=== PATIENT | female | born 1965 | race Caucasian/White ===

== ENCOUNTER 2022-08-09 12:53 | Inpatient (IN) | payer OTHER, SELFPAY ==
[2022-08-09] VITALS (22 sets, daily range): BP systolic 108–156; BP diastolic 58–98; PULSE 101–128; RESP 19–34; TEMP 36.7–37.2; O2SAT 89–97; BMI 26.4
--- NOTE | 2022-08-09 12:58 | DI.RAD.S_ITS ---
PROCEDURE: XR CHEST 1V INDICATIONS: SOB TECHNIQUE: One view of the chest was acquired. COMPARISON: None. FINDINGS: Surgical changes and devices: None. Lungs and pleura: There is hyperinflation and chronic interstitial changes without focal infiltrate, pleural effusion or pneumothorax. Mediastinum: Mediastinal contours appear normal. Heart size is normal. Bones and chest wall: No suspicious bony lesions. Overlying soft tissues appear unremarkable. IMPRESSION: Hyperinflation without acute cardiopulmonary findings Approved by: Get Santana M.D. on 08/09/2022 at 13:24
[2022-08-09] MEDS: ALBUTEROL/IPRATROPIUM 3 ML AMPUL 9 ML INH (13:02)
[2022-08-09] MEDS: SODIUM CHLORIDE 0.9% 1,000 ML 1000 ML IV (13:06)
[2022-08-09] MEDS: methylPREDNISolone 125 MG/2 ML VIAL IV (13:06)
--- NOTE | 2022-08-09 13:07 | ED_ITS ---
HPI - SOB/Dyspnea General Chief Complaint: Shortness of Breath/Dyspnea Stated Complaint: COPD, SOB, Chest pain Time Seen by Provider: 08/09/22 12:53 Source: patient and EMS Mode of arrival: EMS Limitations: no limitations History of Present Illness HPI Narrative: 57-year-old female former smoker with history of COPD presents by EMS for evaluation of a few days of increasing shortness of breath with yellow to gree manjinder sputum production, body aches and fatigue. She has multiple family members with viral upper respiratory infections. She has been using her inhalers without much relief. On arrival EMS found her tripoding with oxygen levels in the mid 90s. Her most recent hospitalization was in [place] about 1 month ago under similar circumstances. She denies any headache, blurred vision or throat pain. She has no nausea, vomiting or diarrhea. She did have some mild chest pain that was associated with cough earlier today but this is no longer present. She denies any recent travel, known cancer or history of blood clot. She has no lower extremity pain, swelling or redness Related Data Allergies Allergy/AdvReac Type Severity Reaction Status Date / Time morphine Allergy Verified 08/09/22 13:02 walnut Allergy Verified 08/09/22 13:02 Review of Systems Review of Systems Narrative: GENERAL: See HPI HEENT: Denies sinus pain, ear pain, sore throat, difficulty swallowing, dizziness. RESPIRATORY: see HPI CARDIOVASCULAR: see HPI GASTROINTESTINAL: Denies nausea, vomiting, abdominal pain, diarrhea, constipation, melena. : Denies dysuria, frequency, incontinence, hematuria, urinary retention. MUSCULOSKELETAL: denies weakness, joint pain, or bony pain SKIN: Denies rash, skin lesions, or other NEUROLOGIC: Denies weakness, headache, numbness, change in speech, confusion, seizures, incoordination. PSYCHIATRIC: No concerning psychosocial issues. 12 point review of systems is negative except for those stated above Exam Narrative Exam Narrative: GENERAL: [57] year old patient appears stated age. Well-developed patient, in mild distress. HEAD: Atraumatic. Normocephalic. EYES: Pupils equal round and reactive. Extraocular motions intact. No scleral icterus. No injection or drainage. ENT: Nose without bleeding, purulent drainage. Throat without erythema, tonsillar hypertrophy or exudate. Airway patent. NECK: Trachea midline. Non tender CARDIOVASCULAR: Regular rate and rhythm without murmurs, gallops, or rubs. RESPIRATORY: Decreased breath sounds throughout with prolonged expiratory phase and very faint end expiratory wheeze. Increased work of breathing with use of accessory muscles. Room air pulse ox mid 90s GASTROINTESTINAL: Abdomen soft, non-tender, nondistended. EXTREMITIES: No edema or joint tenderness. BACK: Nontender without deformity or crepitance. No flank tenderness. NEURO: AOx3. SKIN: No rash or erythema of visible areas Initial Vital Signs Initial Vital Signs: Vital Signs Pulse Rate 125 H 08/09/22 12:56 Pulse Oximetry 97 08/09/22 12:56 Course Orders Ordered: ED Orders 08/09/22 12:58 XR chest 1V Stat 08/09/22 13:01 Blood Culture Stat Complete Blood Count AUTO DIFF Stat Comprehensive Metabolic Panel Stat Covid-19 + FLU A/B + RSV - PCR Stat D Dimer Stat Lipase Stat NT-proBNP (BNP-Adult 18+) Stat Procalcitonin Stat Troponin & CK Cardiac Panel Stat 08/09/22 13:10 EKG-12 Lead Stat 08/09/22 14:42 CT angio chest PE protocol Stat Discontinued Medications Acetaminophen (Acetaminophen 325 Mg Tablet) 650 mg PO NOW ONE Stop: 08/09/22 17:22 Last Admin: 08/09/22 17:27 Dose: 650 mg Documented By: MARK Albuterol/Ipratropium (Albuterol/Ipratropium 3 Ml Ampul) 9 ml INH NOW ONE Stop: 08/09/22 13:01 Last Admin: 08/09/22 13:02 Dose: 9 ml Documented By: SHER Sodium Chloride (Normal Saline 0.9%) 1,000 mls @ 1,000 mls/hr IV BOLUS ONE Stop: 08/09/22 13:56 Last Infusion: 08/09/22 14:13 Dose: 0 mls/hr Documented By: Admin: 08/09/22 13:06 Dose: 1,000 mls/hr Documented By: KIMMIE Magnesium Sulfate (Magnesium Sulfate) 2 gm in 50 mls @ 150 mls/hr IV NOW ONE Stop: 08/09/22 15:01 Last Infusion: 08/09/22 16:18 Dose: 0 mls/hr Documented By: YADIRA Co-signed By: MARK Admin: 08/09/22 15:10 Dose: 150 mls/hr Documented By: YADIRA Co-signed By: MARK Ceftriaxone Sodium 1,000 mg/ (Sodium Chloride) 100 mls @ 200 mls/hr IV NOW ONE Stop: 08/09/22 16:54 Last Admin: 08/09/22 17:28 Dose: 200 mls/hr Documented By: MARK Azithromycin 500 mg/ Dextrose 250 mls @ 250 mls/hr IV NOW ONE Stop: 08/09/22 16:54 Methylprednisolone (Methylprednisolone 125 Mg/2 Ml Vial) 125 mg IV NOW ONE Stop: 08/09/22 13:00 Last Admin: 08/09/22 13:06 Dose: 125 mg Documented By: KIMMIE Vital Signs Vital signs: Vital Signs - 8 hr 08/09/22 12:59 08/09/22 13:03 08/09/22 12:56 Temperature 99.0 F Pulse Rate 124 H 117 H 125 H Respiratory Rate 28 H 22 Blood Pressure 154/98 H Pulse Oximetry 92 93 97 Oxygen Delivery Method Room Air Nasal Cannula Oxygen Flow Rate 2 08/09/22 12:58 08/09/22 12:58 08/09/22 13:00 Temperature Pulse Rate 128 H Respiratory Rate Blood Pressure 156/79 H 132/78 Pulse Oximetry 94 Oxygen Delivery Method Oxygen Flow Rate 08/09/22 13:00 08/09/22 13:30 08/09/22 13:31 Temperature Pulse Rate 126 H 123 H Respiratory Rate Blood Pressure 121/76 Pulse Oximetry 93 94 Oxygen Delivery Method Oxygen Flow Rate 08/09/22 13:31 08/09/22 14:00 08/09/22 14:00 Temperature Pulse Rate 120 H 119 H Respiratory Rate Blood Pressure 123/58 L Pulse Oximetry 93 94 Oxygen Delivery Method Oxygen Flow Rate 08/09/22 14:30 08/09/22 14:30 08/09/22 15:06 Temperature Pulse Rate 124 H 124 H Respiratory Rate Blood Pressure 125/62 Pulse Oximetry 89 L 89 L Oxygen Delivery Method Oxygen Flow Rate 08/09/22 15:30 08/09/22 15:37 08/09/22 15:37 Temperature Pulse Rate 117 H 115 H Respiratory Rate 30 H 34 H Blood Pressure 142/67 H Pulse Oximetry 96 96 Oxygen Delivery Method Oxygen Flow Rate 08/09/22 16:00 08/09/22 16:00 08/09/22 16:30 Temperature Pulse Rate 108 H Respiratory Rate Blood Pressure 119/61 129/63 Pulse Oximetry 93 Oxygen Delivery Method Oxygen Flow Rate 08/09/22 16:30 08/09/22 17:00 08/09/22 17:00 Temperature Pulse Rate 103 H 103 H Respiratory Rate 25 H 23 Blood Pressure 121/74 Pulse Oximetry 94 94 Oxygen Delivery Method Oxygen Flow Rate MDM - SOB/Dyspnea Lab Data Result diagrams: 08/09/22 13:01 08/09/22 13:01 Labs: Lab Results 08/09/22 08/09/22 08/09/22 Range/Units 13:01 13:01 13:01 WBC 10.4 (4.5-11.0) X10^3/uL RBC 4.98 (4.0-5.2) X10^6/uL Hgb 14.1 (12.0-16.0) g/dL Hct 41.9 (36-46) % MCV 84.3 (80-100) fL MCH 28.3 (26-34) PG MCHC 33.6 (30-36) % RDW 13.0 (11.6-14.8) % Plt Count 267 (150-400) X10^3/uL Neut % (Auto) 74.7 (50-75) % Lymph % (Auto) 12.1 L (25-40) % [place] % (Auto) 12.4 (3-14) % Eos % (Auto) 0.4 L (2-4) % Baso % (Auto) 0.4 (0-2) % Neut # (Auto) 7700 H (0174-9346) /uL Lymph # (Auto) 1200 (0023-2094) /uL [place] # (Auto) 1300 H (0-900) /uL Eos # (Auto) 0 (0-450) /uL Baso # (Auto) 0 (0-100) /uL D-Dimer 731 H (<500) ng/ml Sodium (137-145) mmol/L Potassium (3.4-5.1) mmol/L Chloride (98-107) mmol/L Carbon Dioxide (22-32) mmol/L BUN (7-17) mg/dL Creatinine (0.52-1.04) mg/dL Estimated GFR (>60) mL/min BUN/Creatinine Ratio (6-22) Glucose (70-100) mg/dL Calcium (8.4-10.2) mg/dL Total Bilirubin (0.2-1.3) mg/dL AST (14-36) IU/L ALT (<35) IU/L Alkaline Phosphatase (38-126) U/L Total Creatine Kinase (30-135) U/L CK-MB (CK-2) (<2.37) ng/mL CK-MB (CK-2) Rel Index (1.5-5.0) % Troponin I (0.01-0.034) ng/mL NT-Pro-B Natriuret Pep (<125) pg/mL Total Protein (6.3-8.2) g/dL Albumin (3.5-5.0) g/dL Globulin (1.7-4.1) g/dL Albumin/Globulin Ratio (1.0-2.8) Lipase (23-300) U/L Procalcitonin 0.08 (<0.5) ng/mL SARS-CoV-2 (PCR) (Negative) Influenza A (RT-PCR) (NEGATIVE) Influenza B (RT-PCR) (NEGATIVE) RSV (PCR) (Negative) 08/09/22 08/09/22 Range/Units 13:01 13:01 WBC (4.5-11.0) X10^3/uL RBC (4.0-5.2) X10^6/uL Hgb (12.0-16.0) g/dL Hct (36-46) % MCV (80-100) fL MCH (26-34) PG MCHC (30-36) % RDW (11.6-14.8) % Plt Count (150-400) X10^3/uL Neut % (Auto) (50-75) % Lymph % (Auto) (25-40) % [place] % (Auto) (3-14) % Eos % (Auto) (2-4) % Baso % (Auto) (0-2) % Neut # (Auto) (1909-9483) /uL Lymph # (Auto) (8204-7157) /uL [place] # (Auto) (0-900) /uL Eos # (Auto) (0-450) /uL Baso # (Auto) (0-100) /uL D-Dimer (<500) ng/ml Sodium 132 L (137-145) mmol/L Potassium 3.6 (3.4-5.1) mmol/L Chloride 96 L (98-107) mmol/L Carbon Dioxide 27 (22-32) mmol/L BUN 10 (7-17) mg/dL Creatinine 0.39 L (0.52-1.04) mg/dL Estimated GFR > 60 (>60) mL/min BUN/Creatinine Ratio 25.6 H (6-22) Glucose 133 H (70-100) mg/dL Calcium 8.7 (8.4-10.2) mg/dL Total Bilirubin 0.8 (0.2-1.3) mg/dL AST 23 (14-36) IU/L ALT 14 (<35) IU/L Alkaline Phosphatase 103 (38-126) U/L Total Creatine Kinase 116 (30-135) U/L CK-MB (CK-2) 1.58 (<2.37) ng/mL CK-MB (CK-2) Rel Index 1.4 L (1.5-5.0) % Troponin I < 0.012 (0.01-0.034) ng/mL NT-Pro-B Natriuret Pep 72 (<125) pg/mL Total Protein 7.1 (6.3-8.2) g/dL Albumin 3.8 (3.5-5.0) g/dL Globulin 3.3 (1.7-4.1) g/dL Albumin/Globulin Ratio 1.2 (1.0-2.8) Lipase 44 (23-300) U/L Procalcitonin (<0.5) ng/mL SARS-CoV-2 (PCR) Negative (Negative) Influenza A (RT-PCR) Flu a negative (NEGATIVE) Influenza B (RT-PCR) Flu b negative (NEGATIVE) RSV (PCR) Negative (Negative) Imaging Data CT scan - chest: Radiologist's Impression: Nieves Fernandez??57??F??1965 ? Allergy/Adv: morphine, walnut Close Chest CTA (Signed) Santana,Get - 08/09/22 Chest X-Ray (Signed) Santana,[facility] - 08/09/22 Launch?[address] [address] [address] Scan Report Signed Patient: Nieves Fernandez MR#: [id number] : 1965 Acct:[id number] Age/Sex: 57 / F Date of Service: 08/09/22 Loc: ED Accession Number: [id number] ?? Procedure: CT angio chest PE protocol Ordering Provider: Bruno Mcfadden D.O. PROCEDURE:? CT ANGIO CHEST PE PROTOCOL ? INDICATIONS:? SOB, hypoxemia, tachycardia ? TECHNIQUE:? After the administration of intravenous contrast, 2 mm thick sections acquired from the pulmonary apices to the posterior costophrenic angles.? 3-dimensional maximum intensity projection (MIP) coronal and sagittal reformats were then acquired through the thorax.? For radiation dose reduction, the following was used:? automated exposure control, adjustment of mA and/or kV according to patient size.? ? COMPARISON:? None. ? FINDINGS: ? Cardiovascular and Mediastinum:? Heart size is normal.? No evidence of thoracic aortic aneurysm.? Pulmonary vasculature is unremarkable.? No hiatal hernia.? Thyroid gland unremarkable. ? Lungs and Pleural Spaces:? Diffuse bronchial wall thickening associated with bilateral peripheral tree-in-bud densities.? Small peripheral pulmonary nodules noted as well.? There is an 8 mm nodule image periphery of the right lower lobe.? Bilobed nodule in the right upper lobe measures 1.8 by 0.8 cm.? Multiple additional smaller nodules have a reticulonodular component.? Biapical pulmonary emphysema present as well. ? Lymph Nodes:? Mediastinal adenopathy.? Largest is a pretracheal node measuring 1.9 x 1.1 cm.? No axillary adenopathy. ? Musculoskeletal:? No evidence of rib fracture. Thoracic spine unremarkable. Chest wall and sternum intact. No lytic or blastic lesions. ? Upper abdomen:? Visualized portions of the liver, spleen and kidneys are unremarkable. ? IMPRESSION: ? 1. No evidence of pulmonary embolism, aortic dissection or aneurysm. ? 2. Bilateral peripheral tree-in-bud pattern associated with multiple reticular nodules.? Largest is a bilobed nodule in the right upper lobe measuring up to 1.8 cm. While this all reflect infectious or inflammatory disease, follow-up to resolution required to exclude underlying neoplastic process ? Approved by: Get Santana M.D. on 08/09/2022 at 15:42? Discharge Plan Departure Patient Disposition: Admitted as Observation Clinical Impression: Acute hypoxemic respiratory failure, Acute exacerbation of chronic obstructive pulmonary disease Admit Date/Time: 08/09/22 17:03 Admit Provider: Melanie Wadsworth
[2022-08-09 13:51] LABS: Add Manual Diff / Slide Review NO; Basophils Absolute Auto 0 /uL (0-100); Basophils Percent Auto 0.4 % (0-2); Eosinophils Absolute Auto 0 /uL (0-450); Eosinophils Percent Auto 0.4 % (2-4); Hematocrit 41.9 % (36-46); Hemoglobin 14.1 g/dL (12.0-16.0); Lymphocytes Absolute Auto 1200 /uL (1100-4500); Lymphocytes Percent Auto 12.1 % (25-40); Mean Corpuscular HGB Conc 33.6 % (30-36); Mean Corpuscular Hemoglobin 28.3 PG (26-34); Mean Corpuscular Volume 84.3 fL (80-100); Monocytes Absolute Auto 1300 /uL (0-900); Monocytes Percent Auto 12.4 % (3-14); Neutrophils Absolute Auto 7700 /uL (1500-7000); Neutrophils Percent Auto 74.7 % (50-75); Platelet Count 267 X10^3/uL (150-400); Red Blood Cell Count 4.98 X10^6/uL (4.0-5.2); White Blood Cell Count 10.4 X10^3/uL (4.5-11.0)
[2022-08-09 14:03] LABS: D Dimer 731 ng/ml (<500)
[2022-08-09 14:10] LABS: Alanine Aminotransferase 14 IU/L (<35); Albumin 3.8 g/dL (3.5-5.0); Albumin Globulin Ratio 1.2 (1.0-2.8); Alkaline Phosphatase 103 U/L (38-126); Aspartate Aminotransferase 23 IU/L (14-36); BUN Creatinine Ratio 25.6 (6-22); Bilirubin Total 0.8 mg/dL (0.2-1.3); Blood Urea Nitrogen 10 mg/dL (7-17); Calcium 8.7 mg/dL (8.4-10.2); Carbon Dioxide 27 mmol/L (22-32); Chloride 96 mmol/L (98-107); Creatine Kinase 116 U/L (30-135); Estimated Glomerular Filt Rate > 60 mL/min (>60); Globulin 3.3 g/dL (1.7-4.1); Glucose 133 mg/dL (70-100); HEMOLYSIS < 15 (0-50); Lipase 44 U/L (23-300); Potassium 3.6 mmol/L (3.4-5.1); Sodium 132 mmol/L (137-145); Total Protein 7.1 g/dL (6.3-8.2)
[2022-08-09 14:22] LABS: NT-proBNP (BNP-Adult 18+) 72 pg/mL (<125); Troponin I < 0.012 ng/mL (0.01-0.034)
[2022-08-09 14:25] LABS: CKMB % Relative Index 1.4 % (1.5-5.0); Creatine Kinase MB 1.58 ng/mL (<2.37)
[2022-08-09 14:32] LABS: Influenza A - CEPHEID Flu A NEGATIVE (NEGATIVE); Influenza B - CEPHEID Flu B NEGATIVE (NEGATIVE); Respiratory Syncytial Virus Negative (Negative)
[2022-08-09 14:35] LABS: COVID-19 CEPHEID 4-PLEX PCR Negative (Negative)
[2022-08-09 14:39] LABS: Procalcitonin 0.08 ng/mL (<0.5)
--- NOTE | 2022-08-09 14:42 | DI.CT.S_ITS ---
PROCEDURE: CT ANGIO CHEST PE PROTOCOL INDICATIONS: SOB, hypoxemia, tachycardia TECHNIQUE: After the administration of intravenous contrast, 2 mm thick sections acquired from the pulmonary apices to the posterior costophrenic angles. 3-dimensional maximum intensity projection (MIP) coronal and sagittal reformats were then acquired through the thorax. For radiation dose reduction, the following was used: automated exposure control, adjustment of mA and/or kV according to patient size. COMPARISON: None. FINDINGS: Cardiovascular and Mediastinum: Heart size is normal. No evidence of thoracic aortic aneurysm. Pulmonary vasculature is unremarkable. No hiatal hernia. Thyroid gland unremarkable. Lungs and Pleural Spaces: Diffuse bronchial wall thickening associated with bilateral peripheral tree-in-bud densities. Small peripheral pulmonary nodules noted as well. There is an 8 mm nodule image periphery of the right lower lobe. Bilobed nodule in the right upper lobe measures 1.8 by 0.8 cm. Multiple additional smaller nodules have a reticulonodular component. Biapical pulmonary emphysema present as well. Lymph Nodes: Mediastinal adenopathy. Largest is a pretracheal node measuring 1.9 x 1.1 cm. No axillary adenopathy. Musculoskeletal: No evidence of rib fracture. Thoracic spine unremarkable. Chest wall and sternum intact. No lytic or blastic lesions. Upper abdomen: Visualized portions of the liver, spleen and kidneys are unremarkable. IMPRESSION: 1. No evidence of pulmonary embolism, aortic dissection or aneurysm. 2. Bilateral peripheral tree-in-bud pattern associated with multiple reticular nodules. Largest is a bilobed nodule in the right upper lobe measuring up to 1.8 cm. While this all reflect infectious or inflammatory disease, follow-up to resolution required to exclude underlying neoplastic process Approved by: Get Santana M.D. on 08/09/2022 at 15:42
[2022-08-09] MEDS: MAGNESIUM SULFATE 2 GM/50 ML PIGGYBACK IV (15:10)
[2022-08-09] MEDS: ACETAMINOPHEN 325 MG TABLET 650 MG PO (17:27)
[2022-08-09] MEDS: cefTRIAXone 1,000 MG in SODIUM CHLORIDE 0.9% 100 ML 200 MG IV (17:28)
[2022-08-09] MEDS: AZITHROMYCIN 500 MG in DEXTROSE 5% IN WATER 250 ML 250 MG IV (17:57)
--- NOTE | 2022-08-09 23:49 | P.HP_ITS ---
History of Present Illness History of Present Illness Date Patient Seen: 08/10/22 Time Patient Seen: 23:55 Chief complaint: COPD, SOB, Chest pain Narrative: Ms. Fernandez is a 57W with PMH COPD who presents to the hospital with worsening shortness of breath. She has a similar admission 1 month ago to another hospital. She notes for the last 4 days she has had worsening cough with green sputum production, shortness of breath, myalgias. She has grandchildren who have colds. She has used her inhaler with minimal improvement. When EMS arrived she was tripoding and in respiratory distress. She had chest pain that was exacerbated with a cough. She does have O2 at home, but rarely needs to to use it. In the ED workup was done, vitals notabe for tachycardia, tachypnea. Sats in the 80 on room air, she was placed on 2L oxygen. Labs notable for WBC 10.4, hgb 14.1, plts 267. Creatinine 0.39. D-dimer 731. Procal 0.08.Covid negative, flu negative, RSV negative. Chest xray showed no acute process. CTA showed no PE, but did show bilateral tree in bud pattern. She was ordered for nebs, steroids, antibiotics and admitted for further treatment. On the floor she remains in notable respiratory distress, increased work of breathing and tachypneic. Family history: Mother with emphysema Social history: former smoker Patient History Family & Social History Social History: household members children Prior Living Arrangements House Safety & Behavioral: Feels Safe in Current Yes Environment Been Physically Hurt or No Threatened By a Person Tobacco & Substance use: Smoking Status Former smoker alcohol intake never Substance Use Type does not use Meds Home Medications and Allergies Home Medications Medication Instructions Recorded Confirmed Type albuterol sulfate 5 mg/mL(0.5 %) 2.5 mg inhalation Q6H PRN Wheezing 08/09/22 08/09/22 History solution for nebulization benzonatate 200 mg capsule 200 mg PO TID PRN Cough 08/09/22 08/09/22 History fluticasone propionate 115 2 puff inhalation BID 08/09/22 08/09/22 History mcg-salmeterol 21 mcg/actuation HFA inhaler (Advair HFA) tiotropium bromide 2.5 2 puff inhalation DAILY 08/09/22 08/09/22 History mcg/actuation mist for inhalation (Spiriva Respimat) Allergies Allergy/AdvReac Type Severity Reaction Status Date / Time morphine Allergy Verified 08/09/22 13:02 walnut Allergy Verified 08/09/22 13:02 Review of Systems Review of Systems Narrative: 14 systems reviewed and negative aside from what is noted in HPI Exam Vital Signs (past 8 hours): - 08/09/22 16:30 08/09/22 16:30 08/09/22 17:00 Temperature Pulse Rate 103 H Respiratory Rate 25 H Blood Pressure 129/63 121/74 Pulse Oximetry 94 Oxygen Delivery Method Oxygen Flow Rate 08/09/22 17:00 08/09/22 17:30 08/09/22 17:30 Temperature Pulse Rate 103 H 113 H Respiratory Rate 23 29 H Blood Pressure 133/73 Pulse Oximetry 94 92 Oxygen Delivery Method Oxygen Flow Rate 08/09/22 18:00 08/09/22 18:00 08/09/22 18:30 Temperature Pulse Rate 109 H Respiratory Rate 22 Blood Pressure 115/62 108/64 Pulse Oximetry 94 Oxygen Delivery Method Oxygen Flow Rate 08/09/22 18:30 08/09/22 19:00 08/09/22 19:00 Temperature Pulse Rate 115 H 107 H Respiratory Rate 21 23 Blood Pressure 114/60 Pulse Oximetry 95 94 Oxygen Delivery Method Oxygen Flow Rate 08/09/22 19:30 08/09/22 19:30 08/09/22 20:00 Temperature Pulse Rate 103 H Respiratory Rate 19 Blood Pressure 111/61 125/68 Pulse Oximetry 95 Oxygen Delivery Method Oxygen Flow Rate 08/09/22 20:00 08/09/22 20:46 08/09/22 17:13 Temperature 98.0 F Pulse Rate 101 H 101 H Respiratory Rate 25 H 26 H Blood Pressure 117/77 Pulse Oximetry 94 93 Oxygen Delivery Method Nasal Cannula Oxygen Flow Rate 2 08/09/22 19:00 Temperature Pulse Rate Respiratory Rate Blood Pressure Pulse Oximetry Oxygen Delivery Method Nasal Cannula Oxygen Flow Rate Oxygen Delivery Method Nasal Cannula Oxygen Flow Rate 2 Narrative Exam Narrative: GEN: respiratory distress HEENT: moist mucous membranes, PERRL NECK: trachea midline, no JVD PULM: wheezes bilaterally, increased work of breathing, tachypneic CV: tachycardic no murmurs ABD: soft, nontender, nondistended, no organomegaly EXT: warm and well perfused with no edema NEURO: awake, alert, oriented with no focal deficts Objective Labs Result Diagrams: 08/09/22 13:01 08/09/22 13:01 Labs: Laboratory Results - last 24 hr 08/09/22 08/09/22 08/09/22 13:01 13:01 13:01 WBC 10.4 RBC 4.98 Hgb 14.1 Hct 41.9 MCV 84.3 MCH 28.3 MCHC 33.6 RDW 13.0 Plt Count 267 Neut % (Auto) 74.7 Lymph % (Auto) 12.1 L [place] % (Auto) 12.4 Eos % (Auto) 0.4 L Baso % (Auto) 0.4 Neut # (Auto) 7700 H Lymph # (Auto) 1200 [place] # (Auto) 1300 H Eos # (Auto) 0 Baso # (Auto) 0 D-Dimer 731 H Sodium Potassium Chloride Carbon Dioxide BUN Creatinine Estimated GFR BUN/Creatinine Ratio Glucose Calcium Total Bilirubin AST ALT Alkaline Phosphatase Total Creatine Kinase CK-MB (CK-2) CK-MB (CK-2) Rel Index Troponin I NT-Pro-B Natriuret Pep Total Protein Albumin Globulin Albumin/Globulin Ratio Lipase Procalcitonin 0.08 SARS-CoV-2 (PCR) Influenza A (RT-PCR) Influenza B (RT-PCR) RSV (PCR) 08/09/22 08/09/22 13:01 13:01 WBC RBC Hgb Hct MCV MCH MCHC RDW Plt Count Neut % (Auto) Lymph % (Auto) [place] % (Auto) Eos % (Auto) Baso % (Auto) Neut # (Auto) Lymph # (Auto) [place] # (Auto) Eos # (Auto) Baso # (Auto) D-Dimer Sodium 132 L Potassium 3.6 Chloride 96 L Carbon Dioxide 27 BUN 10 Creatinine 0.39 L Estimated GFR > 60 BUN/Creatinine Ratio 25.6 H Glucose 133 H Calcium 8.7 Total Bilirubin 0.8 AST 23 ALT 14 Alkaline Phosphatase 103 Total Creatine Kinase 116 CK-MB (CK-2) 1.58 CK-MB (CK-2) Rel Index 1.4 L Troponin I < 0.012 NT-Pro-B Natriuret Pep 72 Total Protein 7.1 Albumin 3.8 Globulin 3.3 Albumin/Globulin Ratio 1.2 Lipase 44 Procalcitonin SARS-CoV-2 (PCR) Negative Influenza A (RT-PCR) Flu a negative Influenza B (RT-PCR) Flu b negative RSV (PCR) Negative Assessment & Plan Assessment & Plan narrative: 1. Acute hypoxemic respiratory failure with acute COPD exacerbation -she has noted shortness of breath, wheezing, productive cough -on arrival sats in the 80s -she has been started on steroids, nebulizers, and azithromycin -will order for budesonide as well -CT scan showed tree in bud opacities, will treat for bacterial pneumonia as we ll as possible exacerbator, ordered for ceftriaxone/azithromycin Dispo: She continues to look quite in respiratory distress and uncomfortable with increased work of breathing and oxygen requirement. Suspect she will need at least two midnights of treatment in the hospital. CODE: Full Proxy:Candida Brandon, daughter I have utilized all available resources to reconcile the patient's home medications Time Spent With Patient Critical Care time: I spent a total of [] minutes of critical care time on this patient's care toda y; this time is exclusive of procedural time. Quality VTE Deep Vein Thrombosis/Pulmonary Embolism Present on Admission: No
[2022-08-10] VITALS (11 sets, daily range): BP systolic 109–121; BP diastolic 65–73; PULSE 75–103; RESP 14–20; TEMP 36.3–37.2; O2SAT 89–98
[2022-08-10] MEDS: ACETAMINOPHEN 325 MG TABLET 650 MG PO ×2 (00:12→08:27)
--- NOTE | 2022-08-10 04:37 | PC.NURSE ---
Pt is AxOx4, needs STA and cooperative. VSS, except pt's has tachypnea and use tripod position to breath.Lungs are so diminished in all area. Pt is on 2 O2 and sats 95%. Pt easily get SOB with activity and takes a long time to catch her breath. Otherwise, no problem. Pt c/o headache and recieved PRN Tylenol with good effect. Pt slept well.
[2022-08-10 07:05] LABS: Add Manual Diff / Slide Review NO; Basophils Absolute Auto 0 /uL (0-100); Basophils Percent Auto 0.3 % (0-2); Eosinophils Absolute Auto 0 /uL (0-450); Hematocrit 39.3 % (36-46); Hemoglobin 13.2 g/dL (12.0-16.0); Lymphocytes Absolute Auto 1100 /uL (1100-4500); Lymphocytes Percent Auto 11.8 % (25-40); Mean Corpuscular HGB Conc 33.5 % (30-36); Mean Corpuscular Hemoglobin 28.5 PG (26-34); Monocytes Absolute Auto 500 /uL (0-900); Monocytes Percent Auto 6.1 % (3-14); Neutrophils Absolute Auto 7300 /uL (1500-7000); Neutrophils Percent Auto 81.8 % (50-75); Platelet Count 281 X10^3/uL (150-400); Red Blood Cell Count 4.62 X10^6/uL (4.0-5.2); White Blood Cell Count 8.9 X10^3/uL (4.5-11.0)
[2022-08-10 07:18] LABS: BUN Creatinine Ratio 34.4 (6-22); Blood Urea Nitrogen 11 mg/dL (7-17); Calcium 8.6 mg/dL (8.4-10.2); Carbon Dioxide 32 mmol/L (22-32); Chloride 99 mmol/L (98-107); Estimated Glomerular Filt Rate > 60 mL/min (>60); Glucose 134 mg/dL (70-100); HEMOLYSIS < 15 (0-50); Potassium 4.4 mmol/L (3.4-5.1); Sodium 139 mmol/L (137-145)
[2022-08-10] MEDS: BUDESONIDE 0.5 MG/2 ML NEB INH ×2 (07:28→18:05)
[2022-08-10] MEDS: ALBUTEROL/IPRATROPIUM 3 ML AMPUL INH ×4 (07:28→18:05)
[2022-08-10] MEDS: ENOXAPARIN 40 MG/0.4 ML SYRINGE SUBCUT (08:24)
[2022-08-10] MEDS: predniSONE 20 MG TABLET 40 MG PO (08:25)
--- NOTE | 2022-08-10 12:24 | P.PN_ITS ---
Subjective Subjective Date Patient Seen: 08/10/22 Interval history: Tilden a bit better this morning, but will have occasional coughing fits where she will desaturate and get short of breath. Had some chest pain with coughing that now resolved. Exam Vital Signs (past 8 hours): - 08/10/22 05:03 08/10/22 07:46 08/10/22 08:21 Temperature 97.4 F L 98.2 F Pulse Rate 75 95 H 95 H Respiratory Rate 18 20 18 Blood Pressure 118/73 114/69 Pulse Oximetry 94 89 L 93 Oxygen Delivery Method Nasal Cannula Oxygen Flow Rate 0 3 2 Fraction of Inspired Oxygen 32 08/10/22 07:00 08/10/22 11:15 Temperature Pulse Rate 79 Respiratory Rate 16 Blood Pressure Pulse Oximetry 93 94 Oxygen Delivery Method Nasal Cannula High Flow Nasal Cannula Oxygen Flow Rate 2 3 Fraction of Inspired Oxygen Fraction of Inspired Oxygen 32 SaO2/FiO2 Ratio 278 Oxygen Delivery Method High Flow Nasal Cannula Oxygen Flow Rate 3 Narrative Exam Narrative: GEN: initially NAD, then bending forwarding after coughing with tachypnea. HEENT: moist mucous membranes, PERRL NECK: trachea midline, no JVD PULM: wheezes bilaterally, increased work of breathing after coughing spell CV: RRR, no murmurs ABD: soft, nontender, nondistended, no organomegaly EXT: warm and well perfused with no edema NEURO: awake, alert, oriented with no focal deficts Objective Labs Result Diagrams: 08/10/22 06:12 08/10/22 06:12 Labs: Laboratory Results - last 24 hr 08/09/22 08/09/22 08/09/22 13:01 13:01 13:01 WBC 10.4 RBC 4.98 Hgb 14.1 Hct 41.9 MCV 84.3 MCH 28.3 MCHC 33.6 RDW 13.0 Plt Count 267 Neut % (Auto) 74.7 Lymph % (Auto) 12.1 L [place] % (Auto) 12.4 Eos % (Auto) 0.4 L Baso % (Auto) 0.4 Neut # (Auto) 7700 H Lymph # (Auto) 1200 [place] # (Auto) 1300 H Eos # (Auto) 0 Baso # (Auto) 0 D-Dimer 731 H Sodium Potassium Chloride Carbon Dioxide BUN Creatinine Estimated GFR BUN/Creatinine Ratio Glucose Calcium Total Bilirubin AST ALT Alkaline Phosphatase Total Creatine Kinase CK-MB (CK-2) CK-MB (CK-2) Rel Index Troponin I NT-Pro-B Natriuret Pep Total Protein Albumin Globulin Albumin/Globulin Ratio Lipase Procalcitonin 0.08 SARS-CoV-2 (PCR) Influenza A (RT-PCR) Influenza B (RT-PCR) RSV (PCR) 08/09/22 08/09/22 08/10/22 13:01 13:01 06:12 WBC 8.9 RBC 4.62 Hgb 13.2 Hct 39.3 MCV 85.0 MCH 28.5 MCHC 33.5 RDW 13.0 Plt Count 281 Neut % (Auto) 81.8 H Lymph % (Auto) 11.8 L [place] % (Auto) 6.1 Eos % (Auto) 0.0 L Baso % (Auto) 0.3 Neut # (Auto) 7300 H Lymph # (Auto) 1100 [place] # (Auto) 500 Eos # (Auto) 0 Baso # (Auto) 0 D-Dimer Sodium 132 L Potassium 3.6 Chloride 96 L Carbon Dioxide 27 BUN 10 Creatinine 0.39 L Estimated GFR > 60 BUN/Creatinine Ratio 25.6 H Glucose 133 H Calcium 8.7 Total Bilirubin 0.8 AST 23 ALT 14 Alkaline Phosphatase 103 Total Creatine Kinase 116 CK-MB (CK-2) 1.58 CK-MB (CK-2) Rel Index 1.4 L Troponin I < 0.012 NT-Pro-B Natriuret Pep 72 Total Protein 7.1 Albumin 3.8 Globulin 3.3 Albumin/Globulin Ratio 1.2 Lipase 44 Procalcitonin SARS-CoV-2 (PCR) Negative Influenza A (RT-PCR) Flu a negative Influenza B (RT-PCR) Flu b negative RSV (PCR) Negative 08/10/22 06:12 WBC RBC Hgb Hct MCV MCH MCHC RDW Plt Count Neut % (Auto) Lymph % (Auto) [place] % (Auto) Eos % (Auto) Baso % (Auto) Neut # (Auto) Lymph # (Auto) [place] # (Auto) Eos # (Auto) Baso # (Auto) D-Dimer Sodium 139 Potassium 4.4 Chloride 99 Carbon Dioxide 32 BUN 11 Creatinine 0.32 L Estimated GFR > 60 BUN/Creatinine Ratio 34.4 H Glucose 134 H Calcium 8.6 Total Bilirubin AST ALT Alkaline Phosphatase Total Creatine Kinase CK-MB (CK-2) CK-MB (CK-2) Rel Index Troponin I NT-Pro-B Natriuret Pep Total Protein Albumin Globulin Albumin/Globulin Ratio Lipase Procalcitonin SARS-CoV-2 (PCR) Influenza A (RT-PCR) Influenza B (RT-PCR) RSV (PCR) [facility] Social History household members: children Smoking Status: Former smoker alcohol intake: never Assessment & Plan Assessment & Plan narrative: 1. Acute hypoxemic respiratory failure with acute COPD exacerbation, and bacterial pneumonia -she has noted shortness of breath, wheezing, productive cough. Normally only needs occasional oxygen, but requiring 3L at rest today. -on arrival sats in the 80s -she has been started on steroids, nebulizers, and azithromycin as well as antibiotics based on CT with opacitites. -Goal O2 89-96% while on supplemental therapy. Dispo: Inpatient, likely discharge home suspect in 2-3 days. CODE: Full Proxy:Candida Brandon, daughter I have utilized all available resources to reconcile the patient's home medications Time Spent With Patient Critical Care time: I spent a total of [] minutes of critical care time on this patient's care today; this time is exclusive of procedural time. Quality VTE Deep Vein Thrombosis/Pulmonary Embolism Present on Admission: No
--- NOTE | 2022-08-10 12:37 | CM.DANOTE ---
Patient is a 57 yo female who was admitted on 08/09/22 for COPD/SOB. Pt has [employer] for insurance and her PCP is Dr. Jeffery at [facility]. EMR was reviewed. Per MD, pt with hx of current smoker and COPD and has home oxygen but does not use much and admitted for Acute Resp Failure/COPD exac and possible pneumonia. Pt not yet medically stable to d/c home yet today and still on oxygen. SW met bedside with pt and explained role and pt confirms she lives at home in [place] with her adult Dtr Candida and jacobo and both pt and Dtr work at baseline. Pt is independent at baseline and drives and denies any hx of HH or SNF or need for any DME. Pt states she has a hx of hospitalization for similar but states last time she felt so much worse and had to remain in the hospital 3-4 days. Pt confirms that Dtr can assist if needed at d/c and provide transport home and pt does not anticipate any d/c needs once she is feeling a little better. Pt confirms her PCP is at the [facility] in [place] and states it's impossible to get an appointment there let alone get a call through. Pt is interested in changing PCP and getting established in [place]. SW provided the PCP list for [place] and encouraged her to call while she is in the hospital to schedule an establish care appointment. Pt appreciative. Plan: SW to follow for likely d/c home via Dtr POV when medically stable and any further identified discharge planning needs. EUGENIA Castellanos Discharge Planning/Care Management CM Discharge Assessment Start: 08/10/22 10:48 Freq: Status: Active Protocol: Document 08/10/22 10:48 BF (Rec: 08/10/22 10:55 [id number]) Discharge Planning Assessment Assigned Brim Presser EUGENIA Xavier DPOA/Assigned Designee Name informally Dtr Candida Contact Information [phone] Advance Directives? No Advance Directives on File No History Provided By Patient,Medical Record Has Patient been admitted in last 30 No days? Prior Living Arrangements House Household Members children Type of transporation used prior to Drives own vehicle admit Independent with ADL's Yes Is patient alert and oriented? Yes Caregiver for Another Yes: grandchildren in the home as well Barriers to Discharge No Discharge Plan Home Transportation Arrangement Dtr can provide transport at d /c Referrals Initiated None needed Whiteboard Updated in Patient Room with Yes name and ext. # of Brim Presser Review Status In Process Please Provide Date Initial DC 08/10/22 Assessment Was Performed Next Review Type Continued Stay Review Document 08/10/22 12:37 BF (Rec: 08/10/22 12:37 BF [id number]) Discharge Planning Assessment Assigned Brim Presser EUGENIA Xavier DPOA/Assigned Designee Name informally Dtr Candida Contact Information [phone] Advance Directives? No Advance Directives on File No History Provided By Patient,Medical Record Has Patient been admitted in last 30 No days? Prior Living Arrangements House Household Members children Type of transporation used prior to Drives own vehicle admit Independent with ADL's Yes Is patient alert and oriented? Yes Caregiver for Another Yes: grandchildren in the home as well Barriers to Discharge No Discharge Plan Home Transportation Arrangement Dtr can provide transport at d /c Referrals Initiated None needed Whiteboard Updated in Patient Room with Yes name and ext. # of Brim Presser Review Status In Process Please Provide Date Initial DC 08/10/22 Assessment Was Performed Next Review Type Continued Stay Review
[2022-08-10] MEDS: cefTRIAXone 1,000 MG in SODIUM CHLORIDE 0.9% 100 ML 200 MG IV (19:51)
[2022-08-10] MEDS: AZITHROMYCIN 500 MG in DEXTROSE 5% IN WATER 250 ML 250 MG IV (20:28)
[2022-08-11] VITALS (9 sets, daily range): BP systolic 113–142; BP diastolic 68–84; PULSE 81–98; RESP 16–20; TEMP 36.8–37.7; O2SAT 91–97
--- NOTE | 2022-08-11 03:32 | PC.NURSE ---
Pt is AxOx4, independent and cooperative. VSS, pt denies pain. Pt's O2 sats decreases at night below 90s and pt feels slighty SOB so pt was put on 1.5L NC. Otherwise, pt is doing well: coughing intermittent and strong. Lungs still diminished in most area. However, anterior bilatarally sounds slight better than yesterday. No other changes. Continue monitor.
[2022-08-11] MEDS: BUDESONIDE 0.5 MG/2 ML NEB INH ×2 (07:43→20:35)
[2022-08-11] MEDS: ALBUTEROL/IPRATROPIUM 3 ML AMPUL INH ×4 (07:43→20:35)
[2022-08-11] MEDS: predniSONE 20 MG TABLET 40 MG PO (08:11)
[2022-08-11] MEDS: ENOXAPARIN 40 MG/0.4 ML SYRINGE SUBCUT (08:11)
[2022-08-11] MEDS: BENZONATATE 100 MG CAPSULE PO (08:15)
[2022-08-11] MEDS: ACETAMINOPHEN 325 MG TABLET 650 MG PO ×2 (08:15→18:08)
[2022-08-11] MEDS: ALBUTEROL 2.5 MG/3 ML NEB (ADULT) INH (08:19)
--- NOTE | 2022-08-11 08:54 | DI.RAD.S_ITS ---
PROCEDURE: XR CHEST 2V INDICATIONS: continued hypoxia, poor air movement TECHNIQUE: 2 views of the chest were acquired. COMPARISON: [facility], CT, CT ANGIO CHEST PE PROTOCOL, 08/09/2022, 15:00. [facility], CR, XR CHEST 2 VIEWS, 01/19/2019, 10:29. [facility], CR, XR CHEST 1V, 08/09/2022, 13:10. FINDINGS: Surgical changes and devices: None. Lungs and pleura: No consolidation visualized. Micronodular opacities present on recent CT are not well visualized radiographically. No pleural effusions or pneumothorax. Mediastinum: Mediastinal contours are normal. Heart size is normal. Bones and chest wall: No suspicious bony abnormalities. Soft tissues appear unremarkable. IMPRESSION: No consolidation visualized. Micronodular opacities present on recent CT are not well visualized radiographically. Dictated by: Francesco Gu M.D. on 08/11/2022 at 12:58 Approved by: Francesco Gu M.D. on 08/11/2022 at 13:01
--- NOTE | 2022-08-11 12:26 | P.PN_ITS ---
Subjective Subjective Date Patient Seen: 08/11/22 Interval history: Feels a bit better this morning, but will still have occasional coughing fits still where she will desaturate and get short of breath. Exam Vital Signs (past 8 hours): - 08/11/22 07:12 08/11/22 07:47 08/11/22 08:15 Temperature 99.9 F H Pulse Rate 98 H Respiratory Rate 19 Blood Pressure 142/84 H Pulse Oximetry 91 92 92 Oxygen Delivery Method Nasal Cannula Nasal Cannula Oxygen Flow Rate 2 3 3 08/11/22 11:40 08/11/22 12:00 Temperature 98.2 F Pulse Rate 94 H Respiratory Rate 16 Blood Pressure 113/70 Pulse Oximetry 97 Oxygen Delivery Method Oxygen Flow Rate 3 0 Fraction of Inspired Oxygen 32 SaO2/FiO2 Ratio 278 Oxygen Delivery Method Nasal Cannula Oxygen Flow Rate 0 Narrative Exam Narrative: GEN: initially NAD, then bending forwarding after coughing with tachypnea. HEENT: moist mucous membranes, PERRL NECK: trachea midline, no JVD PULM: wheezes bilaterally, increased work of breathing after coughing spell CV: RRR, no murmurs ABD: soft, nontender, nondistended, no organomegaly EXT: warm and well perfused with no edema NEURO: awake, alert, oriented with no focal deficts Objective Labs Result Diagrams: 08/10/22 06:12 08/10/22 06:12 [facility] Social History household members: children Smoking Status: Former smoker alcohol intake: never Assessment & Plan Assessment & Plan narrative: 1. Acute hypoxemic respiratory failure with acute COPD exacerbation, and bacterial pneumonia -she has noted shortness of breath, wheezing, productive cough. Normally only needs occasional oxygen, but requiring 3L at rest today. -on arrival sats in the 80s -she has been started on steroids, nebulizers, and azithromycin as well as an tibiotics based on CT with opacitites. -Goal O2 89-96% while on supplemental therapy. Dispo: Inpatient, likely discharge home suspect in 2-3 days. May need home O2 depending on progress over the next few days. CODE: Full Proxy:Candida Brandon, daughter I have utilized all available resources to reconcile the patient's home medications Time Spent With Patient Critical Care time: I spent a total of [] minutes of critical care time on this patient's care today; this time is exclusive of procedural time. Quality VTE Deep Vein Thrombosis/Pulmonary Embolism Present on Admission: No
[2022-08-11] MEDS: cefTRIAXone 1,000 MG in SODIUM CHLORIDE 0.9% 100 ML 200 MG IV (19:44)
[2022-08-11] MEDS: AZITHROMYCIN 500 MG in DEXTROSE 5% IN WATER 250 ML 250 MG IV (20:40)
[2022-08-12] VITALS (10 sets, daily range): BP systolic 108–133; BP diastolic 63–80; PULSE 70–88; RESP 16–24; TEMP 36.6–37.2; O2SAT 92–98
[2022-08-12] MEDS: ALBUTEROL 2.5 MG/3 ML NEB (ADULT) INH ×2 (01:26→14:25)
[2022-08-12] MEDS: ALBUTEROL/IPRATROPIUM 3 ML AMPUL INH ×4 (07:22→18:11)
[2022-08-12] MEDS: BUDESONIDE 0.5 MG/2 ML NEB INH ×2 (07:22→18:11)
--- NOTE | 2022-08-12 07:44 | PM.PN.1 ---
Subjective Subjective Date Patient Seen: 08/12/22 Time Patient Seen: 11:00 Interval history: Patient feeling better but not quite back to baseline. Still having productive cough. Exam Vital Signs (past 8 hours): - 08/12/22 01:25 08/12/22 02:02 08/12/22 07:40 Temperature 97.8 F Pulse Rate 77 Respiratory Rate 17 Blood Pressure 116/63 Pulse Oximetry 96 97 Oxygen Delivery Method Room Air Nasal Cannula Oxygen Flow Rate 2 3 3 Fraction of Inspired Oxygen 32 SaO2/FiO2 Ratio 278 Oxygen Delivery Method Nasal Cannula Oxygen Flow Rate 3 Narrative Exam Narrative: GEN: initially NAD, then bending forwarding after coughing with tachypnea. HEENT: moist mucous membranes, PERRL NECK: trachea midline, no JVD PULM: faint wheezes bilaterally, increased work of breathing after coughing spell CV: RRR, no murmurs ABD: soft, nontender, nondistended, no organomegaly EXT: warm and well perfused with no edema NEURO: awake, alert, oriented with no focal deficts Objective Labs Result Diagrams: 08/10/22 06:12 08/10/22 06:12 [facility] Social History household members: children Smoking Status: Former smoker alcohol intake: never Assessment & Plan Assessment & Plan narrative: 1. Acute hypoxemic respiratory failure with acute COPD exacerbation, and bacterial pneumonia, improving -she has noted shortness of breath, wheezing, productive cough. Normally only needs occasional oxygen, but requiring 3L at rest today. -on arrival sats in the 80s -she has been started on steroids, nebulizers, and azithromycin as well as antibiotics based on CT with opacitites. -Goal O2 89-96% while on supplemental therapy. Dispo: Inpatient, likely discharge home suspect in 2-3 days. May need home O2 depending on progress over the next few days. CODE: Full Proxy:Candida Brandon, daughter I have utilized all available resources to reconcile the patient's home medications Dispo: Home in 1-2 days, possibly on 1-2L O2. Time Spent With Patient Critical Care time: I spent a total of [] minutes of critical care time on this patient's care today; this time is exclusive of procedural time. Quality VTE Deep Vein Thrombosis/Pulmonary Embolism Present on Admission: No
[2022-08-12] MEDS: predniSONE 20 MG TABLET 40 MG PO (10:20)
[2022-08-12] MEDS: ENOXAPARIN 40 MG/0.4 ML SYRINGE SUBCUT (10:20)
[2022-08-12] MEDS: cefTRIAXone 1,000 MG in SODIUM CHLORIDE 0.9% 100 ML 200 MG IV (20:00)
[2022-08-12] MEDS: AZITHROMYCIN 500 MG in DEXTROSE 5% IN WATER 250 ML 250 MG IV (20:42)
[2022-08-13] MEDS: ALBUTEROL 2.5 MG/3 ML NEB (ADULT) INH (00:14)
[2022-08-13 06:37] VITALS: BP 124/78; PULSE 83; RESP 18; TEMP 36.4; O2SAT 98
--- NOTE | 2022-08-13 07:39 | PM.DS.1 ---
History of Present Illness History of Present Illness Date Patient Seen: 08/13/22 Time Patient Seen: 10:00 Chief complaint: COPD, SOB, Chest pain Narrative: Ms. Fernandez is a 57W with PMH COPD who presents to the hospital with worsening shortness of breath. She has a similar admission 1 month ago to another hospital. She notes for the last 4 days she has had worsening cough with green sputum production, shortness of breath, myalgias. She has grandchildren who have colds. She has used her inhaler with minimal improvement. When EMS arrived she was tripoding and in respiratory distress. She had chest pain that was exacerbated with a cough. She does have O2 at home, but rarely needs to to use it. In the ED workup was done, vitals notabe for tachycardia, tachypnea. Sats in the 80 on room air, she was placed on 2L oxygen. Labs notable for WBC 10.4, hgb 14.1, plts 267. Creatinine 0.39. D-dimer 731. Procal 0.08.Covid negative, flu negative, RSV negative. Chest xray showed no acute process. CTA showed no PE, but did show bilateral tree in bud pattern. She was ordered for nebs, steroids, antibiotics and admitted for further treatment. On the floor she remains in notable respiratory distress, increased work of breathing and tachypneic. Discharge Providers Provider Date of admission: 08/09/22 17:03 Discharge Date: 08/13/22 Primary care physician: Doctor Mike MD Discharge provider: Joshua Quintero DO Summary Hospital Course Discharge Diagnosis: 1. Acute hypoxemic respiratory failure with acute COPD exacerbation, and bacterial pneumonia, improving Hospital Course: Patient admitted for worsening shortness of breath, productive cough and wheezing in the setting of likely viral pneumonia as her entire family came down with similar symptoms. Flu, RSV and COVID negative. Requiring 2-3L NC to start. CT showed opacities so started on CAP antibiotics along with prednisone and duonebs. She improved over 4 days and able to wean to 1L O2. Discharged to use her home O2 until she can wean off to maintain sats >87%. Given 3 additional days of po augmentin and 1 more day of po prednisone. Time Spent with Patient Time spent: Greater than 30 minutes Exam Vital Signs (past 8 hours): - 08/13/22 00:14 08/13/22 06:37 Temperature 97.6 F Pulse Rate 83 Respiratory Rate 18 Blood Pressure 124/78 Pulse Oximetry 98 Oxygen Delivery Method Nasal Cannula Oxygen Flow Rate 3 2 Fraction of Inspired Oxygen 32 SaO2/FiO2 Ratio 278 Oxygen Delivery Method Nasal Cannula Oxygen Flow Rate 2 Narrative Exam Narrative: GEN: NAD appears comfortable HEENT: moist mucous membranes, PERRL NECK: trachea midline, no JVD PULM: previously had wheezes, currently none CV: RRR, no murmurs ABD: soft, nontender, nondistended, no organomegaly EXT: warm and well perfused with no edema NEURO: awake, alert, oriented with no focal deficts Objective Labs Result Diagrams: 08/10/22 06:12 08/10/22 06:12 [facility] Social History household members: children Smoking Status: Former smoker alcohol intake: never Discharge Plan Discharge Plan Patient Disposition: Home Provider Discharge Comment: You were admitted for a COPD exacerbation from a pneumonia. You improved on IV antibiotics and oral steroids, and will need to complete 1 more day of steroids and 3 more days of oral antibiotics at home. Use your home oxygen to keep your sats >87% and you can wean off the oxygen over time if your levels stay good. Discharge orders & Medications Prescriptions: New prednisone 20 mg Tablet 40 mg PO DAILY 1 Days Qty: 2 0RF Rx Instructions: take on 08/14 amoxicillin-pot clavulanate 875-125 mg tablet 1 tab PO BID 3 Days Qty: 6 0RF Rx Instructions: start on 08/14 Continued Advair HFA 115-21 mcg/actuation HFA aerosol inhaler 2 puff INHALATION BID Label Comments: INHALE 2 PUFFS BY MOUTH TWICE DAILY albuterol sulfate 5 mg/mL solution for nebulization 2.5 mg inhalation Q6H PRN (Reason: Wheezing) Label Comments: inhale 0.5 milliliters in nebulizer every 6 hours if needed for wheezing Spiriva Respimat 2.5 mcg/actuation mist 2 puff INHALATION DAILY Label Comments: inhale 2 puffs once daily benzonatate 200 mg capsule 200 mg PO TID PRN (Reason: Cough) Label Comments: take 1 capsule by mouth three times a day if needed for cough swa... (REFER TO PRESCRIPTION NOTES). Follow up/Referrals: Miscellaneous,Doctor, MD [Primary Care Provider] - Visit Report/Discharge Packet Instructions: DI for Heart Failure, DI for Chronic Obstructive Pulmonary Disease Discharge Data Primary Care Provider: Doctor Mike Quality VTE Deep Vein Thrombosis/Pulmonary Embolism Present on Admission: No
[2022-08-13 07:41] VITALS: BP 116/69; PULSE 86; RESP 16; TEMP 36.6; O2SAT 95
[2022-08-13] MEDS: ENOXAPARIN 40 MG/0.4 ML SYRINGE SUBCUT (08:45)
[2022-08-13] MEDS: predniSONE 20 MG TABLET 40 MG PO (08:45)
[2022-08-13 08:54] VITALS: O2SAT 93
[2022-08-13] MEDS: ALBUTEROL/IPRATROPIUM 3 ML AMPUL INH ×2 (09:03→12:33)
[2022-08-13] MEDS: BUDESONIDE 0.5 MG/2 ML NEB INH (09:04)
[2022-08-13 09:05] VITALS: PULSE 109; RESP 26; O2SAT 92
[2022-08-13 12:33] VITALS: PULSE 98; RESP 14; O2SAT 93
== END 2022-08-13 12:51 | disposition home or self-care (01) | DRG 190 ==
LOC: ED 13:47 → AC 17:48
PROVIDERS: Internal Medicine; Admitting Provider Family Medicine; Emergency Provider Emergency Medicine; Referring Provider Emergency Medicine; Visit Provider Family Medicine
DX: J44.1 Chronic obstructive pulmonary disease with (acute) exacerbation (principal); J15.9 Unspecified bacterial pneumonia; J96.01 Acute respiratory failure with hypoxia; Z20.822 Contact with and (suspected) exposure to COVID-19; Z87.891 Personal history of nicotine dependence
CPT/HCPCS: 0241U; 36415; 71045; 71046; 71275; 80048; 80053; 82550; 82553; 83690; 83880; 84145; 84484; 85025; 85379; 87040; 87070; 87205; 93005; 94640; 94760; 94762; 96365; 96375; 99284; J0696; J1650; J2930; J3475; J7613; Q9967

== ENCOUNTER 2023-02-03 14:19 | Emergency (ER) | payer OTHER, SELFPAY ==
[2022-08-09 20:19] VITALS: BMI 26.4
[2023-02-03] VITALS (14 sets, daily range): BP systolic 112–143; BP diastolic 60–85; PULSE 76–84; RESP 19–36; TEMP 37.5; O2SAT 91–96; BMI 24.7
--- NOTE | 2023-02-03 14:28 | DI.RAD.S_ITS ---
PROCEDURE: XR CHEST 1V INDICATIONS: Shortness of breath TECHNIQUE: One view of the chest was acquired. COMPARISON: [facility], CR, XR CHEST 2V, 08/11/2022, 9:13. FINDINGS: Surgical changes and devices: None. Lungs and pleura: There is hyperinflation. No focal infiltrate. No pleural effusions or pneumothorax. Mediastinum: Mediastinal contours appear normal. Heart size is normal. Bones and chest wall: No suspicious bony lesions. Overlying soft tissues appear unremarkable. IMPRESSION: COPD. No acute cardiopulmonary process. Dictated by: Valdo Ballesteros M.D. on 02/03/2023 at 14:16 Approved by: Valdo Ballesteros M.D. on 02/03/2023 at 14:17
[2023-02-03] MEDS: ALBUTEROL/IPRATROPIUM 3 ML AMPUL INH ×2 (14:36→15:20)
[2023-02-03 14:47] LABS: Add Manual Diff / Slide Review NO; Basophils Absolute Auto 100 /uL (0-100); Basophils Percent Auto 0.9 % (0-2); Eosinophils Absolute Auto 100 /uL (0-450); Eosinophils Percent Auto 2.4 % (2-4); Hematocrit 46.6 % (36-46); Hemoglobin 15.8 g/dL (12.0-16.0); Lymphocytes Absolute Auto 2100 /uL (1100-4500); Lymphocytes Percent Auto 35.4 % (25-40); Mean Corpuscular Hemoglobin 29.2 PG (26-34); Mean Corpuscular Volume 85.8 fL (80-100); Monocytes Absolute Auto 400 /uL (0-900); Monocytes Percent Auto 7.4 % (3-14); Neutrophils Absolute Auto 3200 /uL (1500-7000); Neutrophils Percent Auto 53.9 % (50-75); Platelet Count 295 X10^3/uL (150-400); Red Blood Cell Count 5.43 X10^6/uL (4.0-5.2); Red Cell Distribution Width 12.9 % (11.6-14.8); White Blood Cell Count 5.9 X10^3/uL (4.5-11.0)
[2023-02-03 14:49] LABS: INR 1.1 (0.9-1.3); Prothrombin Time 12.1 SECONDS (10.1-12.7)
--- NOTE | 2023-02-03 14:49 | ED_ITS ---
HPI - General Adult General Chief complaint: Shortness of Breath/Dyspnea Stated complaint: Resp distress x3day Time Seen by Provider: 02/03/23 14:41 Source: patient Mode of arrival: Wheelchair History of Present Illness HPI narrative: Patient is a 57-year-old female. Has a history of COPD and asthma. Is on multiple nebulizers at home and also inhalers. She states that for the past 3 days she is had a cough. It is a productive cough but it is not more sputum than normal and it is not changing colors. She is no chest pain. States she is had fairly significant respiratory distress with up moving around. Is also having wheezing. Has been doing all of her nebulizers and other medications as directed. No lower extremity swelling. Related Data Home Medications Medication Instructions Recorded Confirmed albuterol sulfate 5 mg/mL(0.5 %) 2.5 mg inhalation Q6H PRN Wheezing 08/09/22 08/09/22 solution for nebulization benzonatate 200 mg capsule 200 mg PO TID PRN Cough 08/09/22 08/09/22 fluticasone propionate 115 2 puff inhalation BID 08/09/22 08/09/22 mcg-salmeterol 21 mcg/actuation HFA inhaler (Advair HFA) tiotropium bromide 2.5 2 puff inhalation DAILY 08/09/22 08/09/22 mcg/actuation mist for inhalation (Spiriva Respimat) Previous Rx's Medication Instructions Recorded albuterol sulfate 2.5 mg/0.5 mL 5 mg inhalation QID PRN shortness 02/03/23 solution for nebulization of breath or wheezing #30 ea albuterol sulfate 90 mcg/actuation 2 puff inhalation Q4-6H PRN 02/03/23 aerosol inhaler (ProAir HFA) shortness of breath or wheezing #8.5 grams azithromycin 250 mg tablet 250 mg PO DAILY 4 days #4 tabs 02/03/23 prednisone 20 mg tablet 20 mg PO DAILY #7 tabs 02/03/23 Allergies Allergy/AdvReac Type Severity Reaction Status Date / Time morphine Allergy Verified 08/09/22 13:02 walnut Allergy Verified 08/09/22 13:02 Review of Systems Review of Systems ROS Unobtainable: All systems reviewed & are unremarkable except as noted in HPI and below Patient History Medical History COPD (chronic obstructive pulmonary disease) Social History household members: children Smoking Status: Former smoker alcohol intake: never Smoking Status: Former smoker Substance Use Type: does not use Exam Initial Vital Signs Initial Vital Signs: Vital Signs Temperature 99.5 F 02/03/23 14:22 Pulse Rate 81 02/03/23 14:22 Respiratory Rate 28 H 02/03/23 14:22 Blood Pressure 132/85 02/03/23 14:22 Pulse Oximetry 96 02/03/23 14:22 Oxygen Delivery Method Room Air 02/03/23 14:22 Const General: cooperative and No ill appearing HENMT Head: normal to inspection and normocephalic Resp Effort & Inspection: respiratory effort not decreased, labored, retractions and tachypneic Auscultation: clear to auscultation bilaterally Cardio Rate: regular rate GI Inspection: normal to inspection Skin General: no rashes or lesions noted Neuro General: patient alert, patient awake and moves all extremities Extrem General: normal to inspection and No edema Course Orders Ordered: ED Orders 02/03/23 14:28 XR chest 1V Stat Measure peak expiratory flow ONCE RT Consult Eval and Treat NOW 02/03/23 14:30 Complete Blood Count AUTO DIFF Stat Comprehensive Metabolic Panel Stat Lactate (Lactic Acid) Stat NT-proBNP (BNP-Adult 18+) Stat Prothrombin Time INR Stat Respiratory Panel (Film Array) Stat Troponin I Stat 02/03/23 14:51 EKG-12 Lead Stat Discontinued Medications Albuterol/Ipratropium (Albuterol/Ipratropium 3 Ml Ampul) 3 ml INH NOW ONE Stop: 02/03/23 14:34 Last Admin: 02/03/23 14:36 Dose: 3 ml Documented By: LISSET Albuterol/Ipratropium (Albuterol/Ipratropium 3 Ml Ampul) 3 ml INH NOW ONE Stop: 02/03/23 15:18 Last Admin: 02/03/23 15:20 Dose: 3 ml Documented By: LISSET Budesonide (Budesonide 0.5 Mg/2 Ml Neb) 0.5 mg INH NOW ONE Stop: 02/03/23 15:38 Last Admin: 02/03/23 15:40 Dose: 0.5 mg Documented By: LISSET Azithromycin 500 mg/ Dextrose 250 mls @ 250 mls/hr IV NOW ONE Stop: 02/03/23 15:11 Last Admin: 02/03/23 15:30 Dose: 250 mls/hr Documented By: ABHILASH Methylprednisolone (Methylprednisolone 125 Mg/2 Ml Vial) 125 mg IV NOW ONE Stop: 02/03/23 15:11 Last Admin: 02/03/23 15:30 Dose: 125 mg Documented By: ABHILASH Vital Signs Vital signs: Vital Signs - 8 hr 02/03/23 14:22 02/03/23 14:38 02/03/23 14:34 Temperature 99.5 F Pulse Rate 81 82 Respiratory Rate 28 H Blood Pressure 132/85 Pulse Oximetry 96 96 96 Oxygen Delivery Method Room Air Room Air 02/03/23 15:00 02/03/23 15:00 02/03/23 15:20 Temperature Pulse Rate 76 Respiratory Rate 24 Blood Pressure 131/77 Pulse Oximetry 93 95 Oxygen Delivery Method Room Air 02/03/23 15:15 02/03/23 15:30 02/03/23 15:30 Temperature Pulse Rate 78 82 Respiratory Rate 25 H 24 Blood Pressure 143/71 H Pulse Oximetry 94 93 Oxygen Delivery Method 02/03/23 15:33 02/03/23 15:33 02/03/23 15:45 Temperature Pulse Rate 79 Respiratory Rate 26 H Blood Pressure 119/66 138/72 Pulse Oximetry 92 Oxygen Delivery Method 02/03/23 15:45 02/03/23 16:00 02/03/23 16:00 Temperature Pulse Rate 77 82 Respiratory Rate 19 36 H Blood Pressure 135/62 Pulse Oximetry 94 93 Oxygen Delivery Method 02/03/23 16:15 02/03/23 16:15 02/03/23 16:30 Temperature Pulse Rate 81 Respiratory Rate 23 Blood Pressure 125/60 117/61 Pulse Oximetry 93 Oxygen Delivery Method 02/03/23 16:30 02/03/23 16:45 02/03/23 16:45 Temperature Pulse Rate 84 78 Respiratory Rate 29 H 27 H Blood Pressure 112/63 Pulse Oximetry 93 91 Oxygen Delivery Method Medical Decision Making Lab Data Lab results reviewed: Yes I reviewed the patient's lab results. 02/03/23 14:30 02/03/23 14:30 Labs: Lab Results 02/03/23 02/03/23 02/03/23 Range/Units 14:30 14:30 14:30 WBC 5.9 (4.5-11.0) X10^3/uL RBC 5.43 H (4.0-5.2) X10^6/uL Hgb 15.8 (12.0-16.0) g/dL Hct 46.6 H (36-46) % MCV 85.8 (80-100) fL MCH 29.2 (26-34) PG MCHC 34.0 (30-36) % RDW 12.9 (11.6-14.8) % Plt Count 295 (150-400) X10^3/uL Neut % (Auto) 53.9 (50-75) % Lymph % (Auto) 35.4 (25-40) % Emanuel % (Auto) 7.4 (3-14) % Eos % (Auto) 2.4 (2-4) % Baso % (Auto) 0.9 (0-2) % Neut # (Auto) 3200 (4151-7140) /uL Lymph # (Auto) 2100 (8313-9568) /uL Emanuel # (Auto) 400 (0-900) /uL Eos # (Auto) 100 (0-450) /uL Baso # (Auto) 100 (0-100) /uL PT 12.1 (10.1-12.7) SECONDS INR 1.1 (0.9-1.3) Sodium (137-145) mmol/L Potassium (3.4-5.1) mmol/L Chloride (98-107) mmol/L Carbon Dioxide (22-32) mmol/L BUN (7-17) mg/dL Creatinine (0.52-1.04) mg/dL Estimated GFR (>60) mL/min BUN/Creatinine Ratio (6-22) Glucose (70-100) mg/dL Lactate (0.7-2.1) mmol/L Calcium (8.4-10.2) mg/dL Total Bilirubin (0.2-1.3) mg/dL AST (14-36) IU/L ALT (<35) IU/L Alkaline Phosphatase (38-126) U/L Troponin I (0.01-0.034) ng/mL NT-Pro-B Natriuret Pep (<125) pg/mL Total Protein (6.3-8.2) g/dL Albumin (3.5-5.0) g/dL Globulin (1.7-4.1) g/dL Albumin/Globulin Ratio (1.0-2.8) Chlamy pneumoniae PCR Not detected (Not Detect) Adenovirus (PCR) Not detected (Not Detect) B. pertussis DNA (PCR) Not detected (Not Detecte) B.parapertussis DNA PCR Not detected (Not Detecte) Coronavirus OC43 (PCR) Not detected (Not Detect) Coronavirus HKU1 (PCR) Not detected (Not Detect) Coronavirus 229E (PCR) Not detected (Not Detect) SARS-CoV-2 (PCR) Not detected (Not Detecte) Coronavirus NL63 (PCR) Not detected (Not Detect) Human Metapneumovir PCR Not detected (Not Detect) Influenza Type A (PCR) Not detected (Not Detect) Influenza Type B (PCR) Not detected (Not Detect) M. pneumoniae (PCR) Not detected (Not Detect) Parainfluenza 1 (PCR) Not detected (Not Detect) Parainfluenza 2 (PCR) Not detected (Not Detect) Parainfluenza 3 (PCR) Not detected (Not Detect) Parainfluenza 4 (PCR) Not detected (Not Detect) RSV (PCR) Not detected (Not Detect) Entero/Rhino (PCR) Not detected (Not Detect) 02/03/23 02/03/23 Range/Units 14:30 14:30 WBC (4.5-11.0) X10^3/uL RBC (4.0-5.2) X10^6/uL Hgb (12.0-16.0) g/dL Hct (36-46) % MCV (80-100) fL MCH (26-34) PG MCHC (30-36) % RDW (11.6-14.8) % Plt Count (150-400) X10^3/uL Neut % (Auto) (50-75) % Lymph % (Auto) (25-40) % Emanuel % (Auto) (3-14) % Eos % (Auto) (2-4) % Baso % (Auto) (0-2) % Neut # (Auto) (5632-0377) /uL Lymph # (Auto) (6332-7638) /uL Emanuel # (Auto) (0-900) /uL Eos # (Auto) (0-450) /uL Baso # (Auto) (0-100) /uL PT (10.1-12.7) SECONDS INR (0.9-1.3) Sodium 137 (137-145) mmol/L Potassium 4.6 (3.4-5.1) mmol/L Chloride 98 (98-107) mmol/L Carbon Dioxide 32 (22-32) mmol/L BUN 11 (7-17) mg/dL Creatinine 0.54 (0.52-1.04) mg/dL Estimated GFR > 60 (>60) mL/min BUN/Creatinine Ratio 20.4 (6-22) Glucose 96 (70-100) mg/dL Lactate 1.1 (0.7-2.1) mmol/L Calcium 9.5 (8.4-10.2) mg/dL Total Bilirubin 1.0 (0.2-1.3) mg/dL AST 26 (14-36) IU/L ALT 19 (<35) IU/L Alkaline Phosphatase 98 (38-126) U/L Troponin I < 0.012 (0.01-0.034) ng/mL NT-Pro-B Natriuret Pep 61 (<125) pg/mL Total Protein 7.2 (6.3-8.2) g/dL Albumin 4.3 (3.5-5.0) g/dL Globulin 2.9 (1.7-4.1) g/dL Albumin/Globulin Ratio 1.5 (1.0-2.8) Chlamy pneumoniae PCR (Not Detect) Adenovirus (PCR) (Not Detect) B. pertussis DNA (PCR) (Not Detecte) B.parapertussis DNA PCR (Not Detecte) Coronavirus OC43 (PCR) (Not Detect) Coronavirus HKU1 (PCR) (Not Detect) Coronavirus 229E (PCR) (Not Detect) SARS-CoV-2 (PCR) (Not Detecte) Coronavirus NL63 (PCR) (Not Detect) Human Metapneumovir PCR (Not Detect) Influenza Type A (PCR) (Not Detect) Influenza Type B (PCR) (Not Detect) M. pneumoniae (PCR) (Not Detect) Parainfluenza 1 (PCR) (Not Detect) Parainfluenza 2 (PCR) (Not Detect) Parainfluenza 3 (PCR) (Not Detect) Parainfluenza 4 (PCR) (Not Detect) RSV (PCR) (Not Detect) Entero/Rhino (PCR) (Not Detect) Imaging Data Chest x-ray: Radiologist's Impression: PROCEDURE:? XR CHEST 1V ? INDICATIONS:? Shortness of breath ? TECHNIQUE:? One view of the chest was acquired.? ? COMPARISON:? [facility], CR, XR CHEST 2V, 08/11/2022, 9:13. ? FINDINGS:? ? Surgical changes and devices:? None.? ? Lungs and pleura:? There is hyperinflation.? No focal infiltrate.? No pleural effusions or pneumothorax.? ? Mediastinum:? Mediastinal contours appear normal.? Heart size is normal.? ? Bones and chest wall:? No suspicious bony lesions.? Overlying soft tissues appear unremarkable.? ? IMPRESSION:? COPD.? No acute cardiopulmonary process. ECG Data Attestation: I personally reviewed and interpreted this ECG as follows: Interpretation: Sinus rhythm Ventricular rate is 76 Normal axis Normal QRS Normal QTC No ST T wave changes MDM Narrative Medical decision making narrative: After treatment here in the emergency department patient states she did feel back to baseline. She is still somewhat tachypneic but she states this is baseline for her. She stated that she felt well enough to go home. We will treat with antibiotics. She was given 1st dose here in the ER. Will send home with a prescription for antibiotics. I did refill her albuterol as well. I have low suspicion for ACS. Respiratory panel was negative. Patient was given return precautions and follow-up instructions. She expressed understanding and agreement. Discharge Plan Departure Patient Disposition: Home Clinical Impression: Acute exacerbation of chronic obstructive airways disease Instructions: Chronic Obstructive Pulmonary Disease Activity Restrictions/Additional Instructions: I recommend that you continue to take all of your medications as directed. C ontact your primary provider for a follow-up. Return to the emergency department for new or worsening symptoms. Prescriptions: New albuterol sulfate [ProAir HFA] 90 mcg/actuation HFA aerosol inhaler 2 puff inhalation Q4-6H PRN (Reason: shortness of breath or wheezing) Qty: 8.5 0RF albuterol sulfate 2.5 mg/0.5 mL solution for nebulization 5 mg inhalation QID PRN (Reason: shortness of breath or wheezing) Qty: 30 0RF azithromycin 250 mg tablet 250 mg PO DAILY 4 Days Qty: 4 0RF Rx Instructions: start on day 2 of therapy prednisone 20 mg tablet 20 mg PO DAILY Qty: 7 0RF No Action Advair HFA 115-21 mcg/actuation HFA aerosol inhaler 2 puff INHALATION BID Patient Comments: INHALE 2 PUFFS BY MOUTH TWICE DAILY albuterol sulfate 5 mg/mL solution for nebulization 2.5 mg inhalation Q6H PRN (Reason: Wheezing) Patient Comments: inhale 0.5 milliliters in nebulizer every 6 hours if needed for wheezing Spiriva Respimat 2.5 mcg/actuation mist 2 puff INHALATION DAILY Patient Comments: inhale 2 puffs once daily benzonatate 200 mg capsule 200 mg PO TID PRN (Reason: Cough) Patient Comments: take 1 capsule by mouth three times a day if needed for cough swa... (REFER TO PRESCRIPTION NOTES). Referrals: Miscellaneous,Doctor, MD [Primary Care Provider] - Stand Alone Forms: Patient Portal/API
[2023-02-03 14:58] LABS: Alanine Aminotransferase 19 IU/L (<35); Albumin 4.3 g/dL (3.5-5.0); Albumin Globulin Ratio 1.5 (1.0-2.8); Alkaline Phosphatase 98 U/L (38-126); Aspartate Aminotransferase 26 IU/L (14-36); BUN Creatinine Ratio 20.4 (6-22); Blood Urea Nitrogen 11 mg/dL (7-17); Calcium 9.5 mg/dL (8.4-10.2); Carbon Dioxide 32 mmol/L (22-32); Chloride 98 mmol/L (98-107); Estimated Glomerular Filt Rate > 60 mL/min (>60); Globulin 2.9 g/dL (1.7-4.1); Glucose 96 mg/dL (70-100); HEMOLYSIS < 15 (0-50); Potassium 4.6 mmol/L (3.4-5.1); Sodium 137 mmol/L (137-145); Total Protein 7.2 g/dL (6.3-8.2)
[2023-02-03 15:00] LABS: Lactate (Lactic Acid) 1.1 mmol/L (0.7-2.1)
[2023-02-03 15:10] LABS: NT-proBNP (BNP-Adult 18+) 61 pg/mL (<125); Troponin I < 0.012 ng/mL (0.01-0.034)
[2023-02-03] MEDS: AZITHROMYCIN 500 MG in DEXTROSE 5% IN WATER 250 ML 250 MG IV (15:30)
[2023-02-03] MEDS: methylPREDNISolone 125 MG/2 ML VIAL IV (15:30)
[2023-02-03] MEDS: BUDESONIDE 0.5 MG/2 ML NEB INH (15:40)
[2023-02-03 15:57] LABS: Adenovirus Not Detected (Not Detect); B. parapertussis Not Detected (Not Detecte); Bordetella pertussis Not Detected (Not Detecte); Chlamydophila pneumoniae Not Detected (Not Detect); Coronavirus 229E Not Detected (Not Detect); Coronavirus HKU1 Not Detected (Not Detect); Coronavirus NL 63 Not Detected (Not Detect); Coronavirus OC43 Not Detected (Not Detect); Human Metapneumovirus Not Detected (Not Detect); Human Rhinovirus/Enterovirus Not Detected (Not Detect); Influenza A Not Detected (Not Detect); Influenza B Not Detected (Not Detect); Mycoplasma pneumoniae Not Detected (Not Detect); Parainfluenza Virus 1 Not Detected (Not Detect); Parainfluenza Virus 2 Not Detected (Not Detect); Parainfluenza Virus 3 Not Detected (Not Detect); Parainfluenza Virus 4 Not Detected (Not Detect); Respiratory Syncytial Virus Not Detected (Not Detect); SARS- CoV-2 Not Detected (Not Detecte)
== END 2023-02-03 17:18 | disposition home or self-care (01) ==
PROVIDERS: Emergency Provider Emergency Medicine
DX: J44.1 Chronic obstructive pulmonary disease with (acute) exacerbation (principal); R06.02 Shortness of breath; Z20.822 Contact with and (suspected) exposure to COVID-19
CPT/HCPCS: 36415; 71045; 80053; 83605; 83880; 84484; 85025; 85610; 87633; 93005; 94150; 94640; 96365; 96375; 99284; J2930

== ENCOUNTER 2025-02-03 17:34 | Inpatient (IN) | payer BC, SELFPAY ==
[2022-08-09 20:19] VITALS: BMI 26.4
[2025-02-03] VITALS (14 sets, daily range): BP systolic 128–175; BP diastolic 62–90; PULSE 97–150; RESP 17–31; TEMP 36.6–37.7; O2SAT 89–96; BMI 24.7; BMI 28.0
--- NOTE | 2025-02-03 17:46 | EKG_ITS ---
[address] [address] Test Date: 2025-02-03 Pat Name: Nieves Fernandez Department: Room: Gender: Female Face Burler: : 1965 Requested By: Order Number: [id number] Reading MD: Mason Shah MD Measurements Intervals [place] Rate: 138 P: 81 MA: 146 QRS: 87 QRSD: 88 T: 65 QT: 268 QTc: 406 Interpretive Statements Sinus tachycardia Electronically Signed On 02-04-2025 8:12:59 PDT by Mason Shah MD
--- NOTE | 2025-02-03 17:46 | DI.RAD.S_ITS ---
PROCEDURE: XR CHEST 1V INDICATIONS: suspected sepsis TECHNIQUE: One view of the chest was acquired. COMPARISON: [facility], CR, XR CHEST 1V, 02/03/2023, 14:52. [facility], CR, XR CHEST 1 VIEW, 08/26/2024, 17:11. [facility], CR, XR CHEST 1 VIEW, 09/14/2024, 16:33. FINDINGS: Surgical changes and devices: None. Lungs and pleura: Right suprahilar consolidation can be seen. The lungs otherwise appear clear. No pneumothorax or pleural effusions are seen. Mediastinum: Mediastinal contours appear normal. Heart size is normal. Bones and chest wall: No suspicious bony lesions. Age-appropriate bony degenerative changes are seen. Overlying soft tissues appear unremarkable. IMPRESSION: Right suprahilar consolidation seen. Followup chest radiographs are recommended to complete resolution. If this abnormality does not completely resolve on plain film, then a chest CT with contrast would be recommended to evaluate for a potential underlying mass. Dictated by: Kedar Mclean M.D. on 02/03/2025 at 17:44 Approved by: Kedar Mclean M.D. on 02/03/2025 at 17:44
[2025-02-03] MEDS: ALBUTEROL/IPRATROPIUM 3 ML AMPUL INH (17:59)
[2025-02-03] MEDS: ALBUTEROL/IPRATROPIUM 3 ML AMPUL 6 ML INH (17:59)
[2025-02-03 18:03] LABS: INR 1.2 (0.9-1.3); Prothrombin Time 13.1 SECONDS (9.4-12.5)
[2025-02-03 18:06] LABS: PTT Partial Thromboplastin Tim 40 SECONDS (25.1-36.5)
[2025-02-03 18:07] LABS: Alanine Aminotransferase 21 IU/L (<35); Albumin 4.2 g/dL (3.5-5.0); Albumin Globulin Ratio 1.4 (1.0-2.8); Alkaline Phosphatase 88 U/L (38-126); Aspartate Aminotransferase 25 IU/L (14-36); BUN Creatinine Ratio 18.6 (6-22); Bilirubin Total 1.1 mg/dL (0.2-1.3); Blood Urea Nitrogen 11 mg/dL (7-17); Calcium 9.1 mg/dL (8.4-10.2); Carbon Dioxide 28 mmol/L (22-32); Chloride 95 mmol/L (98-107); Estimated Glomerular Filt Rate > 60 mL/min (>60); Globulin 2.9 g/dL (1.7-4.1); Glucose 199 mg/dL (70-99); HEMOLYSIS < 15 (0-50); Lactate (Lactic Acid) 1.9 mmol/L (0.7-2.1); Lipase 87 U/L (23-300); Potassium 4.2 mmol/L (3.4-5.1); Sodium 132 mmol/L (137-145); Total Protein 7.1 g/dL (6.3-8.2)
--- NOTE | 2025-02-03 18:14 | ED.SOB ---
HPI - SOB/Dyspnea General Chief Complaint: Shortness of Breath/Dyspnea Stated Complaint: Worsening SoB Time Seen by Provider: 02/03/25 17:48 Source: patient Mode of arrival: Ambulatory History of Present Illness HPI Narrative: 59-year-old female history of COPD on Breo Spiriva and albuterol inhaler or nebulizer only on home O2 1 L nasal cannula at bedtime presents with cough with clear sputum production nonbloody, shortness of breath and dyspnea on exertion, fever 101, and sore throat that started Wednesday and has not improved since. 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 Patient denies any active chest pain, leg pain or swelling, PE or DVT history. Other than what is stated 14 point review of system is negative. Related Data Home Medications Medication Instructions Recorded Confirmed benzonatate 200 mg capsule 200 mg PO TID PRN Cough 08/09/22 03/30/23 fluticasone propionate 115 2 puff inhalation BID 08/09/22 03/30/23 mcg-salmeterol 21 mcg/actuation HFA inhaler (Advair HFA) tiotropium bromide 2.5 2 puff inhalation DAILY 08/09/22 03/30/23 mcg/actuation mist for inhalation (Spiriva Respimat) Previous Rx's Medication Instructions Recorded albuterol sulfate 2.5 mg/0.5 mL 5 mg inhalation QID PRN shortness 02/03/23 solution for nebulization of breath or wheezing #30 ea prednisone 20 mg tablet 20 mg PO DAILY #7 tabs 02/03/23 azithromycin 250 mg tablet See Rx Instructions PO .COMPLEX #6 02/20/23 tabs methylprednisolone 4 mg tablets in See Rx Instructions PO PER PKG DIR 02/20/23 a dose pack (Medrol (Neil)) #21 ea albuterol sulfate 5 mg/mL(0.5 %) 2.5 mg (0.5 mL) inhalation Q6H PRN 03/30/23 solution for nebulization Wheezing #600 mL albuterol sulfate 90 mcg/actuation 2 puff inhalation Q4-6H PRN 03/30/23 aerosol inhaler (ProAir HFA) shortness of breath or wheezing #8.5 grams Allergies Allergy/AdvReac Type Severity Reaction Status Date / Time morphine AdvReac sick Verified 02/03/25 17:43 walnut AdvReac raw mouth Verified 02/03/25 17:43 Review of Systems Review of Systems ROS Unobtainable: All systems reviewed & are unremarkable except as noted in HPI and below Patient History Medical History COPD (chronic obstructive pulmonary disease) Social History household members: children Smoking Status: Former smoker alcohol intake: never Smoking Status: Former smoker Exam Narrative Exam Narrative: GENERAL: [59] year old patient appears stated age. Well-developed patient, in moderate distress in tripod position. HEAD: Atraumatic. Normocephalic. EYES: Pupils equal round and reactive. Extraocular motions intact. No scleral icterus. No injection or drainage. ENT: Nose without bleeding, purulent drainage. Throat without erythema, tonsillar hypertrophy or exudate. Airway patent. NECK: Trachea midline. Non tender CARDIOVASCULAR: Tachycardic Regular rate and rhythm without murmurs, gallops, or rubs. RESPIRATORY: Dminished Breath sounds bilaterally GASTROINTESTINAL: Abdomen soft, non-tender, nondistended. EXTREMITIES: No edema or joint tenderness. BACK: Nontender without deformity or crepitance. No flank tenderness. NEURO: AOx3. GCS 15 nonfocal neuro exam SKIN: No rash or erythema of visible areas Initial Vital Signs Initial Vital Signs: Vital Signs Pulse Rate 149 H 02/03/25 17:39 Blood Pressure 175/84 H 02/03/25 17:39 Pulse Oximetry 91 02/03/25 17:39 Course Orders Ordered: ED Orders 02/03/25 17:46 XR chest 1V Stat EKG-12 Lead Stat RT Consult Eval and Treat NOW 02/03/25 17:48 Complete Blood Count AUTO DIFF Stat Comprehensive Metabolic Panel Stat D Dimer Stat Lactate (Lactic Acid) Stat Lipase Stat NT-proBNP (BNP-Adult 18+) Stat PTT Partial Thromboplastin [place] Stat Procalcitonin Stat Prothrombin Time INR Stat Trop I [Troponin I] Stat 02/03/25 18:04 Covid-19 + FLU A/B + RSV - PCR Stat 02/03/25 18:20 Blood Culture Stat 02/03/25 18:30 Venous Blood Gas STAT 02/03/25 18:42 Venous Blood Gas Routine 02/03/25 19:23 CT angio chest PE protocol Stat Discontinued Medications Albuterol/Ipratropium (Albuterol/Ipratropium 3 Ml Ampul) 3 ml INH NOW ONE Stop: 02/03/25 17:49 Last Admin: 02/03/25 17:59 Dose: 3 ml Documented By: SHER Albuterol/Ipratropium (Albuterol/Ipratropium 3 Ml Ampul) 6 ml INH NOW ONE Stop: 02/03/25 17:57 Last Admin: 02/03/25 17:59 Dose: 6 ml Documented By: SHER Sodium Chloride (Normal Saline 0.9%) 1,000 mls @ 1,000 mls/hr IV BOLUS ONE Stop: 02/03/25 18:45 Last Infusion: 02/03/25 19:18 Dose: Infused Documented By: Admin: 02/03/25 18:23 Dose: 1,000 mls/hr Documented By: ROBLES Methylprednisolone (Methylprednisolone 125 Mg/2 Ml Vial) 125 mg IV NOW ONE Stop: 02/03/25 17:49 Last Admin: 02/03/25 18:23 Dose: 125 mg Documented By: ROBLES Ondansetron HCl (Ondansetron 4 Mg/2 Ml Inj) 4 mg IV NOW PRN PRN Reason: Nausea And Vomiting Ondansetron HCl (Ondansetron 4 Mg Odt) 4 mg PO NOW PRN PRN Reason: Nausea And Vomiting Ondansetron HCl (Ondansetron 4 Mg/2 Ml Inj) 4 mg IV NOW ONE Stop: 02/03/25 18:32 Last Admin: 02/03/25 19:23 Dose: 4 mg Documented By: FREDO Vital Signs Vital signs: Vital Signs - 8 hr 02/03/25 17:39 02/03/25 17:39 02/03/25 17:43 Temperature 98.5 F Pulse Rate 149 H 150 H Respiratory Rate 24 Blood Pressure 175/84 H 175/84 H Pulse Oximetry 91 91 Oxygen Delivery Method Room Air 02/03/25 17:46 02/03/25 17:59 02/03/25 18:00 Temperature 99.8 F H Pulse Rate 126 H 126 H Respiratory Rate 17 25 H Blood Pressure Pulse Oximetry 94 94 Oxygen Delivery Method Room Air 02/03/25 18:00 02/03/25 18:30 02/03/25 19:00 Temperature Pulse Rate 131 H 113 H Respiratory Rate 31 H 21 Blood Pressure 139/76 140/78 Pulse Oximetry 94 94 Oxygen Delivery Method 02/03/25 19:00 02/03/25 19:30 02/03/25 19:30 Temperature 99.3 F Pulse Rate 114 H Respiratory Rate 25 H Blood Pressure 139/76 145/70 H Pulse Oximetry 93 Oxygen Delivery Method MDM - SOB/Dyspnea Lab Data 02/03/25 17:48 02/03/25 17:48 Labs: Lab Results 02/03/25 02/03/25 02/03/25 Range/Units 17:48 18:04 18:42 WBC 11.6 H (4.5-11.0) X10^3/uL RBC 4.83 (4.0-5.2) X10^6/uL Hgb 13.5 (12.0-16.0) g/dL Hct 40.6 (36-46) % MCV 84.1 (80-100) fL MCH 28.0 (26-34) PG MCHC 33.2 (30-36) % RDW 12.6 (11.6-14.8) % Plt Count 393 (150-400) X10^3/uL Neut % (Auto) 73.9 (50-75) % Lymph % (Auto) 17.8 L (25-40) % [place] % (Auto) 6.5 (3-14) % Eos % (Auto) 1.2 L (2-4) % Baso % (Auto) 0.6 (0-2) % Neut # (Auto) 8600 H (8684-6938) /uL Lymph # (Auto) 2100 (0061-2422) /uL [place] # (Auto) 800 (0-900) /uL Eos # (Auto) 100 (0-450) /uL Baso # (Auto) 100 (0-100) /uL PT 13.1 H (9.4-12.5) SECONDS INR 1.2 (0.9-1.3) APTT 40 H (25.1-36.5) SECONDS D-Dimer 532 H (<500) ng/ml VBG pH 7.43 (7.33-7.43) VBG pCO2 41.8 L (45-50) mmHg VBG pO2 58 H (35-45) mmHg VBG HCO3 28 (24-28) mmol/L VBG Total CO2 27 (24-29) mmol/L VBG O2 Saturation 90 H (70-75) % VBG Base Excess 3.1 (0-4) mmol/L FiO2 % 21.0 % % Sodium 132 L (137-145) mmol/L Potassium 4.2 (3.4-5.1) mmol/L Chloride 95 L (98-107) mmol/L Carbon Dioxide 28 (22-32) mmol/L BUN 11 (7-17) mg/dL Creatinine 0.59 (0.52-1.04) mg/dL Estimated GFR > 60 (>60) mL/min BUN/Creatinine Ratio 18.6 (6-22) Glucose 199 H (70-99) mg/dL Lactate 1.9 (0.7-2.1) mmol/L Calcium 9.1 (8.4-10.2) mg/dL Total Bilirubin 1.1 (0.2-1.3) mg/dL AST 25 (14-36) IU/L ALT 21 (<35) IU/L Alkaline Phosphatase 88 (38-126) U/L Troponin I < 0.012 (0.01-0.034) ng/mL NT-Pro-B Natriuret Pep 93 (<125) pg/mL Total Protein 7.1 (6.3-8.2) g/dL Albumin 4.2 (3.5-5.0) g/dL Globulin 2.9 (1.7-4.1) g/dL Albumin/Globulin Ratio 1.4 (1.0-2.8) Lipase 87 (23-300) U/L Procalcitonin 0.057 (<0.5) ng/mL SARS-CoV-2 (PCR) Negative (Negative) Influenza A (RT-PCR) Flu a negative (NEGATIVE) Influenza B (RT-PCR) Flu b negative (NEGATIVE) RSV (PCR) Negative (Negative) Urine Dip Bedside Urine Glucose Negative Bedside Urine Bilirubin - Negative Bedside Urine Ketone - Negative Urine Specific [place] 1.010 Bedside Urine Occult Blood - Negative Bedside Urine pH 6 Bedside Urine Protein - Negative Bedside Urine Urobilinogen - Negative Bedside Urine Nitrite - Negative Bedside Urine Leukocytes - Negative Esterase Imaging Data CT scan - chest: Radiologist's Impression: [facility] [address] [place] [address] CT Scan Report Signed Patient: Nieves Fernandez MR#: [id number] : 1965 Acct:[id number] Age/Sex: 59 / F Date of Service: 02/03/25 Loc: ED Accession Number: [id number] Procedure: CT angio chest PE protocol Ordering Provider: Mason Maldonado D.O. PROCEDURE: CT ANGIO CHEST PE PROTOCOL INDICATIONS: elevated dimer/ sob/copd TECHNIQUE: After the administration of intravenous contrast, 2 mm thick sections acquired from the pulmonary apices to the posterior costophrenic angles. 3-dimensional maximum intensity projection (MIP) coronal and sagittal reformats were then acquired through the thorax. For radiation dose reduction, the following was used: automated exposure control, adjustment of mA and/or kV according to patient size. COMPARISON: [facility], CT, CT ANGIO CHEST PE PROTOCOL, 08/09/2022, 15:00. FINDINGS: Image quality: Diagnostic. Pulmonary arteries: Pulmonary arteries are normal in size, and demonstrate no intraluminal filling defects to suggest central pulmonary embolism. Lower Neck: No enlarged lymph nodes. Thyroid: No thyroid nodules which require sonographic follow up, per consensus guidelines. Axillae: No enlarged lymph nodes. Chest Wall: Unremarkable. Bones: Unremarkable. Lungs and Pleura: No pneumothorax or pleural effusions. There is a moderately sized area of alveolar consolidation in the right upper lobe medially, with associated reticulation and mild ground-glass density. The previously seen nodular density in the right upper lobe posteriorly has decreased in size measuring 1.24 x 0.8 cm, with associated fissure retraction at this time. Ovoid nodule in the right lower lobe posteriorly is stable, therefore benign Heart: Heart size is normal. No pericardial effusion. Thoracic Vessels: No aortic aneurysm. Mediastinum and [place]: Mildly enlarged right paratracheal nodes. Esophagus: No wall thickening. No hiatal hernia. Upper Abdomen: Visualized upper abdomen solid organs and bowel loops appear normal. IMPRESSION: 1. No signs of pulmonary emboli. 2. Significant consolidation the right upper lobe medially, most likely due to pneumonia. No pleural effusion. Mild right mediastinal apathy, likely reactive. 3. Improvement of the previously seen dominant nodule in the right upper lobe posteriorly, with features suggestive of scarring. No suspicious focal lung parenchymal lesion otherwise. Dictated by: Steve Carmen M.D. on 02/03/2025 at 19:50 Approved by: Steve Carmen M.D. on 02/03/2025 at 19:57 ECG Data Interpretation: Sinus Tach HR 138 [place] 146 QRS [address]-t wave change Change from 02/03/23 MDM Narrative Medical decision making narrative: All lab work, vital signs, nurse triage note, medication list, chest x-ray and CT chest and previous ER visits all reviewed. Chest x-ray showed right suprahilar consolidation seen. CT chest showed no PE but significant consolidation right upper lobe medially most likely due to pneumonia no pleural effusion and mild right mediastinum adenopathy reactive and improvement of previously see seen dominant nodule in right upper lobe posteriorly with features suggestive of scarring but no suspicious focal lung parenchymal lesion otherwise. Patient was given Rocephin, Zithromax, 2 DuoNebs, Solu-Medrol, cultures obtained, white count of 11.6 D-dimer of 532 VBG obtained with a pH of 7.43 pCO2 of 41.8 O2 saturation 90% bicarb of 28 PO2 of 58 sodium was 132 glucose was 199 troponin was normal BNP was normal procalcitonin was also normal and lactic acid was 1.9 COVID flu RSV were negative. Differential diagnosis includes COPD exacerbation, pneumonia, pneumothorax, PE, sepsis. Case discussed with hospitalist Dr. Dennis was graciously accepted the patient for inpatient admission Discharge Plan Departure Patient Disposition: Admitted As Inpatient Clinical Impression: Acute exacerbation of chronic obstructive pulmonary disease, Community acquired pneumonia Admit Date/Time: 02/03/25 21:13 Admit Provider: Mil Castillo
[2025-02-03 18:15] LABS: Add Manual Diff / Slide Review NO; Basophils Absolute Auto 100 /uL (0-100); Basophils Percent Auto 0.6 % (0-2); Eosinophils Absolute Auto 100 /uL (0-450); Eosinophils Percent Auto 1.2 % (2-4); Hematocrit 40.6 % (36-46); Hemoglobin 13.5 g/dL (12.0-16.0); Lymphocytes Absolute Auto 2100 /uL (1100-4500); Lymphocytes Percent Auto 17.8 % (25-40); Mean Corpuscular HGB Conc 33.2 % (30-36); Mean Corpuscular Volume 84.1 fL (80-100); Monocytes Absolute Auto 800 /uL (0-900); Monocytes Percent Auto 6.5 % (3-14); Neutrophils Absolute Auto 8600 /uL (1500-7000); Neutrophils Percent Auto 73.9 % (50-75); Platelet Count 393 X10^3/uL (150-400); Red Blood Cell Count 4.83 X10^6/uL (4.0-5.2); Red Cell Distribution Width 12.6 % (11.6-14.8); White Blood Cell Count 11.6 X10^3/uL (4.5-11.0)
[2025-02-03] MEDS: methylPREDNISolone 125 MG/2 ML VIAL IV (18:23)
[2025-02-03] MEDS: SODIUM CHLORIDE 0.9% 1,000 ML 1000 ML IV (18:23)
[2025-02-03 18:24] LABS: Procalcitonin 0.057 ng/mL (<0.5)
[2025-02-03 18:45] LABS: Influenza A - CEPHEID Flu A NEGATIVE (NEGATIVE); Influenza B - CEPHEID Flu B NEGATIVE (NEGATIVE); Respiratory Syncytial Virus Negative (Negative)
[2025-02-03 18:46] LABS: Base Excess VBG 3.1 mmol/L (0-4); HCO3 VBG 28 mmol/L (24-28); Oxygen Saturation VBG 90 % (70-75); PCO2 VBG 41.8 mmHg (45-50); PO2 VBG 58 mmHg (35-45); Total CO2 VBG 27 mmol/L (24-29); pH VBG 7.43 (7.33-7.43)
[2025-02-03 18:51] LABS: COVID-19 CEPHEID 4-PLEX PCR Negative (Negative)
[2025-02-03 18:52] LABS: D Dimer 532 ng/ml (<500)
[2025-02-03 19:06] LABS: NT-proBNP (BNP-Adult 18+) 93 pg/mL (<125); Troponin I < 0.012 ng/mL (0.01-0.034)
[2025-02-03] MEDS: ONDANSETRON 4 MG/2 ML INJ IV (19:23)
--- NOTE | 2025-02-03 19:23 | DI.CT.S_ITS ---
PROCEDURE: CT ANGIO CHEST PE PROTOCOL INDICATIONS: elevated dimer/ sob/copd TECHNIQUE: After the administration of intravenous contrast, 2 mm thick sections acquired from the pulmonary apices to the posterior costophrenic angles. 3-dimensional maximum intensity projection (MIP) coronal and sagittal reformats were then acquired through the thorax. For radiation dose reduction, the following was used: automated exposure control, adjustment of mA and/or kV according to patient size. COMPARISON: [facility], CT, CT ANGIO CHEST PE PROTOCOL, 08/09/2022, 15:00. FINDINGS: Image quality: Diagnostic. Pulmonary arteries: Pulmonary arteries are normal in size, and demonstrate no intraluminal filling defects to suggest central pulmonary embolism. Lower Neck: No enlarged lymph nodes. Thyroid: No thyroid nodules which require sonographic follow up, per consensus guidelines. Axillae: No enlarged lymph nodes. Chest Wall: Unremarkable. Bones: Unremarkable. Lungs and Pleura: No pneumothorax or pleural effusions. There is a moderately sized area of alveolar consolidation in the right upper lobe medially, with associated reticulation and mild ground-glass density. The previously seen nodular density in the right upper lobe posteriorly has decreased in size measuring 1.24 x 0.8 cm, with associated fissure retraction at this time. Ovoid nodule in the right lower lobe posteriorly is stable, therefore benign Heart: Heart size is normal. No pericardial effusion. Thoracic Vessels: No aortic aneurysm. Mediastinum and [place]: Mildly enlarged right paratracheal nodes. Esophagus: No wall thickening. No hiatal hernia. Upper Abdomen: Visualized upper abdomen solid organs and bowel loops appear normal. IMPRESSION: 1. No signs of pulmonary emboli. 2. Significant consolidation the right upper lobe medially, most likely due to pneumonia. No pleural effusion. Mild right mediastinal apathy, likely reactive. 3. Improvement of the previously seen dominant nodule in the right upper lobe posteriorly, with features suggestive of scarring. No suspicious focal lung parenchymal lesion otherwise. Dictated by: Steve Carmen M.D. on 02/03/2025 at 19:50 Approved by: Steve Carmen M.D. on 02/03/2025 at 19:57
[2025-02-03] MEDS: cefTRIAXone 1,000 MG in SODIUM CHLORIDE 0.9% 100 ML 200 MG IV (20:18)
[2025-02-03] MEDS: AZITHROMYCIN 500 MG in DEXTROSE 5% IN WATER 250 ML 250 MG IV (20:50)
--- NOTE | 2025-02-03 21:46 | PM.HP.1 ---
History of Present Illness History of Present Illness Date Patient Seen: 02/03/25 Time Patient Seen: 22:45 Chief complaint: Worsening SoB Narrative: 59 y/o former smoker with PMH of COPD, came to ER with severe shortness of breath and non-productive cough. Workup showing RML infiltrate. Hypoxemic. At home using 1 L of oxygen at night only. Treated with nebulized bronchodilators, IV steroid and antibiotics, oxygen and admitted to medicine with PNA and COPD exacerbation. [facility] Medical History COPD (chronic obstructive pulmonary disease) Social History household members: children Smoking Status: Former smoker alcohol intake: never Meds Home Medications and Allergies Home Medications Medication Instructions Recorded Confirmed Type tiotropium bromide 2.5 1 puff inhalation DAILY 08/09/22 02/03/25 History mcg/actuation mist for inhalation (Spiriva Respimat) albuterol sulfate 2.5 mg/3 mL 2.5 mg Q4HR PRN Shortness Of 02/03/25 02/03/25 History (0.083 %) solution for nebulization Breath Or Wheezing albuterol sulfate 90 mcg/actuation 2 puff inhalation Q6H PRN 02/03/25 02/03/25 History aerosol inhaler Shortness Of Breath Or Wheezing azithromycin 500 mg tablet 500 mg PO QMWF 02/03/25 02/03/25 History baclofen 10 mg tablet 5 mg PO TID PRN Muscle Spasm 02/03/25 02/03/25 History budesonide-formoterol HFA 160 2 puff inhalation BID 02/03/25 02/03/25 History mcg-4.5 mcg/actuation aerosol inhaler hydroxyzine HCl 50 mg tablet 50 mg PO QID PRN Anxiety 02/03/25 02/03/25 History trazodone 50 mg tablet 50 mg PO ONCE PM PRN Insomnia 02/03/25 02/03/25 History Allergies Allergy/AdvReac Type Severity Reaction Status Date / Time morphine AdvReac sick Verified 02/03/25 17:43 walnut AdvReac raw mouth Verified 02/03/25 17:43 Review of Systems Review of Systems Narrative: General - w/o fever, chills, night sweats or weight loss RS - always short of breath but today extremely, wheezing, non-productive cough. Without chest pain or pleursy, w/o hemoptysis. CVS - w/o chest pain or palpitations GI - w/o abdominal pain Neuro - anxious Exam Vital Signs (past 8 hours): - 02/03/25 17:39 02/03/25 17:39 02/03/25 17:43 Temperature 98.5 F Pulse Rate 149 H 150 H Respiratory Rate 24 Blood Pressure 175/84 H 175/84 H Pulse Oximetry 91 91 Oxygen Delivery Method Room Air Oxygen Flow Rate 02/03/25 17:46 02/03/25 17:59 02/03/25 18:00 Temperature 99.8 F H Pulse Rate 126 H 126 H Respiratory Rate 17 25 H Blood Pressure Pulse Oximetry 94 94 Oxygen Delivery Method Room Air Oxygen Flow Rate 02/03/25 18:00 02/03/25 18:30 02/03/25 19:00 Temperature Pulse Rate 131 H 113 H Respiratory Rate 31 H 21 Blood Pressure 139/76 140/78 Pulse Oximetry 94 94 Oxygen Delivery Method Oxygen Flow Rate 02/03/25 19:00 02/03/25 19:30 02/03/25 19:30 Temperature 99.3 F Pulse Rate 114 H Respiratory Rate 25 H Blood Pressure 139/76 145/70 H Pulse Oximetry 93 Oxygen Delivery Method Oxygen Flow Rate 02/03/25 19:58 02/03/25 19:58 02/03/25 20:00 Temperature Pulse Rate 115 H 111 H Respiratory Rate 30 H 28 H Blood Pressure 134/66 Pulse Oximetry 96 94 Oxygen Delivery Method Oxygen Flow Rate 0 0 02/03/25 20:00 02/03/25 20:30 02/03/25 20:30 Temperature Pulse Rate 105 H Respiratory Rate 17 Blood Pressure 134/62 136/78 Pulse Oximetry 91 Oxygen Delivery Method Oxygen Flow Rate 0 02/03/25 21:00 02/03/25 21:00 02/03/25 21:30 Temperature Pulse Rate 97 H 102 H Respiratory Rate 17 22 Blood Pressure 131/72 Pulse Oximetry 90 L 89 L Oxygen Delivery Method Oxygen Flow Rate 02/03/25 21:30 Temperature Pulse Rate Respiratory Rate Blood Pressure 128/69 Pulse Oximetry Oxygen Delivery Method Oxygen Flow Rate Oxygen Delivery Method Room Air Oxygen Flow Rate 0 Narrative Exam Narrative: General - in no respiratory distress on admission, appears slightly tachypneic and anxious, better then in the ED RS - poor airflow b/l, wheezy CVS - RRR GI - w/o abdominal distension Ext - w/o swelling Skin - w/o rashes Neuro - w/o deficits, anxious Objective ECG Impression: Sinus tachycardia [address] scan - chest: Radiologist's impression: 1. No signs of pulmonary emboli. 2. Significant consolidation the right upper lobe medially, most likely due to pneumonia. No pleural effusion. Mild right mediastinal apathy, likely reactive. 3. Improvement of the previously seen dominant nodule in the right upper lobe posteriorly, with features suggestive of scarring. No suspicious focal lung parenchymal lesion otherwise. Chest x-ray: Radiologist's impression: Right suprahilar consolidation seen. Labs 02/03/25 17:48 02/03/25 17:48 Labs: Laboratory Results - last 24 hr 02/03/25 02/03/25 02/03/25 17:48 18:04 18:42 WBC 11.6 H RBC 4.83 Hgb 13.5 Hct 40.6 MCV 84.1 MCH 28.0 MCHC 33.2 RDW 12.6 Plt Count 393 Neut % (Auto) 73.9 Lymph % (Auto) 17.8 L [place] % (Auto) 6.5 Eos % (Auto) 1.2 L Baso % (Auto) 0.6 Neut # (Auto) 8600 H Lymph # (Auto) 2100 [place] # (Auto) 800 Eos # (Auto) 100 Baso # (Auto) 100 PT 13.1 H INR 1.2 APTT 40 H D-Dimer 532 H VBG pH 7.43 VBG pCO2 41.8 L VBG pO2 58 H VBG HCO3 28 VBG Total CO2 27 VBG O2 Saturation 90 H VBG Base Excess 3.1 FiO2 % 21.0 % Sodium 132 L Potassium 4.2 Chloride 95 L Carbon Dioxide 28 BUN 11 Creatinine 0.59 Estimated GFR > 60 BUN/Creatinine Ratio 18.6 Glucose 199 H Lactate 1.9 Calcium 9.1 Total Bilirubin 1.1 AST 25 ALT 21 Alkaline Phosphatase 88 Troponin I < 0.012 NT-Pro-B Natriuret Pep 93 Total Protein 7.1 Albumin 4.2 Globulin 2.9 Albumin/Globulin Ratio 1.4 Lipase 87 Procalcitonin 0.057 SARS-CoV-2 (PCR) Negative Influenza A (RT-PCR) Flu a negative Influenza B (RT-PCR) Flu b negative RSV (PCR) Negative Assessment & Plan Assessment and plan (1) Community acquired pneumonia: Status: Acute (2) Acute exacerbation of chronic obstructive pulmonary disease: Status: Acute (3) Acute and chronic respiratory failure with hypoxia: Status: Acute (4) Insomnia: Status: Acute (5) Anxiety: Status: Acute Assessment & Plan narrative: RUL CAP - not septic - Rocephin and Zithromax - Mucinex Acute on chronic hypoxemic respiratory failure - at home needs 1 L of oxygen only at night - now needs 1-2 L when awake - will be weaned as improves Lung nodule - on surveillance by for RUL nodule - on today's CTA it seems to be getting smaller Acute exacerbation of COPD - had IV Solumedrol - continue with Prenisone - albuterol prn, scheduled DuoNeb Anxiety - hydroxyzine prn Insomnia - Trazodone prn DVT prophylaxis - Lovenox Patient consented to telemedicine, audio-visual visit with RN at bedside assisting. Used electronic stethoscope. Patient located at [facility], provider located in [place]. Time-Based Coding :: [TOTAL MINUTES] spent with patient and on the chart (including review of chart, obtaining history, exam, reviewing outside data, placing orders, documenting exam and treatment plan, and counseling patient) on [DATE].
--- NOTE | 2025-02-03 23:05 | PC.ADMIT ---
[address] Admission Note: Patient arrived via wheelchair to floor accompanied by ER PCT on room air with belongings and personal walker. Patient alert and oriented, able to verbalize understanding of hospital policies and procedures. Agreeable to plan of care. Medication list updated utilizing patient's myChart. Continuous pulse ox started. The patient,Nieves Fernandez,59 y/o, was given written information regarding hospital policies, unit procedures and contact persons. Patient's smoking status: Former smoker. Vital Signs - 8 hr 02/03/25 17:39 02/03/25 17:39 02/03/25 17:43 Temperature 98.5 F Pulse Rate 149 H 150 H Respiratory Rate 24 Blood Pressure 175/84 H 175/84 H Pulse Oximetry 91 91 Oxygen Delivery Method Room Air Oxygen Flow Rate 02/03/25 17:46 02/03/25 17:59 02/03/25 18:00 Temperature 99.8 F H Pulse Rate 126 H 126 H Respiratory Rate 17 25 H Blood Pressure Pulse Oximetry 94 94 Oxygen Delivery Method Room Air Oxygen Flow Rate 02/03/25 18:00 02/03/25 18:30 02/03/25 19:00 Temperature Pulse Rate 131 H 113 H Respiratory Rate 31 H 21 Blood Pressure 139/76 140/78 Pulse Oximetry 94 94 Oxygen Delivery Method Oxygen Flow Rate 02/03/25 19:00 02/03/25 19:30 02/03/25 19:30 Temperature 99.3 F Pulse Rate 114 H Respiratory Rate 25 H Blood Pressure 139/76 145/70 H Pulse Oximetry 93 Oxygen Delivery Method Oxygen Flow Rate 02/03/25 19:58 02/03/25 19:58 02/03/25 20:00 Temperature Pulse Rate 115 H 111 H Respiratory Rate 30 H 28 H Blood Pressure 134/66 Pulse Oximetry 96 94 Oxygen Delivery Method Oxygen Flow Rate 0 0 02/03/25 20:00 02/03/25 20:30 02/03/25 20:30 Temperature Pulse Rate 105 H Respiratory Rate 17 Blood Pressure 134/62 136/78 Pulse Oximetry 91 Oxygen Delivery Method Oxygen Flow Rate 0 02/03/25 21:00 02/03/25 21:00 02/03/25 21:30 Temperature Pulse Rate 97 H 102 H Respiratory Rate 17 22 Blood Pressure 131/72 Pulse Oximetry 90 L 89 L Oxygen Delivery Method Oxygen Flow Rate 02/03/25 21:30 02/03/25 22:24 Temperature 97.8 F Pulse Rate 98 H Respiratory Rate 22 Blood Pressure 128/69 129/90 Pulse Oximetry 93 Oxygen Delivery Method Oxygen Flow Rate 0
[2025-02-04] VITALS (10 sets, daily range): BP systolic 104–130; BP diastolic 55–86; PULSE 79–106; RESP 16–20; TEMP 36.2–36.8; O2SAT 93–99
[2025-02-04] MEDS: TRAZODONE 50 MG TABLET 100 MG PO ×2 (00:01→21:30)
[2025-02-04 06:00] LABS: Add Manual Diff / Slide Review NO; Basophils Absolute Auto 0 /uL (0-100); Basophils Percent Auto 0.7 % (0-2); Eosinophils Absolute Auto 0 /uL (0-450); Hematocrit 35.9 % (36-46); Hemoglobin 12.3 g/dL (12.0-16.0); Lymphocytes Absolute Auto 900 /uL (1100-4500); Lymphocytes Percent Auto 12.6 % (25-40); Mean Corpuscular HGB Conc 34.3 % (30-36); Mean Corpuscular Hemoglobin 28.8 PG (26-34); Mean Corpuscular Volume 84.2 fL (80-100); Monocytes Absolute Auto 100 /uL (0-900); Neutrophils Absolute Auto 6200 /uL (1500-7000); Neutrophils Percent Auto 84.7 % (50-75); Platelet Count 365 X10^3/uL (150-400); Red Blood Cell Count 4.26 X10^6/uL (4.0-5.2); Red Cell Distribution Width 12.6 % (11.6-14.8); White Blood Cell Count 7.3 X10^3/uL (4.5-11.0)
[2025-02-04 06:10] LABS: BUN Creatinine Ratio 30.2 (6-22); Blood Urea Nitrogen 13 mg/dL (7-17); Calcium 8.9 mg/dL (8.4-10.2); Carbon Dioxide 28 mmol/L (22-32); Chloride 100 mmol/L (98-107); Estimated Glomerular Filt Rate > 60 mL/min (>60); Glucose 156 mg/dL (70-99); HEMOLYSIS < 15 (0-50); Potassium 4.6 mmol/L (3.4-5.1); Sodium 133 mmol/L (137-145)
[2025-02-04] MEDS: ALBUTEROL/IPRATROPIUM 3 ML AMPUL INH ×3 (09:11→19:12)
[2025-02-04] MEDS: ENOXAPARIN 40 MG/0.4 ML SYRINGE SUBCUT (09:39)
--- NOTE | 2025-02-04 12:31 | CM.DANOTE ---
Initial DCP Assessment Note Pt is a 59 yo female, resident of [place], admitted INPT for management of PNA, COPD exacerbation. PCP: Dr Albania Anthony Payer: ERICA Romero Reviewed chart, pt discussed in multidisciplinary rounds this morning. According to Dr Cherry, patient with dense PNA, not expected to meet goals for DC for at least 48 hrs. AURELIANO 02/07. Patient lives independently with her family in [place] and plans to return at DC. Patient appears to be at functional and cognitive baseline. No barriers identified at this time to patient's safe discharge home w/family to assist; close outpatient f/u recommended. CM team will plan to follow clinical course closely in case any DC needs or concerns arise. EUGENIA Tubbs Discharge Planning/Care Management CM Discharge Assessment Start: 02/03/25 21:36 Freq: Status: Active Protocol: Document 02/04/25 12:29 DEYANIRA (Rec: 02/04/25 12:31 DEYANIRA [id number]) Discharge Planning Assessment Assigned Transitional Care Liaison EUGENIA Mejia DPOA/Assigned Designee Name RUBY Brandon- daughter Contact Information [phone] Advance Directives? No Advance Directives on File No History Provided By Patient,Medical Record Has Patient been admitted in last 30 No days? Prior Living Arrangements House Household Members children Type of transporation used prior to Drives own vehicle admit Independent with ADL's Yes Is patient alert and oriented? Yes Barriers to Discharge No Discharge Plan Home Transportation Arrangement Dtr can provide transport at d /c Referrals Initiated None needed
--- NOTE | 2025-02-04 16:01 | PM.PN.1 ---
Subjective Subjective Date Patient Seen: 02/04/25 Interval history: Chief complaint: Fever nonproductive cough shortness of breath secondary to right upper lobe pneumonia History of present illness: 59 y/o former smoker with PMH of COPD, came to ER with severe shortness of breath and non-productive cough. Workup showing RML infiltrate. Hypoxemic. At home using 1 L of oxygen at night only. Treated with nebulized bronchodilators, IV steroid and antibiotics, oxygen and admitted to medicine with PNA and COPD exacerbation. Findings in the emergency room: Female with labored respirations dyspnea Dense consolidated right middle lobe pneumonia on CT angiogram no pulmonary emboli Hospital course: 02/04: Patient anxious with nonproductive cough mildly labored respirations no fever or chills overnight Review of systems: No nausea vomiting No chest pains palpitations No paresthesia paresis No urinary symptoms Physical exam: No acute distress chronically ill appearing female HEENT unremarkable Neck no JVD Heart sounds distant no murmurs Lungs with diffuse rales and wheezes shortened respiratory phases Abdomen benign Extremities no edema Assessment and plan: Densely consolidated right upper lobe pneumonia with acute on chronic hypoxic respiratory failure acute COPD exacerbation Three days ceftriaxone azithromycin Corticosteroid and bronchodilator Estimate 3 days of hospitalization DVT prophylaxis with enoxaparin Time-Based Coding :: 35 minutes spent with patient and on the chart (including review of chart, obtaining history, exam, reviewing outside data, placing orders, documenting exam and treatment plan, and counseling patient) Exam Vital Signs (past 8 hours): - 02/04/25 09:11 02/04/25 11:00 02/04/25 14:29 Temperature 97.7 F Pulse Rate 89 85 94 H Respiratory Rate 16 20 16 Blood Pressure 122/84 Pulse Oximetry 98 95 98 Oxygen Delivery Method Room Air Room Air Oxygen Flow Rate 0 02/04/25 15:44 02/04/25 15:45 Temperature 98.3 F Pulse Rate 87 Respiratory Rate 16 Blood Pressure 107/55 L Pulse Oximetry 93 Oxygen Delivery Method Oxygen Flow Rate 0 Oxygen Delivery Method Room Air Oxygen Flow Rate 0 Objective Labs 02/04/25 05:18 02/04/25 05:18 Labs: Laboratory Results - last 24 hr 02/03/25 02/03/25 02/03/25 17:48 18:04 18:42 WBC 11.6 H RBC 4.83 Hgb 13.5 Hct 40.6 MCV 84.1 MCH 28.0 MCHC 33.2 RDW 12.6 Plt Count 393 Neut % (Auto) 73.9 Lymph % (Auto) 17.8 L [place] % (Auto) 6.5 Eos % (Auto) 1.2 L Baso % (Auto) 0.6 Neut # (Auto) 8600 H Lymph # (Auto) 2100 [place] # (Auto) 800 Eos # (Auto) 100 Baso # (Auto) 100 PT 13.1 H INR 1.2 APTT 40 H D-Dimer 532 H VBG pH 7.43 VBG pCO2 41.8 L VBG pO2 58 H VBG HCO3 28 VBG Total CO2 27 VBG O2 Saturation 90 H VBG Base Excess 3.1 FiO2 % 21.0 % Sodium 132 L Potassium 4.2 Chloride 95 L Carbon Dioxide 28 BUN 11 Creatinine 0.59 Estimated GFR > 60 BUN/Creatinine Ratio 18.6 Glucose 199 H Lactate 1.9 Calcium 9.1 Total Bilirubin 1.1 AST 25 ALT 21 Alkaline Phosphatase 88 Troponin I < 0.012 NT-Pro-B Natriuret Pep 93 Total Protein 7.1 Albumin 4.2 Globulin 2.9 Albumin/Globulin Ratio 1.4 Lipase 87 Procalcitonin 0.057 SARS-CoV-2 (PCR) Negative Influenza A (RT-PCR) Flu a negative Influenza B (RT-PCR) Flu b negative RSV (PCR) Negative 02/04/25 05:18 WBC 7.3 RBC 4.26 Hgb 12.3 Hct 35.9 L MCV 84.2 MCH 28.8 MCHC 34.3 RDW 12.6 Plt Count 365 Neut % (Auto) 84.7 H Lymph % (Auto) 12.6 L [place] % (Auto) 2.0 L Eos % (Auto) 0.0 L Baso % (Auto) 0.7 Neut # (Auto) 6200 Lymph # (Auto) 900 L [place] # (Auto) 100 Eos # (Auto) 0 Baso # (Auto) 0 PT INR APTT D-Dimer VBG pH VBG pCO2 VBG pO2 VBG HCO3 VBG Total CO2 VBG O2 Saturation VBG Base Excess FiO2 % Sodium 133 L Potassium 4.6 Chloride 100 Carbon Dioxide 28 BUN 13 Creatinine 0.43 L Estimated GFR > 60 BUN/Creatinine Ratio 30.2 H Glucose 156 H Lactate Calcium 8.9 Total Bilirubin AST ALT Alkaline Phosphatase Troponin I NT-Pro-B Natriuret Pep Total Protein Albumin Globulin Albumin/Globulin Ratio Lipase Procalcitonin SARS-CoV-2 (PCR) Influenza A (RT-PCR) Influenza B (RT-PCR) RSV (PCR) PFSH Medical History COPD (chronic obstructive pulmonary disease) Social History household members: children Smoking Status: Former smoker alcohol intake: never Assessment & Plan Time-Based Coding :: [TOTAL MINUTES] spent with patient and on the chart (including review of chart, obtaining history, exam, reviewing outside data, placing orders, documenting exam and treatment plan, and counseling patient) on [DATE].
[2025-02-04] MEDS: ACETAMINOPHEN 325 MG TABLET 650 MG PO (17:10)
--- NOTE | 2025-02-04 17:26 | PC.NURSE ---
pt has been indep in room with no needs or wants until now complain of mild H/A and asking for tylenol medicated with 650mg po-taking meals and fluids well, refuses mucinex for cough RA 93 to 99%.
[2025-02-04] MEDS: cefTRIAXone 1,000 MG in SODIUM CHLORIDE 0.9% 100 ML 200 MG IV (18:55)
[2025-02-04] MEDS: AZITHROMYCIN 500 MG in DEXTROSE 5% IN WATER 250 ML 250 MG IV (19:47)
[2025-02-05] VITALS (13 sets, daily range): BP systolic 106–126; BP diastolic 67–90; PULSE 81–120; RESP 15–22; TEMP 36.4–37.1; O2SAT 93–97
[2025-02-05] MEDS: ACETAMINOPHEN 325 MG TABLET 650 MG PO ×2 (01:03→12:51)
[2025-02-05] MEDS: ENOXAPARIN 40 MG/0.4 ML SYRINGE SUBCUT (08:27)
[2025-02-05] MEDS: ALBUTEROL/IPRATROPIUM 3 ML AMPUL INH ×5 (08:32→22:55)
--- NOTE | 2025-02-05 08:53 | P.PN_ITS ---
Subjective Subjective Date Patient Seen: 02/05/25 Interval history: Chief complaint: Fever nonproductive cough shortness of breath secondary to right upper lobe pneumonia History of present illness: 59 y/o former smoker with PMH of COPD, came to ER with severe shortness of breath and non-productive cough. Workup showing RML infiltrate. Hypoxemic. At home using 1 L of oxygen at night only. Treated with nebulized bronchodilators, IV steroid and antibiotics, oxygen and admitted to medicine with PNA and COPD exacerbation. Findings in the emergency room: Female with labored respirations dyspnea Dense consolidated right middle lobe pneumonia on CT angiogram no pulmonary emboli Hospital course: 02/04: Patient anxious with nonproductive cough mildly labored respirations no fever or chills overnight 02/05: Less anxious this morning cough is nonproductive no fevers or chills overnight Review of systems: No night sweats or rigors overnight No nausea vomiting No chest pains palpitations No paresthesia paresis No urinary symptoms Physical exam: No acute distress chronically ill appearing female HEENT unremarkable Neck no JVD Heart sounds distant no murmurs Lungs with diffuse rales and wheezes shortened respiratory phases Abdomen benign Extremities no edema Assessment and plan: Densely consolidated right upper lobe pneumonia with acute on chronic hypoxic respiratory failure acute COPD exacerbation * Three days ceftriaxone azithromycin * Corticosteroid and bronchodilator * Estimate 3 days of hospitalization DVT prophylaxis with enoxaparin Time-Based Coding :: 35 minutes spent with patient and on the chart (including review of chart, obtaining history, exam, reviewing outside data, placing orders, documenting exam and treatment plan, and counseling patient) Exam Vital Signs (past 8 hours): - 02/05/25 04:00 02/05/25 08:33 02/05/25 08:40 Temperature 98.8 F Pulse Rate 86 120 H Respiratory Rate 19 18 Blood Pressure 120/76 Pulse Oximetry 95 97 97 Oxygen Delivery Method Room Air Room Air Oxygen Flow Rate 0 1 Oxygen Delivery Method Room Air Oxygen Flow Rate 1 Objective Labs 02/04/25 05:18 02/04/25 05:18 [facility] Medical History COPD (chronic obstructive pulmonary disease) Social History household members: children Smoking Status: Former smoker alcohol intake: never Assessment & Plan Time-Based Coding :: [TOTAL MINUTES] spent with patient and on the chart (including review of chart, obtaining history, exam, reviewing outside data, placing orders, documenting exam and treatment plan, and counseling patient) on [DATE].
[2025-02-05 10:34] LABS: Acinetobacter calcoa-baumannii Not Detected (Not Detect); Bacteroides fragilis Not Detected (Not Detect); Candida albicans Not Detected (Not Detect); Candida auris Not Detected (Not Detect); Candida glabrata Not Detected (Not Detect); Candida krusei Not Detected (Not Detect); Candida parapsilosis Not Detected (Not Detect); Candida tropicalis Not Detected (Not Detect); Cryptococcus neoformans/gatti Not Detected (Not Detect); Enterobacter cloacae complex Not Detected (Not Detect); Enterobacterales Not Detected (Not Detect); Enterococcus faecalis Not Detected (Not Detect); Enterococcus faecium Not Detected (Not Detect); Haemophilus influenzae Not Detected (Not Detect); Klebsiella aerogenes Not Detected (Not Detect); Listeria monocytogenes Not Detected (Not Detect); Neisseria meningitidis Not Detected (Not Detect); Proteus species Not Detected (Not Detect); Pseudomonas aeruginosa Not Detected (Not Detect); Salmonella species Not Detected (Not Detect); Serratia marcescens Not Detected (Not Detect); Staphylococcus epidermidis Detected (Not Detect); Staphylococcus lugdunensis Not Detected (Not Detect); Staphylococcus species Detected (Not Detect); Stenotrophomonas maltophilia Not Detected (Not Detect); Streptococcus agalactiae (Gr B Not Detected (Not Detect); Streptococcus pneumonia Not Detected (Not Detect); Streptococcus pyogenes (Gr A) Not Detected (Not Detect); Streptococcus species Not Detected (Not Detect); mecA/C Resistance Not Detected (Not Detect)
[2025-02-05] MEDS: polyethylene glycoL 3350 17 GM POWD.PACK PO (11:36)
--- NOTE | 2025-02-05 13:06 | DI.RAD.S_ITS ---
PROCEDURE: XR CHEST 1V INDICATIONS: pna TECHNIQUE: One view of the chest was acquired. COMPARISON: [facility], CR, XR CHEST 1V, 02/03/2025, 17:55. [facility], CR, XR CHEST 1V, 02/03/2023, 14:52. FINDINGS: Surgical changes and devices: None. Lungs and pleura: Stable right suprahilar consolidation. No pleural effusions or pneumothorax. Mediastinum: Mediastinal contours appear normal. Heart size is normal. Bones and chest wall: No suspicious bony lesions. Overlying soft tissues appear unremarkable. IMPRESSION: Stable right suprahilar consolidation. Recommend follow-up radiograph to resolution to exclude underlying neoplasm. Dictated by: Rush Figueroa M.D. on 02/05/2025 at 14:15 Approved by: Rush Figueroa M.D. on 02/05/2025 at 14:17
[2025-02-05] MEDS: methylPREDNISolone 125 MG/2 ML VIAL 60 MG IV (14:08)
--- NOTE | 2025-02-05 15:11 | CM.DPC ---
DCP Cont: Per MD, pt with densely consolidated pneumonia in the lung and improving but likely needs another 1-2 days before stable for discharge. Per RN, pt has been independent in room and breathing improved and less anxious. EUGENIA Castellanos
[2025-02-05] MEDS: TRAMADOL 50 MG TABLET PO ×2 (15:22→23:13)
[2025-02-05] MEDS: cefTRIAXone 1,000 MG in SODIUM CHLORIDE 0.9% 100 ML 200 MG IV (18:57)
[2025-02-05] MEDS: SODIUM CHLORIDE 0.9% FLUSH 10 ML IV ×2 (20:29→20:44)
[2025-02-05] MEDS: AZITHROMYCIN 500 MG in DEXTROSE 5% IN WATER 250 ML 250 MG IV (20:29)
[2025-02-05] MEDS: KETOROLAC 30 MG/ML VIAL 15 MG IV (20:42)
[2025-02-05] MEDS: TRAZODONE 50 MG TABLET 100 MG PO (23:13)
[2025-02-06] VITALS (7 sets, daily range): BP systolic 125–135; BP diastolic 75–87; PULSE 75–95; RESP 17–22; TEMP 36.2–36.9; O2SAT 92–95
--- NOTE | 2025-02-06 00:39 | PC.NURSE ---
Patient is alert and oriented. Breath sounds diminished with expiratory wheezing auscultated in left middle lobe. Reports continues SOB w/exertion and generalized fatigue and myalgias. RA sat is 93% but oxygen applied at 1L/min at 2300 as she uses oxygen at night at baseline; is on continuous oximetry. Reports sputum is still yellow in color. HRR. Denied nausea. BT present and is passing flatus. Voiding without dysuria, frequency or urgency. Is able to turn herself in bed. Is independent with mobility in room. Declined use of SCD's so reminded to ankle wave when awake. Medicated with Toradol earlier for 6/10 generalized pain and then later with Tramadol for 6/10 pain after which she stated pain had come down to 4/10. Also given Trazadone for sleep. Fall risk score is moderate; bed alarm is not activated.
[2025-02-06] MEDS: methylPREDNISolone 125 MG/2 ML VIAL 60 MG IV ×2 (01:15→13:19)
[2025-02-06] MEDS: SODIUM CHLORIDE 0.9% FLUSH 10 ML IV ×3 (01:15→18:26)
[2025-02-06] MEDS: PANTOPRAZOLE DR 20 MG TABLET PO (05:36)
[2025-02-06] MEDS: ALBUTEROL/IPRATROPIUM 3 ML AMPUL INH ×3 (07:26→15:59)
--- NOTE | 2025-02-06 07:32 | PM.PN.1 ---
Subjective Subjective Date Patient Seen: 02/06/25 Interval history: Chief complaint: Fever nonproductive cough shortness of breath secondary to right upper lobe pneumonia History of present illness: 59 y/o former smoker with PMH of COPD, came to ER with severe shortness of breath and non-productive cough. Workup showing RML infiltrate. Hypoxemic. At home using 1 L of oxygen at night only. Treated with nebulized bronchodilators, IV steroid and antibiotics, oxygen and admitted to medicine with PNA and COPD exacerbation. Findings in the emergency room: Female with labored respirations dyspnea Dense consolidated right middle lobe pneumonia on CT angiogram no pulmonary emboli Hospital course: 02/04: Patient anxious with nonproductive cough mildly labored respirations no fever or chills overnight 02/05: Less anxious this morning cough is nonproductive no fevers or chills overnight 02/06: Less anxious got some good sleep last night having less dyspnea productive of copious amounts of yellow sputum now feels like her lungs are loosening up Review of systems: No night sweats or rigors overnight No nausea vomiting No chest pains palpitations No paresthesia paresis No urinary symptoms Physical exam: No acute distress chronically ill appearing female HEENT unremarkable Neck no JVD Heart sounds distant no murmurs Lungs with diffuse rales and wheezes shortened respiratory phases Abdomen benign Extremities no edema Assessment and plan: Densely consolidated right upper lobe pneumonia with acute on chronic hypoxic respiratory failure acute COPD exacerbation Three days ceftriaxone azithromycin Corticosteroid and bronchodilator Estimate 1-2 more days of hospitalization Continue with corticosteroid seems to be helping with mobilization of secretions DVT prophylaxis with enoxaparin Time-Based Coding :: 35 minutes spent with patient and on the chart (including review of chart, obtaining history, exam, reviewing outside data, placing orders, documenting exam and treatment plan, and counseling patient) Exam Vital Signs (past 8 hours): - 02/06/25 03:00 02/06/25 07:29 Temperature 97.4 F L Pulse Rate 83 Respiratory Rate 18 Blood Pressure 125/78 Pulse Oximetry 93 92 Oxygen Delivery Method Room Air Oxygen Flow Rate 1 0 Fraction of Inspired Oxygen 21 Fraction of Inspired Oxygen 21 SaO2/FiO2 Ratio 438 Oxygen Delivery Method Room Air Oxygen Flow Rate 0 Objective Labs 02/04/25 05:18 02/04/25 05:18 Labs: Laboratory Results - last 24 hr 02/03/25 17:58 A.calcoaceticus-baumannii cmplx PCR Not detected Bacteroides fragilis Not detected Kristen albicans (PCR) Not detected Kristne auris (PCR) Not detected C. glabrata (PCR) Not detected C. krusei (PCR) Not detected C. parapsilosis (PCR) Not detected C. tropicalis (PCR) Not detected C. neoform/gattii (PCR) Not detected Enterobacterales (PCR) Not detected E. cloacae complex PCR Not detected Enterococc faecalis PCR Not detected Enterococc faecium PCR Not detected E. coli (PCR) Not detected H. influenzae (PCR) Not detected Klebsiella aerogenes (PCR) Not detected Klebsiella oxytoca PCR Not detected Klebsiella pneumoniae Not detected List. monocytogenes PCR Not detected N. meningitidis (PCR) Not detected Proteus species (PCR) Not detected Salmonella spp. (PCR) Not detected Serratia marcescens PCR Not detected Staphylococcus sp PCR Detected Staph aureus (PCR) Not detected mecA/C & MREJ Resist Gene Not applicable mecA/C-Methicil Resis Gene Not detected mcr-1 Colistin Res Gene PCR Not applicable Staph epidermidis (PCR) Detected Staph lugdunensis PCR Not detected S. maltophilia (PCR) Not detected Streptococcus sp PCR Not detected Group A Strep (PCR) Not detected Strep agalactiae (PCR) Not detected Strep pneumoniae (PCR) Not detected P. aeruginosa (PCR) Not detected Ange/B-Vanco Res Genes Not applicable blaIMP Car res Gene PCR Not applicable KPC-Carbap Res Gene PCR Not applicable blaNDM Car Res Gene PCR Not applicable OXA-48 Carbapenem Resis Gene (PCR) Not applicable blaVIM Car Res Gene PCR Not applicable CTX-M Gene Resistance (PCR) Not applicable [facility] Medical History COPD (chronic obstructive pulmonary disease) Social History household members: children Smoking Status: Former smoker alcohol intake: never Assessment & Plan Time-Based Coding :: [TOTAL MINUTES] spent with patient and on the chart (including review of chart, obtaining history, exam, reviewing outside data, placing orders, documenting exam and treatment plan, and counseling patient) on [DATE].
[2025-02-06] MEDS: ENOXAPARIN 40 MG/0.4 ML SYRINGE SUBCUT (08:36)
[2025-02-06] MEDS: polyethylene glycoL 3350 17 GM POWD.PACK PO (08:37)
[2025-02-06] MEDS: BUDESONIDE 0.5 MG/2 ML NEB INH ×2 (09:31→21:02)
--- NOTE | 2025-02-06 12:30 | CM.DPNOTE ---
DCP Continued: Reviewed EMR and team rounds for pt?s medical status. Per Provider, PNA interventions to continue. No social work needs identified at this time. Plan:Anticipating dc home with family on 02/07 or when medically cleared. CM Team will continue to follow for coordination of discharge plans. MICA Jung
[2025-02-06] MEDS: cefTRIAXone 1,000 MG in SODIUM CHLORIDE 0.9% 100 ML 200 MG IV (18:24)
[2025-02-06] MEDS: AZITHROMYCIN 500 MG in DEXTROSE 5% IN WATER 250 ML 250 MG IV (20:25)
[2025-02-06] MEDS: ALBUTEROL 2.5 MG/3 ML NEB (ADULT) INH (21:02)
[2025-02-06] MEDS: TRAZODONE 50 MG TABLET 100 MG PO (22:11)
[2025-02-06] MEDS: TRAMADOL 50 MG TABLET PO (22:11)
[2025-02-07] VITALS (9 sets, daily range): BP systolic 121–131; BP diastolic 79–90; PULSE 92–107; RESP 16–20; TEMP 36.3–36.7; O2SAT 92–99
[2025-02-07] MEDS: methylPREDNISolone 125 MG/2 ML VIAL 60 MG IV ×2 (01:18→12:56)
[2025-02-07] MEDS: ALBUTEROL/IPRATROPIUM 3 ML AMPUL INH ×4 (07:08→18:46)
[2025-02-07] MEDS: BUDESONIDE 0.5 MG/2 ML NEB INH ×2 (07:08→18:46)
[2025-02-07] MEDS: ENOXAPARIN 40 MG/0.4 ML SYRINGE SUBCUT (08:19)
[2025-02-07] MEDS: SODIUM CHLORIDE 0.9% FLUSH 10 ML IV ×2 (08:20→20:53)
[2025-02-07] MEDS: DOCUSATE 100 MG CAPSULE PO ×2 (08:20→17:31)
--- NOTE | 2025-02-07 12:07 | P.PN_ITS ---
Subjective Subjective Interval history: Chief complaint: Fever nonproductive cough shortness of breath secondary to right upper lobe pneumonia History of present illness: 59 y/o former smoker with PMH of COPD, came to ER with severe shortness of breath and non-productive cough. Workup showing RML infiltrate. Hypoxemic. At home using 1 L of oxygen at night only. Treated with nebulized bronchodilators, IV steroid and antibiotics, oxygen and admitted to medicine with PNA and COPD exacerbation. Findings in the emergency room: Female with labored respirations dyspnea Dense consolidated right middle lobe pneumonia on CT angiogram no pulmonary emboli Hospital course: 02/04: Patient anxious with nonproductive cough mildly labored respirations no fever or chills overnight 02/05: Less anxious this morning cough is nonproductive no fevers or chills overnight 02/06: Less anxious got some good sleep last night having less dyspnea productive of copious amounts of yellow sputum now feels like her lungs are loosening up. 02/07: Subjective: She was quite short of breath with moving and having a lot of coughing and wheezing episodes. She was not feel well enough to return home. Her episodes of dyspnea are somewhat episodic. Exam Vital Signs (past 8 hours): - 02/07/25 07:10 02/07/25 08:00 02/07/25 11:27 Temperature 97.3 F L Pulse Rate 107 H Respiratory Rate 20 Blood Pressure 122/83 Pulse Oximetry 92 93 96 Oxygen Delivery Method Room Air Room Air Oxygen Flow Rate 0 0 Fraction of Inspired Oxygen 21 21 Fraction of Inspired Oxygen 21 SaO2/FiO2 Ratio 457 Oxygen Delivery Method Room Air Oxygen Flow Rate 0 Narrative Exam Narrative: Mild anxiety., chronically ill appearing female HEENT unremarkable, EOMI. Neck no JVD Heart sounds distant no murmurs Lungs with diffuse rales and wheezes shortened respiratory phases, multiple wheezing across the room, increased rate and effort of breathing at the time of my visit. Abdomen benign Extremities no edema Objective Labs 02/04/25 05:18 02/04/25 05:18 PFSH Medical History COPD (chronic obstructive pulmonary disease) Social History household members: children Smoking Status: Former smoker alcohol intake: never Assessment & Plan Assessment & Plan narrative: Densely consolidated right upper lobe pneumonia with acute on chronic hypoxic respiratory failure acute COPD exacerbation, present on admission and active. * Three days ceftriaxone azithromycin * Corticosteroid and bronchodilator * Estimate 1-2 more days of hospitalization * Continue with corticosteroid seems to be helping with mobilization of secretions Plan: She was still dyspneic and requires another day of IV antibiotics and bronchodilators. We will continue antibiotics. AURELIANO: 02/08. Time-Based Coding :: [TOTAL MINUTES] spent with patient and on the chart (including review of chart, obtaining history, exam, reviewing outside data, placing orders, documenting exam and treatment plan, and counseling patient) on [DATE].
[2025-02-07] MEDS: ACETAMINOPHEN 325 MG TABLET 650 MG PO (17:21)
[2025-02-07] MEDS: cefTRIAXone 1,000 MG in SODIUM CHLORIDE 0.9% 100 ML 200 MG IV (18:18)
[2025-02-07] MEDS: AZITHROMYCIN 500 MG in DEXTROSE 5% IN WATER 250 ML 250 MG IV (20:53)
[2025-02-07] MEDS: TRAMADOL 50 MG TABLET PO (23:20)
[2025-02-07] MEDS: TRAZODONE 50 MG TABLET 100 MG PO (23:21)
[2025-02-08] MEDS: methylPREDNISolone 125 MG/2 ML VIAL 60 MG IV (02:14)
[2025-02-08 07:00] VITALS: BP 119/78; PULSE 118; RESP 20; TEMP 36.3; O2SAT 93
[2025-02-08] MEDS: BUDESONIDE 0.5 MG/2 ML NEB INH (07:52)
[2025-02-08] MEDS: ALBUTEROL/IPRATROPIUM 3 ML AMPUL INH (07:52)
[2025-02-08 07:53] VITALS: PULSE 74; RESP 18; O2SAT 96
[2025-02-08 08:09] LABS: Add Manual Diff / Slide Review NO; Basophils Absolute Auto 0 /uL (0-100); Basophils Percent Auto 0.4 % (0-2); Eosinophils Absolute Auto 0 /uL (0-450); Eosinophils Percent Auto 0.5 % (2-4); Hematocrit 39.3 % (36-46); Hemoglobin 13.1 g/dL (12.0-16.0); Lymphocytes Absolute Auto 1100 /uL (1100-4500); Lymphocytes Percent Auto 12.6 % (25-40); Mean Corpuscular HGB Conc 33.3 % (30-36); Mean Corpuscular Hemoglobin 28.1 PG (26-34); Mean Corpuscular Volume 84.3 fL (80-100); Monocytes Absolute Auto 200 /uL (0-900); Monocytes Percent Auto 1.9 % (3-14); Neutrophils Absolute Auto 7600 /uL (1500-7000); Neutrophils Percent Auto 84.6 % (50-75); Platelet Count 510 X10^3/uL (150-400); Red Blood Cell Count 4.66 X10^6/uL (4.0-5.2); Red Cell Distribution Width 12.4 % (11.6-14.8)
[2025-02-08 08:21] LABS: BUN Creatinine Ratio 35.2 (6-22); Blood Urea Nitrogen 19 mg/dL (7-17); Carbon Dioxide 29 mmol/L (22-32); Chloride 97 mmol/L (98-107); Estimated Glomerular Filt Rate > 60 mL/min (>60); Glucose 109 mg/dL (70-99); HEMOLYSIS < 15 (0-50); Potassium 4.7 mmol/L (3.4-5.1); Sodium 132 mmol/L (137-145)
[2025-02-08] MEDS: ENOXAPARIN 40 MG/0.4 ML SYRINGE SUBCUT (09:28)
[2025-02-08] MEDS: SODIUM CHLORIDE 0.9% FLUSH 10 ML IV (09:29)
[2025-02-08] MEDS: predniSONE 20 MG TABLET 40 MG PO (09:29)
--- NOTE | 2025-02-08 10:21 | P.DS_ITS ---
History of Present Illness History of Present Illness Date Patient Seen: 02/08/25 Time Patient Seen: 10:22 Chief complaint: Worsening SoB Narrative: Per admitting provider, 59 y/o former smoker with PMH of COPD, came to ER with severe shortness of breath and non-productive cough. Workup showing RML infiltrate. Hypoxemic. At home using 1 L of oxygen at night only. Treated with nebulized bronchodilators, IV steroid and antibiotics, oxygen and admitted to medicine with PNA and COPD exacerbation. Discharge Providers Provider Date of admission: 02/03/25 21:13 Discharge Date: 02/08/25 Primary care physician: Doctor Mckeon, Discharge provider: Ulysses Pickett DO Summary Hospital Course Discharge Diagnosis: Densely consolidated right sided pneumonia, bacterial, POA acute on chronic hypoxic respiratory failure, POA acute COPD exacerbation, present on admission and active. Hospital Course: 59 y/o former smoker with PMH of COPD, came to ER with severe shortness of breath and non-productive cough. Initial evaluation showed a right-sided infiltrate on imaging. She was started on steroids and antibiotics for bacterial infection and presumed COPD exacerbation. Over the course of a couple days she had slow improvement in her symptoms and felt well enough to discharge home on February 09. She was discharged on another 4 days of prednisone and 3 days of amoxicillin clavulanate for completion therapy for her possible pneumonia. No other changes to her home medications were recommended at the time of discharge. Patient can follow up with primary care provider as previously scheduled. Time Spent with Patient Time spent: Greater than 30 minutes Exam Vital Signs (past 8 hours): - 02/08/25 07:00 02/08/25 07:53 Temperature 97.3 F L Pulse Rate 118 H 74 Respiratory Rate 20 18 Blood Pressure 119/78 Pulse Oximetry 93 96 Oxygen Delivery Method Nasal Cannula Oxygen Flow Rate 0 1 Fraction of Inspired Oxygen 24 Fraction of Inspired Oxygen 24 SaO2/FiO2 Ratio 400 Oxygen Delivery Method Nasal Cannula Oxygen Flow Rate 1 Narrative Exam Narrative: Mild anxiety., chronically ill appearing female HEENT unremarkable, EOMI. Neck no JVD Heart sounds distant no murmurs Lungs with diffuse rales and wheezes shortened respiratory phases, multiple wheezing across the room, increased rate and effort of breathing at the time of my visit. Abdomen benign Extremities no edema Objective Labs 02/08/25 08:00 02/08/25 08:00 Labs: Laboratory Results - last 24 hr 02/08/25 08:00 WBC 9.0 RBC 4.66 Hgb 13.1 Hct 39.3 MCV 84.3 MCH 28.1 MCHC 33.3 RDW 12.4 Plt Count 510 H Neut % (Auto) 84.6 H Lymph % (Auto) 12.6 L [place] % (Auto) 1.9 L Eos % (Auto) 0.5 L Baso % (Auto) 0.4 Neut # (Auto) 7600 H Lymph # (Auto) 1100 [place] # (Auto) 200 Eos # (Auto) 0 Baso # (Auto) 0 Sodium 132 L Potassium 4.7 Chloride 97 L Carbon Dioxide 29 BUN 19 H Creatinine 0.54 Estimated GFR > 60 BUN/Creatinine Ratio 35.2 H Glucose 109 H Calcium 9.0 PFSH Medical History COPD (chronic obstructive pulmonary disease) Social History household members: children Smoking Status: Former smoker alcohol intake: never Discharge Plan Discharge Plan Patient Disposition: Home Provider Discharge Comment: You were admitted to the hospital with an exacerbation of your COPD. Continue steroids and a few more days of antibiotics at home. Follow with up Dr. Pinto as previously scheduled. Discharge orders & Medications Prescriptions: New prednisone 20 mg tablet 40 mg PO DAILY 2 Days Qty: 4 0RF amoxicillin-pot clavulanate 875-125 mg tablet 1 tab PO BID 3 Days Qty: 6 0RF Continued Spiriva Respimat 2.5 mcg/actuation mist 1 puff INHALATION DAILY Patient Comments: inhale 2 puffs once daily albuterol sulfate 2.5 mg /3 mL (0.083 %) solution for nebulization 2.5 mg Q4HR PRN (Reason: Shortness Of Breath Or Wheezing) Patient Comments: [NO ORIGINAL SIG] trazodone 50 mg tablet 50 mg PO ONCE PM PRN (Reason: Insomnia) hydroxyzine HCl 50 mg tablet 50 mg PO QID PRN (Reason: Anxiety) baclofen 10 mg tablet 5 mg PO TID PRN (Reason: Muscle Spasm) albuterol sulfate 90 mcg/actuation HFA aerosol inhaler 2 puff inhalation Q6H PRN (Reason: Shortness Of Breath Or Wheezing) azithromycin 500 mg tablet 500 mg PO QMWF budesonide-formoterol 160-4.5 mcg/actuation Hfa Aerosol Inhaler 2 puff INHALATION BID Follow up/Referrals: Mike,DoctorMD [Primary Care Provider] - Diet/Activity/Treatments Diet: Diet as Tolerated and Regular Activity: As tolerated, no restrictions Oxygen: continue as needed at night, goal O2 89-96% Visit Report/Discharge Packet Instructions: DI for Chronic Obstructive Pulmonary Disease, DI for Pneumonia -- Adult Stand Alone Forms: Patient Portal/API, Stroke Signs & Symptoms Discharge Data Primary Care Provider: Doctor Mike
--- NOTE | 2025-02-08 11:03 | CM.DPC ---
DCP Discharge Home Per MD, pt with improvements in her breathing and reduced wheezing and tolerating room air and medically stable to d/c home on her home O2 at baseline for night and outpt f/u, no identified barriers to discharge. Per RN, pt has been independent in room and continues to tolerate room air and no concerns noted. Plan: Patient to discharge home today via Dtr POV and outpt f/u and no further SW needs at this time. EUGENIA Castellanos
--- NOTE | 2025-02-08 12:22 | PC.NURSE ---
Pt PIV removed by GLENN Prakash, pt tolerated well. All belongings with pt. Pt educated on diet, medications, infection management, and follow ups by student RN under observation by this RN. Pt stated all questions answered. Pt escorted to POV via wheelchair by GLENN Light.
== END 2025-02-08 12:22 | disposition home or self-care (01) | DRG 193 ==
LOC: ED 19:23 → AC 21:14
PROVIDERS: Emergency Medicine; Internal Medicine; Admitting Provider Internal Medicine; Emergency Provider Family Medicine; Referring Provider Family Medicine; Visit Provider Internal Medicine
DX: J15.9 Unspecified bacterial pneumonia (principal); J96.21 Acute and chronic respiratory failure with hypoxia; J44.1 Chronic obstructive pulmonary disease with (acute) exacerbation; J44.0 Chronic obstructive pulmonary disease with (acute) lower respiratory infection; R91.1 Solitary pulmonary nodule; F41.9 Anxiety disorder, unspecified; G47.00 Insomnia, unspecified; Z87.891 Personal history of nicotine dependence
CPT/HCPCS: 0241U; 36415; 71045; 71275; 80048; 80053; 81003; 82805; 83605; 83690; 83880; 84145; 84484; 85025; 85379; 85610; 85730; 87040; 87077; 87154; 93005; 93010; 94640; 94762; 96361; 96365; 96367; 96375; 99284; 99285; J0696; J1650; J1885; J2405; J2919; J7613; Q9967

== ENCOUNTER 2025-02-17 15:59 | Inpatient (IN) | payer BC, SELFPAY ==
[2025-02-03 22:17] VITALS: BMI 28.0
[2025-02-17] VITALS (11 sets, daily range): BP systolic 103–141; BP diastolic 56–96; PULSE 100–128; RESP 18–27; TEMP 36.4–37.2; O2SAT 93–98; BMI 25.7; BMI 27.9
--- NOTE | 2025-02-17 16:08 | EKG_ITS ---
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
--- NOTE | 2025-02-17 16:16 | DI.RAD.S_ITS ---
PROCEDURE: XR CHEST 1V INDICATIONS: Shortness of breath TECHNIQUE: One view of the chest was acquired. COMPARISON: [facility], CT, CT ANGIO CHEST PE PROTOCOL, 02/03/2025, 19:32. [facility], CR, XR CHEST 1V, 02/05/2025, 13:10. FINDINGS: Surgical changes and devices: None. Lungs and pleura: There is poorly defined opacity seen within the right upper lobe medially, which is more prominent on the current study than on the prior. The lungs otherwise appear clear. No pneumothorax or pleural effusions are seen. Mediastinum: Mediastinal contours appear normal. Heart size is normal. Bones and chest wall: No suspicious bony lesions. Overlying soft tissues appear unremarkable. IMPRESSION: Worsening consolidation seen involving the right upper lobe medially. Infiltrate is most likely. Please consider and underlying mass. Followup chest radiographs are recommended to complete resolution. If this abnormality does not completely resolve on plain film, then a chest CT with contrast would be recommended to evaluate for a potential underlying mass. Dictated by: Kedar Mclean M.D. on 02/17/2025 at 15:42 Approved by: Kedar Mclean M.D. on 02/17/2025 at 15:43
[2025-02-17 16:41] LABS: Hematocrit 37.1 % (36-46); Hemoglobin 12.5 g/dL (12.0-16.0); Mean Corpuscular HGB Conc 33.7 % (30-36); Mean Corpuscular Hemoglobin 28.6 PG (26-34); Mean Corpuscular Volume 84.7 fL (80-100); Platelet Count 353 X10^3/uL (150-400); Red Blood Cell Count 4.38 X10^6/uL (4.0-5.2); Red Cell Distribution Width 12.6 % (11.6-14.8)
[2025-02-17 16:44] LABS: Add Manual Diff / Slide Review YES
[2025-02-17 16:46] LABS: INR 1.3 (0.9-1.3); Prothrombin Time 14.7 SECONDS (9.4-12.5)
[2025-02-17 16:49] LABS: Lactate (Lactic Acid) 0.9 mmol/L (0.7-2.1)
[2025-02-17 16:50] LABS: Alanine Aminotransferase 15 IU/L (<35); Albumin 3.7 g/dL (3.5-5.0); Albumin Globulin Ratio 1.2 (1.0-2.8); Alkaline Phosphatase 79 U/L (38-126); Aspartate Aminotransferase 18 IU/L (14-36); BUN Creatinine Ratio 21.2 (6-22); Bilirubin Total 0.9 mg/dL (0.2-1.3); Blood Urea Nitrogen 11 mg/dL (7-17); Calcium 8.6 mg/dL (8.4-10.2); Carbon Dioxide 30 mmol/L (22-32); Chloride 96 mmol/L (98-107); Estimated Glomerular Filt Rate > 60 mL/min (>60); Globulin 3.1 g/dL (1.7-4.1); Glucose 130 mg/dL (70-99); HEMOLYSIS < 15 (0-50); Potassium 3.8 mmol/L (3.4-5.1); Sodium 132 mmol/L (137-145); Total Protein 6.8 g/dL (6.3-8.2)
[2025-02-17 17:02] LABS: NT-proBNP (BNP-Adult 18+) 90 pg/mL (<125); Troponin I < 0.012 ng/mL (0.01-0.034)
[2025-02-17] MEDS: ONDANSETRON 4 MG/2 ML INJ IV (17:04)
[2025-02-17 17:06] LABS: Neutrophils Absolute Manual 12580 /uL (3000-5900); RBC Morphology Normal Morphology; Total Cells Counted 100
--- NOTE | 2025-02-17 18:30 | EKG_ITS ---
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
[2025-02-17] MEDS: ALBUTEROL/IPRATROPIUM 3 ML AMPUL 9 ML INH (18:51)
--- NOTE | 2025-02-17 18:51 | DI.CT.S_ITS ---
PROCEDURE: CT ANGIO CHEST PE PROTOCOL INDICATIONS: hypoxia tachycardia recent hospitalization TECHNIQUE: After the administration of intravenous contrast, 2 mm thick sections acquired from the pulmonary apices to the posterior costophrenic angles. 3-dimensional maximum intensity projection (MIP) coronal and sagittal reformats were then acquired through the thorax. For radiation dose reduction, the following was used: automated exposure control, adjustment of mA and/or kV according to patient size. COMPARISON: [facility], CT, CT ANGIO CHEST PE PROTOCOL, 02/03/2025, 19:32. FINDINGS: Image quality: Diagnostic. Pulmonary arteries: Pulmonary arteries are normal in size, and demonstrate no intraluminal filling defects to suggest central pulmonary embolism. Lower Neck: No enlarged lymph nodes. Thyroid: No thyroid nodules which require sonographic follow up, per consensus guidelines. Axillae: No enlarged lymph nodes. Chest Wall: Unremarkable. Bones: Unremarkable. Lungs and Pleura: No pneumothorax or pleural effusions. Increasing size of right upper lobe medial masslike consolidation now measuring approximately 5.2 x 3.6 cm (4/35), previously 2.7 x 2.6 cm (remeasured on series 5, image 46). Mild area of ground-glass opacity previously site of prior consolidation on 08/09/2022. Stable solid pulmonary nodules with the largest in the left lower lobe measuring 4 mm, since July 2022 (, MIP image 52). No new or enlarging pulmonary nodules. Heart: Heart size is normal. No pericardial effusion. Thoracic Vessels: No aortic aneurysm. Mediastinum and [place]: No enlarged lymph nodes. Esophagus: No wall thickening. No hiatal hernia. Upper Abdomen: Visualized upper abdomen solid organs and bowel loops appear normal. IMPRESSION: No pulmonary embolus. Compared to prior CT on 02/03/2025, interval increased size of medial right upper lobe masslike consolidation. Differential diagnostic considerations include pneumonia, however malignancy cannot be excluded. No adenopathy. Recommend short interval CT follow-up in 1-2 months. Approved by: Ayesha Arvizu M.D.,Ph.D. on 02/17/2025 at 20:04
--- NOTE | 2025-02-17 18:53 | ED.SOB ---
HPI - SOB/Dyspnea <Guerline Barnhart MD - Last Filed: 02/18/25 10:58> General Chief Complaint: Shortness of Breath/Dyspnea Stated Complaint: SOB, chest pain Time Seen by Provider: 02/17/25 16:18 Source: patient Mode of arrival: Ambulatory History of Present Illness HPI Narrative: 59-year-old female history of COPD, dependent on in 1-2 L at night, recent hospitalization for pneumonia and discharged about 1 week ago, anxiety, here with persistent cough and worsening dyspnea and chest pain since yesterday. No known fever. She did recently complete an antibiotic for pneumonia and feels that her symptoms are worsening since then. No known history of DVT or PE, coronary artery disease. No recent unilateral leg pain or swelling Related Data Home Medications Medication Instructions Recorded Confirmed tiotropium bromide 2.5 1 puff inhalation DAILY 08/09/22 02/17/25 mcg/actuation mist for inhalation (Spiriva Respimat) albuterol sulfate 2.5 mg/3 mL 2.5 mg Q4HR PRN Shortness Of 02/03/25 02/17/25 (0.083 %) solution for nebulization Breath Or Wheezing albuterol sulfate 90 mcg/actuation 2 puff inhalation Q6H PRN 02/03/25 02/17/25 aerosol inhaler Shortness Of Breath Or Wheezing baclofen 10 mg tablet 5 mg PO TID PRN Muscle Spasm 02/03/25 02/17/25 budesonide-formoterol HFA 160 2 puff inhalation BID 02/03/25 02/17/25 mcg-4.5 mcg/actuation aerosol inhaler hydroxyzine HCl 50 mg tablet 50 mg PO QID PRN Anxiety 02/03/25 02/17/25 trazodone 50 mg tablet 50 mg PO ONCE PM PRN Insomnia 02/03/25 02/17/25 Allergies Allergy/AdvReac Type Severity Reaction Status Date / Time morphine AdvReac sick Verified 02/17/25 16:03 walnut AdvReac raw mouth Verified 02/17/25 16:03 Review of Systems <Guerline Barnhart MD - Last Filed: 02/18/25 10:58> Review of Systems Narrative: Negative except as stated in HPI Patient History <Guerline Barnhart MD - Last Filed: 02/18/25 10:58> Medical History COPD (chronic obstructive pulmonary disease) Social History household members: children alcohol intake: never Exam <Guerline Barnhart MD - Last Filed: 02/18/25 10:58> Initial Vital Signs Initial Vital Signs: Vital Signs Temperature 98.7 F 02/17/25 16:05 Pulse Rate 128 H 02/17/25 16:05 Respiratory Rate 22 02/17/25 16:05 Blood Pressure 141/73 H 02/17/25 16:05 Pulse Oximetry 94 02/17/25 16:05 Oxygen Delivery Method Room Air 02/17/25 16:05 Constitutional: Chronically ill-appearing 59-year-old female resting in the bed, nasal cannula in place Head: NCAT Cardiovascular: Tachycardic, regular, no murmur or rub Pulmonary: Diminished bilaterally, occasional wheeze, increased work of breathing that is mild Abdominal: soft, non-tender Extremities: No LE edema Skin: warm and dry, no diaphoresis Neurological: Alert and oriented x3 <Kathryn Castellanos MD - Last Filed: 02/17/25 21:15> Initial Vital Signs Initial Vital Signs: Vital Signs Temperature 98.7 F 02/17/25 16:05 Pulse Rate 128 H 02/17/25 16:05 Respiratory Rate 22 02/17/25 16:05 Blood Pressure 141/73 H 02/17/25 16:05 Pulse Oximetry 94 02/17/25 16:05 Oxygen Delivery Method Room Air 02/17/25 16:05 Course <Guerline Barnhart MD - Last Filed: 02/18/25 10:58> Orders Ordered: Acetaminophen (Acetaminophen 325 Mg Tablet) 650 mg PO Q6H PRN PRN Reason: Fever/Mild Pain (1-3) Last Admin: 02/18/25 08:29 Dose: 650 mg Documented By: Admin: 02/18/25 00:27 Dose: 650 mg Documented By: DENIA Albuterol (Albuterol 2.5 Mg/3 Ml Neb (Adult)) 2.5 mg INH [id number] PRN PRN Reason: Shortness Of Breath Last Admin: 02/18/25 07:42 Dose: 2.5 mg Documented By: JAYA Albuterol (Albuterol 2.5 Mg/3 Ml Neb (Adult)) 2.5 mg INH RTQ4HR PRN PRN Reason: Shortness Of Breath Or Wheezing Baclofen (Baclofen 10 Mg Tablet) 5 mg PO TID PRN PRN Reason: Muscle Spasm Enoxaparin Sodium (Enoxaparin 40 Mg/0.4 Ml Syringe) 40 mg SUBCUT DAILY [facility] Last Admin: 02/18/25 08:28 Dose: 40 mg Documented By: MANJU Guaifenesin (Guaifenesin Solution 100 Mg/5 Ml Udc) 100 mg PO Q4HR PRN PRN Reason: Cough Hydroxyzine HCl (Hydroxyzine Hcl 25 Mg Tablet) 50 mg PO QID PRN PRN Reason: Anxiety Cefepime HCl 1 gm/ Sodium (Chloride) 100 mls @ 200 mls/hr IV Q12H [facility] Last Admin: 02/18/25 10:39 Dose: 200 mls/hr Documented By: MANJU Vancomycin HCl (Vancomycin) 1,250 mg in 250 mls @ 166.667 mls/hr IV Q8H [facility] Azithromycin 500 mg/ Dextrose 250 mls @ 250 mls/hr IV Q24H [facility] Stop: 02/19/25 20:59 Naloxone HCl (Naloxone 0.4 Mg/Ml Vial) 0.2 mg IV Q2MIN PRN PRN Reason: Opiate Reversal Ondansetron HCl (Ondansetron 4 Mg Odt) 4 mg PO Q4HR PRN PRN Reason: nausea Sennosides (Sennosides 8.6 Mg Tablet) 17.2 mg PO DAILY PRN PRN Reason: constipation Trazodone HCl (Trazodone 50 Mg Tablet) 50 mg PO BEDTIME PRN PRN Reason: insomnia Vancomycin HCl (Vancomycin Per Pharmacy) 1 request MISC NOW PRN PRN Reason: pneumonia Discontinued Medications Albuterol (Albuterol 2.5 Mg/3 Ml Neb (Adult)) 2.5 mg INH RTQ6HR [facility] Last Admin: 02/18/25 03:16 Dose: 2.5 mg Documented By: JAKE Albuterol/Ipratropium (Albuterol/Ipratropium 3 Ml Ampul) 9 ml INH NOW ONE Stop: 02/17/25 18:45 Last Admin: 02/17/25 18:51 Dose: 9 ml Documented By: SHER Albuterol/Ipratropium (Albuterol/Ipratropium 3 Ml Ampul) 3 ml INH NOW ONE Stop: 02/17/25 21:13 Last Admin: 02/17/25 21:10 Dose: 3 ml Documented By: JAKE Budesonide (Budesonide 0.5 Mg/2 Ml Neb) 0.5 mg INH RTBID [facility]ITA Hydromorphone HCl (Hydromorphone 0.5 Mg Inj) 0.5 mg IV NOW ONE Stop: 02/17/25 20:07 Last Admin: 02/17/25 20:12 Dose: 0.5 mg Documented By: MONA Cefepime HCl 1 gm/ Sodium (Chloride) 100 mls @ 200 mls/hr IV NOW ONE Stop: 02/17/25 18:54 Last Infusion: 02/17/25 20:45 Dose: Infused Documented By: Admin: 02/17/25 20:06 Dose: 200 mls/hr Documented By: MONA Azithromycin 500 mg/ Dextrose 250 mls @ 250 mls/hr IV NOW ONE Stop: 02/17/25 18:54 Last Infusion: 02/17/25 22:04 Dose: Infused Documented By: Admin: 02/17/25 20:49 Dose: 250 mls/hr Documented By: MONA Vancomycin HCl/Dextrose (Vancomycin) 1,500 mg in 300 mls @ 150 mls/hr IV NOW KAVITA Vancomycin HCl 1,000 mg/ (Sodium Chloride) 250 mls @ 250 mls/hr IV Q12H [facility] Vancomycin HCl/Dextrose (Vancomycin) 1,500 mg in 300 mls @ 200 mls/hr IV NOW ONE Stop: 02/18/25 08:44 Last Admin: 02/18/25 08:28 Dose: 200 mls/hr Documented By: MANJU Ketorolac Tromethamine (Ketorolac 30 Mg/Ml Vial) 15 mg IV NOW ONE Stop: 02/17/25 20:07 Last Admin: 02/17/25 20:12 Dose: 15 mg Documented By: MONA Non-Formulary Medication (Budesonide-Formoterol) 2 puff INHALATION BID K[facility]ITA Ondansetron HCl (Ondansetron 4 Mg/2 Ml Inj) 4 mg IV NOW PRN PRN Reason: Nausea And Vomiting Last Admin: 02/17/25 17:04 Dose: 4 mg Documented By: JUDI Ondansetron HCl (Ondansetron 4 Mg Odt) 4 mg PO NOW PRN PRN Reason: Nausea And Vomiting Vancomycin HCl (Vancomycin Per Pharmacy) 1 request MISC NOW ONE Stop: 02/17/25 21:15 Last Admin: 02/18/25 10:00 Dose: Not Given Documented By: MANJU Vital Signs Vital signs: Vital Signs - 8 hr 02/17/25 16:05 02/17/25 17:02 02/17/25 18:51 Temperature 98.7 F Pulse Rate 128 H 109 H 111 H Respiratory Rate 22 22 20 Blood Pressure 141/73 H 138/96 H Pulse Oximetry 94 94 95 Oxygen Delivery Method Room Air Nasal Cannula Oxygen Flow Rate 2 <Kathryn Castellanos MD - Last Filed: 02/17/25 21:15> Orders Ordered: Acetaminophen (Acetaminophen 325 Mg Tablet) 650 mg PO Q6H PRN PRN Reason: Fever/Mild Pain (1-3) Last Admin: 02/18/25 08:29 Dose: 650 mg Documented By: Admin: 02/18/25 00:27 Dose: 650 mg Documented By: DENIA Albuterol (Albuterol 2.5 Mg/3 Ml Neb (Adult)) 2.5 mg INH [id number] PRN PRN Reason: Shortness Of Breath Last Admin: 02/18/25 07:42 Dose: 2.5 mg Documented By: JAYA Albuterol (Albuterol 2.5 Mg/3 Ml Neb (Adult)) 2.5 mg INH RTQ4HR PRN PRN Reason: Shortness Of Breath Or Wheezing Baclofen (Baclofen 10 Mg Tablet) 5 mg PO TID PRN PRN Reason: Muscle Spasm Enoxaparin Sodium (Enoxaparin 40 Mg/0.4 Ml Syringe) 40 mg SUBCUT DAILY [facility] Last Admin: 02/18/25 08:28 Dose: 40 mg Documented By: MANJU Guaifenesin (Guaifenesin Solution 100 Mg/5 Ml Udc) 100 mg PO Q4HR PRN PRN Reason: Cough Hydroxyzine HCl (Hydroxyzine Hcl 25 Mg Tablet) 50 mg PO QID PRN PRN Reason: Anxiety Cefepime HCl 1 gm/ Sodium (Chloride) 100 mls @ 200 mls/hr IV Q12H [facility] Last Admin: 02/18/25 10:39 Dose: 200 mls/hr Documented By: CLL Vancomycin HCl (Vancomycin) 1,250 mg in 250 mls @ 166.667 mls/hr IV Q8H [facility] Azithromycin 500 mg/ Dextrose 250 mls @ 250 mls/hr IV Q24H [facility] Stop: 02/19/25 20:59 Naloxone HCl (Naloxone 0.4 Mg/Ml Vial) 0.2 mg IV Q2MIN PRN PRN Reason: Opiate Reversal Ondansetron HCl (Ondansetron 4 Mg Odt) 4 mg PO Q4HR PRN PRN Reason: nausea Sennosides (Sennosides 8.6 Mg Tablet) 17.2 mg PO DAILY PRN PRN Reason: constipation Trazodone HCl (Trazodone 50 Mg Tablet) 50 mg PO BEDTIME PRN PRN Reason: insomnia Vancomycin HCl (Vancomycin Per Pharmacy) 1 request MISC NOW PRN PRN Reason: pneumonia Discontinued Medications Albuterol (Albuterol 2.5 Mg/3 Ml Neb (Adult)) 2.5 mg INH RTQ6HR [facility] Last Admin: 02/18/25 03:16 Dose: 2.5 mg Documented By: JAKE Albuterol/Ipratropium (Albuterol/Ipratropium 3 Ml Ampul) 9 ml INH NOW ONE Stop: 02/17/25 18:45 Last Admin: 02/17/25 18:51 Dose: 9 ml Documented By: SHER Albuterol/Ipratropium (Albuterol/Ipratropium 3 Ml Ampul) 3 ml INH NOW ONE Stop: 02/17/25 21:13 Last Admin: 02/17/25 21:10 Dose: 3 ml Documented By: JAKE Budesonide (Budesonide 0.5 Mg/2 Ml Neb) 0.5 mg INH RTBID KAVITA Hydromorphone HCl (Hydromorphone 0.5 Mg Inj) 0.5 mg IV NOW ONE Stop: 02/17/25 20:07 Last Admin: 02/17/25 20:12 Dose: 0.5 mg Documented By: MONA Cefepime HCl 1 gm/ Sodium (Chloride) 100 mls @ 200 mls/hr IV NOW ONE Stop: 02/17/25 18:54 Last Infusion: 02/17/25 20:45 Dose: Infused Documented By: Admin: 02/17/25 20:06 Dose: 200 mls/hr Documented By: MONA Azithromycin 500 mg/ Dextrose 250 mls @ 250 mls/hr IV NOW ONE Stop: 02/17/25 18:54 Last Infusion: 02/17/25 22:04 Dose: Infused Documented By: Admin: 02/17/25 20:49 Dose: 250 mls/hr Documented By: MONA Vancomycin HCl/Dextrose (Vancomycin) 1,500 mg in 300 mls @ 150 mls/hr IV NOW KAVITA Vancomycin HCl 1,000 mg/ (Sodium Chloride) 250 mls @ 250 mls/hr IV Q12H [facility] Vancomycin HCl/Dextrose (Vancomycin) 1,500 mg in 300 mls @ 200 mls/hr IV NOW ONE Stop: 02/18/25 08:44 Last Admin: 02/18/25 08:28 Dose: 200 mls/hr Documented By: MANJU Ketorolac Tromethamine (Ketorolac 30 Mg/Ml Vial) 15 mg IV NOW ONE Stop: 02/17/25 20:07 Last Admin: 02/17/25 20:12 Dose: 15 mg Documented By: MONA Non-Formulary Medication (Budesonide-Formoterol) 2 puff INHALATION BID [facility] Ondansetron HCl (Ondansetron 4 Mg/2 Ml Inj) 4 mg IV NOW PRN PRN Reason: Nausea And Vomiting Last Admin: 02/17/25 17:04 Dose: 4 mg Documented By: JUDI Ondansetron HCl (Ondansetron 4 Mg Odt) 4 mg PO NOW PRN PRN Reason: Nausea And Vomiting Vancomycin HCl (Vancomycin Per Pharmacy) 1 request MISC NOW ONE Stop: 02/17/25 21:15 Last Admin: 02/18/25 10:00 Dose: Not Given Documented By: MANJU Vital Signs Vital signs: Vital Signs - 8 hr 02/17/25 16:05 02/17/25 17:02 02/17/25 18:51 Temperature 98.7 F Pulse Rate 128 H 109 H 111 H Respiratory Rate 22 22 20 Blood Pressure 141/73 H 138/96 H Pulse Oximetry 94 94 95 Oxygen Delivery Method Room Air Nasal Cannula Oxygen Flow Rate 2 MDM - SOB/Dyspnea <Guerline Barnhart MD - Last Filed: 02/18/25 10:58> Lab Data 02/18/25 05:20 02/18/25 05:20 Labs: Lab Results 02/17/25 02/17/25 Range/Units 16:27 18:23 WBC 17.0 H (4.5-11.0) X10^3/uL RBC 4.38 (4.0-5.2) X10^6/uL Hgb 12.5 (12.0-16.0) g/dL Hct 37.1 (36-46) % MCV 84.7 (80-100) fL MCH 28.6 (26-34) PG MCHC 33.7 (30-36) % RDW 12.6 (11.6-14.8) % Plt Count 353 (150-400) X10^3/uL Neut % (Auto) Not Reportable Lymph % (Auto) Not Reportable [place] % (Auto) Not Reportable Eos % (Auto) Not Reportable Baso % (Auto) Not Reportable Lymph # (Auto) Not Reportable [place] # (Auto) Not Reportable Baso # (Auto) Not Reportable Total Counted 100 Seg Neutrophils % 73.0 H (38-70) % Band Neutrophils % 1.0 L (3-7) % Lymphocytes % (Manual) 16.0 L (25-45) % Monocytes % (Manual) 7.0 (2-11) % Eosinophils % (Manual) 2.0 (2-4) % Basophils % (Manual) 1.0 (0-1) % Neutrophils # (Manual) 60101 H (1231-9583) /uL RBC Morphology Normal morphology PT 14.7 H (9.4-12.5) SECONDS INR 1.3 (0.9-1.3) Sodium 132 L (137-145) mmol/L Potassium 3.8 (3.4-5.1) mmol/L Chloride 96 L (98-107) mmol/L Carbon Dioxide 30 (22-32) mmol/L BUN 11 (7-17) mg/dL Creatinine 0.52 (0.52-1.04) mg/dL Estimated GFR > 60 (>60) mL/min BUN/Creatinine Ratio 21.2 (6-22) Glucose 130 H (70-99) mg/dL Lactate 0.9 (0.7-2.1) mmol/L Calcium 8.6 (8.4-10.2) mg/dL Total Bilirubin 0.9 (0.2-1.3) mg/dL AST 18 (14-36) IU/L ALT 15 (<35) IU/L Alkaline Phosphatase 79 (38-126) U/L Troponin I < 0.012 < 0.012 (0.01-0.034) ng/mL NT-Pro-B Natriuret Pep 90 (<125) pg/mL Total Protein 6.8 (6.3-8.2) g/dL Albumin 3.7 (3.5-5.0) g/dL Globulin 3.1 (1.7-4.1) g/dL Albumin/Globulin Ratio 1.2 (1.0-2.8) MDM Narrative Medical decision making narrative: Differential diagnoses considered in this patient includes sepsis, pneumonia, viral syndrome, COPD exacerbation, ACS, PE. We will obtain workup accordingly. We will give DuoNeb as patient is quite diminished and wheezing Chest x-ray shows worsening right lower lobe infiltrate. Radiologist relays concern for a mass. Given recent hospitalization with tachycardia and hypoxia, currently requiring 2 L via nasal cannula, rule send for CT to rule out pulmonary embolism. In the meantime we will cover empirically for hospital-acquired pneumonia with cefepime and azithromycin Laboratories concerning for leukocytosis of 17,000 and neutrophilia, suggestive of sepsis. CMP is generally benign. BNP nonelevated. Serial troponins are negative. EKG 18 30: Sinus tachycardia rate of 105. Normal intervals [place] 126, QRS 92, and QTC 415. Normal axis. No ST segment elevation or depression . EKG nonischemic. Patient will be signed out to oncoming provider pending results of CT scan. Anticipate admission for sepsis 2/2 pneumonia. Blood cultures are sent and pending. 8pm Dr Castellanos care is assumed, patient is independently evaluated chart is reviewed. When admitted on the 03 of February she was started on ceftriaxone and azithromycin. Discharged home with Augmentin and azithromycin. Completed all antibiotics and feels she is getting worse CT angiogram suggest that her right upper lobe pneumonia is more consolidated than it was with previous CT scan. Possibility of neoplasm is entertained however clinical picture is still very consistent with pneumonia that has not been completely treated. Patient is not significantly wheezing at this point. She has some minor rhonchi in the right side. She is currently on 2 L of oxygen with saturations at 94% in his comfortable with this. Her baseline is 1 L of oxygen when she is sleeping care is reviewed with hospitalist who will admit the the patient for pneumonia that has not resolved after initial inpatient stay and outpatient antibiotics without evidence of acute sepsis or impending respiratory failure. Antibiotics will be expanded to cefepime and vancomycin. We are attempting to get an induced sputum sample. Without significant wheeze at this point I do not think that she needs continued steroids a bit may benefit from her scheduled inhalers / nebulizers. Findings reviewed with the patient who was amenable to treatment overall. There is currently no evidence of acute coronary syndrome, congestive heart failure pulmonary embolism. patient is admitted <Kathryn Castellanos MD - Last Filed: 02/17/25 21:15> Lab Data Labs: Lab Results 02/17/25 02/17/25 Range/Units 16:27 18:23 WBC 17.0 H (4.5-11.0) X10^3/uL RBC 4.38 (4.0-5.2) X10^6/uL Hgb 12.5 (12.0-16.0) g/dL Hct 37.1 (36-46) % MCV 84.7 (80-100) fL MCH 28.6 (26-34) PG MCHC 33.7 (30-36) % RDW 12.6 (11.6-14.8) % Plt Count 353 (150-400) X10^3/uL Neut % (Auto) Not Reportable Lymph % (Auto) Not Reportable [place] % (Auto) Not Reportable Eos % (Auto) Not Reportable Baso % (Auto) Not Reportable Lymph # (Auto) Not Reportable [place] # (Auto) Not Reportable Baso # (Auto) Not Reportable Total Counted 100 Seg Neutrophils % 73.0 H (38-70) % Band Neutrophils % 1.0 L (3-7) % Lymphocytes % (Manual) 16.0 L (25-45) % Monocytes % (Manual) 7.0 (2-11) % Eosinophils % (Manual) 2.0 (2-4) % Basophils % (Manual) 1.0 (0-1) % Neutrophils # (Manual) 88351 H (3536-3744) /uL RBC Morphology Normal morphology PT 14.7 H (9.4-12.5) SECONDS INR 1.3 (0.9-1.3) Sodium 132 L (137-145) mmol/L Potassium 3.8 (3.4-5.1) mmol/L Chloride 96 L (98-107) mmol/L Carbon Dioxide 30 (22-32) mmol/L BUN 11 (7-17) mg/dL Creatinine 0.52 (0.52-1.04) mg/dL Estimated GFR > 60 (>60) mL/min BUN/Creatinine Ratio 21.2 (6-22) Glucose 130 H (70-99) mg/dL Lactate 0.9 (0.7-2.1) mmol/L Calcium 8.6 (8.4-10.2) mg/dL Total Bilirubin 0.9 (0.2-1.3) mg/dL AST 18 (14-36) IU/L ALT 15 (<35) IU/L Alkaline Phosphatase 79 (38-126) U/L Troponin I < 0.012 < 0.012 (0.01-0.034) ng/mL NT-Pro-B Natriuret Pep 90 (<125) pg/mL Total Protein 6.8 (6.3-8.2) g/dL Albumin 3.7 (3.5-5.0) g/dL Globulin 3.1 (1.7-4.1) g/dL Albumin/Globulin Ratio 1.2 (1.0-2.8) Imaging Data CT scan - chest: Radiologist's Impression: PROCEDURE: CT ANGIO CHEST PE PROTOCOL INDICATIONS: hypoxia tachycardia recent hospitalization TECHNIQUE: After the administration of intravenous contrast, 2 mm thick sections acquired from the pulmonary apices to the posterior costophrenic angles. 3-dimensional maximum intensity projection (MIP) coronal and sagittal reformats were then acquired through the thorax. For radiation dose reduction, the following was used: automated exposure control, adjustment of mA and/or kV according to patient size. COMPARISON: [facility], CT, CT ANGIO CHEST PE PROTOCOL, 02/03/2025, 19:32. FINDINGS: Image quality: Diagnostic. Pulmonary arteries: Pulmonary arteries are normal in size, and demonstrate no intraluminal filling defects to suggest central pulmonary embolism. Lower Neck: No enlarged lymph nodes. Thyroid: No thyroid nodules which require sonographic follow up, per consensus guidelines. Axillae: No enlarged lymph nodes. Chest Wall: Unremarkable. Bones: Unremarkable. Lungs and Pleura: No pneumothorax or pleural effusions. Increasing size of right upper lobe medial masslike consolidation now measuring approximately 5.2 x 3.6 cm (/), previously 2.7 x 2.6 cm (remeasured on series 5, image 46). Mild area of ground-glass opacity previously site of prior consolidation on 08/09/2022. Stable solid pulmonary nodules with the largest in the left lower lobe measuring 4 mm, since July 2022 (, MIP image 52). No new or enlarging pulmonary nodules. Heart: Heart size is normal. No pericardial effusion. Thoracic Vessels: No aortic aneurysm. Mediastinum and [place]: No enlarged lymph nodes. Esophagus: No wall thickening. No hiatal hernia. Upper Abdomen: Visualized upper abdomen solid organs and bowel loops appear normal. IMPRESSION: No pulmonary embolus. Compared to prior CT on 02/03/2025, interval increased size of medial right upper lobe masslike consolidation. Differential diagnostic considerations include pneumonia, however malignancy cannot be excluded. No adenopathy. Recommend short interval CT follow-up in 1-2 months. Approved by: Ayesha Arvizu M.D.,Ph.D. on 02/17/2025 at 20:04 MDM Narrative Medical decision making narrative: Differential diagnoses considered in this patient includes sepsis, pneumonia, viral syndrome, COPD exacerbation, ACS, PE. We will obtain workup accordingly. We will give DuoNeb as patient is quite diminished and wheezing Chest x-ray shows worsening right upper lobe infiltrate. Radiologist relays concern for a mass. Given recent hospitalization with tachycardia and hypoxia, currently requiring 2 L via nasal cannula, rule send for CT to rule out pulmonary embolism. In the meantime we will cover empirically for hospital-acquired pneumonia with cefepime and azithromycin Laboratories concerning for leukocytosis of 17,000 and neutrophilia, suggestive of sepsis. CMP is generally benign. BNP nonelevated. Serial troponins are negative. EKG 18 30: Sinus tachycardia rate of 105. Normal intervals KS 126, QRS 92, and QTC 415. Normal axis. No ST segment elevation or depression . EKG nonischemic. Patient will be signed out to oncoming provider pending results of CT scan. Anticipate admission for sepsis 2/2 pneumonia. Blood cultures are sent and pending. 8pm Dr Castellanos care is assumed, patient is independently evaluated chart is reviewed. When admitted on the 03 of February she was started on ceftriaxone and azithromycin. Discharged home with Augmentin and azithromycin. Completed all antibiotics and feels she is getting worse CT angiogram suggest that her right upper lobe pneumonia is more consolidated than it was with previous CT scan. Possibility of neoplasm is entertained however clinical picture is still very consistent with pneumonia that has not been completely treated. Patient is not significantly wheezing at this point. She has some minor rhonchi in the right side. She is currently on 2 L of oxygen with saturations at 94% in his comfortable with this. Her baseline is 1 L of oxygen when she is sleeping care is reviewed with hospitalist who will admit the the patient for pneumonia that has not resolved after initial inpatient stay and outpatient antibiotics without evidence of acute sepsis or impending respiratory failure. Antibiotics will be expanded to cefepime and vancomycin. We are attempting to get an induced sputum sample. Without significant wheeze at this point I do not think that she needs continued steroids a bit may benefit from her scheduled inhalers / nebulizers. Findings reviewed with the patient who was amenable to treatment overall. There is currently no evidence of acute coronary syndrome, congestive heart failure pulmonary embolism. patient is admitted Discharge Plan Departure Patient Disposition: Admitted As Inpatient Clinical Impression: Right upper lobe pneumonia Qualifiers: Pneumonia type: due to unspecified organism Qualified Code(s): J18.9 - Pneumonia, unspecified organism Chronic obstructive pulmonary disease Qualifiers: COPD type: unspecified COPD Qualified Code(s): J44.9 - Chronic obstructive pulmonary disease, unspecified Admit Date/Time: 02/17/25 20:52 Admit Provider: Mil Castillo
[2025-02-17 18:56] LABS: Troponin I < 0.012 ng/mL (0.01-0.034)
--- NOTE | 2025-02-17 19:19 | PC.NURSE ---
Pt to imaging via ED stretcher with technician anatomic pathology
[2025-02-17] MEDS: CEFEPIME 1 GM in SODIUM CHLORIDE 0.9% 100 ML IV (20:06)
[2025-02-17] MEDS: KETOROLAC 30 MG/ML VIAL 15 MG IV (20:12)
[2025-02-17] MEDS: HYDROMORPHONE 0.5 MG INJ IV (20:12)
[2025-02-17] MEDS: AZITHROMYCIN 500 MG in DEXTROSE 5% IN WATER 250 ML 250 MG IV (20:49)
[2025-02-17] MEDS: ALBUTEROL/IPRATROPIUM 3 ML AMPUL INH (21:10)
--- NOTE | 2025-02-17 21:24 | RT ---
SVN given @ 2109. Patient given cup for sputum
--- NOTE | 2025-02-17 22:01 | PM.HP.1 ---
History of Present Illness History of Present Illness Date Patient Seen: 02/17/25 Chief complaint: SOB, chest pain Narrative: 59 y/o with PMH of COPD, on 1 L of oxygen at night, recent hospitalization (517-02/08/2025) for RML PNA treated with Rocephin - Augmentin and Zithromax, presented with right-sided chest pain, shortness of breath and cough. ED wotkup shows persistent RML infiltrate. Chest pain is experienced on deep breathing and with coughing. Denies hemoptysis or weight loss. ED workup showing leukocytosis, hyponatremia and mild hypoxia requiring 1-2 L of oxygen. Admitted with diagnosis of pneumonia on broad antibiotic coverage. [facility] Medical History COPD (chronic obstructive pulmonary disease) Social History household members: children alcohol intake: never Meds Home Medications and Allergies Home Medications Medication Instructions Recorded Confirmed Type tiotropium bromide 2.5 1 puff inhalation DAILY 08/09/22 02/17/25 History mcg/actuation mist for inhalation (Spiriva Respimat) albuterol sulfate 2.5 mg/3 mL 2.5 mg Q4HR PRN Shortness Of 02/03/25 02/17/25 History (0.083 %) solution for nebulization Breath Or Wheezing albuterol sulfate 90 mcg/actuation 2 puff inhalation Q6H PRN 02/03/25 02/17/25 History aerosol inhaler Shortness Of Breath Or Wheezing baclofen 10 mg tablet 5 mg PO TID PRN Muscle Spasm 02/03/25 02/17/25 History budesonide-formoterol HFA 160 2 puff inhalation BID 02/03/25 02/17/25 History mcg-4.5 mcg/actuation aerosol inhaler hydroxyzine HCl 50 mg tablet 50 mg PO QID PRN Anxiety 02/03/25 02/17/25 History trazodone 50 mg tablet 50 mg PO ONCE PM PRN Insomnia 02/03/25 02/17/25 History Allergies Allergy/AdvReac Type Severity Reaction Status Date / Time morphine AdvReac sick Verified 02/17/25 16:03 walnut AdvReac raw mouth Verified 02/17/25 16:03 Review of Systems Review of Systems Narrative: General - generalized weakness RS - short of breath, wheezy, coughing CVS - w/o chest pain GI - w/o abdominal pain Exam Vital Signs (past 8 hours): - 02/17/25 16:05 02/17/25 17:02 02/17/25 18:51 Temperature 98.7 F Pulse Rate 128 H 109 H 111 H Respiratory Rate 22 22 20 Blood Pressure 141/73 H 138/96 H Pulse Oximetry 94 94 95 Oxygen Delivery Method Room Air Nasal Cannula Oxygen Flow Rate 2 Fraction of Inspired Oxygen 02/17/25 19:00 02/17/25 19:00 02/17/25 19:30 Temperature Pulse Rate 112 H Respiratory Rate 23 Blood Pressure 126/73 130/68 Pulse Oximetry 96 Oxygen Delivery Method Nasal Cannula Oxygen Flow Rate 2 Fraction of Inspired Oxygen 02/17/25 19:30 02/17/25 20:00 02/17/25 20:00 Temperature Pulse Rate 116 H 121 H Respiratory Rate 19 21 Blood Pressure 126/62 Pulse Oximetry 96 93 Oxygen Delivery Method Nasal Cannula Nasal Cannula Oxygen Flow Rate 2 2 Fraction of Inspired Oxygen 02/17/25 20:30 02/17/25 20:30 02/17/25 21:00 Temperature Pulse Rate 119 H Respiratory Rate 27 H Blood Pressure 115/57 L 114/56 L Pulse Oximetry 93 Oxygen Delivery Method Nasal Cannula Oxygen Flow Rate 2 Fraction of Inspired Oxygen 02/17/25 21:00 02/17/25 21:17 02/17/25 21:38 Temperature 98.9 F 97.5 F L Pulse Rate 108 H 106 H 100 H Respiratory Rate 24 18 21 Blood Pressure 103/71 Pulse Oximetry 96 98 96 Oxygen Delivery Method Nasal Cannula Nasal Cannula Oxygen Flow Rate 2 2 2 Fraction of Inspired Oxygen 28 Fraction of Inspired Oxygen 28 SaO2/FiO2 Ratio 346 Oxygen Delivery Method Nasal Cannula Oxygen Flow Rate 2 Narrative Exam Narrative: General - in no distress RS- poor airflow b/l, decreased to right side, few wheezes CVS - RRR GI - abdomen not tender Neuro - lucid Objective ECG Impression: Sinus tachycardia 105, incomplete RBBB Imaging CT scan - chest: Radiologist's impression: Compared to prior CT on 02/03/2025, interval increased size of medial right upper lobe masslike consolidation. Differential diagnostic considerations include pneumonia, however malignancy cannot be excluded. No adenopathy. Recommend short interval CT follow-up in 1-2 months. Chest x-ray: Radiologist's impression: Worsening consolidation seen involving the right upper lobe medially. Infiltrate is most likely. Please consider and underlying mass. Followup chest radiographs are recommended to complete resolution. If this abnormality does not completely resolve on plain film, then a chest CT with contrast would be recommended to evaluate for a potential underlying mass. Labs 02/17/25 16:27 02/17/25 16:27 Labs: Laboratory Results - last 24 hr 02/17/25 02/17/25 16:27 18:23 WBC 17.0 H RBC 4.38 Hgb 12.5 Hct 37.1 MCV 84.7 MCH 28.6 MCHC 33.7 RDW 12.6 Plt Count 353 Neut % (Auto) Not Reportable Lymph % (Auto) Not Reportable [place] % (Auto) Not Reportable Eos % (Auto) Not Reportable Baso % (Auto) Not Reportable Lymph # (Auto) Not Reportable [place] # (Auto) Not Reportable Baso # (Auto) Not Reportable Total Counted 100 Seg Neutrophils % 73.0 H Band Neutrophils % 1.0 L Lymphocytes % (Manual) 16.0 L Monocytes % (Manual) 7.0 Eosinophils % (Manual) 2.0 Basophils % (Manual) 1.0 Neutrophils # (Manual) 73564 H RBC Morphology Normal morphology PT 14.7 H INR 1.3 Sodium 132 L Potassium 3.8 Chloride 96 L Carbon Dioxide 30 BUN 11 Creatinine 0.52 Estimated GFR > 60 BUN/Creatinine Ratio 21.2 Glucose 130 H Lactate 0.9 Calcium 8.6 Total Bilirubin 0.9 AST 18 ALT 15 Alkaline Phosphatase 79 Troponin I < 0.012 < 0.012 NT-Pro-B Natriuret Pep 90 Total Protein 6.8 Albumin 3.7 Globulin 3.1 Albumin/Globulin Ratio 1.2 Assessment & Plan Assessment and plan (1) Right middle lobe pulmonary infiltrate: Status: Acute (2) Acute and chronic respiratory failure with hypoxia: Status: Acute (3) Chronic obstructive pulmonary disease: Qualifiers: COPD type: unspecified COPD Qualified Code(s): J44.9 - Chronic obstructive pulmonary disease, unspecified Status: Acute (4) Anxiety: Status: Acute (5) Insomnia: Status: Acute Assessment & Plan narrative: Pneumonia - RML / RUL - persistent infiltrate, suspected mass - empiric vancomycin and Cefepime - RT for sputum culture - follow up with CT chest / pulmonology COPD - albuterol, Symbicort Acute on chronic hypoxic respiratory failure - at home on nocturnal oxygen at 1 L / min - now on 1-2 L when awake - Anxiety / Insomnia - hydroxyzine prn, Trazodone prn DVT prophylaxis - Lovenox Patient consented to telemedicine, audio-video encounter with RN assisting with exam and electronic stethoscope. Patient located at [place], [place]. Provider located in [place]. Time-Based Coding :: [TOTAL MINUTES] spent with patient and on the chart (including review of chart, obtaining history, exam, reviewing outside data, placing orders, documenting exam and treatment plan, and counseling patient) on [DATE]. Quality VTE Deep Vein Thrombosis/Pulmonary Embolism Present on Admission: No
[2025-02-18] MEDS: ACETAMINOPHEN 325 MG TABLET 650 MG PO ×2 (00:27→08:29)
[2025-02-18] MEDS: ALBUTEROL 2.5 MG/3 ML NEB (ADULT) INH ×5 (03:16→21:00)
[2025-02-18 03:17] VITALS: PULSE 102; RESP 18; O2SAT 96
[2025-02-18 06:29] LABS: Add Manual Diff / Slide Review NO; Basophils Absolute Auto 100 /uL (0-100); Basophils Percent Auto 0.6 % (0-2); Eosinophils Absolute Auto 200 /uL (0-450); Eosinophils Percent Auto 1.4 % (2-4); Hemoglobin 11.5 g/dL (12.0-16.0); Lymphocytes Absolute Auto 2200 /uL (1100-4500); Mean Corpuscular HGB Conc 33.8 % (30-36); Mean Corpuscular Hemoglobin 28.6 PG (26-34); Mean Corpuscular Volume 84.9 fL (80-100); Monocytes Absolute Auto 1300 /uL (0-900); Monocytes Percent Auto 10.5 % (3-14); Neutrophils Absolute Auto 8500 /uL (1500-7000); Neutrophils Percent Auto 69.5 % (50-75); Platelet Count 304 X10^3/uL (150-400); Red Cell Distribution Width 12.9 % (11.6-14.8); White Blood Cell Count 12.2 X10^3/uL (4.5-11.0)
[2025-02-18 06:42] LABS: BUN Creatinine Ratio 22.2 (6-22); Blood Urea Nitrogen 12 mg/dL (7-17); Calcium 8.5 mg/dL (8.4-10.2); Carbon Dioxide 30 mmol/L (22-32); Chloride 97 mmol/L (98-107); Estimated Glomerular Filt Rate > 60 mL/min (>60); Glucose 91 mg/dL (70-99); HEMOLYSIS < 15 (0-50); Potassium 3.6 mmol/L (3.4-5.1); Sodium 132 mmol/L (137-145)
[2025-02-18 07:42] VITALS: PULSE 98; RESP 20; O2SAT 90
[2025-02-18 08:00] VITALS: BP 104/51; PULSE 104; RESP 20; TEMP 36.5; O2SAT 96
[2025-02-18] MEDS: ENOXAPARIN 40 MG/0.4 ML SYRINGE SUBCUT (08:28)
[2025-02-18] MEDS: VANCOMYCIN 1,500 MG/300 ML PIGGYBACK 200 MG IV (08:28)
--- NOTE | 2025-02-18 10:13 | PC.NURSE ---
Addendum entered by Milena Chaudhary R.N. 02/18/25 19:00: Patient reminded to try and wear her oxygen to the bathroom as she has been taking it off and she gets sob after and it takes her a while to recover. Will pass on to cnc machinist 2nd shift. Heart rate is up but coming down after patient is breathing better. Addendum entered by Milena Chaudhary R.N. 02/18/25 16:13: Patient given vistaril for nausea, she was able to nap. Resting comfortably. Original Note: Assess- Patient is alert and oriented x4, bs with inspiratory wheezes and dimininshed in the middle lobes. Patient hx of smoking, quit in 2021. Hx of COPD per patient. She complained of chest discomfort from coughing and a headache. Given tylenol for comfort. Patient refused cough syrup for cough. She is resting supine and drinking coffee.
[2025-02-18] MEDS: CEFEPIME 1 GM in SODIUM CHLORIDE 0.9% 100 ML IV ×2 (10:39→21:24)
[2025-02-18] MEDS: hydrOXYzine HCL 25 MG TABLET 50 MG PO ×2 (11:39→19:44)
[2025-02-18 11:46] LABS: MRSA (Nasal) PCR NOT DETECTED (Not Detect)
--- NOTE | 2025-02-18 15:05 | CM.DANOTE ---
Pt is a 59 yo female, resident of [place], Re-admitted INPT Status on 02/17/25 for management of PNA and Hypoxic Respiratory Failure. PCP: Dr Albania Anthony? Payer: ERICA Romero Reviewed chart, pt discussed in multidisciplinary rounds this morning. Per MD, pt failed outpt tx and readmitted for significant PNA and to receive further IV-Abx with likely Consult to Pulmonology. Pt recently admitted for dense PNA from 02/03-02/08/25 and was able to discharge home with no needs. Patient lives independently with her family in [place] and plans to return at [place]. Patient appears to be at functional and cognitive baseline. No barriers identified at this time to patient's safe discharge home w/family to assist; close outpatient f/u recommended. CM team will plan to follow clinical course closely in case any DC needs or concerns arise. EUGENIA Castellanos Discharge Planning/Care Management CM Discharge Assessment Start: 02/17/25 21:00 Freq: Status: Active Protocol: Document 02/18/25 15:03 BF (Rec: 02/18/25 15:05 BF [id number]) Discharge Planning Assessment Assigned Quality Director EUGENIA Xavier DPOA/Assigned Designee Name none Advance Directives? No Advance Directives on File No History Provided By Patient,Medical Record Has Patient been admitted in last 30 Yes days? Comment Recently admitted for similar from 02/03-02/08/25 Prior Living Arrangements House Household Members children Type of transporation used prior to Drives own vehicle admit Independent with ADL's Yes Is patient alert and oriented? Yes Caregiver for Another No Barriers to Discharge No Discharge Plan Home Transportation Arrangement Dtr can provide transport at d /c Referrals Initiated None needed Additional Comment Pending progress Whiteboard Updated in Patient Room with Yes name and ext. # of Quality Director Review Status In Process Please Provide Date Initial DC 02/18/25 Assessment Was Performed Next Review Type Continued Stay Review
--- NOTE | 2025-02-18 15:22 | P.PN_ITS ---
Subjective Subjective Interval history: 59 y/o former smoker with PMH of COPD, came to ER with severe shortness of breath and non-productive cough after recent admission for PNA. Imaging showed increase in size of RML PNA started on antibiotics Subjective: She feels a bit better today, still with cough, weakness and shortness of breath. Currently on 1L of O2 via [place]. Exam Vital Signs (past 8 hours): - 02/18/25 07:42 02/18/25 08:00 Temperature 97.7 F Pulse Rate 98 H 104 H Respiratory Rate 20 20 Blood Pressure 104/51 L Pulse Oximetry 90 L 96 Oxygen Delivery Method Room Air Oxygen Flow Rate 0 Fraction of Inspired Oxygen 21 Fraction of Inspired Oxygen 21 SaO2/FiO2 Ratio 428 Oxygen Delivery Method Room Air Oxygen Flow Rate 0 Narrative Exam Narrative: Mild anxiety., chronically ill appearing female HEENT unremarkable, EOMI. Neck no JVD Heart sounds distant no murmurs Lungs with diffuse rales and wheezes shortened respiratory phases, multiple wheezing across the room, increased rate and effort of breathing at the time of my visit. Abdomen benign Extremities no edema Objective Labs 02/18/25 05:20 02/18/25 05:20 Labs: Laboratory Results - last 24 hr 02/17/25 02/17/25 02/18/25 16:27 18:23 05:20 WBC 17.0 H 12.2 H RBC 4.38 4.00 Hgb 12.5 11.5 L Hct 37.1 34.0 L MCV 84.7 84.9 MCH 28.6 28.6 MCHC 33.7 33.8 RDW 12.6 12.9 Plt Count 353 304 Neut % (Auto) Not Reportable 69.5 Lymph % (Auto) Not Reportable 18.0 L [place] % (Auto) Not Reportable 10.5 Eos % (Auto) Not Reportable 1.4 L Baso % (Auto) Not Reportable 0.6 Neut # (Auto) 8500 H Lymph # (Auto) Not Reportable 2200 [place] # (Auto) Not Reportable 1300 H Eos # (Auto) 200 Baso # (Auto) Not Reportable 100 Total Counted 100 Seg Neutrophils % 73.0 H Band Neutrophils % 1.0 L Lymphocytes % (Manual) 16.0 L Monocytes % (Manual) 7.0 Eosinophils % (Manual) 2.0 Basophils % (Manual) 1.0 Neutrophils # (Manual) 41113 H RBC Morphology Normal morphology PT 14.7 H INR 1.3 Sodium 132 L 132 L Potassium 3.8 3.6 Chloride 96 L 97 L Carbon Dioxide 30 30 BUN 11 12 Creatinine 0.52 0.54 Estimated GFR > 60 > 60 BUN/Creatinine Ratio 21.2 22.2 H Glucose 130 H 91 Lactate 0.9 Calcium 8.6 8.5 Total Bilirubin 0.9 AST 18 ALT 15 Alkaline Phosphatase 79 Troponin I < 0.012 < 0.012 NT-Pro-B Natriuret Pep 90 Total Protein 6.8 Albumin 3.7 Globulin 3.1 Albumin/Globulin Ratio 1.2 Nasal Screen MRSA (PCR) 02/18/25 08:14 WBC RBC Hgb Hct MCV MCH MCHC RDW Plt Count Neut % (Auto) Lymph % (Auto) [place] % (Auto) Eos % (Auto) Baso % (Auto) Neut # (Auto) Lymph # (Auto) [place] # (Auto) Eos # (Auto) Baso # (Auto) Total Counted Seg Neutrophils % Band Neutrophils % Lymphocytes % (Manual) Monocytes % (Manual) Eosinophils % (Manual) Basophils % (Manual) Neutrophils # (Manual) RBC Morphology PT INR Sodium Potassium Chloride Carbon Dioxide BUN Creatinine Estimated GFR BUN/Creatinine Ratio Glucose Lactate Calcium Total Bilirubin AST ALT Alkaline Phosphatase Troponin I NT-Pro-B Natriuret Pep Total Protein Albumin Globulin Albumin/Globulin Ratio Nasal Screen MRSA (PCR) Not detected [facility] Medical History COPD (chronic obstructive pulmonary disease) Social History household members: children alcohol intake: never Assessment & Plan Assessment & Plan narrative: RML bacterial pneumonia - worsening infiltrate noted on admission imaging. - persistent infiltrate, possible mass recommend repeat CT 1-2 months - empiric vancomycin and Cefepime - sputum culture pending, mixed resp. nova noted. - leukocytosis improving COPD - albuterol, Symbicort - no wheezing but if no improvement consider steroids. Acute on chronic hypoxic respiratory failure - at home on nocturnal oxygen at 1 L / min - now on 1L - Goal O2 89-96% on supplemental therapy, wean as tolerated. Anxiety / Insomnia - hydroxyzine prn, Trazodone prn Hyponatremia - mild, continue to monitor, Na 132 today. DVT prophylaxis - Lovenox Code: Optical Coating Technician-Based Coding :: [TOTAL MINUTES] spent with patient and on the chart (including review of chart, obtaining history, exam, reviewing outside data, placing orders, documenting exam and treatment plan, and counseling patient) on [DATE]. Quality VTE Deep Vein Thrombosis/Pulmonary Embolism Present on Admission: No
[2025-02-18 15:36] VITALS: PULSE 98; RESP 22; O2SAT 94
[2025-02-18] MEDS: AZITHROMYCIN 500 MG in DEXTROSE 5% IN WATER 250 ML 250 MG IV (19:41)
[2025-02-18] MEDS: BACLOFEN 10 MG TABLET 5 MG PO (20:01)
[2025-02-18 20:02] VITALS: BP 136/83; PULSE 127; RESP 26; TEMP 36.4; O2SAT 93
[2025-02-18 21:05] VITALS: PULSE 133; RESP 28; O2SAT 91
[2025-02-18] MEDS: HYDROMORPHONE 1 MG INJ 0.5 MG IV (21:22)
[2025-02-18] MEDS: methylPREDNISolone 125 MG/2 ML VIAL 60 MG IV (21:22)
[2025-02-19] VITALS (8 sets, daily range): BP systolic 100–138; BP diastolic 58–76; PULSE 73–103; RESP 16–24; TEMP 35.5–36.2; O2SAT 95–99
[2025-02-19 05:15] LABS: Add Manual Diff / Slide Review NO; Basophils Absolute Auto 100 /uL (0-100); Basophils Percent Auto 0.8 % (0-2); Eosinophils Absolute Auto 0 /uL (0-450); Hematocrit 36.2 % (36-46); Hemoglobin 12.1 g/dL (12.0-16.0); Lymphocytes Absolute Auto 600 /uL (1100-4500); Lymphocytes Percent Auto 5.4 % (25-40); Mean Corpuscular HGB Conc 33.5 % (30-36); Mean Corpuscular Hemoglobin 28.2 PG (26-34); Mean Corpuscular Volume 84.3 fL (80-100); Monocytes Absolute Auto 100 /uL (0-900); Monocytes Percent Auto 0.7 % (3-14); Neutrophils Absolute Auto 10700 /uL (1500-7000); Neutrophils Percent Auto 93.1 % (50-75); Platelet Count 333 X10^3/uL (150-400); Red Blood Cell Count 4.29 X10^6/uL (4.0-5.2); Red Cell Distribution Width 12.6 % (11.6-14.8); White Blood Cell Count 11.5 X10^3/uL (4.5-11.0)
[2025-02-19 05:28] LABS: BUN Creatinine Ratio 28.3 (6-22); Blood Urea Nitrogen 13 mg/dL (7-17); Carbon Dioxide 30 mmol/L (22-32); Chloride 99 mmol/L (98-107); Estimated Glomerular Filt Rate > 60 mL/min (>60); Glucose 159 mg/dL (70-99); HEMOLYSIS < 15 (0-50); Potassium 4.5 mmol/L (3.4-5.1); Sodium 134 mmol/L (137-145)
--- NOTE | 2025-02-19 08:08 | PC.NURSE ---
Assess- Patient is alert and oriented x4, she denies pain. BS clear upon auscultation. She does have SOB with exertion, it takes patient time to recover and get oxygen back up. She sleeps with oxygen at night. Patient started on iv steroids last night and this seems to have helped her breathing and her pulse is now wnl, was 130s last night. Eating breakfast and expressed interested in a shower later.
[2025-02-19] MEDS: ALBUTEROL/IPRATROPIUM 3 ML AMPUL INH ×3 (08:20→19:21)
[2025-02-19] MEDS: BUDESONIDE 0.5 MG/2 ML NEB INH ×2 (08:20→19:21)
[2025-02-19] MEDS: CEFEPIME 1 GM in SODIUM CHLORIDE 0.9% 100 ML IV ×2 (08:40→21:45)
[2025-02-19] MEDS: methylPREDNISolone 125 MG/2 ML VIAL 60 MG IV ×2 (08:42→21:40)
[2025-02-19] MEDS: ACETAMINOPHEN 325 MG TABLET 650 MG PO ×2 (08:42→22:31)
[2025-02-19] MEDS: ENOXAPARIN 40 MG/0.4 ML SYRINGE SUBCUT (08:42)
--- NOTE | 2025-02-19 13:08 | CM.DPC ---
DCP Cont: Per MD, pt remains SOB and wheezing even without exersion and getting IV steroids and on oxygen and does not appear to be improving. Will Consult Retail Sales Merchandiser for any further recommendation. Not yet stable for discharge. EUGENIA Castellanos
--- NOTE | 2025-02-19 17:52 | P.PN_ITS ---
Subjective Subjective Date Patient Seen: 02/19/25 Interval history: Chief complaint: Increased cough and shortness of breath secondary to recurring pneumonia with COPD exacerbation History of present illness: 59 y/o with PMH of COPD, on 1 L of oxygen at night, recent hospitalization (517- 02/08/2025) for RML PNA treated with Rocephin - Augmentin and Zithromax, presented with right-sided chest pain, shortness of breath and cough. ED wotkup shows persistent RML infiltrate. Chest pain is experienced on deep breathing and with coughing. Denies hemoptysis or weight loss. ED workup showing leukocytosis, hyponatremia and mild hypoxia requiring 1-2 L of oxygen. Admitted with diagnosis of pneumonia on broad antibiotic coverage. CT chest: Increasing size of right upper lobe medial masslike consolidation now measuring approximately 5.2 x 3.6 cm (), previously 2.7 x 2.6 cm (remeasured on series 5, image 46). Mild area of ground-glass opacity previously site of prior consolidation on 08/09/2022. Stable solid pulmonary nodules with the largest in the left lower lobe measuring 4 mm, since July 2022 (, MIP image 52). No new or enlarging pulmonary nodules. Hospital course: 02/18: Improved cough no fever or chills overnight 02/19: Subjectively improved but still labored respirations mildly at least leaning forward on her elbows using accessory muscles Review of systems: 0 fever chills overnight No chest pains or palpitations No nausea vomiting diarrhea Urinary symptoms No paresthesia Physical exam: Chronically ill-appearing female alert pleasant HEENT unremarkable Respirations moderately labored with diminished breath sounds reduced respiratory phases with rhonchi Abdomen nondistended Extremities no Assessment and plan: Pneumonia - RML / RUL - persistent infiltrate, suspected mass - empiric vancomycin and Cefepime - RT for sputum culture - follow up with CT chest / pulmonology follows with Dr. Aayush Pinto COPD - albuterol, Symbicort Acute on chronic hypoxic respiratory failure - at home on nocturnal oxygen at 1 L / min - now on 1-2 L when awake - Anxiety / Insomnia - hydroxyzine prn, Trazodone prn DVT prophylaxis - Lovenox Time-Based Coding :: 35 minutes spent with patient and on the chart (including review of chart, obtaining history, exam, reviewing outside data, placing orders, documenting exam and treatment plan, and counseling patient) on. Exam Vital Signs (past 8 hours): - 02/19/25 10:00 02/19/25 12:00 02/19/25 14:04 Temperature 96.6 F L 96.5 F L Pulse Rate 89 73 98 H Respiratory Rate 18 21 18 Blood Pressure 107/76 104/62 Pulse Oximetry 99 97 97 Oxygen Delivery Method Nasal Cannula Oxygen Flow Rate 2 02/19/25 16:00 Temperature 96.9 F L Pulse Rate 74 Respiratory Rate 20 Blood Pressure 127/69 Pulse Oximetry 95 Oxygen Delivery Method Oxygen Flow Rate Fraction of Inspired Oxygen 24 SaO2/FiO2 Ratio 400 Oxygen Delivery Method Nasal Cannula Oxygen Flow Rate 2 Objective Labs 02/19/25 04:45 02/19/25 04:45 Labs: Laboratory Results - last 24 hr 02/19/25 04:45 WBC 11.5 H RBC 4.29 Hgb 12.1 Hct 36.2 MCV 84.3 MCH 28.2 MCHC 33.5 RDW 12.6 Plt Count 333 Neut % (Auto) 93.1 H D Lymph % (Auto) 5.[address] [place] % (Auto) 0.7 L Eos % (Auto) 0.0 L Baso % (Auto) 0.8 Neut # (Auto) 79635 H Lymph # (Auto) [address] [place] # (Auto) 100 Eos # (Auto) 0 Baso # (Auto) 100 Sodium 134 L Potassium 4.5 Chloride 99 Carbon Dioxide 30 BUN 13 Creatinine 0.46 L Estimated GFR > 60 BUN/Creatinine Ratio 28.3 H Glucose 159 H Calcium 9.0 PFSH Medical History COPD (chronic obstructive pulmonary disease) Social History household members: children alcohol intake: never Assessment & Plan Time-Based Coding :: [TOTAL MINUTES] spent with patient and on the chart (including review of chart, obtaining history, exam, reviewing outside data, placing orders, documenting exam and treatment plan, and counseling patient) on [DATE]. Quality VTE Deep Vein Thrombosis/Pulmonary Embolism Present on Admission: No
[2025-02-19] MEDS: AZITHROMYCIN 500 MG in DEXTROSE 5% IN WATER 250 ML 250 MG IV (20:08)
[2025-02-19] MEDS: TRAZODONE 50 MG TABLET PO (22:32)
[2025-02-19] MEDS: OXYCODONE IR 5 MG TABLET PO (23:00)
[2025-02-20] VITALS (8 sets, daily range): BP systolic 116–145; BP diastolic 69–91; PULSE 72–104; RESP 18–22; TEMP 36.1–36.3; O2SAT 93–100
[2025-02-20] MEDS: ALBUTEROL/IPRATROPIUM 3 ML AMPUL INH ×4 (01:37→20:05)
[2025-02-20] MEDS: BACLOFEN 10 MG TABLET 5 MG PO ×2 (01:44→23:58)
[2025-02-20 06:31] LABS: Add Manual Diff / Slide Review NO; BUN Creatinine Ratio 32.6 (6-22); Basophils Absolute Auto 0 /uL (0-100); Basophils Percent Auto 0.2 % (0-2); Blood Urea Nitrogen 14 mg/dL (7-17); Calcium 8.9 mg/dL (8.4-10.2); Carbon Dioxide 29 mmol/L (22-32); Chloride 98 mmol/L (98-107); Eosinophils Absolute Auto 0 /uL (0-450); Estimated Glomerular Filt Rate > 60 mL/min (>60); Glucose 171 mg/dL (70-99); HEMOLYSIS < 15 (0-50); Hematocrit 32.5 % (36-46); Hemoglobin 10.8 g/dL (12.0-16.0); Lymphocytes Absolute Auto 900 /uL (1100-4500); Lymphocytes Percent Auto 7.1 % (25-40); Mean Corpuscular HGB Conc 33.3 % (30-36); Mean Corpuscular Volume 84.2 fL (80-100); Monocytes Absolute Auto 200 /uL (0-900); Neutrophils Absolute Auto 11000 /uL (1500-7000); Neutrophils Percent Auto 90.7 % (50-75); Platelet Count 357 X10^3/uL (150-400); Potassium 4.2 mmol/L (3.4-5.1); Red Blood Cell Count 3.86 X10^6/uL (4.0-5.2); Red Cell Distribution Width 12.8 % (11.6-14.8); Sodium 133 mmol/L (137-145); White Blood Cell Count 12.2 X10^3/uL (4.5-11.0)
[2025-02-20] MEDS: BUDESONIDE 0.5 MG/2 ML NEB INH ×2 (08:53→20:05)
[2025-02-20] MEDS: ENOXAPARIN 40 MG/0.4 ML SYRINGE SUBCUT (09:07)
[2025-02-20] MEDS: CEFEPIME 1 GM in SODIUM CHLORIDE 0.9% 100 ML IV ×2 (09:07→23:21)
[2025-02-20] MEDS: methylPREDNISolone 125 MG/2 ML VIAL 60 MG IV ×2 (09:08→23:22)
--- NOTE | 2025-02-20 12:31 | CM.DPC ---
DCP Cont. Reviewed EMR and team rounds for pt's status updates. Per Hospitalist, he will be changing pt's IV antibiotic today, planning on consulting with her Fast Food Attendant re: recommendations for tx, given the complexity of a fast-growing lung mass within the pneumonia infiltrates that will need to be biopsied. Monitoring for final d/c plan and needs.
--- NOTE | 2025-02-20 16:48 | P.PN_ITS ---
Subjective Subjective Date Patient Seen: 02/20/25 Interval history: Chief complaint: Increased cough and shortness of breath secondary to recurring pneumonia with COPD exacerbation History of present illness: 59 y/o with PMH of COPD, on 1 L of oxygen at night, recent hospitalization (517- 02/08/2025) for RML PNA treated with Rocephin - Augmentin and Zithromax, presented with right-sided chest pain, shortness of breath and cough. ED wotkup shows persistent RML infiltrate. Chest pain is experienced on deep breathing and with coughing. Denies hemoptysis or weight loss. ED workup showing leukocytosis, hyponatremia and mild hypoxia requiring 1-2 L of oxygen. Admitted with diagnosis of pneumonia on broad antibiotic coverage. CT chest: Increasing size of right upper lobe medial masslike consolidation now measuring approximately 5.2 x 3.6 cm (), previously 2.7 x 2.6 cm (remeasured on series 5, image 46). Mild area of ground-glass opacity previously site of prior consolidation on 08/09/2022. Stable solid pulmonary nodules with the largest in the left lower lobe measuring 4 mm, since July 2022 (, MIP image 52). No new or enlarging pulmonary nodules. Hospital course: 02/18: Improved cough no fever or chills overnight 02/19: Subjectively improved but still labored respirations mildly at least leaning forward on her elbows using accessory muscles 02/20: Subjectively improved minimally labored respirations at this point good air movement Review of systems: 0 fever chills overnight No chest pains or palpitations No nausea vomiting diarrhea Urinary symptoms No paresthesia Physical exam: Chronically ill-appearing female alert pleasant HEENT unremarkable Respirations minimally labored with diminished breath sounds reduced improved air movement without rhonchi Abdomen nondistended Extremities no Assessment and plan: Pneumonia - RML / RUL - persistent infiltrate, suspected mass - empiric vancomycin and Cefepime - RT for sputum culture - follow up with CT chest / pulmonology follows with Dr. Aayush Pinto COPD - albuterol, Symbicort Acute on chronic hypoxic respiratory failure - at home on nocturnal oxygen at 1 L / min - now on 1-2 L when awake Anxiety / Insomnia - hydroxyzine prn, Trazodone prn DVT prophylaxis - Lovenox Time-Based Coding :: 35 minutes spent with patient and on the chart (including review of chart, obtaining history, exam, reviewing outside data, placing orders, documenting exam and treatment plan, and counseling patient) on. Exam Vital Signs (past 8 hours): - 02/20/25 08:56 02/20/25 13:56 02/20/25 14:39 Temperature 97.4 F L Pulse Rate 96 H 100 H Respiratory Rate 20 21 Blood Pressure 131/69 Pulse Oximetry 94 95 93 Oxygen Delivery Method Nasal Cannula Room Air Oxygen Flow Rate 1 0 Fraction of Inspired Oxygen 24 21 Fraction of Inspired Oxygen 21 SaO2/FiO2 Ratio 452 Oxygen Delivery Method Room Air Oxygen Flow Rate 0 Objective Labs 02/20/25 04:31 02/20/25 04:31 Labs: Laboratory Results - last 24 hr 02/20/25 04:31 WBC 12.2 H RBC 3.86 L Hgb 10.8 L Hct 32.5 L MCV 84.2 MCH 28.0 MCHC 33.3 RDW 12.8 Plt Count 357 Neut % (Auto) 90.7 H Lymph % (Auto) 7.1 L [place] % (Auto) 2.0 L Eos % (Auto) 0.0 L Baso % (Auto) 0.2 Neut # (Auto) 16728 H Lymph # (Auto) 900 L [place] # (Auto) 200 Eos # (Auto) 0 Baso # (Auto) 0 Sodium 133 L Potassium 4.2 Chloride 98 Carbon Dioxide 29 BUN 14 Creatinine 0.43 L Estimated GFR > 60 BUN/Creatinine Ratio 32.6 H Glucose 171 H Calcium 8.9 PFSH Medical History COPD (chronic obstructive pulmonary disease) Social History household members: children alcohol intake: never Assessment & Plan Time-Based Coding :: [TOTAL MINUTES] spent with patient and on the chart (including review of chart, obtaining history, exam, reviewing outside data, placing orders, documenting exam and treatment plan, and counseling patient) on [DATE]. Quality VTE Deep Vein Thrombosis/Pulmonary Embolism Present on Admission: No
[2025-02-20] MEDS: HYDROMORPHONE 0.5 MG INJ IV (23:09)
[2025-02-20] MEDS: TRAZODONE 50 MG TABLET PO (23:54)
[2025-02-21] VITALS (9 sets, daily range): BP systolic 108–141; BP diastolic 51–87; PULSE 72–93; RESP 16–21; TEMP 36–36.6; O2SAT 95–99
[2025-02-21 05:20] LABS: Add Manual Diff / Slide Review NO; Basophils Absolute Auto 0 /uL (0-100); Basophils Percent Auto 0.3 % (0-2); Eosinophils Absolute Auto 0 /uL (0-450); Hematocrit 34.8 % (36-46); Hemoglobin 11.6 g/dL (12.0-16.0); Lymphocytes Absolute Auto 900 /uL (1100-4500); Lymphocytes Percent Auto 7.2 % (25-40); Mean Corpuscular HGB Conc 33.2 % (30-36); Mean Corpuscular Hemoglobin 28.1 PG (26-34); Mean Corpuscular Volume 84.6 fL (80-100); Monocytes Absolute Auto 100 /uL (0-900); Monocytes Percent Auto 1.2 % (3-14); Neutrophils Absolute Auto 11100 /uL (1500-7000); Neutrophils Percent Auto 91.3 % (50-75); Platelet Count 420 X10^3/uL (150-400); Red Blood Cell Count 4.12 X10^6/uL (4.0-5.2); Red Cell Distribution Width 12.9 % (11.6-14.8); White Blood Cell Count 12.2 X10^3/uL (4.5-11.0)
[2025-02-21 05:34] LABS: Blood Urea Nitrogen 20 mg/dL (7-17); Calcium 9.1 mg/dL (8.4-10.2); Carbon Dioxide 30 mmol/L (22-32); Chloride 99 mmol/L (98-107); Estimated Glomerular Filt Rate > 60 mL/min (>60); Glucose 128 mg/dL (70-99); HEMOLYSIS < 15 (0-50); Potassium 4.5 mmol/L (3.4-5.1); Sodium 134 mmol/L (137-145)
--- NOTE | 2025-02-21 08:05 | DI.CT.S_ITS ---
PROCEDURE: CT CHEST WO CON INDICATIONS: mass pna TECHNIQUE: Noncontrast 5 mm thick sections acquired from the pulmonary apices to the posterior costophrenic angles. 1 mm lung window, 5 mm thick coronal and sagittal and 7 mm axial MIP reformats were then acquired. For radiation dose reduction, the following was used: automated exposure control, adjustment of mA and/or kV according to patient size. COMPARISON: [facility], CT, CT ANGIO CHEST PE PROTOCOL, 08/09/2022, 15:00. [facility], CT, CT ANGIO CHEST PE PROTOCOL, 02/03/2025, 19:32. [facility], CT, CT ANGIO CHEST PE PROTOCOL, 02/17/2025, 19:00. FINDINGS: Image quality: Diagnostic. Lower Neck: No enlarged lymph nodes. Thyroid: No thyroid nodules which require sonographic follow up, per consensus guidelines. Axillae: No enlarged lymph nodes. Chest Wall: Unremarkable. Bones: Unremarkable. Lungs and Pleura: Spiculated masslike opacity in the medial right upper lobe measures approximately 4.0 x 3.5 cm, mildly decreased in size when compared to the prior CT given differences in the degree of inspiration and measuring technique. Surrounding peripheral ground-glass attenuation and septal line thickening has improved. Posterior right upper lobe nodule measures 13 x 9 mm (3/96). Posterior right lower lobe nodule measures 8 x 4 mm (3/180). These do not appear significantly changed. Moderate centrilobular emphysema. No pneumothorax or pleural effusions. Heart: Heart size is normal. No pericardial effusion. Thoracic Vessels: The aorta and pulmonary arteries demonstrate normal size. Mediastinum and [place]: No enlarged lymph nodes. Esophagus: No wall thickening. No hiatal hernia. Upper Abdomen: Visualized upper abdomen solid organs and bowel loops appear normal. IMPRESSION: Medial right upper lobe masslike consolidation has mildly decreased in size when compared to CT from 02/17/2025, but appears larger when compared to CT from 02/03/2025. Decreased surrounding ground-glass attenuation. Differential considerations again include pneumonia versus malignancy. Recommend continued imaging follow-up. Approved by: Francesco Pagan M.D. on 02/21/2025 at 11:42
[2025-02-21] MEDS: ALBUTEROL/IPRATROPIUM 3 ML AMPUL INH ×3 (08:23→19:50)
[2025-02-21] MEDS: BUDESONIDE 0.5 MG/2 ML NEB INH ×2 (08:23→19:50)
[2025-02-21] MEDS: ENOXAPARIN 40 MG/0.4 ML SYRINGE SUBCUT (08:55)
[2025-02-21] MEDS: methylPREDNISolone 125 MG/2 ML VIAL 60 MG IV ×2 (08:55→21:43)
[2025-02-21] MEDS: CEFEPIME 1 GM in SODIUM CHLORIDE 0.9% 100 ML IV (09:26)
[2025-02-21] MEDS: ONDANSETRON 4 MG ODT PO (12:39)
[2025-02-21] MEDS: ACETAMINOPHEN 325 MG TABLET 650 MG PO ×2 (13:34→18:54)
--- NOTE | 2025-02-21 14:35 | CM.DPC ---
DCP Cont. Reviewed EMR and team rounds for pt's status updates. Per Hospitalist, plan is for d/c home tomorrow 02/22 with oral steroids, spouse will transport. She has a Pulmonology eval coming up on 02/27, during which she will likely discuss Oncology tx/plan for biopsy. No further CM d/c needs are identified at this time.
--- NOTE | 2025-02-21 15:30 | PM.PN.1 ---
Subjective Subjective Date Patient Seen: 02/21/25 Interval history: Chief complaint: Increased cough and shortness of breath secondary to recurring pneumonia with COPD exacerbation History of present illness: 59 y/o with PMH of COPD, on 1 L of oxygen at night, recent hospitalization (517-02/08/2025) for RML PNA treated with Rocephin - Augmentin and Zithromax, presented with right-sided chest pain, shortness of breath and cough. ED wotkup shows persistent RML infiltrate. Chest pain is experienced on deep breathing and with coughing. Denies hemoptysis or weight loss. ED workup showing leukocytosis, hyponatremia and mild hypoxia requiring 1-2 L of oxygen. Admitted with diagnosis of pneumonia on broad antibiotic coverage. CT chest 02/17: Increasing size of right upper lobe medial masslike consolidation now measuring approximately 5.2 x 3.6 cm (), previously 2.7 x 2.6 cm (remeasured on series 5, image 46). Mild area of ground-glass opacity previously site of prior consolidation on 08/09/2022. Stable solid pulmonary nodules with the largest in the left lower lobe measuring 4 mm, since July 2022 (, MIP image 52). No new or enlarging pulmonary nodules. Noncontrast CT of the chest 02/21: Lungs and Pleura: Spiculated masslike opacity in the medial right upper lobe measures approximately 4.0 x 3.5 cm, mildly decreased in size when compared to the prior CT given differences in the degree of inspiration and measuring technique. Surrounding peripheral ground-glass attenuation and septal line thickening has improved. Posterior right upper lobe nodule measures 13 x 9 mm (/96). Posterior right lower lobe nodule measures 8 x 4 mm (3/180). These do not appear significantly changed. Moderate centrilobular emphysema. No pneumothorax or pleural effusions. Hospital course: 02/18: Improved cough no fever or chills overnight 2: Subjectively improved but still labored respirations mildly at least leaning forward on her elbows using accessory muscles 02/20: Subjectively improved minimally labored respirations at this point good air movement 02/21: Subjectively worsened with increased congestion which is coming down with a cold now has productive sputum, however CT of the chest shows improvement radiographically Plan is to continue with IV antibiotics and IV steroids continue to monitor progress patient has an appointment with Dr. Aayush Pinto at [facility] pulmonology February 27 Review of systems: N0 fever chills overnight No chest pains or palpitations No nausea vomiting diarrhea Urinary symptoms No paresthesia Physical exam: Chronically ill-appearing female alert pleasant HEENT unremarkable Respirations minimally labored with diminished breath sounds reduced improved air movement without rhonchi Abdomen nondistended Extremities no edema Assessment and plan: Pneumonia - RML / RUL - persistent infiltrate, suspected mass - empiric Cefepime -mixed respiratory nova on sputum culture - follow up with CT chest / pulmonology follows with Dr. Aayush Pinto [phone] COPD - albuterol, Symbicort Acute on chronic hypoxic respiratory failure - at home on nocturnal oxygen at 1 L / min - now on 1-2 L when awake Anxiety / Insomnia - hydroxyzine prn, Trazodone prn DVT prophylaxis - Lovenox Code status: -full code Time-Based Coding :: 35 minutes spent with patient and on the chart (including review of chart, obtaining history, exam, reviewing outside data, placing orders, documenting exam and treatment plan, and counseling patient) on. Exam Vital Signs (past 8 hours): - 02/21/25 08:00 02/21/25 08:00 02/21/25 08:23 Temperature 97.4 F L Pulse Rate 76 84 Respiratory Rate 20 18 Blood Pressure 141/84 H Pulse Oximetry 96 98 Oxygen Delivery Method Nasal Cannula Nasal Cannula Oxygen Flow Rate 1 1 02/21/25 14:48 Temperature Pulse Rate 84 Respiratory Rate 16 Blood Pressure Pulse Oximetry 99 Oxygen Delivery Method Nasal Cannula Oxygen Flow Rate 1 Fraction of Inspired Oxygen 21 SaO2/FiO2 Ratio 447 Oxygen Delivery Method Nasal Cannula Oxygen Flow Rate 1 Objective Labs 02/21/25 05:01 02/21/25 05:01 Labs: Laboratory Results - last 24 hr 02/21/25 05:01 WBC 12.2 H RBC 4.12 Hgb 11.6 L Hct 34.8 L MCV 84.6 MCH 28.1 MCHC 33.2 RDW 12.9 Plt Count 420 H Neut % (Auto) 91.3 H Lymph % (Auto) 7.2 L [place] % (Auto) 1.2 L Eos % (Auto) 0.0 L Baso % (Auto) 0.3 Neut # (Auto) 37426 H Lymph # (Auto) 900 L [place] # (Auto) 100 Eos # (Auto) 0 Baso # (Auto) 0 Sodium 134 L Potassium 4.5 Chloride 99 Carbon Dioxide 30 BUN 20 H Creatinine 0.50 L Estimated GFR > 60 BUN/Creatinine Ratio 40.0 H Glucose 128 H Calcium 9.1 PFSH Medical History COPD (chronic obstructive pulmonary disease) Social History household members: children alcohol intake: never Assessment & Plan Time-Based Coding :: [TOTAL MINUTES] spent with patient and on the chart (including review of chart, obtaining history, exam, reviewing outside data, placing orders, documenting exam and treatment plan, and counseling patient) on [DATE]. Quality VTE Deep Vein Thrombosis/Pulmonary Embolism Present on Admission: No
[2025-02-21] MEDS: SODIUM CHLORIDE 7% (RT/INH) 4 ML NEB INH (17:34)
[2025-02-21] MEDS: guaiFENesin Solution 100 MG/5 ML UDC 600 MG PO (17:35)
[2025-02-21] MEDS: CEFEPIME 2 GM in SODIUM CHLORIDE 0.9% 100 ML IV (18:01)
[2025-02-21] MEDS: levoFLOXacin 750 MG/150 ML PIGGYBACK 100 MG IV (18:54)
[2025-02-21] MEDS: TRAZODONE 50 MG TABLET PO (21:46)
[2025-02-21] MEDS: BACLOFEN 10 MG TABLET 5 MG PO (21:46)
[2025-02-21] MEDS: hydrOXYzine HCL 25 MG TABLET 50 MG PO (21:47)
[2025-02-22] MEDS: CEFEPIME 2 GM in SODIUM CHLORIDE 0.9% 100 ML IV ×3 (01:54→17:28)
[2025-02-22 07:00] VITALS: BP 135/99; PULSE 84; RESP 20; TEMP 36.6; O2SAT 95
[2025-02-22 07:15] VITALS: PULSE 78; RESP 20; O2SAT 97
[2025-02-22] MEDS: ALBUTEROL/IPRATROPIUM 3 ML AMPUL INH ×3 (07:15→20:16)
[2025-02-22] MEDS: BUDESONIDE 0.5 MG/2 ML NEB INH ×2 (07:15→20:16)
--- NOTE | 2025-02-22 07:34 | PM.PN.1 ---
Subjective Subjective Interval history: Chief complaint: Increased cough and shortness of breath secondary to recurring pneumonia with COPD exacerbation History of present illness: 59 y/o with PMH of COPD, on 1 L of oxygen at night, recent hospitalization (517-02/08/2025) for RML PNA treated with Rocephin - Augmentin and Zithromax, presented with right-sided chest pain, shortness of breath and cough. ED wotkup shows persistent RML infiltrate. Chest pain is experienced on deep breathing and with coughing. Denies hemoptysis or weight loss. ED workup showing leukocytosis, hyponatremia and mild hypoxia requiring 1-2 L of oxygen. Admitted with diagnosis of pneumonia on broad antibiotic coverage. CT chest 02/17: Increasing size of right upper lobe medial masslike consolidation now measuring approximately 5.2 x 3.6 cm (), previously 2.7 x 2.6 cm (remeasured on series 5, image 46). Mild area of ground-glass opacity previously site of prior consolidation on 08/09/2022. Stable solid pulmonary nodules with the largest in the left lower lobe measuring 4 mm, since July 2022 (, MIP image 52). No new or enlarging pulmonary nodules. Noncontrast CT of the chest 02/21: Lungs and Pleura: Spiculated masslike opacity in the medial right upper lobe measures approximately 4.0 x 3.5 cm, mildly decreased in size when compared to the prior CT given differences in the degree of inspiration and measuring technique. Surrounding peripheral ground-glass attenuation and septal line thickening has improved. Posterior right upper lobe nodule measures 13 x 9 mm (3/96). Posterior right lower lobe nodule measures 8 x 4 mm (3/180). These do not appear significantly changed. Moderate centrilobular emphysema. No pneumothorax or pleural effusions. Hospital course: 02/18: Improved cough no fever or chills overnight 2: Subjectively improved but still labored respirations mildly at least leaning forward on her elbows using accessory muscles 02/20: Subjectively improved minimally labored respirations at this point good air movement 02/21: Subjectively worsened with increased congestion which is coming down with a cold now has productive sputum, however CT of the chest shows improvement radiographically Plan is to continue with IV antibiotics and IV steroids continue to monitor progress patient has an appointment with Dr. Aayush Pinto at [facility] pulmonology February 27. S: She is feeling little bit better today. Her cough became less productive. She denies any nausea or pain. No chills. Exam Vital Signs (past 8 hours): - 02/21/25 23:42 02/22/25 07:15 Temperature 97.0 F L Pulse Rate 93 H 78 Respiratory Rate 16 20 Blood Pressure 115/67 Pulse Oximetry 96 97 Oxygen Delivery Method Nasal Cannula Oxygen Flow Rate 1 1 Fraction of Inspired Oxygen 24 Fraction of Inspired Oxygen 24 SaO2/FiO2 Ratio 404 Oxygen Delivery Method Nasal Cannula Oxygen Flow Rate 1 Narrative Exam Narrative: NAD, alert and oriented. Fluent speech. Lungs are clear, normal rate and effort. Globally diminished breath sounds. No respiratory distress. Heart is regular, no murmur gallop or rub. Abdomen is soft, non distended. Extremities are free of edema. Objective Labs 02/21/25 05:01 02/21/25 05:01 [facility] Medical History COPD (chronic obstructive pulmonary disease) Social History household members: children alcohol intake: never Assessment & Plan Assessment & Plan narrative: 1. Pneumonia, improving. - RML / RUL - persistent infiltrate, suspected mass - continue Cefepime. 2. COPD, improving. - albuterol, Symbicort, steroids. 3. Acute on chronic hypoxic respiratory failure, improving. - at home on nocturnal oxygen at 1 L / min - now on 1-2 L when awake 4. Anxiety / Insomnia, stable. - hydroxyzine prn, Trazodone prn She needs 1 more day of IV antibiotics and bronchodilators as well as steroids. AURELIANO: 02/23. DVT prophylaxis - Lovenox Code status: -Full code Time-Based Coding :: [TOTAL MINUTES] spent with patient and on the chart (including review of chart, obtaining history, exam, reviewing outside data, placing orders, documenting exam and treatment plan, and counseling patient) on [DATE]. Quality VTE Deep Vein Thrombosis/Pulmonary Embolism Present on Admission: No
[2025-02-22] MEDS: ENOXAPARIN 40 MG/0.4 ML SYRINGE SUBCUT (09:17)
[2025-02-22] MEDS: ACETAMINOPHEN 325 MG TABLET 650 MG PO (09:18)
[2025-02-22] MEDS: methylPREDNISolone 125 MG/2 ML VIAL 60 MG IV ×2 (09:18→20:25)
--- NOTE | 2025-02-22 10:05 | DIET.CONS ---
Dietary Consultation Note Admission Date: 02/17/2025 20:52 Assessment: 59 y F admitted for pneumonia. Dietitian screened for LOS. EMR reviewed. Pt with recent PO intakes 75-100% recorded, DFM reviewed for meal adequacy. No recent significant weight loss per EMR. No nutritional interventions needed at this time. Ht: 160.02 cm Wt: 71.5 kg BMI: 27.9 UBW: 72 kg on 02/03/25, 63.503 kg on 03/30/2023 Last BM: 02/20/25 (02/20/25 10:00) MNA: Sohail Score: 21 Diet: 02/18/25 Breakfast General (Regular) Diet Diet Modifications: Nutrition Percent Meal Consumed 75% 02/21/25 18:00 Labs: RBC 4.12 X10^6/uL (4.0-5.2) 02/21/25 05:01 Hgb 11.6 g/dL (12.0-16.0) L 02/21/25 05:01 Hct 34.8 % (36-46) L 02/21/25 05:01 Creatinine 0.50 mg/dL (0.52-1.04) L 02/21/25 05:01 Lactate 0.9 mmol/L (0.7-2.1) 02/17/25 16:27 NT-Pro-B Natriuret Pep 90 pg/mL (<125) 02/17/25 16:27 Electronically Signed by: Sumaya Blackburn 02/22/25 10:05 Clinical Dietitian [address] [id number]
--- NOTE | 2025-02-22 10:24 | PC.NURSE ---
Patient is not coughing this morning, her lungs sounds are clear at this time. She is on 1-2L of oxygen and sometimes takes it off during the day. She does use oxygen at home when sleeping, and has been using it here. Ambulating in room, independent to the bathroom, patient does still have sob with exertion.
--- NOTE | 2025-02-22 12:30 | CM.DPC ---
DCP Cont: Per MD, pt making slow progress and anticipate likely another 1-2 days before discharge. No identified barriers to discharge at this time. Per RN, pt's lungs sound more clear and no coughing yet today and remains on 1-2LO2 but sometimes takes it off during rest but still some SOB with exertion in room. Pt has been independent with ambulation in room and to the bathroom. EUGENIA Castellanos
[2025-02-22 13:20] VITALS: PULSE 108; RESP 18; O2SAT 95
[2025-02-22 15:00] VITALS: BP 128/75; PULSE 100; RESP 24; TEMP 36.3; O2SAT 95
[2025-02-22] MEDS: levoFLOXacin 750 MG/150 ML PIGGYBACK 100 MG IV (18:16)
[2025-02-22 19:54] VITALS: BP 120/84; PULSE 124; RESP 23; TEMP 36.4; O2SAT 95
[2025-02-22 20:16] VITALS: O2SAT 95
[2025-02-22] MEDS: BACLOFEN 10 MG TABLET 5 MG PO (22:15)
[2025-02-22] MEDS: TRAZODONE 50 MG TABLET PO (22:15)
[2025-02-23] VITALS (8 sets, daily range): BP systolic 114–125; BP diastolic 62–79; PULSE 80–107; RESP 15–22; TEMP 35.9–36.3; O2SAT 95–98
[2025-02-23] MEDS: CEFEPIME 2 GM in SODIUM CHLORIDE 0.9% 100 ML IV ×3 (02:45→16:53)
[2025-02-23] MEDS: hydrOXYzine HCL 25 MG TABLET 50 MG PO ×2 (05:22→21:17)
[2025-02-23] MEDS: ALBUTEROL/IPRATROPIUM 3 ML AMPUL INH ×3 (07:56→20:24)
[2025-02-23] MEDS: BUDESONIDE 0.5 MG/2 ML NEB INH ×2 (08:07→20:24)
[2025-02-23] MEDS: methylPREDNISolone 125 MG/2 ML VIAL 60 MG IV ×2 (09:07→21:16)
[2025-02-23] MEDS: ENOXAPARIN 40 MG/0.4 ML SYRINGE SUBCUT (09:07)
--- NOTE | 2025-02-23 10:27 | CM.DPNOTE ---
DCP Continued: Reviewed EMR and team rounds for pt?s medical status. Per hospitalist, pt cleared for discharge today, 02/23. Per RN, patient still on 1L O2 while admitted but has O2 established at home. Plan: Anticipating dc home with family to transport on 02/23 or when medically cleared. CM Team will continue to follow for coordination of discharge plans. KAYLA JungSW
[2025-02-23] MEDS: ACETAMINOPHEN 325 MG TABLET 650 MG PO ×2 (12:08→21:17)
--- NOTE | 2025-02-23 13:41 | P.PN_ITS ---
Subjective Subjective Interval history: S: Still short of breath, slight improvement. Still very weak. Exam Vital Signs (past 8 hours): - 02/23/25 07:57 02/23/25 08:08 02/23/25 08:55 Temperature Pulse Rate 84 80 Respiratory Rate 22 20 Blood Pressure Pulse Oximetry 97 98 Oxygen Delivery Method Nasal Cannula Nasal Cannula Nasal Cannula Oxygen Flow Rate 1 1 02/23/25 09:03 02/23/25 12:20 Temperature 96.6 F L 97.0 F L Pulse Rate 107 H 88 Respiratory Rate 19 17 Blood Pressure 116/62 118/71 Pulse Oximetry 95 95 Oxygen Delivery Method Oxygen Flow Rate 0 Fraction of Inspired Oxygen 24 SaO2/FiO2 Ratio 395 Oxygen Delivery Method Nasal Cannula Oxygen Flow Rate 0 Narrative Exam Narrative: NAD, alert and oriented. Fluent speech. Lungs are notable for globally diminished breath sounds with prolonged expiratory phase, minimal wheezing. Heart is regular, no murmur gallop or rub. Abdomen is soft, non distended. Extremities are free of edema. Objective Labs 02/21/25 05:01 02/21/25 05:01 [facility] Medical History COPD (chronic obstructive pulmonary disease) Social History household members: children alcohol intake: never Assessment & Plan Assessment & Plan narrative: 1. Pneumonia, improving. - RML / RUL - persistent infiltrate, suspected mass - continue Cefepime. 2. COPD, improving. - albuterol, Symbicort, steroids. 3. Acute on chronic hypoxic respiratory failure, improving. - at home on nocturnal oxygen at 1 L / min - now on 1-2 L when awake 4. Anxiety / Insomnia, stable. - hydroxyzine prn, Trazodone prn 5. Sepsis. Source is pneumonia. Improved. SIRS criteria on admission: 3 HR: 108 on 02/17 RR: 27 on 02/17 WBC: 17 on 02/17 Requires another night of care. Slow improvement of breathing in context of chronic lung disease. Anticipate discharge on February 24. Time-Based Coding :: [TOTAL MINUTES] spent with patient and on the chart (including review of chart, obtaining history, exam, reviewing outside data, placing orders, documenting exam and treatment plan, and counseling patient) on [DATE]. Quality VTE Deep Vein Thrombosis/Pulmonary Embolism Present on Admission: No
[2025-02-23] MEDS: levoFLOXacin 750 MG/150 ML PIGGYBACK 100 MG IV (17:50)
[2025-02-23] MEDS: BACLOFEN 10 MG TABLET 5 MG PO (21:16)
[2025-02-24] VITALS (7 sets, daily range): BP systolic 110–128; BP diastolic 60–83; PULSE 74–98; RESP 16–24; TEMP 35.9–37.1; O2SAT 95–97
[2025-02-24] MEDS: CEFEPIME 2 GM in SODIUM CHLORIDE 0.9% 100 ML IV ×3 (02:44→16:54)
[2025-02-24] MEDS: ALBUTEROL/IPRATROPIUM 3 ML AMPUL INH ×3 (07:59→20:52)
[2025-02-24] MEDS: BUDESONIDE 0.5 MG/2 ML NEB INH ×2 (07:59→20:52)
[2025-02-24] MEDS: SODIUM CHLORIDE 0.9% FLUSH 10 ML IV ×2 (08:37→20:36)
[2025-02-24] MEDS: ENOXAPARIN 40 MG/0.4 ML SYRINGE SUBCUT (08:37)
[2025-02-24] MEDS: methylPREDNISolone 125 MG/2 ML VIAL 60 MG IV ×2 (08:38→20:36)
--- NOTE | 2025-02-24 11:26 | P.PN_ITS ---
Subjective Subjective Interval history: S: Lot of productive coughing this morning. Her breathing is still short but slightly better. Exam Vital Signs (past 8 hours): - 02/24/25 04:00 02/24/25 07:33 02/24/25 08:00 Temperature 98.6 F Pulse Rate 84 98 H Respiratory Rate 19 24 Blood Pressure 112/60 Pulse Oximetry 97 95 Oxygen Delivery Method Nasal Cannula Nasal Cannula Oxygen Flow Rate 1 1 02/24/25 08:48 Temperature 97.1 F L Pulse Rate 76 Respiratory Rate 16 Blood Pressure 128/83 Pulse Oximetry 95 Oxygen Delivery Method Oxygen Flow Rate 1 Fraction of Inspired Oxygen 24 SaO2/FiO2 Ratio 395 Oxygen Delivery Method Nasal Cannula Oxygen Flow Rate 1 Narrative Exam Narrative: NAD, alert and oriented. Fluent speech. Lungs are globally diminished with scattered rhonchi. Heart is regular, no murmur gallop or rub. Abdomen is soft, non distended. Extremities are free of edema. Objective Labs 02/21/25 05:01 02/21/25 05:01 [facility] Medical History COPD (chronic obstructive pulmonary disease) Social History household members: children alcohol intake: never Assessment & Plan Assessment & Plan narrative: 1. Pneumonia, improving. 2. COPD, improving. - albuterol, Symbicort, steroids. 3. Acute on chronic hypoxic respiratory failure, improving. - at home on nocturnal oxygen at 1 L / min - now on 1-2 L when awake 4. Anxiety / Insomnia, stable. - hydroxyzine prn, Trazodone prn 5. Sepsis. Source is pneumonia. Improved. SIRS criteria on admission: 3 HR: 108 on 02/17 RR: 27 on 02/17 WBC: 17 on 02/17 PLAN: -1 additional night of IV antibiotics given her severe pulmonary disease and impressive productive coughing this morning. Anticipate discharge on February 25. Time-Based Coding :: [TOTAL MINUTES] spent with patient and on the chart (including review of chart, obtaining history, exam, reviewing outside data, placing orders, documenting exam and treatment plan, and counseling patient) on [DATE]. Quality VTE Deep Vein Thrombosis/Pulmonary Embolism Present on Admission: No
[2025-02-24] MEDS: levoFLOXacin 250 MG TABLET 750 MG PO (17:38)
[2025-02-24] MEDS: ACETAMINOPHEN 325 MG TABLET 650 MG PO (20:35)
[2025-02-24] MEDS: BACLOFEN 10 MG TABLET 5 MG PO (20:35)
[2025-02-24] MEDS: TRAZODONE 50 MG TABLET PO (20:36)
[2025-02-24] MEDS: OXYCODONE IR 10 MG TABLET PO (23:16)
[2025-02-25] VITALS: BP 116/84; PULSE 80; RESP 19; TEMP 36.4; O2SAT 96
[2025-02-25] MEDS: CEFEPIME 2 GM in SODIUM CHLORIDE 0.9% 100 ML IV ×2 (00:56→08:57)
[2025-02-25 04:00] VITALS: BP 120/78; PULSE 88; RESP 19; TEMP 36.4; O2SAT 97
[2025-02-25 06:14] LABS: Hematocrit 37.7 % (36-46); Hemoglobin 12.4 g/dL (12.0-16.0); Mean Corpuscular Hemoglobin 28.1 PG (26-34); Mean Corpuscular Volume 85.1 fL (80-100); Platelet Count 491 X10^3/uL (150-400); Red Blood Cell Count 4.43 X10^6/uL (4.0-5.2); Red Cell Distribution Width 12.9 % (11.6-14.8); White Blood Cell Count 9.2 X10^3/uL (4.5-11.0)
[2025-02-25 06:28] LABS: BUN Creatinine Ratio 36.5 (6-22); Blood Urea Nitrogen 19 mg/dL (7-17); Calcium 8.8 mg/dL (8.4-10.2); Carbon Dioxide 31 mmol/L (22-32); Chloride 96 mmol/L (98-107); Estimated Glomerular Filt Rate > 60 mL/min (>60); Glucose 119 mg/dL (70-99); HEMOLYSIS < 15 (0-50); Potassium 4.6 mmol/L (3.4-5.1); Sodium 132 mmol/L (137-145)
[2025-02-25] MEDS: BUDESONIDE 0.5 MG/2 ML NEB INH ×2 (07:57→08:06)
[2025-02-25] MEDS: ALBUTEROL/IPRATROPIUM 3 ML AMPUL INH ×2 (07:57→08:06)
[2025-02-25 07:58] VITALS: PULSE 71; RESP 20; O2SAT 96
[2025-02-25 08:00] VITALS: BP 146/82; PULSE 72; RESP 19; TEMP 36.5; O2SAT 96
[2025-02-25] MEDS: methylPREDNISolone 125 MG/2 ML VIAL 60 MG IV (08:54)
[2025-02-25] MEDS: ENOXAPARIN 40 MG/0.4 ML SYRINGE SUBCUT (08:56)
[2025-02-25] MEDS: SODIUM CHLORIDE 0.9% FLUSH 10 ML IV (08:56)
--- NOTE | 2025-02-25 10:28 | P.DS_ITS ---
History of Present Illness History of Present Illness Chief complaint: SOB, chest pain Narrative: From H&P: 59 y/o with PMH of COPD, on 1 L of oxygen at night, recent hospitalization (517-02/08/2025) for RML PNA treated with Rocephin - Augmentin and Zithromax, presented with right-sided chest pain, shortness of breath and cough. ED wotkup shows persistent RML infiltrate. Chest pain is experienced on deep breathing and with coughing. Denies hemoptysis or weight loss. ED workup showing leukocytosis, hyponatremia and mild hypoxia requiring 1-2 L of oxygen. Admitted with diagnosis of pneumonia on broad antibiotic coverage. Discharge Providers Provider Date of admission: 02/17/25 20:52 Discharge Date: 02/25/25 Primary care physician: Doctor Mike MD Consults: None. Discharge provider: Matthew Beckman MD Summary Hospital Course Discharge Diagnosis: 1. Pneumonia, improving. 2. COPD exacerbation, improving. 3. Acute on chronic hypoxic respiratory failure, improved. - at home on nocturnal oxygen at 1 L / min. 4. Anxiety / Insomnia, stable. 5. Sepsis. Source is pneumonia. Improved. SIRS criteria on admission: 3 HR: 108 on 02/17 RR: 27 on 02/17 WBC: 17 on 02/17 6. Possible lung mass, active. Hospital Course: She was admitted with possible pneumonia and acute COPD exacerbation as well as acute on chronic hypoxic respiratory failure. She was treated with antibiotics, steroids, and bronchodilators. She had very tight lungs and very slow improvement. She had very profound persistent cough. She ultimately improved over the last 24 hours of her hospitalization and felt stable enough to return home. DC MIPS: [N], the patient has documentation of a left ventricle ejection fracture less than or equal to 40%, or moderately or severely reduced left ventricle systolic function. [N], the patient has a history of heart transplant or left ventricular assist device (LVAD). [N], the patient was prescribed an CHRIS inhibitor at discharge or is already being taken. [N], the patient was prescribed Metoprolol succinate, bisoprolol, or carvedilol at discharge. Status at Discharge Cognitive/behavioral status at discharge: oriented Functional status at discharge: independent ambulation Overall status at discharge: patient is back to baseline Time Spent with Patient Time spent: Greater than 30 minutes Exam Vital Signs (past 8 hours): - 02/25/25 04:00 02/25/25 07:58 02/25/25 08:00 Temperature 97.6 F 97.7 F Pulse Rate 88 71 72 Respiratory Rate 19 20 19 Blood Pressure 120/78 146/82 H Pulse Oximetry 97 96 96 Oxygen Delivery Method Room Air Oxygen Flow Rate 0 1 Fraction of Inspired Oxygen 24 SaO2/FiO2 Ratio 395 Oxygen Delivery Method Room Air Oxygen Flow Rate 1 Narrative Exam Narrative: NAD, alert and oriented. Fluent speech. Lungs: Normal rate and effort. No edema Abdomen is soft, non distended. Extremities are free of edema. Objective ECG Impression: Intervals [place] Rate: 105 P: 66 NH: 126 QRS: 77 QRSD: 92 T: 54 QT: 314 QTc: 415 Interpretive Statements Sinus tachycardia Incomplete right bundle branch block Imaging Multiple studies:: Radiologist's impression: Chest CT: Medial right upper lobe masslike consolidation has mildly decreased in size when compared to CT from 02/17/2025, but appears larger when compared to CT from 02/03/2025. Decreased surrounding ground-glass attenuation. Differential considerations again include pneumonia versus malignancy. Recommend continued imaging follow-up. Labs 02/25/25 06:00 02/25/25 06:00 Labs: Laboratory Results - last 24 hr 02/25/25 06:00 WBC 9.2 RBC 4.43 Hgb 12.4 Hct 37.7 MCV 85.1 MCH 28.1 MCHC 33.0 RDW 12.9 Plt Count 491 H Sodium 132 L Potassium 4.6 Chloride 96 L Carbon Dioxide 31 BUN 19 H Creatinine 0.52 Estimated GFR > 60 BUN/Creatinine Ratio 36.5 H Glucose 119 H Calcium 8.8 PFSH Medical History COPD (chronic obstructive pulmonary disease) Social History household members: children alcohol intake: never Discharge Assessment & Plan Assessment and Plan Assessment: 1. Pneumonia, improving. 2. COPD exacerbation, improving. 3. Acute on chronic hypoxic respiratory failure, improved. - at home on nocturnal oxygen at 1 L / min. 4. Anxiety / Insomnia, stable. 5. Sepsis. Source is pneumonia. Improved. SIRS criteria on admission: 3 HR: 108 on 02/17 RR: 27 on 02/17 WBC: 17 on 02/17 6. Possible lung mass, active. Plan of Treatment: Discharge home on antibiotics. Close follow up with primary care, consider repeat lung CT in approximately 2-3 months to re-evaluate the possibility of a mass versus resolving infiltrate. CT reveals a right upper lobe hilar infiltrate versus mass. There was no associated obvious lymphadenopathy, or pleural effusion. Discharge Plan Discharge Plan Patient Disposition: Home Provider Discharge Comment: Stable for discharge home on oral antibiotics. Discharge orders & Medications Prescriptions: New levofloxacin 250 mg Tablet 750 mg PO DAILY@1800 Qty: 5 0RF Continued Spiriva Respimat 2.5 mcg/actuation mist 1 puff INHALATION DAILY Patient Comments: inhale 2 puffs once daily albuterol sulfate 2.5 mg /3 mL (0.083 %) solution for nebulization 2.5 mg Q4HR PRN (Reason: Shortness Of Breath Or Wheezing) Patient Comments: [NO ORIGINAL SIG] trazodone 50 mg tablet 50 mg PO ONCE PM PRN (Reason: Insomnia) hydroxyzine HCl 50 mg tablet 50 mg PO QID PRN (Reason: Anxiety) baclofen 10 mg tablet 5 mg PO TID PRN (Reason: Muscle Spasm) albuterol sulfate 90 mcg/actuation HFA aerosol inhaler 2 puff inhalation Q6H PRN (Reason: Shortness Of Breath Or Wheezing) budesonide-formoterol 160-4.5 mcg/actuation Hfa Aerosol Inhaler 2 puff INHALATION BID Follow up/Referrals: Mike,MD Mikael [Primary Care Provider, Medical] Discharge Health Status Multidrug resistant organism: No MDRO Diet/Activity/Treatments Diet: Regular Skin/Wound/Dressing Care Report to your healthcare provider any signs of infection, such as:: chills, fever Visit Report/Discharge Packet Instructions: DI for Chronic Obstructive Pulmonary Disease Stand Alone Forms: Patient Portal/API Discharge Data Primary Care Provider: Doctor Mike Quality VTE Deep Vein Thrombosis/Pulmonary Embolism Present on Admission: No
--- NOTE | 2025-02-25 11:39 | PC.NURSE ---
Discharge: Patient discharge home per MD order. Patient up OOB to BR. Intermittent cough noted. Ambulating independently in room, voiding without issues. Adequate oral intake. Patient states breathing effort much improved compared to previous day and cough is less frequent. Speaking in full sentences. Patient to follow up with [facility] on 02/27/25. Discharge instuctions given to patient, discussed importance of F/U with PMD, antibiotic adherence, and signs of worsening symptoms. Home via private vehicle accompanied by family. Rx to be picked on way home.
--- NOTE | 2025-02-25 11:57 | CM.DPNOTE ---
DCP note UROLOGY SURGEON reviewed EMR per provider in morning rounds, cleared to dc home with family support and OP f/u. Per previous CM notes, no CM/DCP needs identified. pt left prior to being seen by this UROLOGY SURGEON p: home today with family and OP f/u. no CM needs identified at this time, will continue to follow as needed EUGENIA Cai
== END 2025-02-25 11:48 | disposition home or self-care (01) | DRG 871 ==
LOC: ED 20:07 → AC 20:53
PROVIDERS: Hospitalist; Internal Medicine; Student in an Organized Health Care Education/Training Program; Admitting Provider Internal Medicine; Emergency Provider Emergency Medicine; Referring Provider Emergency Medicine; Visit Provider Internal Medicine
DX: A41.9 Sepsis, unspecified organism (principal); J18.9 Pneumonia, unspecified organism; J96.21 Acute and chronic respiratory failure with hypoxia; J44.0 Chronic obstructive pulmonary disease with (acute) lower respiratory infection; E87.1 Hypo-osmolality and hyponatremia; J44.1 Chronic obstructive pulmonary disease with (acute) exacerbation; F41.9 Anxiety disorder, unspecified; G47.00 Insomnia, unspecified; R91.8 Other nonspecific abnormal finding of lung field; Z87.01 Personal history of pneumonia (recurrent); Z99.81 Dependence on supplemental oxygen
CPT/HCPCS: 36415; 71045; 71250; 71275; 80048; 80053; 83605; 83880; 84484; 85007; 85025; 85027; 85610; 87040; 87070; 87205; 87797; 93005; 94640; 94762; 96365; 96375; 99285; A9270; J0692; J1171; J1650; J1885; J1956; J2405; J2919; J7613; Q9967

== ENCOUNTER 2025-07-31 17:16 | Observation (INO) | payer BC, SELFPAY ==
[2025-02-17 21:42] VITALS: BMI 27.9
[2025-07-31] VITALS (18 sets, daily range): BP systolic 126–170; BP diastolic 71–92; PULSE 89–127; RESP 15–43; TEMP 37.1; O2SAT 88–96; BMI 26.5
--- NOTE | 2025-07-31 17:28 | DI.RAD.S_ITS ---
PROCEDURE: XR CHEST 1V INDICATIONS: shortness of breath, dyspnea TECHNIQUE: One view of the chest was acquired. COMPARISON: [facility], CT, CT CHEST WO CON, 02/21/2025, 9:00. [facility], CR, XR CHEST 1V, 02/17/2025, 16:25. [facility], CR, XR CHEST 1V, 02/05/2025, 13:10. FINDINGS: Surgical changes and devices: None. Lungs and pleura: Lungs are clear. Resolved right upper lobe opacity. No pleural effusions or pneumothorax. Mediastinum: Mediastinal contours appear normal. Heart size is normal. Bones and chest wall: No suspicious bony lesions. Overlying soft tissues appear unremarkable. IMPRESSION: No acute cardiopulmonary abnormality is seen. Dictated by: Jaime Lemons M.D. on 07/31/2025 at 18:20 Approved by: Jaime Lemons M.D. on 07/31/2025 at 18:21
--- NOTE | 2025-07-31 17:30 | ED.SOB ---
HPI - SOB/Dyspnea General Chief Complaint: Shortness of Breath/Dyspnea Stated Complaint: SOB Time Seen by Provider: 07/31/25 17:25 Source: patient Mode of arrival: Ambulatory History of Present Illness HPI Narrative: Patient here for worsening shortness of breath a past 3 weeks. 88% room air and very dyspneic. Respiratory therapist at bedside to start DuoNeb and albuterol nebulizers. However she is able to pause and speak nearly full sentences. Patient no longer smokes. Patient has history of COPD. Patient saw her discharge door operator 3 weeks ago and was given a week's worth of steroids but she felt like she did longer treatment. She has been trying to treat self at home without success. Denies any chest pain. No history of CHF. Patient has never had intubation in the past but has had admissions for COPD and pneumonia in the past. No known sick contacts no foreign travel. No blood clots in legs or lungs. Related Data Home Medications ?Medication ?Instructions ?Recorded ?Confirmed tiotropium bromide 2.5 1 puff inhalation DAILY 08/09/22 07/31/25 mcg/actuation mist for inhalation (Spiriva Respimat) albuterol sulfate 2.5 mg/3 mL 2.5 mg continuous nebulization 02/03/25 08/01/25 (0.083 %) solution for nebulization Q4HR PRN Shortness Of Breath Or Wheezing albuterol sulfate 90 mcg/actuation 2 puff inhalation Q6H PRN 02/03/25 07/31/25 aerosol inhaler Shortness Of Breath Or Wheezing budesonide-formoterol HFA 160 2 puff inhalation BID 02/03/25 07/31/25 mcg-4.5 mcg/actuation aerosol inhaler hydroxyzine HCl 50 mg tablet 50 mg PO QID PRN Anxiety 02/03/25 07/31/25 trazodone 50 mg tablet 50 mg PO ONCE PM PRN Insomnia 02/03/25 07/31/25 azithromycin 500 mg tablet 500 mg PO 3XW 07/31/25 07/31/25 Previous Rx's ?Medication ?Instructions ?Recorded prednisone 20 mg tablet 40 mg (2 x 20 mg) PO DAILY #20 tabs 08/01/25 Allergies Allergy/AdvReac Type Severity Reaction Status Date / Time morphine AdvReac sick Verified 07/31/25 17:28 walnut AdvReac raw mouth Verified 07/31/25 17:28 Review of Systems Review of Systems Narrative: GENERAL: Negative chills, fatigue, malaise, fever, sweats. HEENT: Negative sinus pain, ear pain, sore throat RESPIRATORY: Positive dyspnea, cough CARDIOVASCULAR: Negative chest pain, palpitations GASTROINTESTINAL: Negative vomiting, nausea, abdominal pain : Negative dysuria, frequency, hematuria MUSCULOSKELETAL: Negative muscle or bony pain SKIN: Negative rash, skin lesions NEUROLOGIC: Negative weakness, numbness ROS Unobtainable: All systems reviewed & are unremarkable except as noted in HPI and below Patient History Medical History COPD (chronic obstructive pulmonary disease) Social History household members: children Smoking Status: Former smoker alcohol intake: never Smoking Status: Former smoker Exam Narrative Exam Narrative: GENERAL: in no distress, not toxic not dyspneic HEAD: Normocephalic. EYES: Pupils equal round ENT: Mucous membranes moist. NECK: Trachea midline. CARDIOVASCULAR: Regular rate and rhythm RESPIRATORY: Clear to auscultation. However very diminished lung sounds both lungs. Patient is dyspneic with rapid speech. GASTROINTESTINAL: Abdomen soft, non-tender BACK: No flank tenderness. EXTREMITIES: No gross deformities. NEURO: AOx4. Clear speech SKIN: Warm and dry PSYCH: Not anxious, is cooperative Initial Vital Signs Initial Vital Signs: Vital Signs Temperature 98.8 F 07/31/25 17:25 Pulse Rate 127 H 07/31/25 17:25 Respiratory Rate 34 H 07/31/25 17:25 Blood Pressure 170/89 H 07/31/25 17:25 Pulse Oximetry 88 L 07/31/25 17:25 Oxygen Delivery Method Room Air 07/31/25 17:25 Course Orders Ordered: Discontinued Medications Acetaminophen (Acetaminophen 325 Mg Tablet) 650 mg PO Q6H PRN PRN Reason: Fever/Mild Pain (1-3) Albuterol (Albuterol 2.5 Mg/3 Ml Neb (Adult)) 2.5 mg INH [id number] PRN PRN Reason: Shortness Of Breath Last Admin: 07/31/25 18:11 Dose: 2.5 mg Documented By: Admin: 07/31/25 17:45 Dose: 2.5 mg Documented By: SAT Albuterol (Albuterol 2.5 Mg/3 Ml Neb (Adult)) 2.5 mg INH Q4HRWA [facility] Albuterol (Albuterol 2.5 Mg/3 Ml Neb (Adult)) 2.5 mg INH Q2H PRN PRN Reason: Shortness Of Breath Albuterol/Ipratropium (Albuterol/Ipratropium 3 Ml Ampul) 3 ml INH NOW ONE Stop: 07/31/25 17:38 Last Admin: 07/31/25 17:42 Dose: 3 ml Documented By: SELVIN Albuterol/Ipratropium (Albuterol/Ipratropium 3 Ml Ampul) 3 ml INH RTQ4HR PRN PRN Reason: Shortness Of Breath Albuterol/Ipratropium (Albuterol/Ipratropium 3 Ml Ampul) 3 ml INH [id number] [facility] Last Admin: 08/01/25 07:39 Dose: 3 ml Documented By: SELVIN Budesonide (Budesonide 0.5 Mg/2 Ml Neb) 0.5 mg INH RTBID [facility] Last Admin: 08/01/25 07:39 Dose: 0.5 mg Documented By: SELVIN Budesonide (Budesonide 0.5 Mg/2 Ml Neb) 0.5 mg INH RTBID [facility] Last Admin: 08/01/25 07:40 Dose: Not Given Documented By: SELVIN Heparin Sodium (Porcine) (Heparin 5,000 Unit/Ml Vial) 5,000 unit SUBCUT Q8HR [facility] Hydroxyzine HCl (Hydroxyzine Hcl 25 Mg Tablet) 50 mg PO Q6H PRN PRN Reason: Anxiety Last Admin: 08/01/25 01:35 Dose: 50 mg Documented By: ALAN Hydroxyzine HCl (Hydroxyzine Hcl 25 Mg Tablet) 50 mg PO QID PRN PRN Reason: Anxiety Dextrose (D10w) 100 mls @ 999 mls/hr IV PRN PRN PRN Reason: Hypoglycemia Insulin Glargine (Insulin Glargine 100 Unit/Ml 3ml Pen) 20 unit SUBCUT BEDTIME [facility] Last Admin: 08/01/25 06:19 Dose: Not Given Documented By: ALAN Insulin Human Lispro (Insulin Lispro 100 Unit/Ml 3ml Vial) 0 unit SUBCUT [facility]; Protocol Last Admin: 08/01/25 08:18 Dose: Not Given Documented By: NR Methylprednisolone (Methylprednisolone Succ 125 Mg/2 Ml Vial) 125 mg IV NOW ONE Stop: 07/31/25 17:28 Last Admin: 07/31/25 17:31 Dose: 125 mg Documented By: VALDEMAR Methylprednisolone (Methylprednisolone Succ 125 Mg/2 Ml Vial) 60 mg IV Q6H [facility] Last Admin: 08/01/25 06:25 Dose: 60 mg Documented By: ALAN Naloxone HCl (Naloxone 0.4 Mg/Ml Vial) 0.2 mg IV Q2MIN PRN PRN Reason: Opiate Reversal Non-Formulary Medication (Hydroxizine) 50 mg PO QID PRN PRN Reason: For anxiety Non-Formulary Medication (Bryena) 160 mcg INH BID [facility] Last Admin: 08/01/25 01:21 Dose: Not Given Documented By: CRYSTAL Ondansetron HCl (Ondansetron 4 Mg/2 Ml Inj) 4 mg IV Q8HR PRN PRN Reason: Nausea And Vomiting Oxycodone HCl (Oxycodone Ir 5 Mg Tablet) 5 mg PO NOW ONE Stop: 08/01/25 02:35 Last Admin: 08/01/25 02:52 Dose: 5 mg Documented By: ALAN Sodium Chloride (Sodium Chloride 0.9% Flush) 10 ml IV PRN PRN PRN Reason: Flush Sodium Chloride (Sodium Chloride 0.9% Flush) 10 ml IV BID [facility] Trazodone HCl (Trazodone 50 Mg Tablet) 50 mg PO BEDTIME [facility] Last Admin: 08/01/25 05:24 Dose: Not Given Documented By: ALAN Vital Signs Vital signs: Vital Signs - 8 hr 07/31/25 17:25 07/31/25 17:32 07/31/25 17:45 Temperature 98.8 F Pulse Rate 127 H 126 H 114 H Respiratory Rate 34 H 15 Blood Pressure 170/89 H Pulse Oximetry 88 L 94 95 Oxygen Delivery Method Room Air 07/31/25 17:45 07/31/25 17:46 07/31/25 18:00 Temperature Pulse Rate 115 H 110 H Respiratory Rate 20 Blood Pressure 143/84 H Pulse Oximetry 93 93 Oxygen Delivery Method Room Air 07/31/25 18:00 07/31/25 18:15 07/31/25 18:15 Temperature Pulse Rate 101 H Respiratory Rate 21 Blood Pressure 147/92 H 136/79 Pulse Oximetry 96 Oxygen Delivery Method 07/31/25 18:30 07/31/25 18:30 07/31/25 18:45 Temperature Pulse Rate 102 H 100 H Respiratory Rate 40 H 36 H Blood Pressure 135/79 Pulse Oximetry 94 95 Oxygen Delivery Method 07/31/25 18:45 07/31/25 19:00 07/31/25 19:00 Temperature Pulse Rate 102 H Respiratory Rate 32 H Blood Pressure 134/76 138/78 Pulse Oximetry 94 Oxygen Delivery Method 07/31/25 19:15 07/31/25 19:15 07/31/25 19:30 Temperature Pulse Rate 103 H 96 H Respiratory Rate 30 H 27 H Blood Pressure 128/76 Pulse Oximetry 94 93 Oxygen Delivery Method 07/31/25 19:30 07/31/25 19:45 07/31/25 19:45 Temperature Pulse Rate 100 H Respiratory Rate 34 H Blood Pressure 138/78 126/73 Pulse Oximetry 93 Oxygen Delivery Method Room Air MDM - SOB/Dyspnea Lab Data 08/01/25 05:30 08/01/25 05:30 Labs: Lab Results 07/31/25 07/31/25 07/31/25 Range/Units 17:00 18:00 18:04 WBC 7.2 (4.5-11.0) X10^3/uL RBC 5.19 (4.0-5.2) X10^6/uL Hgb 14.4 (12.0-16.0) g/dL Hct 42.6 (36-46) % MCV 82.0 (80-100) fL MCH 27.7 (26-34) PG MCHC 33.8 (30-36) % RDW 13.0 (11.6-14.8) % Plt Count 388 (150-400) X10^3/uL Neut % (Auto) 57.7 (50-75) % Lymph % (Auto) 28.0 (25-40) % [place] % (Auto) 7.6 (3-14) % Eos % (Auto) 5.7 H (2-4) % Baso % (Auto) 1.0 (0-2) % Neut # (Auto) 4100 (7699-3429) /uL Lymph # (Auto) 2000 (3351-6675) /uL [place] # (Auto) 500 (0-900) /uL Eos # (Auto) 400 (0-450) /uL Baso # (Auto) 100 (0-100) /uL PT 11.8 (9.4-12.5) SECONDS INR 1.0 (0.9-1.3) APTT 36 (25.1-36.5) SECONDS VBG pH 7.43 (7.33-7.43) VBG pCO2 44.7 L (45-50) mmHg VBG pO2 52 H (35-45) mmHg VBG HCO3 30 H (24-28) mmol/L VBG Total CO2 28 (24-29) mmol/L VBG O2 Saturation 87 H (70-75) % VBG Base Excess 4.6 H (0-4) mmol/L FiO2 % 21.0 % % Sodium 135 L (137-145) mmol/L Potassium 4.3 (3.4-5.1) mmol/L Chloride 97 L (98-107) mmol/L Carbon Dioxide 26 (22-32) mmol/L BUN 9 (7-17) mg/dL Creatinine 0.60 (0.52-1.04) mg/dL Estimated GFR > 60 (>60) mL/min BUN/Creatinine Ratio 15.0 (6-22) Glucose 209 H (70-99) mg/dL Calcium 9.1 (8.4-10.2) mg/dL Magnesium 1.8 (1.6-2.3) mg/dL Total Bilirubin 0.6 (0.2-1.3) mg/dL AST 24 (14-36) IU/L ALT 20 (<35) IU/L Alkaline Phosphatase 104 (38-126) U/L Troponin I < 0.012 (0.01-0.034) ng/mL Total Protein 7.0 (6.3-8.2) g/dL Albumin 4.3 (3.5-5.0) g/dL Globulin 2.7 (1.7-4.1) g/dL Albumin/Globulin Ratio 1.6 (1.0-2.8) Chlamy pneumoniae PCR Not detected (Not Detect) Adenovirus (PCR) Not detected (Not Detect) B. pertussis DNA (PCR) Not detected (Not Detect) B.parapertussis DNA PCR Not detected (Not Detecte) Coronavirus OC43 (PCR) Not detected (Not Detect) Coronavirus HKU1 (PCR) Not detected (Not Detect) Coronavirus 229E (PCR) Not detected (Not Detect) SARS-CoV-2 (PCR) Not detected (Not Detecte) Coronavirus NL63 (PCR) Not detected (Not Detect) Human Metapneumovir PCR Not detected (Not Detect) Influenza Type A (PCR) Not detected (Not Detect) Influenza Type B (PCR) Not detected (Not Detect) M. pneumoniae (PCR) Not detected (Not Detect) Parainfluenza 1 (PCR) Not detected (Not Detect) Parainfluenza 2 (PCR) Not detected (Not Detect) Parainfluenza 3 (PCR) Not detected (Not Detect) Parainfluenza 4 (PCR) Not detected (Not Detect) RSV (PCR) Not detected (Not Detect) Entero/Rhino (PCR) Detected H (Not Detect) Imaging Data Chest x-ray: Radiologist's Impression: [address] [address] XRay Report Signed Patient: Nieves Fernandez MR#: [id number] : 1965 Acct:[id number] Age/Sex: 60 / F Date of Service: 07/31/25 Loc: ED Accession Number: [id number] Procedure: XR chest 1V Ordering Provider: Eber Garcia MD PROCEDURE: XR CHEST 1V INDICATIONS: shortness of breath, dyspnea TECHNIQUE: One view of the chest was acquired. COMPARISON: [facility], CT, CT CHEST WO CON, 02/21/2025, 9:00. [facility], CR, XR CHEST 1V, 02/17/2025, 16:25. [facility], CR, XR CHEST 1V, 02/05/2025, 13:10. FINDINGS: Surgical changes and devices: None. Lungs and pleura: Lungs are clear. Resolved right upper lobe opacity. No pleural effusions or pneumothorax. Mediastinum: Mediastinal contours appear normal. Heart size is normal. Bones and chest wall: No suspicious bony lesions. Overlying soft tissues appear unremarkable. IMPRESSION: No acute cardiopulmonary abnormality is seen. Dictated by: Jaime Lemons M.D. on 07/31/2025 at 18:20 Approved by: Jaime Lemons M.D. on 07/31/2025 at 18:21 MDM Narrative Medical decision making narrative: Patient here for worsening shortness of breath a past 3 weeks. 88% room air and very dyspneic. Respiratory therapist at bedside to start DuoNeb and albuterol nebulizers. However she is able to pause and speak nearly full sentences. Patient no longer smokes. Patient has history of COPD. Patient saw her discharge door operator 3 weeks ago and was given a week's worth of steroids but she felt like she did longer treatment. She has been trying to treat self at home without success. Denies any chest pain. No history of CHF. Patient has never had intubation in the past but has had admissions for COPD and pneumonia in the past. No known sick contacts no foreign travel. No blood clots in legs or lungs. MDM After history and exam, DuoNeb albuterol Solu-Medrol EKG CBC CMP troponin chest x-ray, admit respiratory panel Differential considered: Includes but not limited to pneumonia bronchitis COPD exacerbation Medical records reviewed: No recent visit for this complaint Lab Test results independently reviewed as above. Pertinent findings: WBC 7.2 hemoglobin 14.4 sodium 135 potassium 4.3 VBG 7.43, 44.7, 52, positive rhino virus Independently reviewed EKG sinus tachycardia rate 104 otherwise normal EKG Imaging studies independently reviewed: Chest x-ray no acute finding Consultations: 8:07 p.m.. Spoke with hospitalist, Dr. Gu, he will admit patient Re-evaluations: 7:58 p.m.. Ambulated patient in hallway room air 88% room air. Patient is more dyspneic than her baseline. She does agree for admission. Discussion: Appropriate for admission for viral infection causing COPD exacerbation hypoxia. Patient will benefit breathing treatments and steroids. Diagnosis: COPD exacerbation, rhino virus infection Discharge Plan Departure Patient Disposition: Admitted as Observation Clinical Impression: Acute exacerbation of chronic obstructive airways disease, Rhinovirus infection Admit Date/Time: 07/31/25 20:06 Admit Provider: Bennie Gu
[2025-07-31] MEDS: methylPREDNISolone succ 125 MG/2 ML VIAL IV (17:31)
[2025-07-31 17:32] LABS: Add Manual Diff / Slide Review NO; Hematocrit 42.6 % (36-46); Hemoglobin 14.4 g/dL (12.0-16.0); Lymphocytes Absolute Auto 2000 /uL (1100-4500); Mean Corpuscular HGB Conc 33.8 % (30-36); Mean Corpuscular Hemoglobin 27.7 PG (26-34); Mean Corpuscular Volume 82.0 fL (80-100); Platelet Count 388 X10^3/uL (150-400)
[2025-07-31 17:40] LABS: INR 1.0 (0.9-1.3); Prothrombin Time 11.8 SECONDS (9.4-12.5)
[2025-07-31 17:42] LABS: PTT Partial Thromboplastin Tim 36 SECONDS (25.1-36.5)
[2025-07-31] MEDS: ALBUTEROL/IPRATROPIUM 3 ML AMPUL INH (17:42)
[2025-07-31] MEDS: ALBUTEROL 2.5 MG/3 ML NEB (ADULT) INH ×2 (17:45→18:11)
[2025-07-31 17:46] LABS: Alanine Aminotransferase 20 IU/L (<35); Albumin 4.3 g/dL (3.5-5.0); Albumin Globulin Ratio 1.6 (1.0-2.8); Alkaline Phosphatase 104 U/L (38-126); Blood Urea Nitrogen 9 mg/dL (7-17); Calcium 9.1 mg/dL (8.4-10.2); Carbon Dioxide 26 mmol/L (22-32); Chloride 97 mmol/L (98-107); Estimated Glomerular Filt Rate > 60 mL/min (>60); Globulin 2.7 g/dL (1.7-4.1); Glucose 209 mg/dL (70-99); HEMOLYSIS < 15 (0-50); Magnesium 1.8 mg/dL (1.6-2.3); Potassium 4.3 mmol/L (3.4-5.1); Sodium 135 mmol/L (137-145); Total Protein 7.0 g/dL (6.3-8.2)
[2025-07-31 17:58] LABS: Troponin I < 0.012 ng/mL (0.01-0.034)
[2025-07-31 18:08] LABS: Base Excess VBG 4.6 mmol/L (0-4); HCO3 VBG 30 mmol/L (24-28); Oxygen Saturation VBG 87 % (70-75); PCO2 VBG 44.7 mmHg (45-50); PO2 VBG 52 mmHg (35-45); Total CO2 VBG 28 mmol/L (24-29); pH VBG 7.43 (7.33-7.43)
--- NOTE | 2025-07-31 18:08 | EKG_ITS ---
[facility] [address] [address] Test Date: 2025-07-31 Pat Name: Nieves Fernandez Department: [facility] Room: Gender: Female Senior Staff Psychologist: MAICOL : 1965 Requested By: Order Number: [id number] Reading MD: Mason Shah MD Measurements Intervals [place] Rate: 104 P: 70 GA: 142 QRS: 80 QRSD: 90 T: 62 QT: 350 QTc: 460 Interpretive Statements Sinus tachycardia Electronically Signed On 08-01-2025 6:34:54 PST by Mason Shah MD
--- NOTE | 2025-07-31 18:12 | PC.NURSE ---
Pt presents to ER with ~3wks of SOB. Tripod breathing on arrival to ER after exerting and walking into her room. Pt reports hx of asthma and COPD and that she has not been able to handle current exacerbation with at home treatments. Denies chest pain/nausea/vomiting. Reports she spoke with her DR just before the exacerbation and that he suspected she would have an exacerbation soon and started her on at home breathing treatments in an attempt to prevent it. However, breathing treatments were not successful and pt continued to have severe SOB. Pt states she has needed steroids in the past to help with exacerbations this severe.
[2025-07-31 18:53] LABS: Coronavirus NL 63 Not Detected (Not Detect); SARS- CoV-2 Not Detected (Not Detecte)
--- NOTE | 2025-07-31 19:05 | PC.NURSE ---
Handoff report received from FEDERICA Haq
--- NOTE | 2025-07-31 19:54 | PC.NURSE ---
Ambulated with FWW around nursing station. Half way around pt O2 started to drop from 92% to 88% RA. Pt reports that this is normal for her due to her COPD/CHF.
--- NOTE | 2025-07-31 21:02 | PC.NURSE ---
attempted to call report @2034. RN in room w/pt. RN called back to ER for report @2054 (FEDERICA Galindo)
[2025-08-01 05:48] LABS: Add Manual Diff / Slide Review NO; Hematocrit 40.5 % (36-46); Hemoglobin 13.4 g/dL (12.0-16.0); Lymphocytes Absolute Auto 700 /uL (1100-4500); Mean Corpuscular HGB Conc 33.2 % (30-36); Mean Corpuscular Hemoglobin 27.3 PG (26-34); Mean Corpuscular Volume 82.2 fL (80-100); Platelet Count 357 X10^3/uL (150-400)
[2025-08-01 06:02] LABS: Blood Urea Nitrogen 13 mg/dL (7-17); Calcium 8.9 mg/dL (8.4-10.2); Carbon Dioxide 29 mmol/L (22-32); Chloride 98 mmol/L (98-107); Estimated Glomerular Filt Rate > 60 mL/min (>60); Glucose 135 mg/dL (70-99); HEMOLYSIS < 15 (0-50); Potassium 4.6 mmol/L (3.4-5.1); Sodium 132 mmol/L (137-145)
--- NOTE | 2025-08-01 06:06 | PM.HP.1 ---
History of Present Illness History of Present Illness Date Patient Seen: 07/31/25 Time Patient Seen: 23:15 Chief complaint: SOB Narrative: 60-year-old female past medical history of COPD not oxygen dependent, possible CHLOE on oxygen at night only, anxiety and insomnia presents with complaint of shortness of breath. Per the patient's report, over the last few weeks, the patient has been having increasing shortness of breath despite using her inhalers at home. The patient did see her shellfish manager 3 weeks ago and was started on oral steroids but despite taking the steroids and her inhalers her symptoms of shortness of breath worsened today. The patient however denies any chest pain, fever, chills, nausea, vomiting, diarrhea or changes in her cough. In the emergency room, the patient was hemodynamically stable but was requiring 2 L of oxygen per nasal cannula. Labs were relatively benign with normal WBC. Glucose however was 209 ABG shows no CO2 retention. Troponin was negative. Patient was positive for rhinovirus. Chest x-ray shows no sign of focal pneumonia. The patient was given Solu-Medrol and DuoNebs. [facility] Medical History COPD (chronic obstructive pulmonary disease) Social History household members: children Smoking Status: Former smoker alcohol intake: never Meds Home Medications and Allergies Home Medications ?Medication ?Instructions ?Recorded ?Confirmed ?Type tiotropium bromide 2.5 1 puff inhalation DAILY 08/09/22 07/31/25 History mcg/actuation mist for inhalation (Spiriva Respimat) albuterol sulfate 2.5 mg/3 mL 2.5 mg Q4HR PRN Shortness Of 02/03/25 02/17/25 History (0.083 %) solution for nebulization Breath Or Wheezing albuterol sulfate 90 mcg/actuation 2 puff inhalation Q6H PRN 02/03/25 07/31/25 History aerosol inhaler Shortness Of Breath Or Wheezing budesonide-formoterol HFA 160 2 puff inhalation BID 02/03/25 07/31/25 History mcg-4.5 mcg/actuation aerosol inhaler hydroxyzine HCl 50 mg tablet 50 mg PO QID PRN Anxiety 02/03/25 07/31/25 History trazodone 50 mg tablet 50 mg PO ONCE PM PRN Insomnia 02/03/25 07/31/25 History azithromycin 500 mg tablet 500 mg PO 3XW 07/31/25 07/31/25 History Allergies Allergy/AdvReac Type Severity Reaction Status Date / Time morphine AdvReac sick Verified 07/31/25 17:28 walnut AdvReac raw mouth Verified 07/31/25 17:28 Review of Systems Review of Systems ROS: Yes All systems reviewed with the patient and are negative except as otherwise documented Exam Vital Signs (past 8 hours): Oxygen Delivery Method Room Air Oxygen Flow Rate 1 Narrative Exam Narrative: Physical Exam: GENERAL: The patient is not in any acute distressed. Awake and alert. HEENT: Nonicteric sclerae, PERRLA, EOMI. Oropharynx clear. Moist mucous membranes. Conjunctivae appear well perfused. HEART: Regular rate and rhythm without murmurs. No lower extremities edema. LUNGS: Clear to auscultation bilaterally. No wheezing, crackles or rhonchi ABDOMEN: Soft, positive bowel sounds, nontender. SKIN: No rash, no excessive bruising, petechiae, or purpura. NEUROLOGIC: AxO x 3. Cranial nerves II-XII intact without motor/sensory deficit. Objective Labs 08/01/25 05:30 08/01/25 05:30 Labs: Laboratory Results - last 24 hr 07/31/25 07/31/25 07/31/25 17:00 18:00 18:04 WBC 7.2 RBC 5.19 Hgb 14.4 Hct 42.6 MCV 82.0 MCH 27.7 MCHC 33.8 RDW 13.0 Plt Count 388 Neut % (Auto) 57.7 Lymph % (Auto) 28.0 [place] % (Auto) 7.6 Eos % (Auto) 5.7 H Baso % (Auto) 1.0 Neut # (Auto) 4100 Lymph # (Auto) 2000 [place] # (Auto) 500 Eos # (Auto) 400 Baso # (Auto) 100 PT 11.8 INR 1.0 APTT 36 VBG pH 7.43 VBG pCO2 44.7 L VBG pO2 52 H VBG HCO3 30 H VBG Total CO2 28 VBG O2 Saturation 87 H VBG Base Excess 4.6 H FiO2 % 21.0 % Sodium 135 L Potassium 4.3 Chloride 97 L Carbon Dioxide 26 BUN 9 Creatinine 0.60 Estimated GFR > 60 BUN/Creatinine Ratio 15.0 Glucose 209 H Calcium 9.1 Magnesium 1.8 Total Bilirubin 0.6 AST 24 ALT 20 Alkaline Phosphatase 104 Troponin I < 0.012 Total Protein 7.0 Albumin 4.3 Globulin 2.7 Albumin/Globulin Ratio 1.6 Chlamy pneumoniae PCR Not detected Adenovirus (PCR) Not detected B. pertussis DNA (PCR) Not detected B.parapertussis DNA PCR Not detected Coronavirus OC43 (PCR) Not detected Coronavirus HKU1 (PCR) Not detected Coronavirus 229E (PCR) Not detected SARS-CoV-2 (PCR) Not detected Coronavirus NL63 (PCR) Not detected Human Metapneumovir PCR Not detected Influenza Type A (PCR) Not detected Influenza Type B (PCR) Not detected M. pneumoniae (PCR) Not detected Parainfluenza 1 (PCR) Not detected Parainfluenza 2 (PCR) Not detected Parainfluenza 3 (PCR) Not detected Parainfluenza 4 (PCR) Not detected RSV (PCR) Not detected Entero/Rhino (PCR) Detected H 08/01/25 05:30 WBC 5.2 RBC 4.92 Hgb 13.4 Hct 40.5 MCV 82.2 MCH 27.3 MCHC 33.2 RDW 13.0 Plt Count 357 Neut % (Auto) 82.4 H D Lymph % (Auto) 14.[address] [place] % (Auto) 2.6 L Eos % (Auto) 0.0 L Baso % (Auto) 0.8 Neut # (Auto) 4300 Lymph # (Auto) [address] [place] [place] # (Auto) 100 Eos # (Auto) 0 Baso # (Auto) 0 PT INR APTT VBG pH VBG pCO2 VBG pO2 VBG HCO3 VBG Total CO2 VBG O2 Saturation VBG Base Excess FiO2 % Sodium 132 L Potassium 4.6 Chloride 98 Carbon Dioxide 29 BUN 13 Creatinine 0.55 Estimated GFR > 60 BUN/Creatinine Ratio 23.6 H Glucose 135 H Calcium 8.9 Magnesium Total Bilirubin AST ALT Alkaline Phosphatase Troponin I Total Protein Albumin Globulin Albumin/Globulin Ratio Chlamy pneumoniae PCR Adenovirus (PCR) B. pertussis DNA (PCR) B.parapertussis DNA PCR Coronavirus OC43 (PCR) Coronavirus HKU1 (PCR) Coronavirus 229E (PCR) SARS-CoV-2 (PCR) Coronavirus NL63 (PCR) Human Metapneumovir PCR Influenza Type A (PCR) Influenza Type B (PCR) M. pneumoniae (PCR) Parainfluenza 1 (PCR) Parainfluenza 2 (PCR) Parainfluenza 3 (PCR) Parainfluenza 4 (PCR) RSV (PCR) Entero/Rhino (PCR) Assessment & Plan Assessment & Plan narrative: COPD exacerbation. Admit the patient to medical inpatient. There is no sign of pneumonia though the patient was positive for rhinovirus. Continue Solu-Medrol DuoNebs and oxygen. Acute on chronic respiratory failure with hypoxemia but of note patient is not on oxygen during the daytime but only on 1 L of oxygen at night. Patient currently on 2 L of oxygen per nasal cannula. Likely due to above. Treat as above and wean down oxygen as able. Anxiety. Resume home medication. Hyperglycemia. Glucose 209. No reported history of DM. Will monitor glucose with SQ insulin for now Insomnia. Resume home trazodone. DVT prophylaxis heparin subcu. CODE STATUS full code. Disposition likely home in 2 days - As the provider of this telehealth evaluation, requested by the patient's evaluating physician, I attest that I introduced myself to the patient, provided my credentials and determined that telemedicine via a real-time, 2 way interactive audio and video platform is an appropriate and effective means of providing this service. - I reviewed the patient's chart and had a discussion with the member of the patient's treatment team. - The patient and I mutually agreed with continuation of this evaluation via telemedicine. The patient consented for the telemedicine evaluation. - This virtual encounter was taken place from [place] by Dr. Bennie Gu. The patient was evaluated at [facility]. The encounter was approximately 35 minutes. The nurse was present during the entire time of the encounter and was able to assists with exam/stethoscope. Time-Based Coding :: [TOTAL MINUTES] spent with patient and on the chart (including review of chart, obtaining history, exam, reviewing outside data, placing orders, documenting exam and treatment plan, and counseling patient) on [DATE].
[2025-08-01] MEDS: methylPREDNISolone succ 125 MG/2 ML VIAL 60 MG IV (06:25)
--- NOTE | 2025-08-01 07:20 | PM.PN.1 ---
Subjective Subjective Interval history: Summary (night doctor): 60-year-old female past medical history of COPD not oxygen dependent, possible CHLOE on oxygen at night only, anxiety and insomnia presents with complaint of shortness of breath. Per the patient's report, over the last few weeks, the patient has been having increasing shortness of breath despite using her inhalers at home. The patient did see her supervisor meter shop 3 weeks ago and was started on oral steroids but despite taking the steroids and her inhalers her symptoms of shortness of breath worsened today. The patient however denies any chest pain, fever, chills, nausea, vomiting, diarrhea or changes in her cough. In the emergency room, the patient was hemodynamically stable but was requiring 2 L of oxygen per nasal cannula. Labs were relatively benign with normal WBC. Glucose however was 209 ABG shows no CO2 retention. Troponin was negative. Patient was positive for rhinovirus. Chest x-ray shows no sign of focal pneumonia. The patient was given Solu-Medrol and DuoNebs. S: O: VSS NAD, alert and oriented. Fluent speech. Lungs are clear, normal rate and effort. Heart is regular, no murmur gallop or rub. Abdomen is soft, non distended. Extremities are free of edema. IMAGING: Chest x-ray shows no sign of focal pneumonia. A/P: COPD exacerbation. Admit the patient to medical inpatient. There is no sign of pneumonia though the patient was positive for rhinovirus. Continue Solu-Medrol DuoNebs and oxygen. Acute on chronic respiratory failure with hypoxemia but of note patient is not on oxygen during the daytime but only on 1 L of oxygen at night. Patient currently on 2 L of oxygen per nasal cannula. Likely due to above. Treat as above and wean down oxygen as able. Anxiety. Resume home medication. Hyperglycemia. Glucose 209. No reported history of DM. Will monitor glucose with SQ insulin for now Insomnia. Resume home trazodone. DVT prophylaxis heparin subcu. CODE STATUS full code. Disposition likely home in 2 days Exam Vital Signs (past 8 hours): Oxygen Delivery Method Room Air Oxygen Flow Rate 1 Objective Labs 08/01/25 05:30 08/01/25 05:30 Labs: Laboratory Results - last 24 hr 07/31/25 07/31/25 07/31/25 17:00 18:00 18:04 WBC 7.2 RBC 5.19 Hgb 14.4 Hct 42.6 MCV 82.0 MCH 27.7 MCHC 33.8 RDW 13.0 Plt Count 388 Neut % (Auto) 57.7 Lymph % (Auto) 28.0 [place] % (Auto) 7.6 Eos % (Auto) 5.7 H Baso % (Auto) 1.0 Neut # (Auto) 4100 Lymph # (Auto) 2000 [place] # (Auto) 500 Eos # (Auto) 400 Baso # (Auto) 100 PT 11.8 INR 1.0 APTT 36 VBG pH 7.43 VBG pCO2 44.7 L VBG pO2 52 H VBG HCO3 30 H VBG Total CO2 28 VBG O2 Saturation 87 H VBG Base Excess 4.6 H FiO2 % 21.0 % Sodium 135 L Potassium 4.3 Chloride 97 L Carbon Dioxide 26 BUN 9 Creatinine 0.60 Estimated GFR > 60 BUN/Creatinine Ratio 15.0 Glucose 209 H Calcium 9.1 Magnesium 1.8 Total Bilirubin 0.6 AST 24 ALT 20 Alkaline Phosphatase 104 Troponin I < 0.012 Total Protein 7.0 Albumin 4.3 Globulin 2.7 Albumin/Globulin Ratio 1.6 Chlamy pneumoniae PCR Not detected Adenovirus (PCR) Not detected B. pertussis DNA (PCR) Not detected B.parapertussis DNA PCR Not detected Coronavirus OC43 (PCR) Not detected Coronavirus HKU1 (PCR) Not detected Coronavirus 229E (PCR) Not detected SARS-CoV-2 (PCR) Not detected Coronavirus NL63 (PCR) Not detected Human Metapneumovir PCR Not detected Influenza Type A (PCR) Not detected Influenza Type B (PCR) Not detected M. pneumoniae (PCR) Not detected Parainfluenza 1 (PCR) Not detected Parainfluenza 2 (PCR) Not detected Parainfluenza 3 (PCR) Not detected Parainfluenza 4 (PCR) Not detected RSV (PCR) Not detected Entero/Rhino (PCR) Detected H 08/01/25 05:30 WBC 5.2 RBC 4.92 Hgb 13.4 Hct 40.5 MCV 82.2 MCH 27.3 MCHC 33.2 RDW 13.0 Plt Count 357 Neut % (Auto) 82.4 H D Lymph % (Auto) 14.2 L [place] % (Auto) 2.6 L Eos % (Auto) 0.0 L Baso % (Auto) 0.8 Neut # (Auto) 4300 Lymph # (Auto) 700 L [place] # (Auto) 100 Eos # (Auto) 0 Baso # (Auto) 0 PT INR APTT VBG pH VBG pCO2 VBG pO2 VBG HCO3 VBG Total CO2 VBG O2 Saturation VBG Base Excess FiO2 % Sodium 132 L Potassium 4.6 Chloride 98 Carbon Dioxide 29 BUN 13 Creatinine 0.55 Estimated GFR > 60 BUN/Creatinine Ratio 23.6 H Glucose 135 H Calcium 8.9 Magnesium Total Bilirubin AST ALT Alkaline Phosphatase Troponin I Total Protein Albumin Globulin Albumin/Globulin Ratio Chlamy pneumoniae PCR Adenovirus (PCR) B. pertussis DNA (PCR) B.parapertussis DNA PCR Coronavirus OC43 (PCR) Coronavirus HKU1 (PCR) Coronavirus 229E (PCR) SARS-CoV-2 (PCR) Coronavirus NL63 (PCR) Human Metapneumovir PCR Influenza Type A (PCR) Influenza Type B (PCR) M. pneumoniae (PCR) Parainfluenza 1 (PCR) Parainfluenza 2 (PCR) Parainfluenza 3 (PCR) Parainfluenza 4 (PCR) RSV (PCR) Entero/Rhino (PCR) [facility] Medical History COPD (chronic obstructive pulmonary disease) Social History household members: children Smoking Status: Former smoker alcohol intake: never Assessment & Plan Time-Based Coding :: [TOTAL MINUTES] spent with patient and on the chart (including review of chart, obtaining history, exam, reviewing outside data, placing orders, documenting exam and treatment plan, and counseling patient) on [DATE].
[2025-08-01] MEDS: BUDESONIDE 0.5 MG/2 ML NEB INH (07:39)
[2025-08-01] MEDS: ALBUTEROL/IPRATROPIUM 3 ML AMPUL INH (07:39)
[2025-08-01 07:54] VITALS: PULSE 86; RESP 20; O2SAT 93
[2025-08-01 08:10] VITALS: BP 127/84; PULSE 93; RESP 17; TEMP 36.4; O2SAT 91
--- NOTE | 2025-08-01 09:39 | CM.DANOTE ---
Initial DCP Assessment Note. Review EMR and PT Interview. Met with patient at bedside to discuss discharge needs.PT is alert x 4 sitting up in chair. No acute distress. Patient lives independently Payor:??[place] PCP: , Remanufacturing Technician in [place] Summary & Plan:?60 yo female arrived to ED via POC c/o SOB. Admitted OBS. Dx. COPD Exacerbation. Plan: Neds prn and steroids. Discharge Planning/Care Management CM Discharge Assessment Start: 07/31/25 20:16 Freq: Status: Active Protocol: Document 08/01/25 09:37 (Rec: 08/01/25 09:39 [id number]) Discharge Planning Assessment Assigned Discharge Irene Martinez RN CM Global Logistics Analyst Provider Dr. Ojeda, Remanufacturing Technician Insurance Other (enter in Comment) Insurance Comment [place] Advance Directives? No Advance Directives No on File History Provided By Patient,Medical Record Has Patient been No admitted in last 30 days? Prior Living House Arrangements Household Members children Type of Drives own vehicle transporation used prior to admit Independent with ADL Yes 's Is patient alert and Yes oriented? Caregiver for No Another Barriers to No Discharge Comment Self. Her car is in Hospital parking lot. Discharge Plan Home Transportation self Arrangement Referrals Initiated None needed Additional Comment Pending progress Review Status In Process Please Provide Date 08/01/25 Initial DC Assessment Was Performed Next Review Type Continued Stay Review
--- NOTE | 2025-08-01 10:24 | PM.DS.1 ---
History of Present Illness History of Present Illness Chief complaint: SOB Narrative: From H&P: Summary (night doctor): 60-year-old female past medical history of COPD not oxygen dependent, possible CHLOE on oxygen at night only, anxiety and insomnia presents with complaint of shortness of breath. Per the patient's report, over the last few weeks, the patient has been having increasing shortness of breath despite using her inhalers at home. The patient did see her senior marketing data analyst 3 weeks ago and was started on oral steroids but despite taking the steroids and her inhalers her symptoms of shortness of breath worsened today. The patient however denies any chest pain, fever, chills, nausea, vomiting, diarrhea or changes in her cough. In the emergency room, the patient was hemodynamically stable but was requiring 2 L of oxygen per nasal cannula. Labs were relatively benign with normal WBC. Glucose however was 209 ABG shows no CO2 retention. Troponin was negative. Patient was positive for rhinovirus. Chest x-ray shows no sign of focal pneumonia. The patient was given Solu-Medrol and DuoNebs. Discharge Providers Provider Date of admission: 07/31/25 20:06 Discharge Date: 08/01/25 Primary care physician: Doctor Mike MD Consults: None. Discharge provider: Matthew Beckman MD Summary Hospital Course Discharge Diagnosis: 1. COPD exacerbation. Improved. 2. Acute on chronic respiratory failure with hypoxemia, improved. 3. Anxiety. Stable. 4. Hyperglycemia. Improved. 5. Insomnia. Stable. Hospital Course: She was admitted and treated with corticosteroids and bronchodilators. She had an unexpectedly rapid improvement allowing for discharge after 1 midnight. She felt at baseline requested discharge with ongoing prednisone we will follow up by phone with her senior marketing data analyst in [place]. Status at Discharge Cognitive/behavioral status at discharge: oriented Functional status at discharge: independent ambulation Overall status at discharge: patient is back to baseline Time Spent with Patient Time spent: Greater than 30 minutes Exam Vital Signs (past 8 hours): - 08/01/25 07:54 Pulse Rate 86 Respiratory Rate 20 Pulse Oximetry 93 Oxygen Delivery Method Nasal Cannula Oxygen Flow Rate 1 Oxygen Delivery Method Nasal Cannula Oxygen Flow Rate 1 Narrative Exam Narrative: NAD, alert and oriented. Fluent speech. Lungs are clear, normal rate and effort. Globally diminished breath sounds and mild prolongation of expiratory phase. Heart is regular, no murmur gallop or rub. Abdomen is soft, non distended. Extremities are free of edema. Objective Imaging Chest x-ray: Radiologist's impression: Chest x-ray shows no sign of focal pneumonia. Labs 08/01/25 05:30 08/01/25 05:30 Labs: Laboratory Results - last 24 hr 07/31/25 07/31/25 07/31/25 17:00 18:00 18:04 WBC 7.2 RBC 5.19 Hgb 14.4 Hct 42.6 MCV 82.0 MCH 27.7 MCHC 33.8 RDW 13.0 Plt Count 388 Neut % (Auto) 57.7 Lymph % (Auto) 28.0 [place] % (Auto) 7.6 Eos % (Auto) 5.7 H Baso % (Auto) 1.0 Neut # (Auto) 4100 Lymph # (Auto) 2000 [place] # (Auto) 500 Eos # (Auto) 400 Baso # (Auto) 100 PT 11.8 INR 1.0 APTT 36 VBG pH 7.43 VBG pCO2 44.7 L VBG pO2 52 H VBG HCO3 30 H VBG Total CO2 28 VBG O2 Saturation 87 H VBG Base Excess 4.6 H FiO2 % 21.0 % Sodium 135 L Potassium 4.3 Chloride 97 L Carbon Dioxide 26 BUN 9 Creatinine 0.60 Estimated GFR > 60 BUN/Creatinine Ratio 15.0 Glucose 209 H POC Whole Bld Glucose Calcium 9.1 Magnesium 1.8 Total Bilirubin 0.6 AST 24 ALT 20 Alkaline Phosphatase 104 Troponin I < 0.012 Total Protein 7.0 Albumin 4.3 Globulin 2.7 Albumin/Globulin Ratio 1.6 Chlamy pneumoniae PCR Not detected Adenovirus (PCR) Not detected B. pertussis DNA (PCR) Not detected B.parapertussis DNA PCR Not detected Coronavirus OC43 (PCR) Not detected Coronavirus HKU1 (PCR) Not detected Coronavirus 229E (PCR) Not detected SARS-CoV-2 (PCR) Not detected Coronavirus NL63 (PCR) Not detected Human Metapneumovir PCR Not detected Influenza Type A (PCR) Not detected Influenza Type B (PCR) Not detected M. pneumoniae (PCR) Not detected Parainfluenza 1 (PCR) Not detected Parainfluenza 2 (PCR) Not detected Parainfluenza 3 (PCR) Not detected Parainfluenza 4 (PCR) Not detected RSV (PCR) Not detected Entero/Rhino (PCR) Detected H 08/01/25 08/01/25 05:30 08:12 WBC 5.2 RBC 4.92 Hgb 13.4 Hct 40.5 MCV 82.2 MCH 27.3 MCHC 33.2 RDW 13.0 Plt Count 357 Neut % (Auto) 82.4 H D Lymph % (Auto) 14.2 L [place] % (Auto) 2.6 L Eos % (Auto) 0.0 L Baso % (Auto) 0.8 Neut # (Auto) 4300 Lymph # (Auto) 700 L [place] # (Auto) 100 Eos # (Auto) 0 Baso # (Auto) 0 PT INR APTT VBG pH VBG pCO2 VBG pO2 VBG HCO3 VBG Total CO2 VBG O2 Saturation VBG Base Excess FiO2 % Sodium 132 L Potassium 4.6 Chloride 98 Carbon Dioxide 29 BUN 13 Creatinine 0.55 Estimated GFR > 60 BUN/Creatinine Ratio 23.6 H Glucose 135 H POC Whole Bld Glucose 122 H Calcium 8.9 Magnesium Total Bilirubin AST ALT Alkaline Phosphatase Troponin I Total Protein Albumin Globulin Albumin/Globulin Ratio Chlamy pneumoniae PCR Adenovirus (PCR) B. pertussis DNA (PCR) B.parapertussis DNA PCR Coronavirus OC43 (PCR) Coronavirus HKU1 (PCR) Coronavirus 229E (PCR) SARS-CoV-2 (PCR) Coronavirus NL63 (PCR) Human Metapneumovir PCR Influenza Type A (PCR) Influenza Type B (PCR) M. pneumoniae (PCR) Parainfluenza 1 (PCR) Parainfluenza 2 (PCR) Parainfluenza 3 (PCR) Parainfluenza 4 (PCR) RSV (PCR) Entero/Rhino (PCR) [facility] Medical History COPD (chronic obstructive pulmonary disease) Social History household members: children Smoking Status: Former smoker alcohol intake: never Discharge Assessment & Plan Assessment and Plan Assessment: COPD exacerbation, improved. Plan of Treatment: Discharge home with prednisone 40 daily, she will take this for 5 days and then taper to 20 daily for an additional 5 days. She routinely notes that 5 days of steroids as not enough to get her over exacerbation. Discharge Plan Discharge Plan Patient Disposition: Home Provider Discharge Comment: She feels much improved and requests discharge. She was stable for discharge home. Discharge orders & Medications Prescriptions: New prednisone 20 mg tablet 40 mg PO DAILY Qty: 20 0RF Continued Spiriva Respimat 2.5 mcg/actuation mist 1 puff INHALATION DAILY Patient Comments: inhale 2 puffs once daily albuterol sulfate 2.5 mg /3 mL (0.083 %) solution for nebulization 2.5 mg continuous nebulization Q4HR PRN (Reason: Shortness Of Breath Or Wheezing) Patient Comments: [NO ORIGINAL SIG] trazodone 50 mg tablet 50 mg PO ONCE PM PRN (Reason: Insomnia) hydroxyzine HCl 50 mg tablet 50 mg PO QID PRN (Reason: Anxiety) albuterol sulfate 90 mcg/actuation HFA aerosol inhaler 2 puff inhalation Q6H PRN (Reason: Shortness Of Breath Or Wheezing) budesonide-formoterol 160-4.5 mcg/actuation Hfa Aerosol Inhaler 2 puff INHALATION BID azithromycin 500 mg tablet 500 mg PO 3XW Follow up/Referrals: Doctor Mckeon MD [Primary Care Provider, Medical] Discharge Health Status Multidrug resistant organism: No MDRO Diet/Activity/Treatments Diet: Regular Visit Report/Discharge Packet Instructions: DI for Chronic Obstructive Pulmonary Disease Stand Alone Forms: Patient Portal/API Discharge Data Primary Care Provider: Doctor Mike Attending Provider: Bennie Gu Admit Date/Time: 07/31/25 20:06
--- NOTE | 2025-08-01 11:10 | PC.NURSE ---
1058: discharge instructions given and understood by patient. PIV removed. Patient discharged by private vehicle. Escorted to entrance by wheelchair.
== END 2025-08-01 11:13 | disposition home or self-care (01) ==
LOC: ED 20:01 → AC 20:07
PROVIDERS: Admitting Provider Internal Medicine; Emergency Provider Emergency Medicine; Referring Provider Emergency Medicine; Visit Provider Internal Medicine
DX: J96.21 Acute and chronic respiratory failure with hypoxia (principal); B97.89 Other viral agents as the cause of diseases classified elsewhere; J44.1 Chronic obstructive pulmonary disease with (acute) exacerbation; F41.9 Anxiety disorder, unspecified; R73.9 Hyperglycemia, unspecified; G47.00 Insomnia, unspecified; Z87.891 Personal history of nicotine dependence
CPT/HCPCS: 36415; 71045; 80048; 80053; 82805; 82962; 83735; 84484; 85025; 85610; 85730; 87633; 93005; 94640; 96374; 96376; 99284; G0378; A9270; J2919; J7613

== ENCOUNTER 2025-08-20 18:30 | Inpatient (IN) | payer BC, SELFPAY ==
[2025-07-31 20:16] VITALS: BMI 26.5
[2025-08-20] VITALS (13 sets, daily range): BP systolic 128–137; BP diastolic 66–76; PULSE 98–117; RESP 19–38; TEMP 36.8; O2SAT 87–96; BMI 24.7
--- NOTE | 2025-08-20 19:05 | DI.RAD.S_ITS ---
PROCEDURE: XR CHEST 1V INDICATIONS: short of breath TECHNIQUE: One view of the chest was acquired. COMPARISON: , CR, XR CHEST 1V, 07/31/2025, 17:36. FINDINGS: Surgical changes and devices: None. Lungs and pleura: Lungs are clear. No pleural effusions or pneumothorax. Mediastinum: Mediastinal contours appear normal. Heart size is normal. Bones and chest wall: No suspicious bony lesions. Overlying soft tissues appear unremarkable. IMPRESSION: No acute pulmonary process. Dictated by: Sury Wan M.D. on 08/20/2025 at 19:34 Approved by: Sury Wan M.D. on 08/20/2025 at 19:34
[2025-08-20] MEDS: ALBUTEROL/IPRATROPIUM 3 ML AMPUL INH (19:17)
--- NOTE | 2025-08-20 19:37 | EKG_ITS ---
[facility] [address] [address] Test Date: 2025-08-20 Pat Name: Nieves Fernandez Department: [facility] Room: Gender: Female Coordinator Volunteer Services: ROLLY : 1965 Requested By: Order Number: [id number] Reading MD: Matthew Beckman Measurements Intervals [place] Rate: 97 P: 81 NM: 150 QRS: 80 QRSD: 88 T: 70 QT: 332 QTc: 421 Interpretive Statements Normal sinus rhythm Electronically Signed On 08-25-2025 12:28:19 PST by Matthew Beckman
[2025-08-20 19:38] LABS: Add Manual Diff / Slide Review NO; Hematocrit 41.6 % (36-46); Hemoglobin 14.0 g/dL (12.0-16.0); Lymphocytes Absolute Auto 1800 /uL (1100-4500); Mean Corpuscular HGB Conc 33.7 % (30-36); Mean Corpuscular Hemoglobin 27.7 PG (26-34); Mean Corpuscular Volume 82.0 fL (80-100); Platelet Count 327 X10^3/uL (150-400)
[2025-08-20 19:52] LABS: Alanine Aminotransferase 13 IU/L (<35); Albumin 4.2 g/dL (3.5-5.0); Albumin Globulin Ratio 1.4 (1.0-2.8); Blood Urea Nitrogen 8 mg/dL (7-17); Calcium 9.1 mg/dL (8.4-10.2); Carbon Dioxide 27 mmol/L (22-32); Chloride 102 mmol/L (98-107); Estimated Glomerular Filt Rate > 60 mL/min (>60); Globulin 3.0 g/dL (1.7-4.1); Glucose 108 mg/dL (70-99); HEMOLYSIS < 15 (0-50); Lipase 83 U/L (23-300); Potassium 4.1 mmol/L (3.4-5.1); Sodium 136 mmol/L (137-145); Total Protein 7.2 g/dL (6.3-8.2)
[2025-08-20 19:53] LABS: Alkaline Phosphatase 100 U/L (38-126); Magnesium 2.0 mg/dL (1.6-2.3)
[2025-08-20] MEDS: methylPREDNISolone succ 125 MG/2 ML VIAL IV (20:00)
[2025-08-20 20:01] LABS: NT-proBNP (BNP-Adult 18+) 69 pg/mL (<125)
[2025-08-20 20:05] LABS: Troponin I < 0.012 ng/mL (0.01-0.034)
[2025-08-20 20:22] LABS: Influenza A - CEPHEID Flu A NEGATIVE (NEGATIVE); Influenza B - CEPHEID Flu B NEGATIVE (NEGATIVE)
[2025-08-20 20:23] LABS: COVID-19 CEPHEID 4-PLEX PCR Negative (Negative)
--- NOTE | 2025-08-20 21:10 | ED.SOB ---
HPI - SOB/Dyspnea General Chief Complaint: Shortness of Breath/Dyspnea Stated Complaint: SOB, worsening over 2 days Time Seen by Provider: 08/20/25 19:14 Source: patient, RN notes reviewed and old records reviewed Mode of arrival: Wheelchair Limitations: no limitations History of Present Illness HPI Narrative: 60-year-old female known history of COPD, uses O2 at night on multiple inhalers patient presents with complaint of persistent and worsening shortness of breath. She states she has had symptoms for over a month. She was hospitalized in mid July. Patient states she was placed on steroids has a 10 day course stopped that was hospitalized again had another 10 day taper and states since she has stopped has been worsening again. She denies any fevers. States she was told she had an norovirus at her last hospital stay. She has not had any new nasal congestion. She denies any chest pain, she just feel short of breath with increasing difficulty with dyspnea even trying to walk across the room. Patient states no nausea or vomiting. No syncope. No other GI symptoms. Some mild swelling bilateral lower extremity. Patient states former smoker, no daily alcohol, denies recreational drugs. Follows with pulmonology. Related Data Home Medications ?Medication ?Instructions ?Recorded ?Confirmed tiotropium bromide 2.5 1 puff inhalation DAILY 08/09/22 07/31/25 mcg/actuation mist for inhalation (Spiriva Respimat) albuterol sulfate 2.5 mg/3 mL 2.5 mg continuous nebulization 02/03/25 08/01/25 (0.083 %) solution for nebulization Q4HR PRN Shortness Of Breath Or Wheezing albuterol sulfate 90 mcg/actuation 2 puff inhalation Q6H PRN 02/03/25 07/31/25 aerosol inhaler Shortness Of Breath Or Wheezing budesonide-formoterol HFA 160 2 puff inhalation BID 02/03/25 07/31/25 mcg-4.5 mcg/actuation aerosol inhaler hydroxyzine HCl 50 mg tablet 50 mg PO QID PRN Anxiety 02/03/25 07/31/25 trazodone 50 mg tablet 50 mg PO ONCE PM PRN Insomnia 02/03/25 07/31/25 azithromycin 500 mg tablet 500 mg PO 3XW 07/31/25 07/31/25 Previous Rx's ?Medication ?Instructions ?Recorded prednisone 20 mg tablet 40 mg (2 x 20 mg) PO DAILY #20 tabs 08/01/25 Allergies Allergy/AdvReac Type Severity Reaction Status Date / Time morphine AdvReac sick Verified 07/31/25 17:28 walnut AdvReac raw mouth Verified 07/31/25 17:28 Review of Systems Review of Systems ROS Unobtainable: All systems reviewed & are unremarkable except as noted in HPI and below Patient History Medical History COPD (chronic obstructive pulmonary disease) Social History household members: children alcohol intake: never Exam Narrative Exam Narrative: GEN: well nourished, well appearing female, alert and oriented x 3, patient appears to be in moderate distress. HEENT: Atraumatic, pupils are equal round reactive to light, extraocular movements are intact, nares are clear, there is no conjunctival pallor. Throat is clear without any exudates, erythema, tonsillar enlargement or uvular deviation HEART: Tachycardic but regular rate and rhythm without murmur, clicks, rubs. No carotid bruits, pulses are equal in upper and lower extremities. Trace pedal edema LUNGS:Lungs decreased bilaterally, no wheezes but patient received DuoNebs prior to evaluation, rales, crackles, chest moves symmetrically, mild tachypnea. ABD:bowel sounds normal, soft, non-tender, no guarding, rebound, rigidity, no masses noted, no hepatosplenomegaly :No CVA tenderness MSCL: Non-tender, no muscle atrophy, muscles strength 5/5 upper and lower extremities, full range of motion. NEURO:CN 2-12 intact, sensation normal Initial Vital Signs Initial Vital Signs: Vital Signs Temperature 98.3 F 08/20/25 19:02 Pulse Rate 108 H 08/20/25 19:02 Respiratory Rate 20 08/20/25 19:02 Blood Pressure 137/76 08/20/25 19:02 Pulse Oximetry 94 08/20/25 19:02 Oxygen Delivery Method Room Air 08/20/25 19:02 Course Orders Ordered: ED Orders 08/20/25 19:05 Chest [XR chest 1V] Stat RT Consult Eval and Treat NOW 08/20/25 19:14 EKG-12 Lead Stat 08/20/25 19:28 Complete Blood Count AUTO DIFF Stat Comprehensive Metabolic Panel Stat Covid-19 + FLU A/B + RSV - PCR Stat Lipase Stat Magnesium Stat NT-proBNP (BNP-Adult 18+) Stat Troponin I Stat 08/20/25 22:08 CT angio chest PE protocol Stat Discontinued Medications Albuterol/Ipratropium (Albuterol/Ipratropium 3 Ml Ampul) 3 ml INH NOW ONE Stop: 08/20/25 19:06 Last Admin: 08/20/25 19:17 Dose: 3 ml Documented By: ROLLY Albuterol/Ipratropium (Albuterol/Ipratropium 3 Ml Ampul) 6 ml INH NOW ONE Stop: 08/20/25 21:13 Last Admin: 08/20/25 21:17 Dose: 6 ml Documented By: ROLLY Magnesium Sulfate (Magnesium Sulfate) 2 gm in 50 mls @ 150 mls/hr IV NOW ONE Stop: 08/20/25 21:29 Last Infusion: 08/20/25 21:59 Dose: Infused Documented By: ABIDA Co-signed By: NOE Admin: 08/20/25 21:36 Dose: 150 mls/hr Documented By: FREDO Co-signed By: ABIDA Methylprednisolone (Methylprednisolone Succ 125 Mg/2 Ml Vial) 125 mg IV NOW ONE Stop: 08/20/25 19:42 Last Admin: 08/20/25 20:00 Dose: 125 mg Documented By: ABIDA Vital Signs Vital signs: Vital Signs - 8 hr 08/20/25 19:02 08/20/25 19:17 08/20/25 20:06 Temperature 98.3 F Pulse Rate 108 H 113 H 106 H Respiratory Rate 20 22 24 Blood Pressure 137/76 Pulse Oximetry 94 93 92 Oxygen Delivery Method Room Air Room Air Room Air Oxygen Flow Rate 0 Fraction of Inspired Oxygen 21 08/20/25 20:31 08/20/25 21:00 08/20/25 21:17 Temperature Pulse Rate 103 H 98 H 108 H Respiratory Rate 28 H 24 24 Blood Pressure Pulse Oximetry 91 91 91 Oxygen Delivery Method Room Air Oxygen Flow Rate 0 Fraction of Inspired Oxygen 21 08/20/25 21:30 08/20/25 22:00 08/20/25 22:33 Temperature Pulse Rate 104 H 109 H 113 H Respiratory Rate 38 H 31 H Blood Pressure Pulse Oximetry 91 89 L 87 L Oxygen Delivery Method Oxygen Flow Rate Fraction of Inspired Oxygen 08/20/25 22:35 08/20/25 22:35 08/20/25 23:00 Temperature Pulse Rate 117 H 107 H Respiratory Rate 25 H 21 Blood Pressure 128/66 Pulse Oximetry 95 93 Oxygen Delivery Method Nasal Cannula Nasal Cannula Oxygen Flow Rate 1 1 Fraction of Inspired Oxygen MDM - SOB/Dyspnea Lab Data 08/20/25 19:28 08/20/25 19:28 Labs: Lab Results 08/20/25 Range/Units 19:28 WBC 7.3 (4.5-11.0) X10^3/uL RBC 5.08 (4.0-5.2) X10^6/uL Hgb 14.0 (12.0-16.0) g/dL Hct 41.6 (36-46) % MCV 82.0 (80-100) fL MCH 27.7 (26-34) PG MCHC 33.7 (30-36) % RDW 13.3 (11.6-14.8) % Plt Count 327 (150-400) X10^3/uL Neut % (Auto) 58.4 (50-75) % Lymph % (Auto) 24.4 L (25-40) % [place] % (Auto) 10.9 (3-14) % Eos % (Auto) 5.0 H (2-4) % Baso % (Auto) 1.3 (0-2) % Neut # (Auto) 4300 (9800-7176) /uL Lymph # (Auto) 1800 (0890-8295) /uL [place] # (Auto) 800 (0-900) /uL Eos # (Auto) 400 (0-450) /uL Baso # (Auto) 100 (0-100) /uL Sodium 136 L (137-145) mmol/L Potassium 4.1 (3.4-5.1) mmol/L Chloride 102 (98-107) mmol/L Carbon Dioxide 27 (22-32) mmol/L BUN 8 (7-17) mg/dL Creatinine 0.73 (0.52-1.04) mg/dL Estimated GFR > 60 (>60) mL/min BUN/Creatinine Ratio 11.0 (6-22) Glucose 108 H (70-99) mg/dL Calcium 9.1 (8.4-10.2) mg/dL Magnesium 2.0 (1.6-2.3) mg/dL Total Bilirubin 0.7 (0.2-1.3) mg/dL AST 20 (14-36) IU/L ALT 13 (<35) IU/L Alkaline Phosphatase 100 (38-126) U/L Troponin I < 0.012 (0.01-0.034) ng/mL NT-Pro-B Natriuret Pep 69 (<125) pg/mL Total Protein 7.2 (6.3-8.2) g/dL Albumin 4.2 (3.5-5.0) g/dL Globulin 3.0 (1.7-4.1) g/dL Albumin/Globulin Ratio 1.4 (1.0-2.8) Lipase 83 (23-300) U/L SARS-CoV-2 (PCR) Negative (Negative) Influenza A (RT-PCR) Flu a negative (NEGATIVE) Influenza B (RT-PCR) Flu b negative (NEGATIVE) RSV (PCR) Negative (Negative) MDM Narrative Medical decision making narrative: Labs show white count of 7.3 hemoglobin of 14 platelets of 327. Chemistries shows sodium 136 otherwise normal electrolytes BUN and creatinine, glucose is 108 LFTs are negative troponins less than 0.012 with a BUN of 69. Flu/COVID/RSV is negative. EKG shows sinus rhythm rate of 97 [place] 150 QRS 88 QTC of [address]-elevation depression noted. Chest x-ray shows no acute change. CT chest with contrast was obtained as patient has a known masslike opacity from February of 2025. Patient states she has had imaging every 3 months but I do not have any and available in the interim. CTA chest PE protocol shows no pulmonary emboli, no evidence for acute right-sided heart strain. Interval resolution described anteromedial right upper lobe consolidation/mass. Stable 0.8 x 0.6 cm posterior right lower lobe pulmonary nodule recommends follow up CT in 6 months document continued stability. Redemonstration moderate upper lobe predominant pulmonary emphysematous changes. Coronary atherosclerosis. Patient received DuoNebs x3, methylprednisolone, magnesium sulfate patient states some mild improvement but still quite tachypneic. O2 sat dips at rest into upper 80s at times. On rechecked patient is breathing still little bit decreased, she is still tachycardic, still tachypneic. Plan to discussed with the hospitalist to keep for observation for COPD exacerbation. We did review she has a pulmonary nodule to continue to follow but sounds like she is getting CTs every 3 months. She did have resolution of the prior right upper lobe consolidations last mass. Dr. Cotton hospitalist at [phone], accepts for observation for COPD exacerbation. Discharge Plan Departure Patient Disposition: Admitted as Observation Clinical Impression: Acute exacerbation of chronic obstructive pulmonary disease
[2025-08-20] MEDS: ALBUTEROL/IPRATROPIUM 3 ML AMPUL 6 ML INH (21:17)
[2025-08-20] MEDS: MAGNESIUM SULFATE 2 GM/50 ML PIGGYBACK IV (21:36)
--- NOTE | 2025-08-20 22:08 | DI.CT.S_ITS ---
PROCEDURE: CT ANGIO CHEST PE PROTOCOL INDICATIONS: shortness of breath, worsening, had prior mass like consolid TECHNIQUE: After the administration of intravenous contrast, 2 mm thick sections acquired from the pulmonary apices to the posterior costophrenic angles. 3-dimensional maximum intensity projection (MIP) coronal and sagittal reformats were then acquired through the thorax. For radiation dose reduction, the following was used: automated exposure control, adjustment of mA and/or kV according to patient size. COMPARISON: [facility], CT, CT CHEST WO CON, 02/21/2025, 9:00. [facility], CT, CT ANGIO CHEST PE PROTOCOL, 02/17/2025, 19:00. [facility], CT, CT ANGIO CHEST PE PROTOCOL, 02/03/2025, 19:32. FINDINGS: Image quality: Diagnostic. Pulmonary arteries: Pulmonary arteries are normal in size, and demonstrate no intraluminal filling defects to suggest central pulmonary embolism. Lower Neck: No enlarged lymph nodes. Thyroid: No thyroid nodules which require sonographic follow up, per consensus guidelines. Axillae: No enlarged lymph nodes. Chest Wall: Unremarkable. Bones: Visualized osseous structures appear intact without acute fracture or focal destructive lesion. No acute compression fractures of the imaged spine. Lungs and Pleura: Redemonstration of moderate upper lobe predominant pulmonary emphysematous changes. Redemonstration of a posterior right lower lobe pulmonary nodule measuring approximately 0.8 x 0.6 cm (188/series 5). Accounting for differences in imaging technique and measurement location, this pulmonary nodule is not significantly changed. Previously described anteromedial right upper lobe mass has resolved. Otherwise, no new suspicious or enlarging pulmonary nodules elsewhere. No pneumothorax or pleural effusion. No septal nodularity or thickening. Heart: Heart size is normal. Coronary atherosclerotic vascular calcifications are noted. No pericardial effusion. Thoracic Vessels: No aortic aneurysm. Mediastinum and [place]: No enlarged lymph nodes. Esophagus: No wall thickening. No hiatal hernia. Upper Abdomen: Visualized upper abdomen solid organs and bowel loops appear normal. IMPRESSION: No acute pulmonary emboli. No evidence for acute right-sided heart strain. Interval resolution of previously described anteromedial right upper lobe consolidation/mass. Stable 0.8 x 0.6 cm posterior right lower lobe pulmonary nodule. Recommend follow-up CT in 6 months to document continued stability. Redemonstration of moderate upper lobe predominant pulmonary emphysematous changes. Coronary atherosclerosis. Dictated by: Giuseppe Gutierrez M.D. on 08/20/2025 at 22:49 Approved by: Giuseppe Gutierrez M.D. on 08/20/2025 at 22:59
--- NOTE | 2025-08-20 23:58 | P.HP_ITS ---
History of Present Illness History of Present Illness Chief complaint: SOB, worsening over 2 days Narrative: 60F with PMH of COPD presents with increased work of breathing and dyspnea for 1 month. She has no chest pain, nausea, vomiting, syncope. She does have mild leg edema. Labs were unremarkable and she is negative for RSV, COVID, and flu. In the ED, she received duoneb, Solumedrol, and Mg sulfate but remains tachypneic requiring supplemental oxygen. Tried her multiple inhalers and nebulizer at home without improvement. Also takes azithromycin 3x/week. Now expectorating a lot more than she did at home. [facility] Medical History COPD (chronic obstructive pulmonary disease) Social History household members: children alcohol intake: never Meds Home Medications and Allergies Home Medications ?Medication ?Instructions ?Recorded ?Confirmed ?Type tiotropium bromide 2.5 1 puff inhalation DAILY 07/2207/31/25 History mcg/actuation mist for inhalation (Spiriva Respimat) albuterol sulfate 2.5 mg/3 mL 2.5 mg continuous nebuli zation 02/03/25 08/01/25 History (0.083 %) solution for nebulization Q4HR PRN Shortness Of Breath Or Wheezing albuterol sulfate 90 mcg/actuation 2 puff inhalation Q 6H PRN 02/03/25 07/31/25 History aerosol inhaler Shortness Of Breath Or Wheez ing budesonide-formoterol HFA 160 2 puff inhalation BID 07/31/25 History mcg-4.5 mcg/actuation aerosol inhaler hydroxyzine HCl 50 mg tablet 50 mg PO QID PRN Anxiety 02/03/25 07/31/25 History trazodone 50 mg tablet 50 mg PO ONCE PM PRN Insomni a 02/03/25 07/31/25 History azithromycin 500 mg tablet 500 mg PO 3XW 07/31/2507/21 History prednisone 20 mg tablet 40 mg (2 x 20 mg) PO DAILY # 20 tabs 08/01/25 Rx Allergies Allergy/AdvReac Type Severity Reaction Status Date / Time morphine AdvReac sick Verified 07/31/25 17:28 walnut AdvReac raw mouth Verified 07/31/25 17:28 Review of Systems Review of Systems Narrative: As per HPI. Rest of 10-system review is negative. Exam Vital Signs (past 8 hours): - 08/20/25 19:02 08/20/25 19:17 08/20/25 20:06 Temperature 98.3 F Pulse Rate 108 H 113 H 106 H Respiratory Rate 20 22 24 Blood Pressure 137/76 Pulse Oximetry 94 93 92 Oxygen Delivery Method Room Air Room Air Room Air Oxygen Flow Rate 0 Fraction of Inspired Oxygen 21 08/20/25 20:31 08/20/25 21:00 08/20/25 21:17 Temperature Pulse Rate 103 H 98 H 108 H Respiratory Rate 28 H 24 24 Blood Pressure Pulse Oximetry 91 91 91 Oxygen Delivery Method Room Air Oxygen Flow Rate 0 Fraction of Inspired Oxygen 21 08/20/25 21:30 08/20/25 22:00 08/20/25 22:33 Temperature Pulse Rate 104 H 109 H 113 H Respiratory Rate 38 H 31 H Blood Pressure Pulse Oximetry 91 89 L 87 L Oxygen Delivery Method Oxygen Flow Rate Fraction of Inspired Oxygen 08/20/25 22:35 08/20/25 22:35 08/20/25 23:00 Temperature Pulse Rate 117 H 107 H Respiratory Rate 25 H 21 Blood Pressure 128/66 Pulse Oximetry 95 93 Oxygen Delivery Method Nasal Cannula Nasal Cannula Oxygen Flow Rate 1 1 Fraction of Inspired Oxygen Fraction of Inspired Oxygen 21 SaO2/FiO2 Ratio 428 Oxygen Delivery Method Nasal Cannula Oxygen Flow Rate 1 Narrative Exam Narrative: Patient was evaluated entirely through 2-way audio/video telemedicine with RN assistance in exam. Physician was not present at beside in person at any time for this evaluation. Consent for telemedicine obtained from patient. Const Other: AA, NAD but weak appearing HENMT Other: NC/AT, anicteric sclerae, dry MM Neck Other: FROM Resp Other: congested, not able to take deep breaths, occasional inspiratory and expiratory wheeze Cardio Other: RRR GI Other: S/NT Neuro Other: normal speech Extrem Other: no edema Objective Imaging CT scan - chest: Radiologist's impression: No acute pulmonary emboli. No evidence for acute right-sided heart strain. Interval resolution of previously described anteromedial right upper lobe consolidation/mass. Stable 0.8 x 0.6 cm posterior right lower lobe pulmonary nodule. Recommend follow-up CT in 6 months to document continued stability. Redemonstration of moderate upper lobe predominant pulmonary emphysematous changes. Coronary atherosclerosis. Labs 08/20/25 19:28 08/20/25 19:28 Labs: Laboratory Results - last 24 hr 08/20/25 19:28 WBC 7.3 RBC 5.08 Hgb 14.0 Hct 41.6 MCV 82.0 MCH 27.7 MCHC 33.7 RDW 13.3 Plt Count 327 Neut % (Auto) 58.4 Lymph % (Auto) 24.4 L [place] % (Auto) 10.9 Eos % (Auto) 5.0 H Baso % (Auto) 1.3 Neut # (Auto) 4300 Lymph # (Auto) 1800 [place] # (Auto) 800 Eos # (Auto) 400 Baso # (Auto) 100 Sodium 136 L Potassium 4.1 Chloride 102 Carbon Dioxide 27 BUN 8 Creatinine 0.73 Estimated GFR > 60 BUN/Creatinine Ratio 11.0 Glucose 108 H Calcium 9.1 Magnesium 2.0 Total Bilirubin 0.7 AST 20 ALT 13 Alkaline Phosphatase 100 Troponin I < 0.012 NT-Pro-B Natriuret Pep 69 Total Protein 7.2 Albumin 4.2 Globulin 3.0 Albumin/Globulin Ratio 1.4 Lipase 83 SARS-CoV-2 (PCR) Negative Influenza A (RT-PCR) Flu a negative Influenza B (RT-PCR) Flu b negative RSV (PCR) Negative Assessment & Plan Assessment and plan (1) Acute exacerbation of chronic obstructive pulmonary disease: Status: Acute Assessment & Plan narrative: 60F with COPD 1. Acute COPD exacerbation with acute hypoxic respiratory failure, POA Plan: 1. Admit inpatient, telemetry 2. Duonebs, incentive spirometry and flutter valve - to start in daytime. 3. Received high-dose steroids in ER, may need repeat dose today. 4. Empiric antibiotics - azithromycin, ceftriaxone 5. PPI DVT prophylaxis: SCDs Code: Full Dispo: likely home. Time-Based Coding :: [TOTAL MINUTES] spent with patient and on the chart (including review of chart, obtaining history, exam, reviewing outside data, placing orders, documenting exam and treatment plan, and counseling patient) on [DATE].
[2025-08-21] VITALS (38 sets, daily range): BP systolic 112–146; BP diastolic 58–78; PULSE 72–116; RESP 16–36; TEMP 36.7; O2SAT 91–99; BMI 24.7
--- NOTE | 2025-08-21 07:43 | PC.NURSE ---
report given to FEDERICA Tesfaye
[2025-08-21] MEDS: ALBUTEROL 2.5 MG/3 ML NEB (ADULT) INH (10:29)
[2025-08-21] MEDS: BUDESONIDE 0.5 MG/2 ML NEB INH ×2 (11:24→18:59)
--- NOTE | 2025-08-21 14:10 | PC.NURSE ---
Patient back in bed after using the bathroom. Increased SOB during exertion. Patient back in bed recovering with pursed lip breathing.
[2025-08-21] MEDS: ALBUTEROL/IPRATROPIUM 3 ML AMPUL INH ×2 (14:43→18:59)
[2025-08-21 16:26] LABS: Add Manual Diff / Slide Review NO; Hematocrit 39.7 % (36-46); Hemoglobin 13.3 g/dL (12.0-16.0); Lymphocytes Absolute Auto 1600 /uL (1100-4500); Mean Corpuscular HGB Conc 33.5 % (30-36); Mean Corpuscular Hemoglobin 27.6 PG (26-34); Mean Corpuscular Volume 82.2 fL (80-100); Platelet Count 338 X10^3/uL (150-400)
[2025-08-21] MEDS: AZITHROMYCIN 500 MG in DEXTROSE 5% IN WATER 250 ML 250 MG IV (16:29)
[2025-08-21 17:08] LABS: Blood Urea Nitrogen 20 mg/dL (7-17); Calcium 9.3 mg/dL (8.4-10.2); Carbon Dioxide 29 mmol/L (22-32); Chloride 100 mmol/L (98-107); Estimated Glomerular Filt Rate > 60 mL/min (>60); Glucose 100 mg/dL (70-99); HEMOLYSIS < 15 (0-50); Potassium 4.4 mmol/L (3.4-5.1); Sodium 135 mmol/L (137-145)
--- NOTE | 2025-08-21 17:46 | P.PN_ITS ---
Subjective Subjective Date Patient Seen: 08/21/25 Interval history: Chief complaint: Shortness for breath with recurrent COPD exacerbations multiple ER and hospital visits this month History of present illness: 08/20:60F with PMH of COPD presents with increased work of breathing and dyspnea for 1 month. She has no chest pain, nausea, vomiting, syncope. She does have mild leg edema. Labs were unremarkable and she is negative for RSV, COVID, and flu. In the ED, she received duoneb, Solumedrol, and Mg sulfate but remains tachypneic requiring supplemental oxygen. Tried her multiple inhalers and nebulizer at home without improvement. Also takes azithromycin 3x/week. Now expectorating a lot more than she did at home. Hospital course: 08/21: Feeling better than yesterday however still having moderate labored respirations. Discussed the time course of the month of having multiple exacerbations and never quite clearing up maybe a candidate for empiric treatment for bronchiectasis Review of systems: No fever or chills rigors No chest pain palpitations No nausea vomiting diarrhea No neuro symptoms Physical exam: Moderately labored respirations using accessory muscles HEENT unremarkable Lungs with coarse rhonchi throughout shortened respiratory phases and markedly diminished vesicular breath sounds Abdomen is benign Extremities no edema Assessment and plan: Acute exacerbation of COPD which has been ongoing back and forth and has been steroid dependent * Continue steroids bronchodilators * Continue ceftriaxone and Rocephin * Addition of Gram-negative coverage with Bactrim DS DVT prophylaxis: * Not indicated patient is ambulatory Disposition: * Inpatient * Estimate 3-5 days of hospitalization Time based billing: * 35 minutes were involved in evaluation of the patient including [id number] evaluation physical examination review of previous records review of objective laboratory and imaging findings including direct view is visualization of imaging and discussion with treatment team Exam Vital Signs (past 8 hours): - 08/21/25 10:00 08/21/25 10:30 08/21/25 10:33 Temperature Pulse Rate 89 93 H 103 H Respiratory Rate 16 36 H 22 Blood Pressure Pulse Oximetry 92 97 98 Oxygen Delivery Method Nasal Cannula Oxygen Flow Rate 2 08/21/25 10:50 08/21/25 10:50 08/21/25 11:00 Temperature Pulse Rate 99 H 104 H Respiratory Rate 27 H 30 H Blood Pressure 131/76 Pulse Oximetry 96 94 Oxygen Delivery Method Oxygen Flow Rate 08/21/25 11:27 08/21/25 11:30 08/21/25 12:00 Temperature Pulse Rate 102 H 95 H 101 H Respiratory Rate 18 30 H 25 H Blood Pressure Pulse Oximetry 98 99 96 Oxygen Delivery Method Nasal Cannula Oxygen Flow Rate 1 08/21/25 12:30 08/21/25 13:00 08/21/25 13:30 Temperature Pulse Rate 103 H 99 H 100 H Respiratory Rate 30 H 31 H 22 Blood Pressure Pulse Oximetry 96 93 94 Oxygen Delivery Method Oxygen Flow Rate 08/21/25 14:08 08/21/25 14:10 08/21/25 14:10 Temperature Pulse Rate 103 H 110 H Respiratory Rate 22 Blood Pressure 127/76 Pulse Oximetry 95 96 Oxygen Delivery Method Oxygen Flow Rate 08/21/25 14:45 08/21/25 15:00 08/21/25 15:00 Temperature 98.1 F Pulse Rate 102 H 94 H Respiratory Rate 20 20 Blood Pressure 146/78 H Pulse Oximetry 98 95 Oxygen Delivery Method Nasal Cannula Nasal Cannula Oxygen Flow Rate 1 1 Fraction of Inspired Oxygen 24 SaO2/FiO2 Ratio 400 Oxygen Delivery Method Nasal Cannula Oxygen Flow Rate 1 Objective Labs 08/21/25 16:05 08/21/25 16:05 Labs: Laboratory Results - last 24 hr 08/20/25 08/21/25 19:28 16:05 WBC 7.3 9.3 RBC 5.08 4.83 Hgb 14.0 13.3 Hct 41.6 39.7 MCV 82.0 82.2 MCH 27.7 27.6 MCHC 33.7 33.5 RDW 13.3 13.1 Plt Count 327 338 Neut % (Auto) 58.4 70.1 Lymph % (Auto) 24.4 L 17.7 L [place] % (Auto) 10.9 11.4 Eos % (Auto) 5.0 H 0.2 L Baso % (Auto) 1.3 0.6 Neut # (Auto) 4300 6500 Lymph # (Auto) 1800 1600 [place] # (Auto) 800 1100 H Eos # (Auto) 400 0 Baso # (Auto) 100 100 Sodium 136 L 135 L Potassium 4.1 4.4 Chloride 102 100 Carbon Dioxide 27 29 BUN 8 20 H Creatinine 0.73 0.73 Estimated GFR > 60 > 60 BUN/Creatinine Ratio 11.0 27.4 H Glucose 108 H 100 H Calcium 9.1 9.3 Magnesium 2.0 Total Bilirubin 0.7 AST 20 ALT 13 Alkaline Phosphatase 100 Troponin I < 0.012 NT-Pro-B Natriuret Pep 69 Total Protein 7.2 Albumin 4.2 Globulin 3.0 Albumin/Globulin Ratio 1.4 Lipase 83 SARS-CoV-2 (PCR) Negative Influenza A (RT-PCR) Flu a negative Influenza B (RT-PCR) Flu b negative RSV (PCR) Negative PFSH Medical History COPD (chronic obstructive pulmonary disease) Social History household members: children alcohol intake: never Assessment & Plan Time-Based Coding :: [TOTAL MINUTES] spent with patient and on the chart (including review of chart, obtaining history, exam, reviewing outside data, placing orders, documenting exam and treatment plan, and counseling patient) on [DATE].
[2025-08-21] MEDS: methylPREDNISolone succ 125 MG/2 ML VIAL 60 MG IV (18:12)
[2025-08-21 18:18] LABS: Magnesium 2.1 mg/dL (1.6-2.3)
[2025-08-21] MEDS: ACETAMINOPHEN 325 MG TABLET 650 MG PO (19:39)
[2025-08-21] MEDS: TRIMETH/SULFA 160/800 (DS) TABLET 1 TAB PO (21:12)
[2025-08-22] VITALS (11 sets, daily range): BP systolic 101–134; BP diastolic 63–75; PULSE 73–113; RESP 16–22; TEMP 36.2–36.8; O2SAT 93–97
[2025-08-22] MEDS: methylPREDNISolone succ 125 MG/2 ML VIAL 60 MG IV ×3 (03:00→20:12)
[2025-08-22] MEDS: BUDESONIDE 0.5 MG/2 ML NEB INH ×2 (07:32→17:59)
[2025-08-22] MEDS: ALBUTEROL/IPRATROPIUM 3 ML AMPUL INH ×3 (07:33→17:59)
[2025-08-22] MEDS: PANTOPRAZOLE DR 20 MG TABLET 40 MG PO (10:03)
[2025-08-22] MEDS: TRIMETH/SULFA 160/800 (DS) TABLET 1 TAB PO (10:09)
--- NOTE | 2025-08-22 12:41 | CM.DANOTE ---
DCP Assessment note pt is a 60yo F admitted with COPD exacerbation. 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 per provider likely to be here for a few days. DISPERSION MIXER met with pt in room. pt resting in chair. ambulating indep in room. on 1ltr O2 at this time, normally only uses 1ltr O2 to sleep. lives indep at home in [place], has a PCP there that she doesn't like and is trying to change. sees Dr. Pinto for pulmonology has a appt with him 08/30. He does her paperwork for leave of absence at work (Works at [employer]). dtrs live nearby. drove self here will drive self home. denies any DCP needs at this time. P: dc in a few days when medically stable. OP f/u barbara rec. no needs at this time. will continue to follow as needed for DCP coordination EUGENIA Cai Discharge Planning/Care Management CM Discharge Assessment Start: 08/21/25 00:38 Freq: Status: Active Protocol: Document 08/22/25 12:40 (Rec: 08/22/25 12:41 [id number]) Discharge Planning Assessment Assigned Discharge EUGENIA Manzano Promotions Coordinator Provider Telly Zuñiga PCP Insurance Comment BC out of state [place] DPOA/Assigned jennifer Tirado Designee Name Contact Information [phone] Advance Directives? No Advance Directives No on File History Provided By Patient,Medical Record Prior Living House Arrangements Comment patient states she has to climb up 3 stairs, her daughter lives next door Household Members none Type of Drives own vehicle transporation used prior to admit Independent with ADL Yes 's Is patient alert and Yes oriented? Comment Self. Her car is in Hospital parking lot. Discharge Plan Home Transportation self Arrangement Referrals Initiated None needed Additional Comment Pending progress Review Status In Process Please Provide Date 08/22/25 Initial DC Assessment Was Performed Next Review Type Continued Stay Review
[2025-08-22] MEDS: AZITHROMYCIN 500 MG in DEXTROSE 5% IN WATER 250 ML 250 MG IV (15:37)
--- NOTE | 2025-08-22 16:23 | PC.NURSE ---
Pt independent in room. Sitting in chair most day IV ABO given as per orders Continues w/ loose cough SL intact/patent Call light w/in reach, pt calls appropriately for needs. Continue w/plan of care. .
--- NOTE | 2025-08-22 18:52 | P.PN_ITS ---
Subjective Subjective Date Patient Seen: 08/22/25 Interval history: Chief complaint: Shortness for breath with recurrent COPD exacerbations multiple ER and hospital visits this month History of present illness: 08/20:60F with PMH of COPD presents with increased work of breathing and dyspnea for 1 month. She has no chest pain, nausea, vomiting, syncope. She does have mild leg edema. Labs were unremarkable and she is negative for RSV, COVID, and flu. In the ED, she received duoneb, Solumedrol, and Mg sulfate but remains tachypneic requiring supplemental oxygen. Tried her multiple inhalers and nebulizer at home without improvement. Also takes azithromycin 3x/week. Now expectorating a lot more than she did at home. Hospital course: 08/21: Feeling better than yesterday however still having moderate labored respirations. Discussed the time course of the month of having multiple exacerbations and never quite clearing up maybe a candidate for empiric treatment for bronchiectasis 08/22: No significant improvement over last 24 hours we will change antibiotics for dual anti pseudomonal therapy Review of systems: No fever or chills rigors No chest pain palpitations No nausea vomiting diarrhea No neuro symptoms Physical exam: Moderately labored respirations using accessory muscles HEENT unremarkable Lungs with coarse rhonchi throughout shortened respiratory phases and markedly diminished vesicular breath sounds Abdomen is benign Extremities no edema Assessment and plan: Acute exacerbation of COPD which has been ongoing back and forth and has been steroid dependent * Continue steroids bronchodilators * Dual antipseudomonal therapy with cefepime and oral Cipro * Addition of Gram-negative coverage with Bactrim DS DVT prophylaxis: * Not indicated patient is ambulatory Disposition: * Inpatient * Estimate 3-5 days of hospitalization Time based billing: * 35 minutes were involved in evaluation of the patient including [id number] evaluation physical examination review of previous records review of objective laboratory and imaging findings including direct view is visualization of imaging and discussion with treatment team Exam Vital Signs (past 8 hours): - 08/22/25 12:00 08/22/25 13:28 08/22/25 18:00 Temperature 97.9 F Pulse Rate 94 H 86 113 H Respiratory Rate 20 16 22 Blood Pressure 134/75 Pulse Oximetry 93 94 97 Oxygen Delivery Method Nasal Cannula Nasal Cannula Oxygen Flow Rate 0 1 96 Fraction of Inspired Oxygen 24 Fraction of Inspired Oxygen 24 SaO2/FiO2 Ratio 387 Oxygen Delivery Method Nasal Cannula Oxygen Flow Rate 96 Objective Labs 08/21/25 16:05 08/21/25 16:05 [facility] Medical History COPD (chronic obstructive pulmonary disease) Social History household members: none Smoking Status: Former smoker alcohol intake: never Assessment & Plan Time-Based Coding :: [TOTAL MINUTES] spent with patient and on the chart (including review of chart, obtaining history, exam, reviewing outside data, placing orders, documenting exam and treatment plan, and counseling patient) on [DATE]. Quality VTE Deep Vein Thrombosis/Pulmonary Embolism Present on Admission: No
[2025-08-22] MEDS: CIPROFLOXACIN 250 MG TABLET 750 MG PO (20:12)
[2025-08-22] MEDS: CEFEPIME 1 GM in SODIUM CHLORIDE 0.9% 100 ML IV (20:12)
[2025-08-23] VITALS (9 sets, daily range): BP systolic 130–154; BP diastolic 71–81; PULSE 87–101; RESP 16–20; TEMP 36.6–36.9; O2SAT 91–97
[2025-08-23] MEDS: methylPREDNISolone succ 125 MG/2 ML VIAL 60 MG IV ×3 (01:36→17:14)
[2025-08-23] MEDS: CIPROFLOXACIN 250 MG TABLET 750 MG PO ×2 (06:18→20:46)
[2025-08-23] MEDS: CEFEPIME 1 GM in SODIUM CHLORIDE 0.9% 100 ML IV ×2 (06:18→19:05)
--- NOTE | 2025-08-23 06:54 | PC.NURSE ---
hand potter: Patient arrived from ED approximately 0400, ambulating SBA. Patient is AxOx4, VSS, uses 1-2L O2 while sleeping (desats to 88%), on RA while awake. Upon arrival to the floor, patient denies abd pain or nausea, stating the medications given have been effective. NPO. MD Gu spoke with patient via [place] cart, MD Garcia spoke with patient at bedside this morning. Patient verbalized understanding of plan of care. IVF & IV abx infusing as ordered. Patient is oriented to call-light, plan of care ongoing.
[2025-08-23] MEDS: ALBUTEROL/IPRATROPIUM 3 ML AMPUL INH ×3 (09:26→19:00)
[2025-08-23] MEDS: BUDESONIDE 0.5 MG/2 ML NEB INH ×2 (09:26→19:00)
[2025-08-23] MEDS: PANTOPRAZOLE DR 20 MG TABLET 40 MG PO (10:22)
[2025-08-23] MEDS: ACETAMINOPHEN 325 MG TABLET 650 MG PO ×2 (10:43→17:08)
--- NOTE | 2025-08-23 12:04 | CM.DPNOTE ---
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 per provider, may dc later today vs tomorrow. no new needs at this time P: pt to dc tomorrow vs today with OP f/u, will drive self home. will continue to follow in case any needs should arise EUGENIA Cai
--- NOTE | 2025-08-23 14:08 | P.PN_ITS ---
Subjective Subjective Date Patient Seen: 08/23/25 Interval history: Chief complaint: Shortness for breath with recurrent COPD exacerbations multiple ER and hospital visits this month History of present illness: 08/20:60F with PMH of COPD presents with increased work of breathing and dyspnea for 1 month. She has no chest pain, nausea, vomiting, syncope. She does have mild leg edema. Labs were unremarkable and she is negative for RSV, COVID, and flu. In the ED, she received duoneb, Solumedrol, and Mg sulfate but remains tachypneic requiring supplemental oxygen. Tried her multiple inhalers and nebulizer at home without improvement. Also takes azithromycin 3x/week. Now expectorating a lot more than she did at home. Hospital course: 08/21: Feeling better than yesterday however still having moderate labored respirations. Discussed the time course of the month of having multiple exacerbations and never quite clearing up maybe a candidate for empiric treatment for bronchiectasis 08/22: No significant improvement over last 24 hours we will change antibiotics for dual anti pseudomonal therapy 08/23: Perhaps marginal improvement in her dyspnea with activity although she still is quite symptomatic we have walking from the bed to the bathroom cough is persistent and productive of frothy white sputum Review of systems: No fever or chills rigors No chest pain palpitations No nausea vomiting diarrhea No neuro symptoms Physical exam: Moderately labored respirations using accessory muscles HEENT unremarkable Lungs with coarse rhonchi throughout shortened respiratory phases and markedly diminished vesicular breath sounds Abdomen is benign Extremities no edema Assessment and plan: Acute exacerbation of COPD which has been ongoing back and forth and has been steroid dependent * Continue steroids bronchodilators * Dual antipseudomonal therapy with cefepime and oral Cipro * Addition of Gram-negative coverage with Bactrim DS DVT prophylaxis: * Not indicated patient is ambulatory Disposition: * Inpatient * Estimate 1-2 more days of hospitalization Time based billing: * 35 minutes were involved in evaluation of the patient including [id number] evaluation physical examination review of previous records review of objective laboratory and imaging findings including direct view is visualization of imaging and discussion with treatment team Exam Vital Signs (past 8 hours): - 08/23/25 08:00 08/23/25 09:26 08/23/25 13:10 Temperature 97.8 F Pulse Rate 88 101 H 96 H Respiratory Rate 16 20 16 Blood Pressure 134/71 Pulse Oximetry 95 94 94 Oxygen Delivery Method Nasal Cannula Room Air Oxygen Flow Rate 2 1 Fraction of Inspired Oxygen 24 Fraction of Inspired Oxygen 24 SaO2/FiO2 Ratio 379 Oxygen Delivery Method Room Air Oxygen Flow Rate 1 Objective Labs 08/21/25 16:05 08/21/25 16:05 [facility] Medical History COPD (chronic obstructive pulmonary disease) Social History household members: none Smoking Status: Former smoker alcohol intake: never Assessment & Plan Time-Based Coding :: [TOTAL MINUTES] spent with patient and on the chart (including review of chart, obtaining history, exam, reviewing outside data, placing orders, documenting exam and treatment plan, and counseling patient) on [DATE]. Quality VTE Deep Vein Thrombosis/Pulmonary Embolism Present on Admission: No
[2025-08-24] VITALS (7 sets, daily range): BP systolic 121–136; BP diastolic 68–77; PULSE 95–106; RESP 18–20; TEMP 36.6–37; O2SAT 90–97
[2025-08-24] MEDS: methylPREDNISolone succ 125 MG/2 ML VIAL 60 MG IV ×3 (02:00→17:29)
[2025-08-24] MEDS: CEFEPIME 1 GM in SODIUM CHLORIDE 0.9% 100 ML IV ×2 (07:07→19:02)
[2025-08-24] MEDS: CIPROFLOXACIN 250 MG TABLET 750 MG PO ×2 (07:08→20:13)
[2025-08-24] MEDS: ALBUTEROL/IPRATROPIUM 3 ML AMPUL INH ×3 (09:46→18:12)
[2025-08-24] MEDS: BUDESONIDE 0.5 MG/2 ML NEB INH ×2 (09:46→18:13)
[2025-08-24] MEDS: PANTOPRAZOLE DR 20 MG TABLET 40 MG PO (10:27)
--- NOTE | 2025-08-24 12:23 | P.PN_ITS ---
Subjective Subjective Date Patient Seen: 08/24/25 Interval history: Chief complaint: Shortness for breath with recurrent COPD exacerbations multiple ER and hospital visits this month History of present illness: 08/20:60F with PMH of COPD presents with increased work of breathing and dyspnea for 1 month. She has no chest pain, nausea, vomiting, syncope. She does have mild leg edema. Labs were unremarkable and she is negative for RSV, COVID, and flu. In the ED, she received duoneb, Solumedrol, and Mg sulfate but remains tachypneic requiring supplemental oxygen. Tried her multiple inhalers and nebulizer at home without improvement. Also takes azithromycin 3x/week. Now expectorating a lot more than she did at home. Hospital course: 08/21: Feeling better than yesterday however still having moderate labored respirations. Discussed the time course of the month of having multiple exacerbations and never quite clearing up maybe a candidate for empiric treatment for bronchiectasis 08/22: No significant improvement over last 24 hours we will change antibiotics for dual anti pseudomonal therapy 08/23: Perhaps marginal improvement in her dyspnea with activity although she still is quite symptomatic we have walking from the bed to the bathroom cough is persistent and productive of frothy white sputum 08/24: Actually feeling a little worse today exhausted from respiratory effort feel like her wheezing is more of a struggle Review of systems: No fever or chills rigors No chest pain palpitations No nausea vomiting diarrhea No neuro symptoms Physical exam: Moderately labored respirations using accessory muscles HEENT unremarkable Lungs with coarse rhonchi throughout shortened respiratory phases and markedly diminished vesicular breath sounds Abdomen is benign Extremities no edema Assessment and plan: Acute exacerbation of COPD which has been ongoing back and forth and has been steroid dependent * Continue steroids bronchodilators * Dual antipseudomonal therapy with cefepime and oral Cipro * May take another 48-72 hours before fit for discharge DVT prophylaxis: * Not indicated patient is ambulatory Disposition: * Inpatient * Estimate 1-2 more days of hospitalization Time based billing: * 35 minutes were involved in evaluation of the patient including [id number]-[id number] evaluation physical examination review of previous records review of objective laboratory and imaging findings including direct view is visualization of imaging and discussion with treatment team Exam Vital Signs (past 8 hours): - 08/24/25 07:00 08/24/25 07:00 08/24/25 09:00 Temperature 97.8 F Pulse Rate 97 H Respiratory Rate 20 Blood Pressure 136/77 Pulse Oximetry 95 97 Oxygen Delivery Method Nasal Cannula Nasal Cannula Oxygen Flow Rate 1 2 08/24/25 09:48 08/24/25 09:54 Temperature Pulse Rate 94 H Respiratory Rate 20 Blood Pressure Pulse Oximetry 92 96 Oxygen Delivery Method Nasal Cannula Oxygen Flow Rate 2 Fraction of Inspired Oxygen 24 SaO2/FiO2 Ratio 379 Oxygen Delivery Method Nasal Cannula Oxygen Flow Rate 2 Objective Labs 08/21/25 16:05 08/21/25 16:05 [facility] Medical History COPD (chronic obstructive pulmonary disease) Social History household members: none Smoking Status: Former smoker alcohol intake: never Assessment & Plan Time-Based Coding :: [TOTAL MINUTES] spent with patient and on the chart (including review of chart, obtaining history, exam, reviewing outside data, placing orders, documenting exam and treatment plan, and counseling patient) on [DATE]. Quality VTE Deep Vein Thrombosis/Pulmonary Embolism Present on Admission: No
[2025-08-25] VITALS (7 sets, daily range): BP systolic 137–148; BP diastolic 77–78; PULSE 82–101; RESP 18–22; TEMP 36.5–36.9; O2SAT 93–96
[2025-08-25] MEDS: methylPREDNISolone succ 125 MG/2 ML VIAL 60 MG IV ×3 (01:45→18:17)
[2025-08-25] MEDS: CIPROFLOXACIN 250 MG TABLET 750 MG PO ×2 (06:58→20:40)
[2025-08-25] MEDS: CEFEPIME 1 GM in SODIUM CHLORIDE 0.9% 100 ML IV ×2 (06:59→18:17)
[2025-08-25] MEDS: ALBUTEROL/IPRATROPIUM 3 ML AMPUL INH ×3 (08:20→20:13)
--- NOTE | 2025-08-25 08:25 | PM.PN.1 ---
Subjective Subjective Interval history: Hospital course: 08/21: Feeling better than yesterday however still having moderate labored respirations. Discussed the time course of the month of having multiple exacerbations and never quite clearing up maybe a candidate for empiric treatment for bronchiectasis 08/22: No significant improvement over last 24 hours we will change antibiotics for dual anti pseudomonal therapy 08/23: Perhaps marginal improvement in her dyspnea with activity although she still is quite symptomatic we have walking from the bed to the bathroom cough is persistent and productive of frothy white sputum 08/24: Actually feeling a little worse today exhausted from respiratory effort feel like her wheezing is more of a struggle. S: Still very dyspneic. No pain or nausea. Minimal cough. O: NAD, alert and oriented. Fluent speech. Very SOB. On O2. Lungs are very diminished, normal rate and effort. Heart is regular, no murmur gallop or rub. Abdomen is soft, non distended. Extremities are free of edema. IMAGING: Chest CTA: No acute pulmonary emboli. No evidence for acute right-sided heart strain. Interval resolution of previously described anteromedial right upper lobe consolidation/mass. Stable 0.8 x 0.6 cm posterior right lower lobe pulmonary nodule. Recommend follow-up CT in 6 months to document continued stability. Redemonstration of moderate upper lobe predominant pulmonary emphysematous changes. Coronary atherosclerosis. A/P: 1. COPD exacerbation, active. PLAN: -continue steroids and bronchodilators. -complete course of antibiotic, 5 days. -Will use BiPAP as needed. Exam Vital Signs (past 8 hours): Fraction of Inspired Oxygen 24 SaO2/FiO2 Ratio 379 Oxygen Delivery Method Nasal Cannula Oxygen Flow Rate 1 Objective Labs 08/21/25 16:05 08/21/25 16:05 [facility] Medical History COPD (chronic obstructive pulmonary disease) Social History household members: none Smoking Status: Former smoker alcohol intake: never Assessment & Plan Time-Based Coding :: [TOTAL MINUTES] spent with patient and on the chart (including review of chart, obtaining history, exam, reviewing outside data, placing orders, documenting exam and treatment plan, and counseling patient) on [DATE]. Quality VTE Deep Vein Thrombosis/Pulmonary Embolism Present on Admission: No
[2025-08-25] MEDS: BUDESONIDE 0.5 MG/2 ML NEB INH ×2 (08:34→20:13)
[2025-08-25] MEDS: PANTOPRAZOLE DR 20 MG TABLET 40 MG PO (09:51)
[2025-08-25] MEDS: SODIUM CHLORIDE 0.9% FLUSH 10 ML IV ×2 (09:52→20:47)
--- NOTE | 2025-08-25 12:19 | CM.DPNOTE ---
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 per hospitalist, may dc tomorrow pending able to wean down to baseline O2. no new needs identified at this time. 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 no needs anticipated. will continue to follow should any needs arise EUGENIA Cai
[2025-08-26] MEDS: methylPREDNISolone succ 125 MG/2 ML VIAL 60 MG IV ×3 (01:42→17:55)
[2025-08-26 07:00] VITALS: BP 157/93; PULSE 91; RESP 18; TEMP 36.9; O2SAT 95
[2025-08-26] MEDS: ALBUTEROL/IPRATROPIUM 3 ML AMPUL INH ×2 (07:58→13:48)
[2025-08-26] MEDS: BUDESONIDE 0.5 MG/2 ML NEB INH ×2 (07:58→21:20)
[2025-08-26 08:01] VITALS: PULSE 92; RESP 20; O2SAT 96
[2025-08-26] MEDS: CEFEPIME 1 GM in SODIUM CHLORIDE 0.9% 100 ML IV ×2 (08:05→20:24)
[2025-08-26] MEDS: CIPROFLOXACIN 250 MG TABLET 750 MG PO ×2 (08:06→20:13)
[2025-08-26] MEDS: PANTOPRAZOLE DR 20 MG TABLET 40 MG PO (08:06)
[2025-08-26] MEDS: SODIUM CHLORIDE 0.9% FLUSH 10 ML IV ×2 (08:07→20:16)
--- NOTE | 2025-08-26 08:36 | PM.PN.1 ---
Subjective Subjective Interval history: Hospital course: 08/21: Feeling better than yesterday however still having moderate labored respirations. Discussed the time course of the month of having multiple exacerbations and never quite clearing up maybe a candidate for empiric treatment for bronchiectasis 08/22: No significant improvement over last 24 hours we will change antibiotics for dual anti pseudomonal therapy 08/23: Perhaps marginal improvement in her dyspnea with activity although she still is quite symptomatic we have walking from the bed to the bathroom cough is persistent and productive of frothy white sputum 08/24: Actually feeling a little worse today exhausted from respiratory effort feel like her wheezing is more of a struggle. 08/25: Still very dyspneic. No pain. On O2. S: Still very dyspneic. She had an episode of increased wheezing last night. Minimal cough. She was trying to use the incentive spirometer with minimal of fact. O: BP 157/93, RR 92, SaO2 96% 1L . NAD, alert and oriented. Fluent speech. Less labored today. On O2. Lungs are very diminished, normal rate and effort. Heart is regular, no murmur gallop or rub. Abdomen is soft, non distended. Extremities are free of edema. IMAGING: Chest CTA: No acute pulmonary emboli. No evidence for acute right-sided heart strain. Interval resolution of previously described anteromedial right upper lobe consolidation/mass. Stable 0.8 x 0.6 cm posterior right lower lobe pulmonary nodule. Recommend follow-up CT in 6 months to document continued stability. Redemonstration of moderate upper lobe predominant pulmonary emphysematous changes. Coronary atherosclerosis. A/P: 1. COPD exacerbation, active. PLAN: -continue steroids and bronchodilators. -complete course of antibiotic, 5 days. -No other changes at this time. Her COPD status remains very tenuous, she remains very dyspneic in his not stable enough to be discharge. She requires another night on bronchodilators with corticosteroids. Exam Vital Signs (past 8 hours): - 08/26/25 07:00 08/26/25 08:01 Temperature 98.4 F Pulse Rate 91 H 92 H Respiratory Rate 18 20 Blood Pressure 157/93 H Pulse Oximetry 95 96 Oxygen Delivery Method Nasal Cannula Oxygen Flow Rate 1 Fraction of Inspired Oxygen 24 SaO2/FiO2 Ratio 379 Oxygen Delivery Method Nasal Cannula Oxygen Flow Rate 1 Objective Labs 08/21/25 16:05 08/21/25 16:05 [facility] Medical History COPD (chronic obstructive pulmonary disease) Social History household members: none Smoking Status: Former smoker alcohol intake: never Assessment & Plan Time-Based Coding :: [TOTAL MINUTES] spent with patient and on the chart (including review of chart, obtaining history, exam, reviewing outside data, placing orders, documenting exam and treatment plan, and counseling patient) on [DATE]. Quality VTE Deep Vein Thrombosis/Pulmonary Embolism Present on Admission: No
--- NOTE | 2025-08-26 13:15 | CM.DPNOTE ---
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 per RN, continues to be on 1ltrs O2 continuously (only uses 1ltr O2 at baseline). no new DCP needs identified at this time. P: home when medically stable pending improvements in breathing/wean back to baseline O2. no identified barriers to safe dc home at this time, will continue to follow as needed should any arise EUGENIA Cai
[2025-08-26] MEDS: ACETAMINOPHEN 325 MG TABLET 650 MG PO (13:17)
[2025-08-26 13:50] VITALS: PULSE 95; RESP 18; O2SAT 94
[2025-08-26 19:00] VITALS: BP 147/91; PULSE 107; RESP 17; TEMP 36.6; O2SAT 94
[2025-08-26] MEDS: ALBUTEROL 2.5 MG/3 ML NEB (ADULT) INH (21:20)
[2025-08-26 21:28] VITALS: PULSE 92; RESP 18; O2SAT 97
[2025-08-27] MEDS: methylPREDNISolone succ 125 MG/2 ML VIAL 60 MG IV ×3 (02:14→19:04)
[2025-08-27 07:00] VITALS: BP 140/77; PULSE 83; RESP 18; TEMP 36.4; O2SAT 94
--- NOTE | 2025-08-27 07:46 | P.PN_ITS ---
Subjective Subjective Date Patient Seen: 08/27/25 Interval history: 08/21: Feeling better than yesterday however still having moderate labored respirations. Discussed the time course of the month of having multiple exacerbations and never quite clearing up maybe a candidate for empiric treatment for bronchiectasis 08/22: No significant improvement over last 24 hours we will change antibiotics for dual anti pseudomonal therapy 08/23: Perhaps marginal improvement in her dyspnea with activity although she still is quite symptomatic we have walking from the bed to the bathroom cough is persistent and productive of frothy white sputum 08/24: Actually feeling a little worse today exhausted from respiratory effort feel like her wheezing is more of a struggle. 08/25: Still very dyspneic. No pain. On O2. 08/26: Still very dyspneic. She had an episode of increased wheezing last night. Minimal cough. She was trying to use the incentive spirometer with minimal of fact. 08/27: Experiencing respiratory distress at this moment, tripoding. Complaining of nausea, receiving ondansetron. She states that since she only has lung problems she does not have a PCP and only follows up with Dr. 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 She lives in the [facility] with her daughter. NAD, alert and oriented. Tripodding in bed with ongoing dyspnea. On O2. Lungs are very diminished, normal rate and effort. Heart is regular, no murmur gallop or rub. Abdomen is soft, non distended. Extremities are free of edema. IMAGING: Chest CTA: No acute pulmonary emboli. No evidence for acute right-sided heart strain. Interval resolution of previously described anteromedial right upper lobe consolidation/mass. Stable 0.8 x 0.6 cm posterior right lower lobe pulmonary nodule. Recommend follow-up CT in 6 months to document continued stability. Redemonstration of moderate upper lobe predominant pulmonary emphysematous changes. Coronary atherosclerosis. A/P: 1. COPD exacerbation, active. PLAN: -continue steroids and bronchodilators. -complete course of antibiotic, 5 days. -No other changes at this time. Her COPD status remains very tenuous, she remains very dyspneic and is not stable enough to be discharged. She requires another night on bronchodilators with corticosteroids. Exam Vital Signs (past 8 hours): Fraction of Inspired Oxygen 24 SaO2/FiO2 Ratio 391 Oxygen Delivery Method Nasal Cannula Oxygen Flow Rate 1 Objective Labs 08/21/25 16:05 08/21/25 16:05 [facility] Medical History COPD (chronic obstructive pulmonary disease) Social History household members: none Smoking Status: Former smoker alcohol intake: never Assessment & Plan Time-Based Coding :: [TOTAL MINUTES] spent with patient and on the chart (including review of chart, obtaining history, exam, reviewing outside data, placing orders, documenting exam and treatment plan, and counseling patient) on [DATE]. Quality VTE Deep Vein Thrombosis/Pulmonary Embolism Present on Admission: No
[2025-08-27] MEDS: BUDESONIDE 0.5 MG/2 ML NEB INH ×2 (08:29→19:17)
[2025-08-27] MEDS: ALBUTEROL/IPRATROPIUM 3 ML AMPUL INH ×3 (08:29→19:17)
[2025-08-27 08:31] VITALS: PULSE 90; RESP 18; O2SAT 94
[2025-08-27] MEDS: ONDANSETRON 4 MG/2 ML INJ IV (09:40)
[2025-08-27] MEDS: SODIUM CHLORIDE 0.9% FLUSH 10 ML IV ×2 (09:40→20:06)
[2025-08-27] MEDS: CEFEPIME 1 GM in SODIUM CHLORIDE 0.9% 100 ML IV ×2 (10:02→10:03)
[2025-08-27] MEDS: PANTOPRAZOLE DR 20 MG TABLET 40 MG PO (12:20)
[2025-08-27] MEDS: CIPROFLOXACIN 250 MG TABLET 750 MG PO (12:24)
--- NOTE | 2025-08-27 12:34 | DIET.CONS ---
Dietary Consultation Note Admission Date: 08/21/2025 00:13 Assessment: 60 y F admitted for COPD exacerbation. Dietitian screened for LOS. EMR reviewed. Pt with PO intakes 75-100% recorded, DFM reviewed for meal adequacy. No recent significant weight loss per EMR. No nutritional interventions needed at this time. Ht: 160.02 cm Wt: 63.503 kg BMI: 24.7 UBW: 65.7 kg on 02/17/25 Last BM: 08/21/25 (08/21/25 18:12) MNA: 14 Sohail Score: 21 Diet: 08/21/25 Breakfast General (Regular) Diet Diet Modifications: Nutrition Percent Meal Consumed 75% 08/26/25 18:00 Percent Meal Consumed 100% 08/25/25 18:00 Labs: RBC 4.83 X10^6/uL (4.0-5.2) 08/21/25 16:05 Hgb 13.3 g/dL (12.0-16.0) 08/21/25 16:05 Hct 39.7 % (36-46) 08/21/25 16:05 Creatinine 0.73 mg/dL (0.52-1.04) 08/21/25 16:05 NT-Pro-B Natriuret Pep 69 pg/mL (<125) 08/20/25 19:28 Electronically Signed by: Sumaya Blackburn 08/27/25 12:34 Clinical Dietitian [address] [address]
--- NOTE | 2025-08-27 13:07 | PC.NURSE ---
Patient is wheezing in all lobes when auscultating. Patient is sob at rest and sob with exertion. She only wears 1-2L of oxygen at bed to help her sleep. She was nauseated this morning, given zofran and helpful. She has received her last iv and oral doses of antibiotics. Patient is also tolerating her iv steroids.
[2025-08-27 13:35] VITALS: PULSE 92; RESP 18; O2SAT 96
--- NOTE | 2025-08-27 14:30 | PC.NURSE ---
Pt doing reasonably well today, lungs extremely diminished throughout. Still very dyspneic on exertion, on 2L O2 nasal canulla. Pt occasionally has cough productive of scant frothy white sputum. Pt C/O significant nausea early this shift, unable to tolerate breakfast, order obtained for zofran IV, given with some relief, AM meds held until nausea had improved later in the morning. R forearm IV slightly finicky and positional with some occasional pain with flushes, good blood return and no signs of infiltration, will continue to monitor closely.
--- NOTE | 2025-08-27 15:04 | CM.DPC ---
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 no needs at this time will cont to follow as needed should any needs arise Natacha BELLO
[2025-08-27 19:00] VITALS: BP 136/81; PULSE 98; RESP 18; TEMP 36.9; O2SAT 94; O2SAT 95
[2025-08-27 19:19] VITALS: PULSE 104; RESP 18; O2SAT 94
[2025-08-28] MEDS: methylPREDNISolone succ 125 MG/2 ML VIAL 60 MG IV ×3 (01:03→18:33)
[2025-08-28] MEDS: ALBUTEROL/IPRATROPIUM 3 ML AMPUL INH ×3 (07:13→18:45)
[2025-08-28] MEDS: BUDESONIDE 0.5 MG/2 ML NEB INH ×2 (07:13→18:45)
[2025-08-28 07:14] VITALS: PULSE 97; RESP 18; O2SAT 96
--- NOTE | 2025-08-28 07:14 | PM.PN.1 ---
Subjective Subjective Date Patient Seen: 08/28/25 Interval history: 08/21: Feeling better than yesterday however still having moderate labored respirations. Discussed the time course of the month of having multiple exacerbations and never quite clearing up maybe a candidate for empiric treatment for bronchiectasis 08/22: No significant improvement over last 24 hours we will change antibiotics for dual anti pseudomonal therapy 08/23: Perhaps marginal improvement in her dyspnea with activity although she still is quite symptomatic we have walking from the bed to the bathroom cough is persistent and productive of frothy white sputum 08/24: Actually feeling a little worse today exhausted from respiratory effort feel like her wheezing is more of a struggle. 08/25: Still very dyspneic. No pain. On O2. 08/26: Still very dyspneic. She had an episode of increased wheezing last night. Minimal cough. She was trying to use the incentive spirometer with minimal of fact. 08/27: Experiencing respiratory distress at this moment, tripoding. Complaining of nausea, receiving ondansetron. She states that since she only has lung problems she does not have a PCP and only follows up with Dr. Pinto her general forecaster at . She lives in [facility] with her daughter. 08/28: She has mild nausea again this morning. There is no abdominal pain or GI distress when this occurs. It has been responding to ondansetron. She says that her breathing feels ?looser in the chest and that the elephant sitting on the chest is gone. ? NAD, alert and oriented. No respiratory distress today. On O2. Lungs clear to auscultation bilaterally. Heart is regular, no murmur gallop or rub. Abdomen is soft, non distended. Extremities are free of edema. IMAGING: Chest CTA: No acute pulmonary emboli. No evidence for acute right-sided heart strain. Interval resolution of previously described anteromedial right upper lobe consolidation/mass. Stable 0.8 x 0.6 cm posterior right lower lobe pulmonary nodule. Recommend follow-up CT in 6 months to document continued stability. Redemonstration of moderate upper lobe predominant pulmonary emphysematous changes. Coronary atherosclerosis. A/P: 1. COPD exacerbation, active. 2. Nausea PLAN: -continue steroids and bronchodilators. -complete course of antibiotic, 5 days. -ondansetron effective for nausea. No abdominal tenderness or abdominal pain related. Discharge appears to be predictable in the next 1-2 days. Exam Vital Signs (past 8 hours): Fraction of Inspired Oxygen 24 SaO2/FiO2 Ratio 387 Oxygen Delivery Method Nasal Cannula Oxygen Flow Rate 1 Objective Labs 08/21/25 16:05 08/21/25 16:05 [facility] Medical History COPD (chronic obstructive pulmonary disease) Social History household members: none Smoking Status: Former smoker alcohol intake: never Assessment & Plan Time-Based Coding :: [TOTAL MINUTES] spent with patient and on the chart (including review of chart, obtaining history, exam, reviewing outside data, placing orders, documenting exam and treatment plan, and counseling patient) on [DATE]. Quality VTE Deep Vein Thrombosis/Pulmonary Embolism Present on Admission: No
[2025-08-28] MEDS: ONDANSETRON 4 MG/2 ML INJ IV (08:28)
[2025-08-28] MEDS: SODIUM CHLORIDE 0.9% FLUSH 10 ML IV ×2 (08:28→20:08)
[2025-08-28] MEDS: PANTOPRAZOLE DR 20 MG TABLET 40 MG PO (08:28)
--- NOTE | 2025-08-28 09:23 | PC.NURSE ---
Assess- Patient is alert and oriented x4, patients lung sounds with some wheezes. She is on room air, and independent in the room.
[2025-08-28 09:30] VITALS: BP 137/71; PULSE 104; RESP 16; TEMP 36.8; O2SAT 94
[2025-08-28 13:43] VITALS: PULSE 103; RESP 20; O2SAT 96
--- NOTE | 2025-08-28 15:10 | CM.DPNOTE ---
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 potential dc tomorrow. per chart review, no new needs identified at this time. P: anticipate dc tomorrow home self transport with close OP pulm f/u. no identified barriers to safe dc home at this time will continue to follow as needed should any arise EUGENIA Cai
--- NOTE | 2025-08-28 15:44 | PC.NURSE ---
Pt IND in room, on 1L O2, reports feeling worse today than yesterday though no specific complaints besides some nausea this AM that was treated effectively with IV zofran per orders. Will cont. to monitor.
[2025-08-28 18:50] VITALS: PULSE 103; RESP 18; O2SAT 96
[2025-08-28 19:00] VITALS: BP 138/84; PULSE 83; RESP 16; TEMP 37.1; O2SAT 89
[2025-08-29] MEDS: methylPREDNISolone succ 125 MG/2 ML VIAL 60 MG IV ×3 (02:07→18:28)
[2025-08-29 07:27] LABS: Add Manual Diff / Slide Review NO; Hematocrit 38.9 % (36-46); Hemoglobin 12.9 g/dL (12.0-16.0); Lymphocytes Absolute Auto 600 /uL (1100-4500); Mean Corpuscular HGB Conc 33.1 % (30-36); Mean Corpuscular Hemoglobin 27.4 PG (26-34); Mean Corpuscular Volume 82.6 fL (80-100); Platelet Count 400 X10^3/uL (150-400)
[2025-08-29] MEDS: ALBUTEROL/IPRATROPIUM 3 ML AMPUL INH ×2 (07:29→19:56)
[2025-08-29] MEDS: BUDESONIDE 0.5 MG/2 ML NEB INH ×2 (07:29→19:56)
[2025-08-29 07:33] VITALS: PULSE 105; RESP 20; O2SAT 97
[2025-08-29 07:33] LABS: Blood Urea Nitrogen 26 mg/dL (7-17); Calcium 8.4 mg/dL (8.4-10.2); Carbon Dioxide 36 mmol/L (22-32); Chloride 94 mmol/L (98-107); Estimated Glomerular Filt Rate > 60 mL/min (>60); Glucose 115 mg/dL (70-99); HEMOLYSIS < 15 (0-50); Potassium 4.7 mmol/L (3.4-5.1); Sodium 132 mmol/L (137-145)
[2025-08-29] MEDS: PANTOPRAZOLE DR 20 MG TABLET 40 MG PO (07:57)
[2025-08-29] MEDS: SODIUM CHLORIDE 0.9% FLUSH 10 ML IV ×2 (07:57→22:03)
[2025-08-29 08:00] VITALS: O2SAT 94
[2025-08-29] MEDS: ONDANSETRON 4 MG/2 ML INJ IV ×2 (08:00→12:06)
[2025-08-29 12:11] VITALS: BP 143/81; PULSE 73; RESP 20; TEMP 37.1; O2SAT 92
--- NOTE | 2025-08-29 12:46 | PM.PN.1 ---
Subjective Subjective Interval history: Interval history: 08/21: Feeling better than yesterday however still having moderate labored respirations. Discussed the time course of the month of having multiple exacerbations and never quite clearing up maybe a candidate for empiric treatment for bronchiectasis 08/22: No significant improvement over last 24 hours we will change antibiotics for dual anti pseudomonal therapy 08/23: Perhaps marginal improvement in her dyspnea with activity although she still is quite symptomatic we have walking from the bed to the bathroom cough is persistent and productive of frothy white sputum 08/24: Actually feeling a little worse today exhausted from respiratory effort feel like her wheezing is more of a struggle. 08/25: Still very dyspneic. No pain. On O2. 08/26: Still very dyspneic. She had an episode of increased wheezing last night. Minimal cough. She was trying to use the incentive spirometer with minimal of fact. 08/27: Experiencing respiratory distress at this moment, tripoding. Complaining of nausea, receiving ondansetron. She states that since she only has lung problems she does not have a PCP and only follows up with Dr. Pinto her environmental studies professor at . She lives in [facility] with her daughter. 08/28: She has mild nausea again this morning. There is no abdominal pain or GI distress when this occurs. It has been responding to ondansetron. She says that her breathing feels ?looser in the chest and that the elephant sitting on the chest is gone. ? 08/29: S: Severe, persistent nausea. Difficult to drink coffee which usually helps bowel movements. No BM in 2 days. Breathing is better. No abdominal pain. NAD, alert and oriented. No respiratory distress today. On O2. Lungs clear to auscultation bilaterally. Heart is regular, no murmur gallop or rub. Abdomen is soft, non distended. Extremities are free of edema. IMAGING: Chest CTA: No acute pulmonary emboli. No evidence for acute right-sided heart strain. Interval resolution of previously described anteromedial right upper lobe consolidation/mass. Stable 0.8 x 0.6 cm posterior right lower lobe pulmonary nodule. Recommend follow-up CT in 6 months to document continued stability. Redemonstration of moderate upper lobe predominant pulmonary emphysematous changes. Coronary atherosclerosis. A/P: 1. COPD exacerbation, active. 2. Nausea PLAN: -continue steroids and bronchodilators. -complete course of antibiotic, 5 days. -ondansetron effective for nausea. No abdominal tenderness or abdominal pain related. -we will add scheduled Reglan for 3 doses. Stop lorazepam which is only new medication in the last 3 days. Discharge appears to be predictable in the next 1-2 days. Exam Vital Signs (past 8 hours): - 08/29/25 07:33 08/29/25 08:00 08/29/25 08:00 Temperature Pulse Rate 105 H Respiratory Rate 20 Blood Pressure Pulse Oximetry 97 94 Oxygen Delivery Method Nasal Cannula Nasal Cannula Nasal Cannula Oxygen Flow Rate 1 1 Fraction of Inspired Oxygen 24 08/29/25 12:11 Temperature 98.7 F Pulse Rate 73 Respiratory Rate 20 Blood Pressure 143/81 H Pulse Oximetry 92 Oxygen Delivery Method Oxygen Flow Rate 0 Fraction of Inspired Oxygen Fraction of Inspired Oxygen 24 SaO2/FiO2 Ratio 395 Oxygen Delivery Method Nasal Cannula Oxygen Flow Rate 0 Objective Labs 08/29/25 07:15 08/29/25 07:15 Labs: Laboratory Results - last 24 hr 08/29/25 07:15 WBC 9.4 RBC 4.71 Hgb 12.9 Hct 38.9 MCV 82.6 MCH 27.4 MCHC 33.1 RDW 13.0 Plt Count 400 Neut % (Auto) 89.9 H Lymph % (Auto) 6.7 L [place] % (Auto) 2.9 L Eos % (Auto) 0.3 L Baso % (Auto) 0.2 Neut # (Auto) 8500 H Lymph # (Auto) 600 L [place] # (Auto) 300 Eos # (Auto) 0 Baso # (Auto) 0 Sodium 132 L Potassium 4.7 Chloride 94 L Carbon Dioxide 36 H BUN 26 H Creatinine 0.51 L Estimated GFR > 60 BUN/Creatinine Ratio 51.0 H Glucose 115 H Calcium 8.4 PFSH Medical History COPD (chronic obstructive pulmonary disease) Social History household members: none Smoking Status: Former smoker alcohol intake: never Assessment & Plan Time-Based Coding :: [TOTAL MINUTES] spent with patient and on the chart (including review of chart, obtaining history, exam, reviewing outside data, placing orders, documenting exam and treatment plan, and counseling patient) on [DATE]. Quality VTE Deep Vein Thrombosis/Pulmonary Embolism Present on Admission: No
[2025-08-29] MEDS: METOCLOPRAMIDE 10 MG/2 ML INJ 5 MG IV ×2 (14:27→21:15)
[2025-08-29 18:00] VITALS: O2SAT 96
[2025-08-29 19:00] VITALS: O2SAT 94
[2025-08-29 19:58] VITALS: PULSE 102; RESP 20; O2SAT 94
[2025-08-30] MEDS: methylPREDNISolone succ 125 MG/2 ML VIAL 60 MG IV ×3 (01:59→17:55)
[2025-08-30 04:51] LABS: Add Manual Diff / Slide Review NO; Hematocrit 39.4 % (36-46); Hemoglobin 13.1 g/dL (12.0-16.0); Lymphocytes Absolute Auto 500 /uL (1100-4500); Mean Corpuscular HGB Conc 33.3 % (30-36); Mean Corpuscular Hemoglobin 27.4 PG (26-34); Mean Corpuscular Volume 82.4 fL (80-100); Platelet Count 371 X10^3/uL (150-400)
[2025-08-30 05:16] LABS: Blood Urea Nitrogen 27 mg/dL (7-17); Calcium 8.5 mg/dL (8.4-10.2); Carbon Dioxide 34 mmol/L (22-32); Chloride 93 mmol/L (98-107); Estimated Glomerular Filt Rate > 60 mL/min (>60); Glucose 129 mg/dL (70-99); HEMOLYSIS 15 (0-50); Potassium 4.6 mmol/L (3.4-5.1); Sodium 131 mmol/L (137-145)
[2025-08-30] MEDS: METOCLOPRAMIDE 10 MG/2 ML INJ 5 MG IV (06:08)
[2025-08-30 07:00] VITALS: BP 146/85; PULSE 88; RESP 17; TEMP 36.4; O2SAT 92
[2025-08-30] MEDS: ALBUTEROL 2.5 MG/3 ML NEB (ADULT) INH (08:42)
[2025-08-30] MEDS: BUDESONIDE 0.5 MG/2 ML NEB INH ×2 (08:43→20:20)
[2025-08-30 08:45] VITALS: PULSE 104; RESP 20; O2SAT 95
[2025-08-30 09:00] VITALS: O2SAT 96
[2025-08-30] MEDS: ONDANSETRON 4 MG/2 ML INJ IV (09:08)
[2025-08-30] MEDS: PANTOPRAZOLE DR 20 MG TABLET 40 MG PO (09:08)
[2025-08-30] MEDS: SODIUM CHLORIDE 0.9% FLUSH 10 ML IV ×2 (09:09→21:01)
--- NOTE | 2025-08-30 10:33 | PM.PN.1 ---
Subjective Subjective Interval history: Admitted for COPD. 08/21: Feeling better than yesterday however still having moderate labored respirations. Discussed the time course of the month of having multiple exacerbations and never quite clearing up maybe a candidate for empiric treatment for bronchiectasis 08/22: No significant improvement over last 24 hours we will change antibiotics for dual anti pseudomonal therapy 08/23: Perhaps marginal improvement in her dyspnea with activity although she still is quite symptomatic we have walking from the bed to the bathroom cough is persistent and productive of frothy white sputum 08/24: Actually feeling a little worse today exhausted from respiratory effort feel like her wheezing is more of a struggle. 08/25: Still very dyspneic. No pain. On O2. 08/26: Still very dyspneic. She had an episode of increased wheezing last night. Minimal cough. She was trying to use the incentive spirometer with minimal of fact. 08/27: Experiencing respiratory distress at this moment, tripoding. Complaining of nausea, receiving ondansetron. She states that since she only has lung problems she does not have a PCP and only follows up with Dr. Pinto her tea room manager at . She lives in [facility] with her daughter. 08/28: She has mild nausea again this morning. There is no abdominal pain or GI distress when this occurs. It has been responding to ondansetron. She says that her breathing feels ?looser in the chest and that the elephant sitting on the chest is gone. ? 08/29: Had a lot of nausea, and vomiting. Added Reglan to her Zofran. S/Overnight events: Some improvement in nausea, able to eat breakfast this morning and drank coffee. Also constipated. Breathing remains somewhat type but somewhat improved from admission. O: T 98.7?, BP 143/81, pulse 104, respiration 20, SpO2 95% 1 L. NAD, alert and oriented. No respiratory distress today. On O2. Lungs with some diminished breath sounds and expiratory wheezing in all luna, but improved air movement. Heart is regular, no murmur gallop or rub. Abdomen is soft, non distended. Extremities are free of edema. IMAGING: Chest CTA: No acute pulmonary emboli. No evidence for acute right-sided heart strain. Interval resolution of previously described anteromedial right upper lobe consolidation/mass. Stable 0.8 x 0.6 cm posterior right lower lobe pulmonary nodule. Recommend follow-up CT in 6 months to document continued stability. Redemonstration of moderate upper lobe predominant pulmonary emphysematous changes. Coronary atherosclerosis. A/P: 1. COPD exacerbation, active and improving. 2. Nausea, not able to eat or drink through August 29, this is slowly improving with to antiemetics. PLAN: -continue steroids and bronchodilators. -complete course of antibiotic, 5 days. -continue Zofran as needed and Reglan scheduled for another 24 hours. She requires another night of care due to her persistent nausea which is now improving. [place] is currently not reachable. Discharge appears to be predictable in the next 1-2 days. Exam Vital Signs (past 8 hours): - 08/30/25 08:45 Pulse Rate 104 H Respiratory Rate 20 Pulse Oximetry 95 Oxygen Delivery Method Nasal Cannula Oxygen Flow Rate 1 Fraction of Inspired Oxygen 24 SaO2/FiO2 Ratio 395 Oxygen Delivery Method Nasal Cannula Oxygen Flow Rate 1 Objective Labs 08/30/25 04:15 08/30/25 04:15 Labs: Laboratory Results - last 24 hr 08/30/25 04:15 WBC 7.6 RBC 4.78 Hgb 13.1 Hct 39.4 MCV 82.4 MCH 27.4 MCHC 33.3 RDW 13.1 Plt Count 371 Neut % (Auto) 89.6 H Lymph % (Auto) 7.0 L [place] % (Auto) 3.1 Eos % (Auto) 0.1 L Baso % (Auto) 0.2 Neut # (Auto) 6800 Lymph # (Auto) 500 L [place] # (Auto) 200 Eos # (Auto) 0 Baso # (Auto) 0 Sodium 131 L Potassium 4.6 Chloride 93 L Carbon Dioxide 34 H BUN 27 H Creatinine 0.49 L Estimated GFR > 60 BUN/Creatinine Ratio 55.1 H Glucose 129 H Calcium 8.5 PFSH Medical History COPD (chronic obstructive pulmonary disease) Social History household members: none Smoking Status: Former smoker alcohol intake: never Assessment & Plan Time-Based Coding :: [TOTAL MINUTES] spent with patient and on the chart (including review of chart, obtaining history, exam, reviewing outside data, placing orders, documenting exam and treatment plan, and counseling patient) on [DATE]. Quality VTE Deep Vein Thrombosis/Pulmonary Embolism Present on Admission: No
[2025-08-30] MEDS: METOCLOPRAMIDE HCL 5 MG TABLET PO ×2 (12:52→16:43)
[2025-08-30] MEDS: DOCUSATE 100 MG CAPSULE 200 MG PO ×2 (16:43→20:57)
[2025-08-30 17:58] VITALS: PULSE 100; RESP 18; O2SAT 99
[2025-08-30] MEDS: ALBUTEROL/IPRATROPIUM 3 ML AMPUL INH (17:58)
[2025-08-30 19:00] VITALS: BP 137/90; PULSE 82; RESP 20; TEMP 36.5; O2SAT 94; O2SAT 99
[2025-08-30] MEDS: ACETAMINOPHEN 325 MG TABLET 650 MG PO (21:01)
[2025-08-31] MEDS: methylPREDNISolone succ 125 MG/2 ML VIAL 60 MG IV ×3 (01:30→18:08)
[2025-08-31 07:00] VITALS: O2SAT 96
[2025-08-31] MEDS: ALBUTEROL/IPRATROPIUM 3 ML AMPUL INH ×2 (07:53→13:35)
[2025-08-31] MEDS: BUDESONIDE 0.5 MG/2 ML NEB INH ×2 (07:53→19:28)
[2025-08-31 07:56] VITALS: PULSE 95; RESP 20; O2SAT 95
[2025-08-31] MEDS: METOCLOPRAMIDE HCL 5 MG TABLET PO ×3 (07:59→18:09)
--- NOTE | 2025-08-31 08:06 | CM.DPC ---
Patient's home was evacuated during this hospital stay. Patient is dependent on home O2. She is not able to obtain her home oxygen and concentrator. Dr. Bower is aware of the above.
[2025-08-31 09:00] VITALS: BP 137/64; PULSE 95; RESP 19; TEMP 36.8; O2SAT 95
[2025-08-31] MEDS: SENNOSIDES 8.6 MG TABLET PO ×2 (09:45→20:22)
[2025-08-31] MEDS: PANTOPRAZOLE DR 20 MG TABLET 40 MG PO (09:45)
[2025-08-31] MEDS: DOCUSATE 100 MG CAPSULE 200 MG PO ×2 (09:45→20:22)
[2025-08-31] MEDS: SODIUM CHLORIDE 0.9% FLUSH 10 ML IV ×2 (09:46→20:30)
--- NOTE | 2025-08-31 12:45 | PM.PN.1 ---
Subjective Subjective Interval history: 08/21: Feeling better than yesterday however still having moderate labored respirations. Discussed the time course of the month of having multiple exacerbations and never quite clearing up maybe a candidate for empiric treatment for bronchiectasis 08/22: No significant improvement over last 24 hours we will change antibiotics for dual anti pseudomonal therapy 08/23: Perhaps marginal improvement in her dyspnea with activity although she still is quite symptomatic we have walking from the bed to the bathroom cough is persistent and productive of frothy white sputum 08/24: Actually feeling a little worse today exhausted from respiratory effort feel like her wheezing is more of a struggle. 08/25: Still very dyspneic. No pain. On O2. 08/26: Still very dyspneic. She had an episode of increased wheezing last night. Minimal cough. She was trying to use the incentive spirometer with minimal of fact. 08/27: Experiencing respiratory distress at this moment, tripoding. Complaining of nausea, receiving ondansetron. 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 She lives in [facility] with her daughter. 08/28: She has mild nausea again this morning. There is no abdominal pain or GI distress when this occurs. It has been responding to ondansetron. She says that her breathing feels ?looser in the chest and that the elephant sitting on the chest is gone. ? 08/29: Had a lot of nausea, and vomiting. Added Reglan to her Zofran. 08/30: Some improvement in nausea, able to eat breakfast this morning and drank coffee. Also constipated. Breathing remains somewhat type but somewhat improved from admission. 08/31: 08/30 sodium 131 and normal CBC reviewed. Nausea has become a constant symptom, worse in the morning. Reglan and Zofran are effective. There remains no abdominal discomfort. This is an entirely new problem for her. She does not have a history of gastroparesis or diabetes. We will proceed with head CT and abdominal/ pelvic CT today. Her breathing continues to be stabilized. NAD, alert and oriented. No respiratory distress today. On O2. Lungs with some diminished breath sounds and expiratory wheezing in all luna, but improved air movement. Heart is regular, no murmur gallop or rub. Abdomen is soft, non distended. Bowel sounds active. No organomegaly. Extremities are free of edema. IMAGING: Chest CTA: No acute pulmonary emboli. No evidence for acute right-sided heart strain. Interval resolution of previously described anteromedial right upper lobe consolidation/mass. Stable 0.8 x 0.6 cm posterior right lower lobe pulmonary nodule. Recommend follow-up CT in 6 months to document continued stability. Redemonstration of moderate upper lobe predominant pulmonary emphysematous changes. Coronary atherosclerosis. A/P: 1. COPD exacerbation, active and improving. 2. Nausea, not able to eat or drink through August 29, this is slowly improving with two antiemetics. PLAN: -continue steroids and bronchodilators. -complete course of antibiotic, 5 days. -continue Zofran as needed and Reglan scheduled for another 24 hours. -head CT. Abdominal / pelvic CT. Rule out unusual causes of persistent nausea. She requires another night of care due to her persistent nausea which is now improving. [place] is currently not reachable. Discharge appears to be predictable in the next 1 day. Exam Vital Signs (past 8 hours): - 08/31/25 07:56 08/31/25 09:00 Temperature 98.3 F Pulse Rate 95 H 95 H Respiratory Rate 20 19 Blood Pressure 137/64 Pulse Oximetry 95 95 Oxygen Delivery Method Nasal Cannula Oxygen Flow Rate 1 2 Fraction of Inspired Oxygen 24 SaO2/FiO2 Ratio 412 Oxygen Delivery Method Nasal Cannula Oxygen Flow Rate 2 Objective Labs 08/30/25 04:15 08/30/25 04:15 [facility] Medical History COPD (chronic obstructive pulmonary disease) Social History household members: none Smoking Status: Former smoker alcohol intake: never Assessment & Plan Time-Based Coding :: [TOTAL MINUTES] spent with patient and on the chart (including review of chart, obtaining history, exam, reviewing outside data, placing orders, documenting exam and treatment plan, and counseling patient) on [DATE]. Quality VTE Deep Vein Thrombosis/Pulmonary Embolism Present on Admission: No
[2025-08-31 13:36] VITALS: PULSE 99; RESP 20; O2SAT 95
--- NOTE | 2025-08-31 16:02 | DI.CT.S_ITS ---
PROCEDURE: CT HEAD/BRAIN WO CON INDICATIONS: Severe Nausea TECHNIQUE: Noncontrast 4.5 mm thick angled axial sections acquired from the foramen magnum to the vertex, with coronal and sagittal reformats. For radiation dose reduction, the following was used: automated exposure control, adjustment of mA and/or kV according to patient size. COMPARISON: None. FINDINGS: Image quality: Diagnostic. CSF spaces: Basal cisterns are patent. No extra-axial fluid collections. Ventricles are normal in size and shape. Brain: No midline shift. No intracranial mass effect or hemorrhage. Sue- white matter interface is normal. Skull and face: Calvarium and visualized facial bones are intact, without suspicious lesions. Sinuses: Visualized sinuses and mastoids are clear. IMPRESSION: No acute intracranial pathology. Dictated by: Sury Wan M.D. on 08/31/2025 at 16:41 Approved by: Sury Wan M.D. on 08/31/2025 at 16:42
--- NOTE | 2025-08-31 16:02 | DI.CT.S_ITS ---
PROCEDURE: CT ABDOMEN PELVIS WO CON INDICATIONS: Severe Nausea TECHNIQUE: CT of the abdomen and pelvis was obtained without intravenous contrast. Coronal and sagittal reformats were performed. For radiation dose reduction, the following was used: automated exposure control, adjustment of mA and/or kV according to patient size. COMPARISON: [facility], CT, CT ANGIO CHEST PE PROTOCOL, 08/09/2022, 15:00. [facility], CT, CT ANGIO CHEST PE PROTOCOL, 08/20/2025, 22:14. FINDINGS: Image quality: Diagnostic. Lower Chest: Unchanged 5-6 mm nodule in the right lower lobe since 2021. ABDOMEN: Liver: Punctate hepatic low-attenuation, unchanged in too small to definitively characterize. Gallbladder: No radiopaque gallstones or wall thickening. Biliary ducts: No biliary dilation. Pancreas: No ductal dilation. Spleen: Size is within normal limits. Adrenal Glands: No adrenal nodules. Kidneys and Ureters: No hydronephrosis. No contour-deforming mass. Stomach and Bowel: Normal colonic caliber, without significant wall thickening. Scattered colonic stool. No obstruction. No inflammatory change. Peritoneum: No abnormal intraperitoneal fluid. No free air. Ventral Wall: No significant hernia. Abdominal Nodes: No retroperitoneal or mesenteric adenopathy by size criteria. Vessels: Aorta and inferior vena cava are normal in size. PELVIS: Pelvic Organs: Unremarkable. Bladder: Unremarkable. Pelvic Nodes: No enlarged lymph nodes. Miscellaneous: No inguinal hernias are seen. Bones: No aggressive osseous abnormality. IMPRESSION: No acute intra-abdominal or pelvic process. Stable 6 mm right lower lobe nodule since 2021. Dictated by: Sury Wan M.D. on 08/31/2025 at 16:59 Approved by: Sury Wan M.D. on 08/31/2025 at 17:01
[2025-08-31] MEDS: ENOXAPARIN 40 MG/0.4 ML SYRINGE SUBCUT (18:08)
[2025-08-31 19:00] VITALS: BP 146/61; PULSE 87; RESP 16; TEMP 36.6; O2SAT 92; O2SAT 94
[2025-08-31 19:30] VITALS: PULSE 95; RESP 20; O2SAT 95
[2025-09-01] VITALS (7 sets, daily range): BP systolic 135–169; BP diastolic 69–90; PULSE 79–98; RESP 16–26; TEMP 36.4–36.7; O2SAT 92–96
[2025-09-01] MEDS: methylPREDNISolone succ 125 MG/2 ML VIAL 60 MG IV ×3 (02:50→17:18)
[2025-09-01] MEDS: BUDESONIDE 0.5 MG/2 ML NEB INH ×2 (07:57→20:06)
[2025-09-01] MEDS: METOCLOPRAMIDE HCL 5 MG TABLET PO ×3 (08:21→17:18)
[2025-09-01] MEDS: PANTOPRAZOLE DR 20 MG TABLET 40 MG PO (08:25)
[2025-09-01] MEDS: DOCUSATE 100 MG CAPSULE 200 MG PO ×2 (08:25→20:31)
[2025-09-01] MEDS: ENOXAPARIN 40 MG/0.4 ML SYRINGE SUBCUT (08:25)
[2025-09-01] MEDS: SODIUM CHLORIDE 0.9% FLUSH 10 ML IV ×5 (08:26→20:31)
[2025-09-01] MEDS: ACETAMINOPHEN 325 MG TABLET 650 MG PO (14:41)
[2025-09-01] MEDS: ONDANSETRON 4 MG/2 ML INJ IV (14:45)
[2025-09-01] MEDS: ALBUTEROL 2.5 MG/3 ML NEB (ADULT) INH (15:12)
--- NOTE | 2025-09-01 15:27 | CM.DPC ---
Per patient, I think my neighborhood is safe to return to. Patient denies having ever having portable oxygen. Patient reports having her own auto here to drive herself home. Patient also has a daughter, Candida, in the area for any assistance. Dr. Wadsworth updated.
[2025-09-01] MEDS: SENNOSIDES 8.6 MG TABLET PO (17:25)
--- NOTE | 2025-09-01 18:29 | P.PN_ITS ---
Subjective Subjective Interval history: 60-year-old female with COPD, possible CHLOE oxygen who was admitted August 20 with ongoing shortness of breath. She has had ongoing difficulties with dyspnea over the course of the last month. She does follow with a doughnut batter mixer on an outpatient basis at the [facility]. She notes her doughnut batter mixer has been trying to get her on home O2 but she has not to date qualified. She did drive herself here to the hospital on admission. She will have to drive herself home. She notes that her neighborhood had been evacuated but they are now being allowed back into their homes. She states her concentrate her at home and her home itself did not have any damage. Exam Vital Signs (past 8 hours): - 09/01/25 15:13 09/01/25 16:00 Temperature 97.6 F Pulse Rate 98 H 89 Respiratory Rate 26 H 16 Blood Pressure 135/88 Pulse Oximetry 95 94 Oxygen Delivery Method Nasal Cannula Oxygen Flow Rate 1 0 Fraction of Inspired Oxygen 24 Fraction of Inspired Oxygen 24 SaO2/FiO2 Ratio 395 Oxygen Delivery Method Nasal Cannula Oxygen Flow Rate 0 Narrative Exam Narrative: GEN: Middle-aged female, Alert and oriented x 3, dyspnea noted HEENT:NC, Face symmetric CHEST: Respiratory excursions symmetric, diffusely diminished with poor air movement, tachypneic, increased work of breathing CV: RRR, no M/R/G ABD: Soft, NT/ND, BT present in all 4 quadrants, no organomegaly or masses EXTR: warm, well perfused, no C/C/E SKIN: warm and dry, no rash NEURO: Alert and oriented x 3, nonfocal Objective Labs 08/30/25 04:15 08/30/25 04:15 [facility] Medical History COPD (chronic obstructive pulmonary disease) Social History household members: none Smoking Status: Former smoker alcohol intake: never Assessment & Plan Assessment & Plan narrative: 1. COPD exacerbation She remains on budesonide nebulizers, Solu-Medrol, DuoNebs, and albuterol nebulizers as needed. I have asked respiratory therapy to do an ambulatory assessment on her. I suspect that she will be hypoxic with ambulation. Her baseline sats at rest are proximally 93%. Given the poor air movement in her lungs, I would anticipate significant hypoxia with activity. 2. Intractable nausea Patient had a CT scan of the abdomen/pelvis/head. There are no findings to explain her nausea. That has since improved. Suspect it could be related to constipation helping with her increased work of breathing. Nevertheless, it has improved today. We will continue to monitor 3. Constipation This certainly could be making her increased work of breathing a bit worse. She is starting to have some bowel movements today. 4. Hyponatremia Sodium was 131 on August 30. Will plan to repeat labs tomorrow. 5. Right lower lobe pulmonary nodule 0.8 x 0.6 cm Will need follow-up in 6 months Code status Full Prophylaxis On Lovenox Disposition Possibly home tomorrow if her increased work of breathing is improved Time-Based Coding :: [TOTAL MINUTES] spent with patient and on the chart (including review of chart, obtaining history, exam, reviewing outside data, placing orders, documenting exam and treatment plan, and counseling patient) on [DATE]. Quality VTE Deep Vein Thrombosis/Pulmonary Embolism Present on Admission: No
[2025-09-01] MEDS: ALBUTEROL/IPRATROPIUM 3 ML AMPUL INH (20:06)
[2025-09-02] MEDS: methylPREDNISolone succ 125 MG/2 ML VIAL 60 MG IV ×3 (02:04→18:16)
[2025-09-02 04:23] LABS: Add Manual Diff / Slide Review NO; Hematocrit 40.6 % (36-46); Hemoglobin 13.6 g/dL (12.0-16.0); Lymphocytes Absolute Auto 800 /uL (1100-4500); Mean Corpuscular HGB Conc 33.6 % (30-36); Mean Corpuscular Hemoglobin 27.5 PG (26-34); Mean Corpuscular Volume 81.9 fL (80-100); Platelet Count 350 X10^3/uL (150-400)
[2025-09-02 04:42] LABS: Blood Urea Nitrogen 24 mg/dL (7-17); Calcium 8.2 mg/dL (8.4-10.2); Carbon Dioxide 32 mmol/L (22-32); Chloride 93 mmol/L (98-107); Estimated Glomerular Filt Rate > 60 mL/min (>60); Glucose 186 mg/dL (70-99); HEMOLYSIS < 15 (0-50); Potassium 3.8 mmol/L (3.4-5.1); Sodium 130 mmol/L (137-145)
[2025-09-02 08:00] VITALS: BP 143/77; PULSE 75; RESP 18; TEMP 36.6; O2SAT 94
[2025-09-02] MEDS: DOCUSATE 100 MG CAPSULE 200 MG PO ×2 (08:17→20:48)
[2025-09-02] MEDS: ENOXAPARIN 40 MG/0.4 ML SYRINGE SUBCUT (08:18)
[2025-09-02] MEDS: METOCLOPRAMIDE HCL 5 MG TABLET PO ×3 (08:18→15:55)
[2025-09-02] MEDS: PANTOPRAZOLE DR 20 MG TABLET 40 MG PO (08:18)
[2025-09-02 08:35] VITALS: O2SAT 93
--- NOTE | 2025-09-02 08:44 | PC.NURSE ---
Patients lungs sound better, compared to wednesday. She is not as wheezy, patient does have sob with exertion and at rest. She ambulated on room air and sats went down to 85%. We are looking into trying to get patient a portable oxygen tank. She was given her reglan oral and is going to eat breakfast soon.
[2025-09-02] MEDS: BUDESONIDE 0.5 MG/2 ML NEB INH ×2 (09:18→19:28)
[2025-09-02 09:19] VITALS: PULSE 100; RESP 22; O2SAT 96
[2025-09-02] MEDS: ALBUTEROL 2.5 MG/3 ML NEB (ADULT) INH (09:19)
--- NOTE | 2025-09-02 10:40 | P.PN_ITS ---
Subjective Subjective Interval history: 60-year-old female with COPD, possible CHLOE oxygen who was admitted August 20 with ongoing shortness of breath. She has had ongoing difficulties with dyspnea over the course of the last month. She does follow with a printing grey cloth tender on an outpatient basis at the [facility]. She notes her printing grey cloth tender has been trying to get her on home O2 but she has not to date qualified. She did drive herself here to the hospital on admission. She will have to drive herself home. She notes that her neighborhood had been evacuated but they are now being allowed back into their homes. She states her concentrate her at home and her home itself did not have any damage. She reports she sees her printing grey cloth tender every 3 months. He has diagnosed her with severe COPD. She states she last saw him in June and was due to see him this past week. She states last year she did have a hospitalization at the [facility] for 2 weeks. She was out of work been for 3 months secondary to her COPD. However, she states this present flare seems worse than the 1 she had last year. Additionally, she notes that at baseline she can work and typically has good control of her symptoms. Currently, she states her symptoms have been very poorly controlled since she contracted norovirus 1 month ago. She states she continues to feel very short of breath, had bad night last night and continues to feel quite short of breath this morning. Exam Vital Signs (past 8 hours): - 09/02/25 08:00 09/02/25 08:35 09/02/25 09:19 Temperature 97.8 F Pulse Rate 75 100 H Respiratory Rate 18 22 Blood Pressure 143/77 H Pulse Oximetry 94 93 96 Oxygen Delivery Method Nasal Cannula Room Air Oxygen Flow Rate 1 1 1 Fraction of Inspired Oxygen 24 Fraction of Inspired Oxygen 24 SaO2/FiO2 Ratio 400 Oxygen Delivery Method Room Air Oxygen Flow Rate 1 Narrative Exam Narrative: GEN: Middle-aged female, Alert and oriented x 3, moderately dyspneic at rest HEENT:NC, Face symmetric CHEST: Respiratory excursions symmetric, mildly improved air movement in her left mid and upper lung today compared with yesterday, persistently very diminished in the right, tachypneic, increased work of breathing CV: RRR, no M/R/G ABD: Soft, NT/ND, BT present in all 4 quadrants, no organomegaly or masses EXTR: warm, well perfused, no C/C/E SKIN: warm and dry, no rash NEURO: Alert and oriented x 3, nonfocal Objective Labs 09/02/25 03:47 09/02/25 03:47 Labs: Laboratory Results - last 24 hr 09/02/25 03:47 WBC 10.1 RBC 4.96 Hgb 13.6 Hct 40.6 MCV 81.9 MCH 27.5 MCHC 33.6 RDW 13.2 Plt Count 350 Neut % (Auto) 85.9 H Lymph % (Auto) 8.3 L [place] % (Auto) 5.0 Eos % (Auto) 0.1 L Baso % (Auto) 0.7 Neut # (Auto) 8700 H Lymph # (Auto) 800 L [place] # (Auto) 500 Eos # (Auto) 0 Baso # (Auto) 100 Sodium 130 L Potassium 3.8 Chloride 93 L Carbon Dioxide 32 BUN 24 H Creatinine 0.51 L Estimated GFR > 60 BUN/Creatinine Ratio 47.1 H Glucose 186 H Calcium 8.2 L PFSH Medical History COPD (chronic obstructive pulmonary disease) Social History household members: none Smoking Status: Former smoker alcohol intake: never Assessment & Plan Assessment & Plan narrative: 1. COPD exacerbation She remains on budesonide nebulizers, Solu-Medrol, DuoNebs, and albuterol nebulizers as needed. She did become hypoxic to 85% with ambulation. This is expected given the severity of her baseline COPD. She has mild improvement in her air movement today on the left side, but not on the right. She remains on Solu-Medrol 60 mg IV q.8 hours. Will continue the same dose today. She did have a small bowel movement today and notes some mild improvement in her abdominal distention. 2. Intractable nausea Patient had a CT scan of the abdomen/pelvis/head. There are no findings to explain her nausea. Constipation is mildly improved. She continues to have mild nausea. Likely secondary to combination of steroids, GERD, and constipation. 3. Constipation Ongoing improvement overall with small bowel movements each day. 4. Hyponatremia Sodium was 131 on August 30. Stable at 130 today. 5. Right lower lobe pulmonary nodule 0.8 x 0.6 cm Will need follow-up in 6 months Code status Full Prophylaxis On Lovenox Disposition Pending improvement in her dyspnea and work of breathing. Time-Based Coding :: [TOTAL MINUTES] spent with patient and on the chart (including review of chart, obtaining history, exam, reviewing outside data, placing orders, documenting exam and treatment plan, and counseling patient) on [DATE]. Quality VTE Deep Vein Thrombosis/Pulmonary Embolism Present on Admission: No
[2025-09-02] MEDS: SODIUM CHLORIDE 0.9% FLUSH 10 ML IV ×2 (12:41→20:49)
[2025-09-02] MEDS: ALBUTEROL/IPRATROPIUM 3 ML AMPUL INH ×2 (13:43→19:28)
[2025-09-02 13:44] VITALS: PULSE 100; RESP 24; O2SAT 96
--- NOTE | 2025-09-02 18:39 | PC.NURSE ---
Pt's IV was placed 08/27 and was a very challenging IV start. Pt's IV is patent, flushes easily, no redness, pain, swelling or other signs of infection noted at site. Pt states she would like to keep current IV in place as she may discharge tomorrow and it's still working well. Will continue to closely monitor the site and change it if any signs of infection are identified. Otherwise pt doing well. C/O lots of continued nausea and shortness of breath. Vitals stable. IND in room. Will continue to monitor.
[2025-09-02 19:00] VITALS: BP 153/93; PULSE 98; RESP 23; TEMP 36.8; O2SAT 92; O2SAT 94
[2025-09-02 20:30] VITALS: PULSE 95; RESP 20; O2SAT 96
[2025-09-03] MEDS: methylPREDNISolone succ 125 MG/2 ML VIAL 60 MG IV ×3 (02:15→18:32)
[2025-09-03] MEDS: ALBUTEROL/IPRATROPIUM 3 ML AMPUL INH ×2 (08:05→13:18)
[2025-09-03] MEDS: BUDESONIDE 0.5 MG/2 ML NEB INH ×2 (08:05→21:03)
[2025-09-03 08:10] VITALS: PULSE 73; RESP 20; O2SAT 93
[2025-09-03] MEDS: PANTOPRAZOLE DR 20 MG TABLET 40 MG PO (08:21)
[2025-09-03] MEDS: DOCUSATE 100 MG CAPSULE 200 MG PO ×2 (08:22→20:06)
[2025-09-03] MEDS: ENOXAPARIN 40 MG/0.4 ML SYRINGE SUBCUT (08:23)
[2025-09-03] MEDS: METOCLOPRAMIDE HCL 5 MG TABLET PO ×3 (08:23→16:33)
[2025-09-03 08:29] VITALS: O2SAT 1
--- NOTE | 2025-09-03 08:36 | PC.NURSE ---
Patients lung sounds are better, she does have some wheezing to r.upper lobe. She is on 1L of O2 and sats are at 92%. Independent in her room. She has been having a hard time with nausea, given reglan orally.
[2025-09-03 09:29] VITALS: BP 145/71; PULSE 97; RESP 20; TEMP 36.3; O2SAT 95
[2025-09-03] MEDS: SODIUM CHLORIDE 0.9% FLUSH 10 ML IV ×2 (11:08→20:06)
--- NOTE | 2025-09-03 12:39 | P.PN_ITS ---
Subjective Subjective Interval history: 60-year-old female with COPD, possible CHLOE oxygen who was admitted August 20 with ongoing shortness of breath. She has had ongoing difficulties with dyspnea over the course of the last month. She does follow with a stencil typist on an outpatient basis at the [facility]. She notes her stencil typist has been trying to get her on home O2 but she has not to date qualified. She did drive herself here to the hospital on admission. She will have to drive herself home. She notes that her neighborhood had been evacuated but they are now being allowed back into their homes. She states her concentrate her at home and her home itself did not have any damage. She reports she sees her stencil typist every 3 months. He has diagnosed her with severe COPD. She states she last saw him in June and was due to see him this past week. She states last year she did have a hospitalization at the [facility] for 2 weeks. She was out of work been for 3 months secondary to her COPD. However, she states this present flare seems worse than the 1 she had last year. Additionally, she notes that at baseline she can work and typically has good control of her symptoms. 122: Feeling better than yesterday however still having moderate labored respirations. Discussed the time course of the month of having multiple exacerbations and never quite clearing up maybe a candidate for empiric treatment for bronchiectasis 3: No significant improvement over last 24 hours we will change antibiotics for dual anti pseudomonal therapy 4: Perhaps marginal improvement in her dyspnea with activity although she still is quite symptomatic we have walking from the bed to the bathroom cough is persistent and productive of frothy white sputum 125: Actually feeling a little worse today exhausted from respiratory effort feel like her wheezing is more of a struggle. 6: Still very dyspneic. No pain. On O2. 08/26: Still very dyspneic. She had an episode of increased wheezing last night. Minimal cough. She was trying to use the incentive spirometer with minimal of fact. 08/27: Experiencing respiratory distress at this moment, tripoding. Complaining of nausea, receiving ondansetron. She states that since she only has lung problems she does not have a PCP and only follows up with Dr. Pinto her stencil typist at . She lives in [facility] with her daughter. 08/28: She has mild nausea again this morning. There is no abdominal pain or GI distress when this occurs. It has been responding to ondansetron. She says that her breathing feels ?looser in the chest and that the elephant sitting on the chest is gone. ? 08/29: Had a lot of nausea, and vomiting. Added Reglan to her Zofran. 08/30: Some improvement in nausea, able to eat breakfast this morning and drank coffee. Also constipated. Breathing remains somewhat type but somewhat improved from admission. 08/31: 08/30 sodium 131 and normal CBC reviewed. Nausea has become a constant symptom, worse in the morning. Reglan and Zofran are effective. There remains no abdominal discomfort. This is an entirely new problem for her. She does not have a history of gastroparesis or diabetes. We will proceed with head CT and abdominal/ pelvic CT today. Her breathing continues to be stabilized. 09/01-: More short of breath over the weekend with labored breathing. Not able to be discharge. Now waiting for home oxygen. S: Feels a lot better today. Still short of breath. Nausea is a little bit better. She was waiting for home oxygen to be processed for her discharge home. She qualified in her last evaluation yesterday. O: NAD, alert and oriented. Fluent speech. Lungs are clear, normal rate and effort. Heart is regular, no murmur gallop or rub. Abdomen is soft, non distended. Extremities are free of edema. A/P: 1. COPD exacerbation, active and improving. 2. Nausea, not able to eat or drink through August 29, this is slowly improving with two antiemetics. PLAN: -continue steroids and bronchodilators. -complete course of antibiotic, 5 days. She was now improving again, anticipate discharge with home oxygen on September 04 if she continues to improve. Exam Vital Signs (past 8 hours): - 09/03/25 08:10 09/03/25 08:29 09/03/25 08:32 Temperature Pulse Rate 73 Respiratory Rate 20 Blood Pressure Pulse Oximetry 93 1 L Oxygen Delivery Method Nasal Cannula Nasal Cannula Nasal Cannula Oxygen Flow Rate 1 92 Fraction of Inspired Oxygen 24 09/03/25 09:29 Temperature 97.4 F L Pulse Rate 97 H Respiratory Rate 20 Blood Pressure 145/71 H Pulse Oximetry 95 Oxygen Delivery Method Oxygen Flow Rate 1 Fraction of Inspired Oxygen Fraction of Inspired Oxygen 24 SaO2/FiO2 Ratio 387 Oxygen Delivery Method Nasal Cannula Oxygen Flow Rate 1 Objective Labs 09/02/25 03:47 09/02/25 03:47 [facility] Medical History COPD (chronic obstructive pulmonary disease) Social History household members: none Smoking Status: Former smoker alcohol intake: never Assessment & Plan Time-Based Coding :: [TOTAL MINUTES] spent with patient and on the chart (including review of chart, obtaining history, exam, reviewing outside data, placing orders, documenting exam and treatment plan, and counseling patient) on [DATE]. Quality VTE Deep Vein Thrombosis/Pulmonary Embolism Present on Admission: No
[2025-09-03 13:18] VITALS: PULSE 100; RESP 24; O2SAT 96
--- NOTE | 2025-09-03 16:52 | PC.NURSE ---
Pt doing well this AM and hopeful to DC tomorrow. Still experiencing nausea and treated with scheduled reglan, pt reports minor relief of sx. Still SOB with activity and on 1L O2. Pt's L forearm IV placed on 08/27 is still flushing, has good blood return, no swelling, reddness, pain, etc. and pt is requesting that we leave it in place/refusing a new IV as the plan is to DC tomorrow. Will continue to closely monitor IV site for any signs of infection.
--- NOTE | 2025-09-03 17:10 | CM.DPNOTE ---
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 placed home O2 eval order. per respiratory, will work on it. no new needs from CM team at this time. P: home today vs tomorrow pending home o2 eval, will transport self with OP f/u. CM team will continue to follow as needed for DCP coordination EUGENIA Cai
[2025-09-03] MEDS: SENNOSIDES 8.6 MG TABLET PO (18:36)
[2025-09-03] MEDS: BISACODYL 10 MG SUPP PR (18:47)
[2025-09-03 19:00] VITALS: BP 146/85; PULSE 86; RESP 20; TEMP 36.8; O2SAT 93
[2025-09-03] MEDS: AZITHROMYCIN 250 MG TABLET 500 MG PO (20:06)
[2025-09-03] MEDS: ALBUTEROL 2.5 MG/3 ML NEB (ADULT) INH (20:07)
[2025-09-03 21:03] VITALS: PULSE 90; RESP 20; O2SAT 98
[2025-09-04] MEDS: ACETAMINOPHEN 325 MG TABLET 650 MG PO (02:43)
[2025-09-04] MEDS: ONDANSETRON 4 MG/2 ML INJ IV (02:43)
[2025-09-04] MEDS: methylPREDNISolone succ 125 MG/2 ML VIAL 60 MG IV ×2 (02:43→09:19)
[2025-09-04 07:00] VITALS: O2SAT 98
[2025-09-04] MEDS: METOCLOPRAMIDE HCL 5 MG TABLET PO (08:45)
[2025-09-04] MEDS: PANTOPRAZOLE DR 20 MG TABLET 40 MG PO (09:18)
[2025-09-04] MEDS: DOCUSATE 100 MG CAPSULE 200 MG PO (09:18)
[2025-09-04] MEDS: ENOXAPARIN 40 MG/0.4 ML SYRINGE SUBCUT (09:19)
[2025-09-04] MEDS: SODIUM CHLORIDE 0.9% FLUSH 10 ML IV (09:20)
[2025-09-04] MEDS: ALBUTEROL 2.5 MG/3 ML NEB (ADULT) INH (09:50)
[2025-09-04] MEDS: BUDESONIDE 0.5 MG/2 ML NEB INH (09:50)
[2025-09-04 09:52] VITALS: PULSE 103; RESP 18; O2SAT 95
--- NOTE | 2025-09-04 11:53 | PM.DS.1 ---
History of Present Illness History of Present Illness Chief complaint: SOB, worsening over 2 days Narrative: From H&P: 60F with PMH of COPD presents with increased work of breathing and dyspnea for 1 month. She has no chest pain, nausea, vomiting, syncope. She does have mild leg edema. Labs were unremarkable and she is negative for RSV, COVID, and flu. In the ED, she received duoneb, Solumedrol, and Mg sulfate but remains tachypneic requiring supplemental oxygen. Tried her multiple inhalers and nebulizer at home without improvement. Also takes azithromycin 3x/week. Now expectorating a lot more than she did at home. Hospital course: She was admitted with a profound COPD exacerbation had very slow improvement with steroids and bronchodilators. She developed severe persistent nausea which lasted over 5 days and kept her from progressing. Ultimately over the last 2 days she improved substantially. She would qualify for home oxygen with desaturations with exertion. DISCHARGE EXAM: NAD, alert and oriented. Fluent speech. Lungs are diminished with prolonged expiratory phase, normal rate and effort. Heart is regular, no murmur gallop or rub. Abdomen is soft, non distended. Extremities are free of edema. IMAGING: CT scan - chest: Radiologist's impression: No acute pulmonary emboli. No evidence for acute right-sided heart strain. Interval resolution of previously described anteromedial right upper lobe consolidation/mass. Stable 0.8 x 0.6 cm posterior right lower lobe pulmonary nodule. Recommend follow-up CT in 6 months to document continued stability. Redemonstration of moderate upper lobe predominant pulmonary emphysematous changes. Coronary atherosclerosis. A/P: 1. Acute COPD exacerbation with acute hypoxic respiratory failure, Improved. 2. Nausea, improved. 3. New oral thrush. PLAN: Discharge home, stop steroids. Zofran provided for her intermittent nausea as well as nystatin swish and swallow for early thrush. [N], the patient has documentation of a left ventricle ejection fracture less than or equal to 40%, or moderately or severely reduced left ventricle systolic function. [N], the patient has a history of heart transplant or left ventricular assist device (LVAD). [N], the patient was prescribed an CHRIS inhibitor at discharge or is already being taken. The patient was not prescribed an CHRIS-inhibitor because of the following exception: NA. [N], the patient was prescribed Metoprolol succinate, bisoprolol, or carvedilol at discharge. The patient was not prescribed Metoprolol succinate, bisoprolol, or carvedilol at discharge because of the following exception: NA. Discharge Providers Provider Date of admission: 08/21/25 00:13 Discharge Date: 09/04/25 Primary care physician: Doctor Mike MD Consults: 08/21/25 15:05 Consult to Cardio/Pulmonary Rehabilitation Routine Comment: Physician Instructions: Evaluate and treat Discharge provider: Matthew Beckman MD Summary Status at Discharge Cognitive/behavioral status at discharge: oriented Functional status at discharge: independent ambulation Overall status at discharge: patient is back to baseline Time Spent with Patient Time spent: Greater than 30 minutes Exam Vital Signs (past 8 hours): - 09/04/25 07:00 09/04/25 07:00 09/04/25 09:52 Pulse Rate 103 H Respiratory Rate 18 Pulse Oximetry 98 95 Oxygen Delivery Method Nasal Cannula Nasal Cannula Oxygen Flow Rate 1 Fraction of Inspired Oxygen 24 SaO2/FiO2 Ratio 408 Oxygen Delivery Method Nasal Cannula Oxygen Flow Rate 1 Objective Labs 09/02/25 03:47 09/02/25 03:47 PFSH Medical History COPD (chronic obstructive pulmonary disease) Social History household members: none Smoking Status: Former smoker alcohol intake: never Discharge Plan Discharge Plan Patient Disposition: Home Provider Discharge Comment: Stable for discharge home. Discharge orders & Medications Prescriptions: New ondansetron 4 mg tablet,disintegrating 4 mg PO 3XD PRN (Reason: naus) 2 Days Qty: 15 0RF nystatin 100,000 unit/mL suspension 1 ml PO TID Qty: 60 0RF Rx Instructions: swish and swallow Continued Spiriva Respimat 2.5 mcg/actuation mist 1 puff INHALATION DAILY Patient Comments: inhale 2 puffs once daily albuterol sulfate 2.5 mg /3 mL (0.083 %) solution for nebulization 2.5 mg continuous nebulization Q4HR PRN (Reason: Shortness Of Breath Or Wheezing) Patient Comments: [NO ORIGINAL SIG] trazodone 50 mg tablet 50 mg PO ONCE PM PRN (Reason: Insomnia) hydroxyzine HCl 50 mg tablet 50 mg PO QID PRN (Reason: Anxiety) albuterol sulfate 90 mcg/actuation HFA aerosol inhaler 2 puff inhalation Q6H PRN (Reason: Shortness Of Breath Or Wheezing) budesonide-formoterol 160-4.5 mcg/actuation Hfa Aerosol Inhaler 2 puff INHALATION BID azithromycin 500 mg tablet 500 mg PO 3XW Follow up/Referrals: Miscellaneous,Doctor, MD [Primary Care Provider, Medical] Discharge Health Status Multidrug resistant organism: No MDRO Diet/Activity/Treatments Diet: Regular Visit Report/Discharge Packet Instructions: DI for Chronic Obstructive Pulmonary Disease Stand Alone Forms: Patient Portal/API, Influenza Vaccine Info, Notice of Privacy Practices, Inpatient vs Outpatient, Pneumococcal Vaccine Info, Pt. Rights & Responsibilities Discharge Data Primary Care Provider: Mike,Doctor Quality VTE Deep Vein Thrombosis/Pulmonary Embolism Present on Admission: No
--- NOTE | 2025-09-04 11:55 | DIET.PN1 ---
Dietary Progress Note Assessment: F/u LOS. EMR reviewed. Pt with PO intakes 75-100% recorded, DFM reviewed for meal adequacy. No nutritional interventions needed at this time. F/u 5-7 days for LOS. Ht: 160.02 cm Wt: 63.503 kg BMI: 24.7 UBW: 65.7 kg on 02/17/25 Last BM: 09/01/25 (09/01/25 08:00) MNA: 14 Sohail Score: 20 Diet: 08/21/25 Breakfast General (Regular) Diet Diet Modifications: Nutrition Percent Meal Consumed 100% 09/03/25 18:21 Percent Meal Consumed 100% 09/03/25 13:00 Percent Meal Consumed 100% 09/03/25 09:29 Percent Meal Consumed 100% 09/02/25 18:00 Percent Meal Consumed 100% 09/02/25 13:41 Labs: RBC 4.96 X10^6/uL (4.0-5.2) 09/02/25 03:47 Hgb 13.6 g/dL (12.0-16.0) 09/02/25 03:47 Hct 40.6 % (36-46) 09/02/25 03:47 Creatinine 0.51 mg/dL (0.52-1.04) L 09/02/25 03:47 NT-Pro-B Natriuret Pep 69 pg/mL (<125) 08/20/25 19:28 Electronically Signed by: Sumaya Blackburn 09/04/25 11:55 Clinical Dietitian [address] [id number]
--- NOTE | 2025-09-04 11:59 | CM.DPNOTE ---
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 per RN, no new obvious needs at this time. P: will transport self home with OP pulm f/u already. CM team will continue to follow as needed should any DCP needs arise. no identified barriers to safe dc home at this time EUGENIA Cai
--- NOTE | 2025-09-04 12:42 | PC.NURSE ---
1235: discharge instructions given and understood by pt. PIV removed. Portal Oxygen system given to patient for Home O2. escorted to private vehicle via wheelchair.
== END 2025-09-04 12:35 | disposition home or self-care (01) | DRG 190 ==
LOC: ED 23:51 → AC 08-21 08:06
PROVIDERS: Family Medicine; Internal Medicine; Admitting Provider Internal Medicine; Emergency Provider Emergency Medicine; Referring Provider Emergency Medicine; Visit Provider Internal Medicine
DX: J44.1 Chronic obstructive pulmonary disease with (acute) exacerbation (principal); J96.01 Acute respiratory failure with hypoxia; E87.1 Hypo-osmolality and hyponatremia; B37.0 Candidal stomatitis; R11.2 Nausea with vomiting, unspecified; K59.00 Constipation, unspecified; R91.1 Solitary pulmonary nodule; F41.9 Anxiety disorder, unspecified; G47.00 Insomnia, unspecified; Z79.51 Long term (current) use of inhaled steroids; Z87.891 Personal history of nicotine dependence
CPT/HCPCS: 36415; 70450; 71045; 71275; 74176; 80048; 80053; 83690; 83735; 83880; 84484; 85025; 87637; 93005; 94618; 94640; 94760; 94762; 96365; 96375; 99285; A9270; J0692; J0696; J1650; J2405; J2765; J2919; J3475; J7050; J7060; J7613; Q9967